=== PATIENT | male | born 1940 | race Caucasian/White ===

== ENCOUNTER 2017-01-09 01:49 | Inpatient (IN) | payer MEDICARE ==
[2017-01-09] VITALS (7 sets, daily range): BP systolic 132–194; BP diastolic 71–93; PULSE 80–93; RESP 16–18; TEMP 97.7–99.6; O2SAT 93–99
[~2017-01-09] VITALS: Ht 175.3 cm; Wt 84.7 kg
[~2017-01-09 01:49] MED LIST: ASPI81TA11 PO; CLON1TAB PO; COUM2TAB PO; COUM4TAB7 PO; EPIP0.3I IM; FLUO20TA20 PO; LOVA40TA PO; ROPI.5 PO; TAB-TAB PO; TAMS0.4C67 PO; VITA400C70 PO; VITA500S3 PO
[2017-01-09] MEDS ORDERED: ASPI-110 PO (02:21)
[2017-01-09] MEDS ORDERED: VITA500T49 PO (02:21)
[2017-01-09] MEDS ORDERED: FLUO20CA4 PO (02:21)
[2017-01-09] MEDS ORDERED: CARB25TA9 PO (02:21)
[2017-01-09] MEDS ORDERED: VITA100T2 (02:21)
[2017-01-09] MEDS ORDERED: TAMS0.4C4 PO (02:21)
[2017-01-09] MEDS ORDERED: HYDR-3533 PO (02:21)
[2017-01-09] MEDS ORDERED: VITA400C2 PO (02:21)
[2017-01-09] MEDS ORDERED: WARF4TAB51 PO (02:21)
[2017-01-09] MEDS ORDERED: GABA600T PO (02:21)
[2017-01-09] MEDS ORDERED: WARF-20 PO (02:21)
[2017-01-09] MEDS ORDERED: FINA5TAB2 PO (02:21)
[2017-01-09] MEDS ORDERED: VISICAP PO (02:21)
[2017-01-09] MEDS ORDERED: FOLI400T PO (02:21)
[2017-01-09] MEDS ORDERED: LOVA40TA PO (02:21)
--- NOTE | 2017-01-09 02:26 | PD ---
HPI Chief Complaint: Hypertension Time Seen by Provider: 02:15 Travel History International Travel<30 days: No Contact w/Intl Traveler<30days: No Traveled to known affect area: No History of Present Illness HPI 76-year-old male with history of chronic low back pain, here for evaluation of acute worsening of his lower back pain. The patient reports that he recently had x-rays of his low back and was told that he has degenerative disc disease. He went to a chiropractor recently, and afterwards his symptoms seem to have been worsening. He takes hydrocodone 5/325 at home, however states that this is not improving his pain. Pain is mainly over his lower back and radiates down his bilateral posterior legs. He denies urinary or bowel incontinence or retention. No saddle anesthesia. No leg weakness. No leg paresthesias. Pain is moderate, constant, worse with movement and palpation. Patient has history of lung cancer that was treated several years ago, and is currently in remission. PFSH Past Medical History Arthritis: No Asthma: No Autoimmune Disease: No Blood Disorders: No Anxiety: Yes Depression: Yes Heart Rhythm Problems: No Cancer: Yes (LUNG/ LOBECTOMY 2013) Cardiovascular Problems: Yes High Cholesterol: Yes Chemotherapy: No Chest Pain: No Congestive Heart Failure: No COPD: No Cerebrovascular Accident: Yes (CVA X 3) Diabetes: No Endocrine: No GERD: No Glaucoma: No Genitourinary: Yes Headaches: No Hepatitis: No Hiatal Hernia: No Hypertension: Yes Immune Disorder: No Implanted Vascular Access Dvce: Yes Kidney Stones: No Musculoskeletal: No Neurologic: Yes Psychiatric: Yes Reproductive: No Respiratory: Yes (RUL LUNG MASS) Migraines: No Myocardial Infarction: No Radiation Therapy: No Renal Failure: No Seizures: No Sickle Cell Disease: No Sleep Apnea: No Thyroid Disease: No Ulcer: No Past Surgical History Abdominal Surgery: Yes (AAA stent/ RIGHT LOBECTOMY) AICD: No Body Medical Devices: AAA STENT Cardiac Surgery: No Ear Surgery: No Endocrine Surgery: No Genitourinary Surgery: No Gynecologic Surgery: No Joint Replacement: No Oral Surgery: No Pacemaker: No Thoracic Surgery: Yes (R thorocotomy) Tonsillectomy: Yes Other Surgery: Yes (CAROTID ENDARTERECTOMY RIGHT JUL, 2012) Social History Alcohol Use: Yes (DAILY) Tobacco Use: No (4 years ago) Substance Use: No Allergies-Medications (Allergen,Severity, Reaction): Coded Allergies: Bees (Unverified Allergy, Severe, ANAPHYLACTIC SHOCK, 01/09/17) Fire Ant (Unverified Allergy, Severe, ANAPHYLAXIS.HIVES, 01/09/17) Penicillin (Verified Allergy, Severe, 01/09/17) Reported Meds & Prescriptions Reported Meds & Active Scripts Active Reported Carbidopa-Levodopa 25-100 Mg Tab 1 Tab PO HS Vitamin B-1 (Thiamine HCl) 100 Mg Tab Tamsulosin (Tamsulosin HCl) 0.4 Mg Cap 0.4 Mg PO HS Lortab (Hydrocodone-Acetaminophen) 5-325 Mg Tab 1 Tab PO Q6H PRN Gabapentin 600 Mg Tab 600 Mg PO TID Warfarin 2 Mg Tab 2 Mg PO WEEKLY PRN Warfarin 4 Mg Tab 4 Mg PO WEEKLY Finasteride 5 Mg Tab 5 Mg PO DAILY Do not crush. Aspirin 81 (Aspirin) 81 Mg Tabdr 81 Mg PO DAILY Folic Acid 400 Mcg Tab 400 Mcg PO DAILY Vitamin B12 (Cyanocobalamin) 500 Mcg Tab 5,000 Mcg PO DAILY Lovastatin 40 Mg Tab 40 Mg PO DAILY Fluoxetine (Fluoxetine HCl) 20 Mg Cap 20 Mg PO DAILY Vitamin E 400 Unit Cap 400 Units PO DAILY Vision Plus (Multiple Vitamins W/ Minerals) 1 Cap 1 Cap PO DAILY Review of Systems Except as stated in HPI: all other systems reviewed are Neg Physical Exam Narrative GENERAL: Well-developed, well-nourished, sitting comfortably on the edge of the stretcher, no acute distress. SKIN: Focused skin assessment warm/dry. No rash. HEAD: Atraumatic. Normocephalic. EYES: Pupils equal and round. No scleral icterus. No injection or drainage. ENT: Mucous membranes pink and moist. NECK: Trachea midline. No JVD. CARDIOVASCULAR: Regular rate and rhythm. Distal pulses brisk and equal bilaterally. RESPIRATORY: No accessory muscle use. Clear to auscultation. Breath sounds equal bilaterally. GASTROINTESTINAL: Abdomen soft, non-tender, nondistended. Hepatic and splenic margins not palpable. MUSCULOSKELETAL: No obvious deformities. No clubbing. No cyanosis. No edema. Midline lumbar spine tenderness without step-off. There is also bilateral SI joint tenderness. NEUROLOGICAL: Awake and alert. No obvious cranial nerve deficits. Motor grossly within normal limits. Normal speech. Brisk patellar tendon reflexes bilaterally. Normal sensation and muscle strength in bilateral lower extremities. No saddle anesthesia. PSYCHIATRIC: Appropriate mood and affect; insight and judgment normal. Data Data Last Documented VS Vital Signs Date Time Temp Pulse Resp B/P Pulse Ox O2 Delivery O2 Flow Rate FiO2 01/09/17 06:10 99 Room Air 01/09/17 03:42 87 18 144/77 01/09/17 01:51 97.7 Orders Morphine Inj (Morphine Inj) (01/09/17 02:30) Diazepam (Valium) (01/09/17 02:30) Ct Thor Spine W/O Contrast (01/09/17 ) Ct Lumb Spine W/O Contrast (01/09/17 ) Hydromorphone Pf Inj (Dilaudid Pf Inj) (01/09/17 04:45) Basic Metabolic Panel (Bmp) (01/09/17 05:27) Complete Blood Count With Diff (01/09/17 05:27) Prothrombin Time / Inr (Pt) (01/09/17 05:27) Act Partial Throm Time (Ptt) (01/09/17 05:27) Iv Access Insert/Monitor (01/09/17 05:27) Ecg Monitoring (01/09/17 05:27) Oximetry (01/09/17 05:27) Sodium Chloride 0.9% Flush (Ns Flush) (01/09/17 05:30) Mri L Spine W&W/O Contrast (01/09/17 ) Labs Laboratory Tests Test 01/09/17 06:10 White Blood Count 12.7 TH/MM3 Red Blood Count 5.16 MIL/MM3 Hemoglobin 16.4 GM/DL Hematocrit 47.3 % Mean Corpuscular Volume 91.7 FL Mean Corpuscular Hemoglobin 31.7 PG Mean Corpuscular Hemoglobin 34.6 % Concent Red Cell Distribution Width 14.1 % Platelet Count 222 TH/MM3 Mean Platelet Volume 7.2 FL Neutrophils (%) (Auto) 69.7 % Lymphocytes (%) (Auto) 18.3 % Monocytes (%) (Auto) 10.2 % Eosinophils (%) (Auto) 1.0 % Basophils (%) (Auto) 0.8 % Neutrophils # (Auto) 8.8 TH/MM3 Lymphocytes # (Auto) 2.3 TH/MM3 Monocytes # (Auto) 1.3 TH/MM3 Eosinophils # (Auto) 0.1 TH/MM3 Basophils # (Auto) 0.1 TH/MM3 CBC Comment DIFF FINAL Differential Comment Prothrombin Time 54.3 SEC Prothromb Time International 4.6 RATIO Ratio Activated Partial 67.1 SEC Thromboplast Time Sodium Level 140 MEQ/L Potassium Level 4.0 MEQ/L Chloride Level 107 MEQ/L Carbon Dioxide Level 25.7 MEQ/L Anion Gap 7 MEQ/L Blood Urea Nitrogen 19 MG/DL Creatinine 0.87 MG/DL Estimat Glomerular Filtration 86 ML/MIN Rate Random Glucose 105 MG/DL Calcium Level 8.9 MG/DL MDM Medical Decision Making Medical Screen Exam Complete: Yes Emergency Medical Condition: Yes Differential Diagnosis Chronic low back pain, degenerative disc disease, cord compression less likely, metastatic disease, sciatica, dissection unlikely Narrative Course Initial vital signs show heart rate 93, blood pressure 194/93, pulse ox 97% on room air, oral temp of 97.7F. Blood pressure improved to 144/[address] thoracic spine: FINDINGS: Sagittal images demonstrate normal vertebral body alignment and curvature. No fractures identified. Axial images performed from T1-T2 through T12-L1. There is multilevel marginal osteophyte formation throughout the thoracic spine. There is mild scoliotic deformity convex to the right. There are enlarged middle mediastinal nodes of uncertain significance. Coronary artery calcifications are present. CT lumbar spine: CONCLUSION: 1. Compression fracture superior endplate of L3 age uncertain. MRI could be performed to evaluate for marrow edema. 2. Mild degenerative changes as described above. Mild stenosis at L4-L5. 3. Moderate foraminal narrowing on the right at L4-L5 Patient was made aware of all findings. He is initially given a dose of IM morphine followed by a dose of IM Dilaudid. Given CT lumbar spine findings of possible L3 fracture of uncertain age with recommendation for an MRI, and given the patient's ongoing pain, MRI will be ordered. At approximately 7:00 AM at the end of my shift the patient was signed out to oncoming provider Dr. Ortiz who will follow-up with MRI results and will disposition the patient appropriately. Naman Alfredo MD Jan 09, 2017 02:26
[2017-01-09] MEDS ORDERED: MORPHINE SULFATE 8 MG/ML INJ IM ONE (02:30)
[2017-01-09] MEDS ORDERED: DIAZEPAM 5 MG TAB PO ONE ×2 (02:30→10:15)
--- NOTE | 2017-01-09 04:35 | RADRPT ---
EXAM DATE/TIME: 01/09/2017 03:17 [facility] COMPARISON: No previous studies available for comparison. INDICATIONS : Upper back pain. No known trauma. RADIATION DOSE: 35.86 CTDIvol (mGy) ; Combined studies - Thoracic Spine/Lumbar Spine MEDICAL HISTORY : Cardiovascular disease. Carcinoma, lung. CVA. SURGICAL HISTORY : Tonsillectomy. Abdominal aortic aneurysm repair.Lobectomy. ENCOUNTER: Initial ACUITY: 4 - 6 months PAIN SCALE: 6/10 LOCATION: thoracic. TECHNIQUE: Volumetric scanning of the thoracic spine was performed. Multiplanar reconstructions in the sagittal, coronal and oblique axial planes were performed. Using automated exposure control a nd adjustment of the mA and/or kV according to patient size, radiation dose was kept as low as reason ably achievable to obtain optimal diagnostic quality images. FINDINGS: Sagittal images demonstrate normal vertebral body alignment and curvature. No fractures identified. A xial images performed from T1-T2 through T12-L1. There is multilevel marginal osteophyte formation th roughout the thoracic spine. There is mild scoliotic deformity convex to the right. There are enlarge d middle mediastinal nodes of uncertain significance. Coronary artery calcifications are present. T1-T2: No significant abnormalities identified. T2-T3: No significant abnormalities identified. T3-T4: No significant abnormalities identified. T4-T5: No significant abnormalities identified. T5-T6: No significant abnormalities identified. T6-T7: No significant abnormalities identified. T7-T8: No significant abnormalities identified. T8-T9: No significant abnormalities identified. T9-T10: No significant abnormalities identified. T10-T11: No significant abnormalities identified. T11-T12: No significant abnormalities identified. T12-L1: No significant abnormalities identified. CONCLUSION: Moderate degenerative changes as described above.. No evidence of fracture. Jose Alejandro Joel MD on January 09, 2017 at 4:30 Board Certified Radiologist. This report was verified electronically.
--- NOTE | 2017-01-09 04:41 | RADRPT ---
EXAM DATE/TIME: 01/09/2017 03:17 [facility] COMPARISON: No previous studies available for comparison. INDICATIONS : Lower back pain. No known trauma. RADIATION DOSE: 35.86 CTDIvol (mGy) ; Combined studies - Thoracic Spine/Lumbar Spine MEDICAL HISTORY : Cardiovascular disease. Carcinoma, lung. CVA. SURGICAL HISTORY : Tonsillectomy. Lobectomy.Abdominal aortic aneurysm repair. ENCOUNTER: Initial ACUITY: 4 - 6 months PAIN SCALE: 6/10 LOCATION: lumbar TECHNIQUE: Volumetric scanning of the lumbar spine was performed. Multiplanar reconstructions in the sagittal, coronal and oblique axial planes were performed. Using automated exposure control and adjustment of the mA and/or kV according to patient size, radiation dose was kept as low as reasonably achievable t o obtain optimal diagnostic quality images. FINDINGS: Sagittal images demostrate normal vertebral body alignment and curvature. There is compression of the L3 vertebral body involving the superior endplate. Age is uncertain. MRI is recommended for further evaluation if clinically indicated.. Axial images performed from T12-L1 through L5-S1. Aortic stent g raft is in place. There is a single stone within the left kidney without hydronephrosis measuring 4 m m. T12-L1: No significant abnormalities identified. L1-L2: No significant abnormalities identified. L2-L3: There is mild diffuse annular bulge of the disc. The neural foramina are clear bilaterally. There is no significant spinal canal stenosis. L3-L4: There is broad-based annular bulge of disc. There is mild facet arthritis and ligamentum flavum hyper trophy bilaterally. There is no evidence of acute fracture. L4-L5: There is broad-based annular bulge of disc asymmetric to the right. There is mild spinal canal stenos is. L5-S1: There is mild annular bulge of the disc. There is moderate facet arthritis bilaterally with ligamentu m flavum hypertrophy. The neural foramina are clear bilaterally. CONCLUSION: 1. Compression fracture superior endplate of L3 age uncertain. MRI could be performed to evaluate for marrow edema. 2. Mild degenerative changes as described above. Mild stenosis at L4-L5. 3. Moderate foraminal narrowing on the right at L4-L5 Jose Alejandro Joel MD on January 09, 2017 at 4:33 Board Certified Radiologist. This report was verified electronically.
[2017-01-09] MEDS ORDERED: HYDROmorphone HCL PF 1 MG/ML VIAL IM ONE (04:45)
[2017-01-09] MEDS ORDERED: SODIUM CHLORIDE 0.9% FLUSH 10 ML FLUSH IV FLUSH PRN ×2 (05:30→10:30)
[2017-01-09 06:25] LABS: AUTOMATED NEUTROPHIL # 8.8 TH/MM3 (1.8-7.7); BASOPHIL # 0.1 TH/MM3 (0-0.2); BASOPHIL % 0.8 % (0.0-2.0); EOSINOPHIL # 0.1 TH/MM3 (0-0.4); HEMATOCRIT 47.3 % (39.0-51.0); HEMO FLAGS DIFF FINAL; LYMPH % 18.3 % (9.0-44.0); LYMPHOCYTE # 2.3 TH/MM3 (1.0-4.8); MEAN CELL VOLUME 91.7 FL (80.0-100.0); MEAN CORPUSCULAR HEMOGLOBIN 31.7 PG (27.0-34.0); MEAN CORPUSCULAR HGB CONC 34.6 % (32.0-36.0); MONO % 10.2 % (0.0-8.0); NEUT % 69.7 % (16.0-70.0); PLATELET COUNT 222 TH/MM3 (150-450); RED BLOOD COUNT 5.16 MIL/MM3 (4.50-5.90); RED CELL DISTRIBUTION WIDTH 14.1 % (11.6-17.2); WHITE BLOOD COUNT 12.7 TH/MM3 (4.0-11.0)
[2017-01-09 06:38] LABS: APTT (PATIENT) 67.1 SEC (24.3-30.1); INTERNATIONAL NORMALIZED RATIO 4.6 RATIO; PROTHROMBIN TIME - PATIENT 54.3 SEC (9.8-11.6)
[2017-01-09 06:43] LABS: BICARBONATE 25.7 MEQ/L (21.0-32.0)
--- NOTE | 2017-01-09 07:43 | PD ---
Data Data Last Documented VS Vital Signs Date Time Temp Pulse Resp B/P Pulse Ox O2 Delivery O2 Flow Rate FiO2 01/09/17 07:22 18 01/09/17 06:10 99 Room Air 01/09/17 03:42 87 144/77 01/09/17 01:51 97.7 Orders Morphine Inj (Morphine Inj) (01/09/17 02:30) Diazepam (Valium) (01/09/17 02:30) Ct Thor Spine W/O Contrast (01/09/17 ) Ct Lumb Spine W/O Contrast (01/09/17 ) Hydromorphone Pf Inj (Dilaudid Pf Inj) (01/09/17 04:45) Basic Metabolic Panel (Bmp) (01/09/17 05:27) Complete Blood Count With Diff (01/09/17 05:27) Prothrombin Time / Inr (Pt) (01/09/17 05:27) Act Partial Throm Time (Ptt) (01/09/17 05:27) Iv Access Insert/Monitor (01/09/17 05:27) Ecg Monitoring (01/09/17 05:27) Oximetry (01/09/17 05:27) Sodium Chloride 0.9% Flush (Ns Flush) (01/09/17 05:30) Mri L Spine W&W/O Contrast (01/09/17 ) Gadodiamide Pf Inj (Omniscan Pf Inj) (01/09/17 08:34) Hydromorphone Pf Inj (Dilaudid Pf Inj) (01/09/17 10:15) Acetamin-Hydrocod 325-5 Mg ([place] 5-325 (01/09/17 10:15) Diazepam (Valium) (01/09/17 10:15) Consult Neurosurgery (01/09/17 ) Labs Laboratory Tests Test 01/09/17 06:10 White Blood Count 12.7 TH/MM3 Red Blood Count 5.16 MIL/MM3 Hemoglobin 16.4 GM/DL Hematocrit 47.3 % Mean Corpuscular Volume 91.7 FL Mean Corpuscular Hemoglobin 31.7 PG Mean Corpuscular Hemoglobin 34.6 % Concent Red Cell Distribution Width 14.1 % Platelet Count 222 TH/MM3 Mean Platelet Volume 7.2 FL Neutrophils (%) (Auto) 69.7 % Lymphocytes (%) (Auto) 18.3 % Monocytes (%) (Auto) 10.2 % Eosinophils (%) (Auto) 1.0 % Basophils (%) (Auto) 0.8 % Neutrophils # (Auto) 8.8 TH/MM3 Lymphocytes # (Auto) 2.3 TH/MM3 Monocytes # (Auto) 1.3 TH/MM3 Eosinophils # (Auto) 0.1 TH/MM3 Basophils # (Auto) 0.1 TH/MM3 CBC Comment DIFF FINAL Differential Comment Prothrombin Time 54.3 SEC Prothromb Time International 4.6 RATIO Ratio Activated Partial 67.1 SEC Thromboplast Time Sodium Level 140 MEQ/L Potassium Level 4.0 MEQ/L Chloride Level 107 MEQ/L Carbon Dioxide Level 25.7 MEQ/L Anion Gap 7 MEQ/L Blood Urea Nitrogen 19 MG/DL Creatinine 0.87 MG/DL Estimat Glomerular Filtration 86 ML/MIN Rate Random Glucose 105 MG/DL Calcium Level 8.9 MG/DL MDM Supervised Visit with ALAINA: No Narrative Course Patient signed out to me by previous provider. Please see associated no for further details. In short patient is a 76-year-old male with acute on chronic low back pain and remote history of lung cancer status post resection. In previous provider had concern for possible metastases given his worsening pain. CT of the thoracic and lumbar spine were obtained and showed compression fracture of the superior endplate of L3, age uncertain. Given patient's pain and MRI was ordered to evaluate for any marrow edema. Patient does not however have any bowel, bladder incontinence or retention, saddle anesthesia, leg weakness or paresthesias. Patient signed out to me pending MRI for hopeful disposition home. Laboratory workup notable for INR supratherapeutic at 4.6. MRI of the lumbar spine showed a superior endplate fracture of L3 with mild compression. Neuroforaminal compromise and bilateral compromise L4 5 without significant thecal sac stenosis. Effacement anterior CSF space at L2-3 due to bulging disks with compromise to the anterior CSF space no thecal sac stenosis. I spoke with Dr. Pope of neurosurgery and due to patient's persistent pain requirement, recommended admission for kyphoplasty if patient was agreeable. Discussed with patient and his . Patient still quite uncomfortable required repeat doses of Dilaudid, [place], Valium. Patient will be admitted for kyphoplasty. Diagnosis Primary Impression: L3 vertebral fracture Qualified Code: S32.038A - Other closed fracture of third lumbar vertebra, initial encounter Additional Impression: Supratherapeutic INR Admitting Information Admitting Physician Requests: Admit Jaquelin Ortiz MD Jan 09, 2017 07:43
[2017-01-09] MEDS ORDERED: GADODIAMIDE PF 287 MG/ML 20 ML VIAL (for RAD MRI) IV ONE (08:34)
--- NOTE | 2017-01-09 09:16 | RADRPT ---
EXAM DATE/TIME: 01/09/2017 08:15 [facility] COMPARISON: CT LUMBAR SPINE W/O CONTRAST, January 09, 2017, 3:17. INDICATIONS : Pain. CONTRAST: 20 cc Omniscan (gadodiamide) IV MEDICAL HISTORY : Hypertension. Carcinoma, lung. SURGICAL HISTORY : Lobectomy. Carotid endarterectomy. Abdominal aortic aneurysm repair. ENCOUNTER: Initial ACUITY: 1 day PAIN SCORE: 7/10 LOCATION: Par[facility] TECHNIQUE: Multiplanar multisequence MRI of the lumbar spine was performed with and without contrast. FINDINGS: The most caudal appearing lumbar vertebra is numbered as L5. There is fracture of superior endplate o f L3 with mild depression and slight marrow edema at this site. 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 T12-L1: There is no evidence for any significant compromise to the thecal sac, or the exiting nerve roots. N o appreciable thecal sac stenosis is seen. The neural foramina and lateral recess appear patent bila terally.L1-L2: There is no evidence for any significant compromise to the thecal sac, or the exiting nerve roots. N o appreciable thecal sac stenosis is seen. The neural foramina and lateral recess appear patent bila terally. L2-L3: There is effacement of the anterior CSF space due to chronic hypertrophic changes, some degree of bul ging disc with compromise to the anterior CSF space, however overall no significant thecal sac stenos is is seen. L3-L4: There is symmetrical bulging disc with extension into the bilateral neural foramen. There is no evide nce for any significant compromise to the thecal sac, or the exiting nerve roots. No appreciable the genie sac stenosis is seen. The neural foramina and lateral recess appear patent bilaterally. L4-L5: There is slight neural foramina compromise bilaterally due to bulging disc and hypertrophic changes. Slight degenerative changes are seen within the disc space and facets. Slight bilateral lateral reces s compromise is seen due to hypertrophic changes and bulging disc. Slight bulging disc and hypertroph ic changes are seen with indentation on the thecal sac and no significant compromise to the thecal sa c. L5-S1: There is no evidence for any significant compromise to the thecal sac, or the exiting nerve roots. N o appreciable thecal sac stenosis is seen. The neural foramina and lateral recess appear patent bila terally. CONCLUSION: 1. Superior endplate fracture of L3 with mild depression at this site. 2. Slight neural foramina compromise and bilateral atelectasis compromise L4-L5 without any significa nt thecal sac stenosis. 3. There is effacement of the anterior CSF space at L2-3 due to bulging disc with compromise to the a nterior CSF space, however overall no significant thecal sac stenosis is seen. Shanon Conte MD on January 09, 2017 at 9:02 Board Certified Radiologist. This report was verified electronically.
[2017-01-09] MEDS ORDERED: HYDROmorphone HCL PF 1 MG/ML VIAL IV PUSH ONE (10:15)
[2017-01-09] MEDS ORDERED: ACETAMINOPHEN/HYDROcodone 325 MG/5 MG TAB PO ONE (10:15)
[2017-01-09] MEDS ORDERED: ACETAMINOPHEN 325 MG TAB PO PRN (10:30)
[2017-01-09] MEDS ORDERED: ACETAMINOPHEN/HYDROcodone 325 MG/5 MG TAB PO PRN ×2 (10:30→20:30)
[2017-01-09] MEDS ORDERED: HYDROmorphone HCL PF 1 MG/ML VIAL IV PUSH PRN (10:30)
[2017-01-09] MEDS ORDERED: NALOXONE HCL 0.4 MG/ML AMP IV PRN (10:30)
[2017-01-09] MEDS ORDERED: ONDANSETRON HCL 4 MG/2 ML VIAL IVP PRN (10:30)
[2017-01-09] MEDS ORDERED: TEMAZEPAM 15 MG CAP PO PRN (10:30)
[2017-01-09] MEDS ORDERED: MAGNESIUM HYDROXIDE SUSP 30 ML CUP PO PRN (10:30)
--- NOTE | 2017-01-09 11:10 | RADRPT ---
EXAM DATE/TIME: 01/09/2017 10:28 [facility] COMPARISON: CHEST SINGLE AP, December 07, 2013, 4:35. INDICATIONS : Chest and back pain. MEDICAL HISTORY : None. SURGICAL HISTORY : None. ENCOUNTER: Initial ACUITY: 1 day PAIN SCORE: 5/10 LOCATION: Bilateral chest FINDINGS: Bibasilar opacities are present may be due to a combination of consolidation and or pleural effusion. Slight degree of pulmonary edema is also suspected. There are atherosclerotic calcifications of the aorta due to chronic atherosclerotic disease. CONCLUSION: Bibasilar atelectasis and/or infiltrate and probable mild pulmonary edema as well. Shanon Conte MD on January 09, 2017 at 11:07 Board Certified Radiologist. This report was verified electronically.
[2017-01-09] MEDS: DOCUSATE SODIUM 100 MG CAP PO SCH ×3 (11:32→20:35)
[2017-01-09] MEDS: GABAPENTIN 300 MG CAP PO SCH ×2 (14:01→16:16)
--- NOTE | 2017-01-09 17:44 | HHI.HP ---
HPI Service [facility] Hospitalists Primary Care Physician Non-Staff Admission Diagnosis L3 superior end plate fracture Chief Complaint: LBP Travel History International Travel<30 Days: No Contact w/Intl Traveler <30 Da: No Traveled to Known Affected Are: No History of Present Illness Patient is a pleasant 76-year-old male with history of lung cancer, status post resection. Patient presented to the ER today with complaint of acute low back pain. Pain has been worsening over the last several weeks, but more acute this morning making it difficult to ambulate. Patient tried chiropractic medicine without improvement. Pain does not resolve with hydrocodone 5 mg. Patient denied bowel or bladder incontinence or retention. MRI of the lumbar spine confirmed L3 compression fracture. Case was discussed between ER physician and Dr. Pope. Dr. Pope recommended admission for kyphoplasty. Review of Systems Constitutional: DENIES: Diaphoretic episodes, Fatigue, Fever, Weight gain, Weight loss, Chills, Dizziness, Change in appetite, Night Sweats Endocrine: DENIES: Heat/cold intolerance, Polydipsia, Polyuria, Polyphagia Eyes: DENIES: Blurred vision, Diplopia, Eye inflammation, Eye pain, Vision loss , Photosensitivity, Double Vision Ears, nose, mouth, throat: DENIES: Tinnitus, Hearing loss, Vertigo, Nasal discharge, Oral lesions, Throat pain, Hoarseness, Ear Pain, Running Nose, Epistaxis, Sinus Pain, Toothache, Odynophagia Respiratory: DENIES: Apneas, Cough, Snoring, Wheezing, Hemoptysis, Sputum production, Shortness of breath Cardiovascular: DENIES: Chest pain, Palpitations, Syncope, Dyspnea on Exertion , PND, Lower Extremity Edema, Orthopnea, Claudication Gastrointestinal: DENIES: Abdominal pain, Black stools, Bloody stools, BRB per rectum, Constipation, Diarrhea, GERD, Nausea, Reflux, Vomiting, Difficulty Swallowing, Anorexia Genitourinary: DENIES: Urinary frequency, Urinary incontinence, Urgency, Hematuria, Dysuria, Nocturia Musculoskeletal: DENIES: Joint pain, Muscle aches, Stiffness, Joint Swelling, Back pain, Neck pain Integumentary: DENIES: Abnormal pigmentation, Nail changes, Pruritus, Rash Hematologic/lymphatic: DENIES: Bruising, Lymphadenopathy Immunologic/allergic: DENIES: Eczema, Urticaria Neurologic: COMPLAINS OF: Abnormal gait, DENIES: Headache, Localized weakness , Paresthesias, Seizures, Speech Problems, Tremor, Poor Balance Psychiatric: DENIES: Anxiety, Confusion, Mood changes, Depression, Hallucinations, Agitation, Suicidal Ideation, Homicidal Ideation, Delusions, History of Bipolar, History of Schizophrenia Past Family Social History Past Medical History Atrial arrhytmia (On chronic anticoagulant therapy.) Carotid artery stenosis COPD HTN Stroke? R lung cancer, s/p resection RLS BPH Past Surgical History AAA s/p stent Tonsillectomy RULobectomy in 2013 Colonoscopy in 2011 R carotid endarterectomy in 2011 Reported Medications Reported Meds & Active Scripts Active Reported Carbidopa-Levodopa 25-100 Mg Tab 1 Tab PO HS Vitamin B-1 (Thiamine HCl) 100 Mg Tab Tamsulosin (Tamsulosin HCl) 0.4 Mg Cap 0.4 Mg PO BID Lortab (Hydrocodone-Acetaminophen) 5-325 Mg Tab 1 Tab PO Q6H PRN Gabapentin 600 Mg Tab 600 Mg PO TID Warfarin 2 Mg Tab 2 Mg PO WEEKLY PRN Warfarin 4 Mg Tab 4 Mg PO WEEKLY Finasteride 5 Mg Tab 5 Mg PO DAILY Do not crush. Aspirin 81 (Aspirin) 81 Mg Tabdr 81 Mg PO DAILY Folic Acid 400 Mcg Tab 400 Mcg PO DAILY Vitamin B12 (Cyanocobalamin) 500 Mcg Tab 5,000 Mcg PO DAILY Lovastatin 40 Mg Tab 40 Mg PO DAILY Fluoxetine (Fluoxetine HCl) 20 Mg Cap 20 Mg PO DAILY Vitamin E 400 Unit Cap 400 Units PO DAILY Vision Plus (Multiple Vitamins W/ Minerals) 1 Cap 1 Cap PO DAILY Allergies: Coded Allergies: Bees (Unverified Allergy, Severe, ANAPHYLACTIC SHOCK, 01/09/17) Fire Ant (Unverified Allergy, Severe, ANAPHYLAXIS.HIVES, 01/09/17) Penicillin (Verified Allergy, Severe, 01/09/17) Family History Noncontributory Social History - occasional alcoholic beverage - former smoker, pt quit smoking 4 years ago - NO illicit street drugs Physical Exam Vital Signs Vital Signs Date Time Temp Pulse Resp B/P Pulse Ox O2 Delivery O2 Flow Rate FiO2 01/09/17 15:46 99.6 88 18 139/71 93 01/09/17 15:16 72 18 132/74 96 01/09/17 12:08 18 01/09/17 11:36 82 18 136/78 98 Room Air 01/09/17 07:30 80 18 148/76 97 Room Air 01/09/17 07:22 18 01/09/17 06:10 99 Room Air 01/09/17 03:42 87 18 144/77 99 Room Air 01/09/17 01:51 97.7 93 16 194/93 97 Room Air Physical Exam GENERAL: This is a well-nourished, well-developed patient, in no apparent distress. SKIN: No rashes, ecchymoses or lesions. Cool and dry. HEAD: Atraumatic. Normocephalic. No temporal or scalp tenderness. EYES: Pupils equal round and reactive. Extraocular motions intact. No scleral icterus. No injection or drainage. ENT: Nose without bleeding, purulent drainage or septal hematoma. Throat without erythema, tonsillar hypertrophy or exudate. Uvula midline. Airway patent. NECK: Trachea midline. No JVD or lymphadenopathy. Supple, nontender, no meningeal signs. CARDIOVASCULAR: Regular rate and rhythm without murmurs, gallops, or rubs. RESPIRATORY: Clear to auscultation. Breath sounds equal bilaterally. No wheezes , rales, or rhonchi. GASTROINTESTINAL: Abdomen soft, non-tender, nondistended. No hepato-splenomegaly , or palpable masses. No guarding. MUSCULOSKELETAL: Extremities without clubbing, cyanosis, or edema. No joint tenderness, effusion, or edema noted. No calf tenderness. Negative Homans sign bilaterally. NEUROLOGICAL: Awake and alert. Cranial nerves II through XII intact. Motor and sensory grossly within normal limits. Five out of 5 muscle strength in all muscle groups. Normal speech. Laboratory Laboratory Tests Test 01/09/17 06:10 White Blood Count 12.7 Red Blood Count 5.16 Hemoglobin 16.4 Hematocrit 47.3 Mean Corpuscular Volume 91.7 Mean Corpuscular Hemoglobin 31.7 Mean Corpuscular Hemoglobin 34.6 Concent Red Cell Distribution Width 14.1 Platelet Count 222 Mean Platelet Volume 7.2 Neutrophils (%) (Auto) 69.7 Lymphocytes (%) (Auto) 18.3 Monocytes (%) (Auto) 10.2 Eosinophils (%) (Auto) 1.0 Basophils (%) (Auto) 0.8 Neutrophils # (Auto) 8.8 Lymphocytes # (Auto) 2.3 Monocytes # (Auto) 1.3 Eosinophils # (Auto) 0.1 Basophils # (Auto) 0.1 CBC Comment DIFF FINAL Differential Comment Prothrombin Time 54.3 Prothromb Time International 4.6 Ratio Activated Partial 67.1 Thromboplast Time Sodium Level 140 Potassium Level 4.0 Chloride Level 107 Carbon Dioxide Level 25.7 Anion Gap 7 Blood Urea Nitrogen 19 Creatinine 0.87 Estimat Glomerular Filtration 86 Rate Random Glucose 105 Calcium Level 8.9 Result Diagram: 01/09/17 0610 01/09/17 0610 Imaging Last Impressions Chest X-Ray 01/09/17 1016 Signed Impressions: Service Date/Time: Monday, January 09, 2017 10:28 - CONCLUSION: Bibasilar atelectasis and/or infiltrate and probable mild pulmonary edema as well. Shanon Conte MD Thoracic Spine CT 01/09/17 0000 Signed Impressions: Service Date/Time: Monday, January 09, 2017 03:17 - CONCLUSION: Moderate degenerative changes as described above.. No evidence of fracture. Jose Alejandro Joel MD Lumbar Spine MRI 01/09/17 0000 Signed Impressions: Service Date/Time: Monday, January 09, 2017 08:15 - CONCLUSION: 1. Superior endplate fracture of L3 with mild depression at this site. 2. Slight neural foramina compromise and bilateral atelectasis compromise L4-L5 without any significant thecal sac stenosis. 3. There is effacement of the anterior CSF space at L2-3 due to bulging disc with compromise to the anterior CSF space, however overall no significant thecal sac stenosis is seen. Shanon Conte MD Lumbar Spine CT 01/09/17 0000 Signed Impressions: Service Date/Time: Monday, January 09, 2017 03:17 - CONCLUSION: 1. Compression fracture superior endplate of L3 age uncertain. MRI could be performed to evaluate for marrow edema. 2. Mild degenerative changes as described above. Mild stenosis at L4-L5. 3. Moderate foraminal narrowing on the right at L4-L5 Jose Alejandro Joel MD Septic Shock Reassessment Heart: Regular rate and rhythm Lungs: Clear Skin: Warm Peripheral Pulses: Bounding Right Radial Bounding Left Radial Bounding Right Popliteal Bounding Left Popliteal Bounding Right Dorsalis Pedis Bounding Left Dorsalis Pedis Bounding Right Posterior Tibial Bounding Left Posterior Tibial Capillary Refill: Brisk Assessment and Plan Problem List: (1) L3 vertebral fracture Status: Acute Plan: - case d/w Dr. Pope (01/09/17) - will reverse coumadin with Vitamin K - repeat INR in AM - kyphoplasty once INR decreased - PT - norco/dilaudid prn - pt will need SNF at the end of this hospitalization (2) Atrial fibrillation, chronic Status: Acute Plan: - metoprolol - coumadin, hold (3) COPD (chronic obstructive pulmonary disease) Status: Acute Plan: - duonebs prn (4) Lung cancer Status: Acute Plan: - s/p resection - pt follows with Dr. Yin (5) HTN (hypertension) Status: Chronic Plan: - stable - metoprolol Physician Certification 2 Midnight Certification Type: Admission for Inpatient Services Order for Inpatient Services The services are ordered in accordance with Medicare regulations or non- Medicare payer requirements, as applicable. In the case of services not specified as inpatient-only, they are appropriately provided as inpatient services in accordance with the 2-midnight benchmark. Estimated LOS (days): 3 3 days is the estimated time the patient will need to remain in the hospital, assuming treatment plan goals are met and no additional complications. Post-Hospital Plan: SNF Problem Qualifiers (1) L3 vertebral fracture: Qualified Code: S32.038A - Other closed fracture of third lumbar vertebra, initial encounter (2) COPD (chronic obstructive pulmonary disease): (3) Lung cancer: Qualified Code: C34.90 - Malignant neoplasm of lung, unspecified laterality, unspecified part of lung (4) HTN (hypertension): Qualified Code: I10 - Essential hypertension Yung Domingo DO Jan 09, 2017 17:44
[2017-01-09] MEDS ORDERED: PHYTONADIONE 5 MG TAB PO ONE (17:45)
[2017-01-09] MEDS ORDERED: RESP: ALBUTEROL 2.5 MG/IPRATROPIUM 0.5 MG NEB (PRN) NEB (17:45)
--- NOTE | 2017-01-09 18:36 | PD.CONS ---
[facility] Service Neurosurgery Consult Requested By [place] Reason for Consult Lumbar fracture Primary Care Physician Non-Staff History of Present Illness This is a 76-year-old male with history of COPD, Atrial arrhytmia (On chronic anticoagulant therapy.),Carotid artery stenosis, HTN and lung cancer, status post resection. He presented to the ER today with complaint of new nset of acute , very severe low back pain. He fell down. His pain has been worsening over the last week, but more acute this morning making it difficult to ambulate. It is sharp, stabbing, in his mid lumbar region. 07/05 He tried chiropractic and pain medications without improvement. It does not resolve with hydrocodone. He denied bowel or bladder incontinence or retention. denies sensory loss. MRI of the lumbar spine confirmed an acute L3 compression fracture. Case was discussed between ER physician and Dr. Pope. Neurosurgical consultation was requested Review of Systems Constitutional: DENIES: Diaphoretic episodes, Fatigue, Fever, Weight gain, Weight loss, Chills, Dizziness, Change in appetite, Night Sweats Endocrine: DENIES: Heat/cold intolerance, Polydipsia, Polyuria, Polyphagia Eyes: DENIES: Blurred vision, Diplopia, Eye inflammation, Eye pain, Vision loss , Photosensitivity, Double Vision Ears, nose, mouth, throat: DENIES: Tinnitus, Hearing loss, Vertigo, Nasal discharge, Oral lesions, Throat pain, Hoarseness, Ear Pain, Running Nose, Epistaxis, Sinus Pain, Toothache, Odynophagia Respiratory: DENIES: Apneas, Cough, Snoring, Wheezing, Hemoptysis, Sputum production, Shortness of breath Cardiovascular: DENIES: Chest pain, Palpitations, Syncope, Dyspnea on Exertion , PND, Lower Extremity Edema, Orthopnea, Claudication Gastrointestinal: DENIES: Abdominal pain, Black stools, Bloody stools, BRB per rectum, Constipation, Diarrhea, GERD, Nausea, Reflux, Vomiting, Difficulty Swallowing, Anorexia Genitourinary: DENIES: Urinary frequency, Urinary incontinence, Urgency, Hematuria, Dysuria, Nocturia Musculoskeletal: DENIES: Joint pain, Muscle aches, Stiffness, Joint Swelling, Back pain, Neck pain Integumentary: DENIES: Abnormal pigmentation, Nail changes, Pruritus, Rash Hematologic/lymphatic: DENIES: Bruising, Lymphadenopathy Immunologic/allergic: DENIES: Eczema, Urticaria Neurologic: COMPLAINS OF: Abnormal gait, DENIES: Headache, Localized weakness , Paresthesias, Seizures, Speech Problems, Tremor, Poor Balance Psychiatric: DENIES: Anxiety, Confusion, Mood changes, Depression, Hallucinations, Agitation, Suicidal Ideation, Homicidal Ideation, Delusions, History of Bipolar, History of Schizophrenia Past Family Social History Allergies: Coded Allergies: Bees (Unverified Allergy, Severe, ANAPHYLACTIC SHOCK, 01/09/17) Fire Ant (Unverified Allergy, Severe, ANAPHYLAXIS.HIVES, 01/09/17) Penicillin (Verified Allergy, Severe, 01/09/17) Past Medical History Atrial arrhytmia (On chronic anticoagulant therapy.) Carotid artery stenosis COPD HTN Stroke? R lung cancer, s/p resection RLS BPH Past Surgical History AAA s/p stent Tonsillectomy RULobectomy in 2013 Colonoscopy in 2011 R carotid endarterectomy in 2011 Reported Medications Carbidopa-Levodopa 25-100 Mg Tab 1 Tab PO HS Vitamin B-1 (Thiamine HCl) 100 Mg Tab Tamsulosin (Tamsulosin HCl) 0.4 Mg Cap 0.4 Mg PO BID Lortab (Hydrocodone-Acetaminophen) 5-325 Mg Tab 1 Tab PO Q6H PRN Gabapentin 600 Mg Tab 600 Mg PO TID Warfarin 2 Mg Tab 2 Mg PO WEEKLY PRN Warfarin 4 Mg Tab 4 Mg PO WEEKLY Finasteride 5 Mg Tab 5 Mg PO DAILY Do not crush. Aspirin 81 (Aspirin) 81 Mg Tabdr 81 Mg PO DAILY Folic Acid 400 Mcg Tab 400 Mcg PO DAILY Vitamin B12 (Cyanocobalamin) 500 Mcg Tab 5,000 Mcg PO DAILY Lovastatin 40 Mg Tab 40 Mg PO DAILY Fluoxetine (Fluoxetine HCl) 20 Mg Cap 20 Mg PO DAILY Vitamin E 400 Unit Cap 400 Units PO DAILY Vision Plus (Multiple Vitamins W/ Minerals) 1 Cap 1 Cap PO DAILY Active Ordered Medications Current Medications Morphine Sulfate (Morphine Inj) 8 mg ONCE ONCE IM Last administered on 02:45; Start 01/09/17 at 02:30; Stop 01/09/17 at 02:31; Status DC Diazepam (Valium) 5 mg ONCE ONCE PO Last administered on 01/09/17 02:45; Start 01/09/17 at 02:30; Stop 01/09/17 at 02:31; Status DC Hydromorphone HCl (Dilaudid Pf Inj) 1 mg ONCE ONCE IM Last administered on 04:43; Start 01/09/17 at 04:45; Stop 01/09/17 at 04:46; Status DC Sodium Chloride (NS Flush) 2 ml UNSCH PRN IV FLUSH FLUSH AFTER USING IV ACCESS ; Start 01/09/17 at 05:30; Stop 01/09/17 at 10:21; Status DC Gadodiamide (Omniscan Pf Inj) 20 ml STK-MED ONCE IV Last administered on 08:34; Start 01/09/17 at 08:34; Stop 01/09/17 at 08:35; Status DC Hydromorphone HCl (Dilaudid Pf Inj) 0.5 mg ONCE ONCE IV PUSH Last administered on 01/09/17 11:31; Start 01/09/17 at 10:15; Stop 01/09/17 at 10:16 ; Status DC Acetaminophen/ Hydrocodone Bitart ([place] 5-325 Mg) 1 tab ONCE ONCE PO Last administered on 01/09/17 11:31; Start 01/09/17 at 10:15; Stop 01/09/17 at 10:16 ; Status DC Diazepam (Valium) 5 mg ONCE ONCE PO Last administered on 01/09/17 11:32; Start 01/09/17 at 10:15; Stop 01/09/17 at 10:16; Status DC Sodium Chloride (NS Flush) 2 ml UNSCH PRN IV FLUSH FLUSH AFTER USING IV ACCESS ; Start 01/09/17 at 10:30 Sodium Chloride (NS Flush) 2 ml BID IV FLUSH Last administered on 01/10/17 08: 47; Start 01/09/17 at 21:00 Acetaminophen (Tylenol) 650 mg Q4H PRN PO TEMP > 100.4; Start 01/09/17 at 10:30 Ondansetron HCl (Zofran Inj) 4 mg Q6H PRN IVP NAUSEA OR VOMITING; Start at 10:30 Magnesium Hydroxide (Milk Of Magnesia Liq) 30 ml Q12H PRN PO CONSTIPATION; Start 01/09/17 at 10:30 Temazepam (Restoril) 15 mg HS PRN PO INSOMNIA Last administered on 01/09/17 23 :08; Start 01/09/17 at 10:30 Naloxone HCl (Narcan Inj) 0.4 mg UNSCH PRN IV SEE LABEL COMMENTS; Start at 10:30 Acetaminophen/ Hydrocodone Bitart ([place] 5-325 Mg) 1 tab Q6H PRN PO PAIN 1-5; Start 01/09/17 at 10:30; Stop 01/09/17 at 18:02; Status DC Hydromorphone HCl (Dilaudid Pf Inj) 0.5 mg Q6H PRN IV PUSH PAIN 6-10 Last administered on 01/09/17 16:17; Start 01/09/17 at 10:30; Stop 01/09/17 at 18:02 ; Status DC Docusate Sodium (Colace) 100 mg BID PO Last administered on 01/09/17 20:35; Start 01/09/17 at 11:00; Stop 01/10/17 at 08:51; Status DC Carbidopa/Levodopa (Sinemet 25-100 Mg) 1 tab HS PO Last administered on 20:36; Start 01/09/17 at 21:00 Finasteride (Proscar) 5 mg HS PO Last administered on 01/09/17 20:36; Start at 21:00 Fluoxetine HCl (PROzac) 20 mg DAILY PO Last administered on 01/10/17 08:49; Start 01/10/17 at 09:00 Gabapentin (Neurontin) 600 mg TID PO Last administered on 01/10/17 08:47; Start 01/09/17 at 13:00 Pravastatin Sodium (Pravachol) 40 mg DAILY PO Last administered on 01/10/17 08 :50; Start 01/10/17 at 09:00 Aspirin (Ecotrin Ec) 81 mg DAILY PO Last administered on 01/10/17 08:49; Start 01/10/17 at 09:00 Tamsulosin HCl (Flomax) 0.4 mg BID PO Last administered on 01/10/17 08:48; Start 01/09/17 at 21:00 Phytonadione (Mephyton) 5 mg ONCE ONCE PO Last administered on 01/09/17 18:06 ; Start 01/09/17 at 17:45; Stop 01/09/17 at 17:46; Status DC Albuterol/ Ipratropium (Duoneb Neb) 1 ampule Q6HR NEB PRN NEB SOB/WHEEZING; Start 01/09/17 at 17:45 Acetaminophen/ Hydrocodone Bitart ([place] 5-325 Mg) 1 tab Q4H PRN PO PAIN 1-5 Last administered on 01/10/17 08:53; Start 01/09/17 at 20:30 Hydromorphone HCl (Dilaudid Pf Inj) 0.5 mg Q4H PRN IV PUSH PAIN 6-10 Last administered on 01/10/17 06:30; Start 01/09/17 at 20:30 Docusate Sodium (Colace) 100 mg BID PO ; Start 01/09/17 at 21:00 Clonidine (Catapres) 0.1 mg Q6H PRN PO SBP>160, DBP>90; Start 01/10/17 at 08:30 Enalaprilat (Vasotec Inj) 1.25 mg Q6H PRN IV PUSH SBP>170, DBP>100; Start at 08:30 Hydromorphone HCl (Dilaudid Pf Inj) 0.5 mg ONCE ONCE SQ Last administered on 09:54; Start 01/10/17 at 10:00; Stop 01/10/17 at 10:01; Status DC Family History Noncontributory Social History occasional alcoholic beverage former smoker, pt quit smoking 4 [address] ago NO illicit street drugs Physical Exam Vital Signs Vital Signs Date Time Temp Pulse Resp B/P Pulse Ox O2 Delivery O2 Flow Rate FiO2 01/09/17 15:46 99.6 88 18 139/71 93 01/09/17 15:16 72 18 132/74 96 01/09/17 12:08 18 01/09/17 11:36 82 18 136/78 98 Room Air 01/09/17 07:30 80 18 148/76 97 Room Air 01/09/17 07:22 18 01/09/17 06:10 99 Room Air 01/09/17 03:42 87 18 144/77 99 Room Air 01/09/17 01:51 97.7 93 16 194/93 97 Room Air Physical Exam The patient is alert, awake and oriented to time, place and person. Speech is fluent. Higher cognitive functions are normal. Cranial nerve examination demonstrates the pupils to be equal, round, and reactive to light. Extra-ocular movements are intact. Facial motor and sensory function are normal and symmetrical. Gross hearing is decreased, bilaterally. The uvula is midline and elevates symmetrically with the soft palate. Sternocleidomastoid and trapezius muscles have normal and symmetrical strength. Other cranial nerves are intact. Neck is soft and supple. Cervical spine has a decreased range of motion in anterior flexion, extension, lateral bending, and rotation without pain. There is no tenderness to palpation to the spinous processes or paraspinal muscles. Muscle testing reveals normal bulk and tone overall without rigidity, spasticity , fasciculations, or atrophy. Muscle strength is 5/5 in all muscle groups of both upper extremities including deltoid, biceps, triceps, brachioradialis, wrist extension and newspaper editor. In the lower extremities, strength is decreased with dive away due to pain, 4+/5 in both iliopsoas, quadriceps, hamstrings, plantar flexion, dorsiflexion, and extensor hallicus longus. Sensory examination is intact to light touch and sharp/dull discrimination in both the upper and lower extremities, symmetrically. Deep tendon reflexes are 1+ and symmetrical in the biceps, triceps, and brachioradialis, bilaterally, in the upper extremities. In the lower extremities , the patellar and Achilles are 1+, bilaterally. There is a bilateral plantar flexion response. Hoffmanns sign is negative. There is no clonus or other abnormal reflexes noted. Cerebellar examination is intact to [id number] test, rapid rhythmic alternating motion. There is no dysmetria, dysdiadochokinesia, truncal ataxia, or tremor. Laboratory Laboratory Tests Test 01/09/17 06:10 White Blood Count 12.7 Red Blood Count 5.16 Hemoglobin 16.4 Hematocrit 47.3 Mean Corpuscular Volume 91.7 Mean Corpuscular Hemoglobin 31.7 Mean Corpuscular Hemoglobin 34.6 Concent Red Cell Distribution Width 14.1 Platelet Count 222 Mean Platelet Volume 7.2 Neutrophils (%) (Auto) 69.7 Lymphocytes (%) (Auto) 18.3 Monocytes (%) (Auto) 10.2 Eosinophils (%) (Auto) 1.0 Basophils (%) (Auto) 0.8 Neutrophils # (Auto) 8.8 Lymphocytes # (Auto) 2.3 Monocytes # (Auto) 1.3 Eosinophils # (Auto) 0.1 Basophils # (Auto) 0.1 CBC Comment DIFF FINAL Differential Comment Prothrombin Time 54.3 Prothromb Time International 4.6 Ratio Activated Partial 67.1 Thromboplast Time Sodium Level 140 Potassium Level 4.0 Chloride Level 107 Carbon Dioxide Level 25.7 Anion Gap 7 Blood Urea Nitrogen 19 Creatinine 0.87 Estimat Glomerular Filtration 86 Rate Random Glucose 105 Calcium Level 8.9 Result Diagram: 01/09/17 0610 01/09/17 0610 Imaging Last Impressions Chest X-Ray 01/09/17 1016 Signed Impressions: Service Date/Time: Monday, January 09, 2017 10:28 - CONCLUSION: Bibasilar atelectasis and/or infiltrate and probable mild pulmonary edema as well. Shanon Conte MD Thoracic Spine CT 01/09/17 0000 Signed Impressions: Service Date/Time: Monday, January 09, 2017 03:17 - CONCLUSION: Moderate degenerative changes as described above.. No evidence of fracture. Jose Alejandro Joel MD Lumbar Spine MRI 01/09/17 0000 Signed Impressions: Service Date/Time: Monday, January 09, 2017 08:15 - CONCLUSION: 1. Superior endplate fracture of L3 with mild depression at this site. 2. Slight neural foramina compromise and bilateral atelectasis compromise L4-L5 without any significant thecal sac stenosis. 3. There is effacement of the anterior CSF space at L2-3 due to bulging disc with compromise to the anterior CSF space, however overall no significant thecal sac stenosis is seen. Shanon Conte MD Lumbar Spine CT 01/09/17 0000 Signed Impressions: Service Date/Time: Monday, January 09, 2017 03:17 - CONCLUSION: 1. Compression fracture superior endplate of L3 age uncertain. MRI could be performed to evaluate for marrow edema. 2. Mild degenerative changes as described above. Mild stenosis at L4-L5. 3. Moderate foraminal narrowing on the right at L4-L5 Jose Alejandro Joel MD Assessment and Plan Assessment and Plan 76 year old male (1) L3 vertebral fracture: Qualified Code: S32.038A - Other closed fracture of third lumbar vertebra, initial encounter (2) COPD (chronic obstructive pulmonary disease): (3) Lung cancer: Qualified Code: C34.90 - Malignant neoplasm of lung, unspecified laterality, unspecified part of lung (4) HTN (hypertension): Qualified Code: I10 - Essential hypertension Attending Statement L3 vertebral fracture. I have reviewed his clinical and radiological studies. Start neuro checks in a serial fashion. He has severe back pain related to an acute compression fracture of the spine. I have discussed with him the alternative of treatment including the possibility of a kyphoplasty. We have discussed the details including the [id number] details of the surgical procedure, its indications, alternatives, risks, and potential complications. Risks and potential complications include, but are not limited to, infection, blood loss, CSF leak, partial or complete loss of sight in one or both eyes, paresis, paralysis, permanent pain or difficulty swallowing, loss of bowel or bladder function, complications from anesthesia, blood clot, stroke, myocardial infarction, or even . Atrial fibrillation, chronic. Hold anticoagulation metoprolol Coagulopathy due to Coumadin. Hold antivcoagulation. Needs to reverse before kyphoplasty with Vit K and FFP. I'm unable to perform a kyphoplasty and that his coagulopathy has been corrected HTN Continue metoprolol. Monitor and treat as needed Respiratory. pulmonary toilette, nasotracheal suction, and breathing treatments with nebulizers. PT and OT eval Nutrition. Oral diet Renal. Renal Insufficiency: Creatinine 1.34, no previous labs for comparison. GFR 65. UA negative, monitor closely urine output, BUN and creatinine Endocrine. Monitor serial Acu checks and SSI for tight control ID Leukocytosis, no clear source of infection. Monitor for signs of infection Protonix for stress ulcer prophylaxis Aidan mratinez and SCD's for DVT prophylaxis Marvin Pope MD Jan 09, 2017 18:36
[2017-01-09] MEDS: SODIUM CHLORIDE 0.9% FLUSH 10 ML FLUSH IV FLUSH SCH (20:35)
[2017-01-09] MEDS: TAMSULOSIN HCL 0.4 MG CAP PO SCH (20:35)
[2017-01-09] MEDS: CARBIDOPA/LEVODOPA 25 MG/100 MG TAB PO SCH (20:36)
[2017-01-09] MEDS: FINASTERIDE 5 MG TAB PO SCH (20:36)
[2017-01-09] MEDS: HYDROmorphone HCL PF 1 MG/ML VIAL IV PUSH PRN (20:39)
[2017-01-10] VITALS: BP 181/79; PULSE 102; RESP 20; TEMP 98.7; O2SAT 98
[2017-01-10] MEDS: HYDROmorphone HCL PF 1 MG/ML VIAL IV PUSH PRN ×4 (01:13→18:40)
[2017-01-10 04:00] VITALS: BP 171/100; PULSE 93; RESP 20; TEMP 96.7; O2SAT 95
[2017-01-10 04:44] LABS: AUTOMATED NEUTROPHIL # 6.7 TH/MM3 (1.8-7.7); BASOPHIL # 0.1 TH/MM3 (0-0.2); BASOPHIL % 0.5 % (0.0-2.0); EOSINOPHIL # 0.2 TH/MM3 (0-0.4); EOSINOPHIL % 1.6 % (0.0-4.0); HEMATOCRIT 43.9 % (39.0-51.0); HEMO FLAGS DIFF FINAL; LYMPH % 20.7 % (9.0-44.0); LYMPHOCYTE # 2.1 TH/MM3 (1.0-4.8); MEAN CELL VOLUME 91.7 FL (80.0-100.0); MEAN CORPUSCULAR HEMOGLOBIN 32.2 PG (27.0-34.0); MONO % 11.1 % (0.0-8.0); NEUT % 66.1 % (16.0-70.0); PLATELET COUNT 193 TH/MM3 (150-450); RED BLOOD COUNT 4.78 MIL/MM3 (4.50-5.90); RED CELL DISTRIBUTION WIDTH 13.7 % (11.6-17.2); WHITE BLOOD COUNT 10.1 TH/MM3 (4.0-11.0)
[2017-01-10 05:07] LABS: BICARBONATE 25.6 MEQ/L (21.0-32.0); POTASSIUM 3.9 MEQ/L (3.5-5.1)
[2017-01-10 05:17] LABS: INTERNATIONAL NORMALIZED RATIO 2.4 RATIO; PROTHROMBIN TIME - PATIENT 27.3 SEC (9.8-11.6)
[2017-01-10 07:15] VITALS: BP 149/78; PULSE 101; RESP 21; TEMP 97.8; O2SAT 91
[2017-01-10] MEDS ORDERED: cloNIDine HCL 0.1 MG TAB PO PRN (08:30)
[2017-01-10] MEDS ORDERED: ENALAPRILAT 1.25 MG/ML VIAL IV PUSH PRN (08:30)
[2017-01-10] MEDS: GABAPENTIN 300 MG CAP PO SCH ×3 (08:47→18:38)
[2017-01-10] MEDS: SODIUM CHLORIDE 0.9% FLUSH 10 ML FLUSH IV FLUSH SCH ×2 (08:47→20:35)
--- NOTE | 2017-01-10 08:47 | HHI.PR ---
Subjective Remarks Pt still having a lot of pain BP has been elevated Otherwise no complaints. Objective Vitals Vital Signs Date Time Temp Pulse Resp B/P Pulse Ox O2 Delivery O2 Flow Rate FiO2 01/10/17 07:15 97.8 101 21 149/78 91 01/10/17 07:00 22 01/10/17 04:00 96.7 93 20 171/100 95 01/10/17 00:00 98.7 102 20 181/79 98 01/09/17 15:46 99.6 88 18 139/71 93 01/09/17 15:16 72 18 132/74 96 01/09/17 12:08 18 01/09/17 11:36 82 18 136/78 98 Room Air 01/09/17 01/09/17 01/10/17 15:00 23:00 07:00 Output Total 700 ml Balance -700 ml Output Urine Total 700 ml Result Diagram: 01/10/17 0425 01/10/17 0425 Other Results Laboratory Tests Test 01/09/17 01/10/17 06:10 04:25 White Blood Count 12.7 TH/MM3 10.1 TH/MM3 Red Blood Count 5.16 MIL/MM3 4.78 MIL/MM3 Hemoglobin 16.4 GM/DL 15.4 GM/DL Hematocrit 47.3 % 43.9 % Mean Corpuscular Volume 91.7 FL 91.7 FL Mean Corpuscular Hemoglobin 31.7 PG 32.2 PG Mean Corpuscular Hemoglobin 34.6 % 35.0 % Concent Red Cell Distribution Width 14.1 % 13.7 % Platelet Count 222 TH/MM3 193 TH/MM3 Mean Platelet Volume 7.2 FL 7.1 FL Neutrophils (%) (Auto) 69.7 % 66.1 % Lymphocytes (%) (Auto) 18.3 % 20.7 % Monocytes (%) (Auto) 10.2 % 11.1 % Eosinophils (%) (Auto) 1.0 % 1.6 % Basophils (%) (Auto) 0.8 % 0.5 % Neutrophils # (Auto) 8.8 TH/MM3 6.7 TH/MM3 Lymphocytes # (Auto) 2.3 TH/MM3 2.1 TH/MM3 Monocytes # (Auto) 1.3 TH/MM3 1.1 TH/MM3 Eosinophils # (Auto) 0.1 TH/MM3 0.2 TH/MM3 Basophils # (Auto) 0.1 TH/MM3 0.1 TH/MM3 CBC Comment DIFF FINAL DIFF FINAL Differential Comment Prothrombin Time 54.3 SEC 27.3 SEC Prothromb Time International 4.6 RATIO 2.4 RATIO Ratio Activated Partial 67.1 SEC Thromboplast Time Sodium Level 140 MEQ/L 138 MEQ/L Potassium Level 4.0 MEQ/L 3.9 MEQ/L Chloride Level 107 MEQ/L 105 MEQ/L Carbon Dioxide Level 25.7 MEQ/L 25.6 MEQ/L Anion Gap 7 MEQ/L 7 MEQ/L Blood Urea Nitrogen 19 MG/DL 16 MG/DL Creatinine 0.87 MG/DL 0.79 MG/DL Estimat Glomerular Filtration 86 ML/MIN 96 ML/MIN Rate Random Glucose 105 MG/DL 104 MG/DL Calcium Level 8.9 MG/DL 8.6 MG/DL Imaging Last Impressions Chest X-Ray 01/09/17 1016 Signed Impressions: Service Date/Time: Monday, January 09, 2017 10:28 - CONCLUSION: Bibasilar atelectasis and/or infiltrate and probable mild pulmonary edema as well. Shanon Conte MD Thoracic Spine CT 01/09/17 0000 Signed Impressions: Service Date/Time: Monday, January 09, 2017 03:17 - CONCLUSION: Moderate degenerative changes as described above.. No evidence of fracture. Jose Alejandro Joel MD Lumbar Spine MRI 01/09/17 0000 Signed Impressions: Service Date/Time: Monday, January 09, 2017 08:15 - CONCLUSION: 1. Superior endplate fracture of L3 with mild depression at this site. 2. Slight neural foramina compromise and bilateral atelectasis compromise L4-L5 without any significant thecal sac stenosis. 3. There is effacement of the anterior CSF space at L2-3 due to bulging disc with compromise to the anterior CSF space, however overall no significant thecal sac stenosis is seen. Shanon Conte MD Lumbar Spine CT 01/09/17 0000 Signed Impressions: Service Date/Time: Monday, January 09, 2017 03:17 - CONCLUSION: 1. Compression fracture superior endplate of L3 age uncertain. MRI could be performed to evaluate for marrow edema. 2. Mild degenerative changes as described above. Mild stenosis at L4-L5. 3. Moderate foraminal narrowing on the right at L4-L5 Jose Alejandro Joel MD Objective Remarks General: NAD, AAOx3 Neck: Bruits noted bilaterally Chest: CTA bilaterally Cardiac: Regular, 3/6 KAROLINA Abd: +BS, soft ND/NT Ext: No edema A/P Problem List: (1) L3 vertebral fracture Status: Acute Plan: - Pt presented to the ED with acute worsening of low back pain. - MRI Lumbar spine (01/09/17) --> Superior endplate fracture of L3 with mild depression at this site. Slight neural foramina compromise and bilateral atelectasis compromise L4-L5 without any significant thecal sac stenosis. There is effacement of the anterior CSF space at L2-3 due to bulging disc with compromise to the anterior CSF space, however overall no significant thecal sac stenosis is seen. - Pts INR was 4.6 at admission. - Neurosurgery is following. - Pt was given Vitamin K for Coumadin reversal on 01/09, INR 2.4 on 01/10. - Will discuss the case with Neurosurgery to determine timing for surgery - Given Vitamin K 5mg po once again today - repeat INR in AM - kyphoplasty once INR decreased - Check 2d echo and carotid US - PT - [place]/Dilaudid prn - pt will need SNF at the end of this hospitalization (2) History of CVA (cerebrovascular accident) Status: Resolved Plan: - Pt has hx of CVA - Pt denies any hx of atrial fibrillation - Coumadin is on hold. - Pt with a noted KAROLINA on exam and carotid bruits, last 2D echo was in 2005 and pt with hx of right CEA. Last Carotid US in 02/2016 with a widely patent right carotid and minimal plaquing of the left carotid. Check Carotid US. (3) COPD (chronic obstructive pulmonary disease) Status: Acute Plan: - Duonebs prn (4) Lung cancer Status: Acute Plan: - s/p resection - pt follows with Dr. Yin (5) HTN (hypertension) Status: Chronic Plan: - Clonidine PRN - Vasotec PRN Assessment and Plan Patient examined. Assessment and plan formulated with Mimi Gonzales PA-C. I agree with the above. L3 compression fx. anticoagulation for previous cva/retinal art occlusion. s/p left cea. karolina rusb. carotid bruits right worse left echo/carotids. vit k for high inr. recheck in AM awaiting kyphoplasty Problem Qualifiers (1) L3 vertebral fracture: Qualified Code: S32.038A - Other closed fracture of third lumbar vertebra, initial encounter (2) COPD (chronic obstructive pulmonary disease): (3) Lung cancer: Qualified Code: C34.90 - Malignant neoplasm of lung, unspecified laterality, unspecified part of lung (4) HTN (hypertension): Qualified Code: I10 - Essential hypertension Mimi Gonzales Jan 10, 2017 08:47 Wally Sinclair MD Jan 10, 2017 18:33
[2017-01-10] MEDS: TAMSULOSIN HCL 0.4 MG CAP PO SCH ×2 (08:48→20:35)
[2017-01-10] MEDS: FLUoxetine HCL 20 MG CAP PO SCH (08:49)
[2017-01-10] MEDS: ASPIRIN EC 81 MG TABEC PO SCH (08:49)
[2017-01-10] MEDS: PRAVASTATIN SOD 40 MG TAB PO SCH (08:50)
[2017-01-10] MEDS: DOCUSATE SODIUM 100 MG CAP PO SCH ×2 (09:00→20:35)
[2017-01-10] MEDS ORDERED: HYDROmorphone HCL PF 1 MG/ML VIAL SQ ONE (10:00)
--- NOTE | 2017-01-10 10:46 | HHI.NSPN ---
(Lulu Santiago) Note Status Status: Progress Note (Lulu Santiago) Interval History Interval History This is a 76-year-old male with history of COPD, Atrial arrhytmia (On chronic anticoagulant therapy.),Carotid artery stenosis, HTN and lung cancer, status post resection. He presented to the ER today with complaint of new nset of acute , very severe low back pain. He fell down. His pain has been worsening over the last week, but more acute this morning making it difficult to ambulate. It is sharp, stabbing, in his mid lumbar region. 07/05 He tried chiropractic and pain medications without improvement. It does not resolve with hydrocodone. He denied bowel or bladder incontinence or retention. denies sensory loss. MRI of the lumbar spine confirmed an acute L3 compression fracture. Case was discussed between ER physician and Dr. Pope. Neurosurgical consultation was requested 01/10: continues to c/o severe lumbar pain worsens with movement, still coagulopathic with INR 2.4 following Vit K administration (Lulu Santiago) Labs, Micro, & Vital Signs Results Date Time Temp Pulse Resp B/P Pulse Ox O2 Delivery O2 Flow Rate FiO2 01/10/17 07:15 97.8 101 21 149/78 91 01/10/17 07:00 22 01/10/17 04:00 96.7 93 20 171/100 95 01/10/17 00:00 98.7 102 20 181/79 98 01/09/17 15:46 99.6 88 18 139/71 93 01/09/17 15:16 72 18 132/74 96 01/09/17 12:08 18 01/09/17 11:36 82 18 136/78 98 Room Air 01/10/17 07:00 Output Total 700 ml Balance -700 ml Constitutional Vital Signs Date Time Temp Pulse Resp B/P Pulse Ox O2 Delivery O2 Flow Rate FiO2 01/10/17 07:15 97.8 101 21 149/78 91 01/10/17 07:00 22 01/10/17 04:00 96.7 93 20 171/100 95 01/10/17 00:00 98.7 102 20 181/79 98 01/09/17 15:46 99.6 88 18 139/71 93 01/09/17 15:16 72 18 132/74 96 01/09/17 12:08 18 01/09/17 11:36 82 18 136/78 98 Room Air 01/10/17 07:00 Output Total 700 ml Balance -700 ml (Lulu Santiago) Review of Systems/Exam Exam Mr. Rahman is alert, awake and oriented to time, place and person. Speech is fluent. Cranial nerve: pupils equal, round, and reactive to light. Facial motor and sensory function are normal and symmetrical. 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 In the lower extremities examination limited due to lumbar pain, gross 2-3/5 proximal 5 /5 distal. Sensory examination is intact to light touch in both the upper and lower extremities Bilateral plantar flexion response. There is no clonus or other abnormal reflexes noted. (Lulu Santiago) Medications Current Medications Current Medications Medications (Trade) Dose Ordered Sig/Gregoria Route PRN Reason Start Time Stop Time Status Last Admin Dose Admin Sodium Chloride (NS Flush) 2 ml UNSCH PRN IV FLUSH FLUSH AFTER USING IV ACCESS 01/09/17 10:30 Sodium Chloride (NS Flush) 2 ml BID IV FLUSH 01/09/17 21:00 01/10/17 08:47 Acetaminophen (Tylenol) 650 mg Q4H PRN PO TEMP > 100.4 01/09/17 10:30 Ondansetron HCl (Zofran Inj) 4 mg Q6H PRN IVP NAUSEA OR VOMITING 01/09/17 10:30 Magnesium Hydroxide (Milk Of Magnesia Liq) 30 ml Q12H PRN PO CONSTIPATION 01/09/17 10:30 Temazepam (Restoril) 15 mg HS PRN PO INSOMNIA 01/09/17 10:30 01/09/17 23:08 Naloxone HCl (Narcan Inj) 0.4 mg UNSCH PRN IV SEE LABEL COMMENTS 01/09/17 10:30 Carbidopa/Levodopa (Sinemet 25-100 Mg) 1 tab HS PO 01/09/17 21:00 01/09/17 20:36 Finasteride (Proscar) 5 mg HS PO 01/09/17 21:00 01/09/17 20:36 Fluoxetine HCl (PROzac) 20 mg DAILY PO 01/10/17 09:00 01/10/17 08:49 Gabapentin (Neurontin) 600 mg TID PO 01/09/17 13:00 01/10/17 08:47 Pravastatin Sodium (Pravachol) 40 mg DAILY PO 01/10/17 09:00 01/10/17 08:50 Aspirin (Ecotrin Ec) 81 mg DAILY PO 01/10/17 09:00 01/10/17 08:49 Tamsulosin HCl (Flomax) 0.4 mg BID PO 01/09/17 21:00 01/10/17 08:48 Acetaminophen/ Hydrocodone Bitart ([place] 5-325 Mg) 1 tab Q4H PRN PO PAIN 1-5 01/09/17 20:30 01/10/17 08:53 Hydromorphone HCl (Dilaudid Pf Inj) 0.5 mg Q4H PRN IV PUSH PAIN 6-10 01/09/17 20:30 01/10/17 06:30 Docusate Sodium (Colace) 100 mg BID PO 01/09/17 21:00 Clonidine (Catapres) 0.1 mg Q6H PRN PO SBP>160, DBP>90 01/10/17 08:30 Enalaprilat (Vasotec Inj) 1.25 mg Q6H PRN IV PUSH SBP>170, DBP>100 01/10/17 08:30 (Lulu Santiago) Medical Decision Making MDM Remarks 76 y/o male acute L3 compression fracture A. Fib, anticoagulated on Coumadin now held (Lulu Santiago) Plan Plan Remarks cont reversal of INR per medical mgt recommend L3 Kyphoplasty once INR corrected, cont pain regimen scds and teds for dvt prophylaxis (Lulu Santiago) Attending Statement L3 vertebral fracture. I again discussed with him the details including the step -by-step details of a kyphoplasty, its indications, alternatives, risks, and potential complications. Risks and potential complications include, but are not limited to, infection, blood loss, CSF leak, partial or complete loss of sight in one or both eyes, paresis, paralysis, permanent pain or difficulty swallowing, loss of bowel or bladder function, complications from anesthesia, blood clot, stroke, myocardial infarction, or even . Atrial fibrillation, chronic. Hold anticoagulation. Continue metoprolol Coagulopathy due to Coumadin. Hold anticoagulation. Again, needs to reverse before kyphoplasty with Vit K and FFP. I'm unable to perform a kyphoplasty and that his coagulopathy has been corrected HTN Continue metoprolol. Monitor and treat as needed Respiratory. Continue pulmonary toilette, nasotracheal suction, and breathing treatments with nebulizers. PT and OT Nutrition. Continue Oral diet Renal. Renal Insufficiency: Creatinine 1.34, no previous labs for comparison. GFR 65. UA negative, monitor closely urine output, BUN and creatinine Endocrine. Continue to Monitor serial Acu checks and SSI for tight control ID Leukocytosis, no clear source of infection. Monitor for signs of infection Continue Protonix for stress ulcer prophylaxis Continue Aidan hose and SCD's for DVT prophylaxis The exam, history, and the medical decision-making described in the above note were completed with the assistance of the mid-level provider. I reviewed and agree with the findings presented. I attest that I had a [id number] encounter with the patient on the same day, and personally performed and documented my assessment and findings in the medical record. (Marvin Pope MD) Lulu Santiago Jan 10, 2017 10:46 Marvin Pope MD Jan 10, 2017 13:07
[2017-01-10] MEDS ORDERED: PHYTONADIONE 5 MG TAB PO ONE (16:00)
[2017-01-10] MEDS: ACETAMINOPHEN/HYDROcodone 325 MG/5 MG TAB PO PRN (16:03)
[2017-01-10 16:30] VITALS: BP 152/77; PULSE 101; RESP 18; TEMP 98.1; O2SAT 93
[2017-01-10 19:53] VITALS: BP 132/60; PULSE 103; RESP 18; TEMP 99
[2017-01-10] MEDS: CHLORHEXIDINE GLUCONATE 4% SOLN 120 ML BTL TOP SCH (20:23)
[2017-01-10] MEDS: FINASTERIDE 5 MG TAB PO SCH (20:35)
[2017-01-10] MEDS: CARBIDOPA/LEVODOPA 25 MG/100 MG TAB PO SCH (20:35)
--- NOTE | 2017-01-10 22:44 | RADRPT ---
EXAM DATE/TIME: 01/10/2017 17:26 [facility] COMPARISON: No previous studies available for comparison. INDICATIONS : Carotid bruit. MEDICAL HISTORY : Hypercholesterolemia. Cerebrovascular accident x 3. 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 Lung cancer. Enlarged prostate. SURGICAL HISTORY : Tonsillectomy. Abdominal aortic aneurysm repair. Right lung resection. Right carotid endarterectomy . Right thorocotomy. ENCOUNTER: Initial ACUITY: 1 day PAIN SCORE: 7/10 LOCATION: Bilateral neck PEAK SYSTOLIC VELOCITIES (cm/sec): ICA/CCA RATIO: Right: 0.7 Left: 1.4 ICA: Right: 43 Left: 111 CCA: Right: 63 Left: 82 ECA: Right: 61 Left: 138 VERTEBRAL: Right: 55 antegrade Left: 41 antegrade Elevated flow velocities and ICA/CCA ratios have been found to correlate with increased degrees of vessel stenosis, calculated as percentage of diameter relative to a normal segment of distal ICA/CCA FINDINGS: RIGHT CAROTID: Endarterectomy changes with dilatation in the bulb region noted. No significant plaque or narrowing. LEFT CAROTID: Mild patchy plaque seen throughout. No measurable stenosis. VERTEBRAL ARTERIES: Antegrade flow is seen in both vertebral arteries. MISCELLANEOUS: None. CONCLUSION: Mild atherosclerotic plaque on the left. Endarterectomy changes on the right without significant recu rrent plaque. No grayscale or Doppler evidence of hemodynamically significant narrowing on either torri e. Fabian Jordan MD on January 10, 2017 at 22:41 Board Certified Radiologist. This report was verified electronically.
[2017-01-11] VITALS (7 sets, daily range): BP systolic 133–174; BP diastolic 65–82; PULSE 86–112; RESP 18–21; TEMP 97.5–100.9; O2SAT 90–94
[2017-01-11] MEDS: ACETAMINOPHEN/HYDROcodone 325 MG/5 MG TAB PO PRN ×2 (02:27→06:40)
[2017-01-11] MEDS ORDERED: ceFAZolin 2 GM PREMIX 50 ML IV ONE (06:00)
[2017-01-11] MEDS ORDERED: VANCOMYCIN INJ 1,000 MG in SODIUM CHLOR 0.9% 250 ML INJ 250 ML IV ONE (06:00)
[2017-01-11 07:23] LABS: INTERNATIONAL NORMALIZED RATIO 1.2 RATIO; PROTHROMBIN TIME - PATIENT 13.9 SEC (9.8-11.6)
[2017-01-11] MEDS ORDERED: BUPIVACAINE/EPINEPHRINE 0.5% PF 30 ML VIAL ONE (07:41)
[2017-01-11] MEDS: HYDROmorphone HCL PF 1 MG/ML VIAL IV PUSH PRN (08:05)
[2017-01-11] MEDS: SODIUM CHLORIDE 0.9% FLUSH 10 ML FLUSH IV FLUSH SCH ×2 (08:51→21:00)
[2017-01-11] MEDS: DOCUSATE SODIUM 100 MG CAP PO SCH ×3 (08:52→21:00)
[2017-01-11] MEDS: FLUoxetine HCL 20 MG CAP PO SCH (08:52)
[2017-01-11] MEDS: PRAVASTATIN SOD 40 MG TAB PO SCH (08:52)
[2017-01-11] MEDS: GABAPENTIN 300 MG CAP PO SCH ×2 (08:52→22:39)
[2017-01-11] MEDS: ASPIRIN EC 81 MG TABEC PO SCH (08:52)
[2017-01-11] MEDS: TAMSULOSIN HCL 0.4 MG CAP PO SCH ×2 (08:52→22:38)
--- NOTE | 2017-01-11 10:04 | HHI.PR ---
Subjective Remarks Pt reports that his pain is relatively unchanged +flatus, no BM Low grade temp last night, discussed IS use. Objective Vitals Vital Signs Date Time Temp Pulse Resp B/P Pulse Ox O2 Delivery O2 Flow Rate FiO2 01/11/17 07:40 98.4 97 21 156/73 91 01/11/17 05:35 98.9 100 18 140/76 90 01/11/17 03:49 20 01/11/17 02:17 100.9 112 18 174/82 90 01/10/17 19:53 99.0 103 18 132/60 01/10/17 19:50 18 01/10/17 16:30 98.1 101 18 152/77 93 01/10/17 01/10/17 01/11/17 15:00 23:00 07:00 Output Total 250 ml Balance -250 ml Output Urine Total 250 ml Result Diagram: 01/10/17 0425 01/10/17 0425 Other Results Laboratory Tests Test 01/10/17 01/11/17 04:25 06:52 White Blood Count 10.1 TH/MM3 Red Blood Count 4.78 MIL/MM3 Hemoglobin 15.4 GM/DL Hematocrit 43.9 % Mean Corpuscular Volume 91.7 FL Mean Corpuscular Hemoglobin 32.2 PG Mean Corpuscular Hemoglobin 35.0 % Concent Red Cell Distribution Width 13.7 % Platelet Count 193 TH/MM3 Mean Platelet Volume 7.1 FL Neutrophils (%) (Auto) 66.1 % Lymphocytes (%) (Auto) 20.7 % Monocytes (%) (Auto) 11.1 % Eosinophils (%) (Auto) 1.6 % Basophils (%) (Auto) 0.5 % Neutrophils # (Auto) 6.7 TH/MM3 Lymphocytes # (Auto) 2.1 TH/MM3 Monocytes # (Auto) 1.1 TH/MM3 Eosinophils # (Auto) 0.2 TH/MM3 Basophils # (Auto) 0.1 TH/MM3 CBC Comment DIFF FINAL Differential Comment Prothrombin Time 27.3 SEC 13.9 SEC Prothromb Time International 2.4 RATIO 1.2 RATIO Ratio Sodium Level 138 MEQ/L Potassium Level 3.9 MEQ/L Chloride Level 105 MEQ/L Carbon Dioxide Level 25.6 MEQ/L Anion Gap 7 MEQ/L Blood Urea Nitrogen 16 MG/DL Creatinine 0.79 MG/DL Estimat Glomerular Filtration 96 ML/MIN Rate Random Glucose 104 MG/DL Calcium Level 8.6 MG/DL Imaging Last Impressions Carotid Artery Ultrasound 01/10/17 0000 Signed Impressions: Service Date/Time: Tuesday, January 10, 2017 17:26 - CONCLUSION: Mild atherosclerotic plaque on the left. Endarterectomy changes on the right without significant recurrent plaque. No grayscale or Doppler evidence of hemodynamically significant narrowing on either side. Fabian Jordan MD Chest X-Ray 01/09/17 1016 Signed Impressions: Service Date/Time: Monday, January 09, 2017 10:28 - CONCLUSION: Bibasilar atelectasis and/or infiltrate and probable mild pulmonary edema as well. Shanon Conte MD Thoracic Spine CT 01/09/17 0000 Signed Impressions: Service Date/Time: Monday, January 09, 2017 03:17 - CONCLUSION: Moderate degenerative changes as described above.. No evidence of fracture. Jose Alejandro Joel MD Lumbar Spine MRI 01/09/17 0000 Signed Impressions: Service Date/Time: Monday, January 09, 2017 08:15 - CONCLUSION: 1. Superior endplate fracture of L3 with mild depression at this site. 2. Slight neural foramina compromise and bilateral atelectasis compromise L4-L5 without any significant thecal sac stenosis. 3. There is effacement of the anterior CSF space at L2-3 due to bulging disc with compromise to the anterior CSF space, however overall no significant thecal sac stenosis is seen. Shanon Conte MD Lumbar Spine CT 01/09/17 0000 Signed Impressions: Service Date/Time: Monday, January 09, 2017 03:17 - CONCLUSION: 1. Compression fracture superior endplate of L3 age uncertain. MRI could be performed to evaluate for marrow edema. 2. Mild degenerative changes as described above. Mild stenosis at L4-L5. 3. Moderate foraminal narrowing on the right at L4-L5 Jose Alejandro Joel MD Objective Remarks General: NAD, AAOx3 Chest: CTA bilaterally Cardiac: Regular, 3/6 ELLEN Abd: +BS, soft ND/NT Ext: No edema A/P Problem List: (1) L3 vertebral fracture Status: Acute Plan: - Pt presented to the ED with acute worsening of low back pain. - MRI Lumbar spine (01/09/17) --> Superior endplate fracture of L3 with mild depression at this site. Slight neural foramina compromise and bilateral atelectasis compromise L4-L5 without any significant thecal sac stenosis. There is effacement of the anterior CSF space at L2-3 due to bulging disc with compromise to the anterior CSF space, however overall no significant thecal sac stenosis is seen. - Pts INR was 4.6 at admission. - Neurosurgery is following. - Pt was given Vitamin K for Coumadin reversal on 01/09 and 01/10, INR 1.2 today. - Kyphoplasty planned for today - PT - [place]/Dilaudid prn - pt will need SNF at the end of this hospitalization (2) History of CVA (cerebrovascular accident) Status: Resolved Plan: - Pt has hx of CVA - Pt denies any hx of atrial fibrillation - Coumadin is on hold. - Pt with a noted ELLEN on exam and carotid bruits, last 2D echo was in 2005 and pt with hx of right CEA. Last Carotid US in 02/2016 with a widely patent right carotid and minimal plaquing of the left carotid. - Carotid US (01/10) --> Mild atherosclerotic plaque on the left. Endarterectomy changes on the right without significant recurrent plaque. No grayscale or Doppler evidence of hemodynamically significant narrowing on either side. - 2D echo is ordered (3) COPD (chronic obstructive pulmonary disease) Status: Acute Plan: - Duonebs prn (4) Lung cancer Status: Acute Plan: - s/p resection - pt follows with Dr. Yin (5) HTN (hypertension) Status: Chronic Plan: - Clonidine PRN - Vasotec PRN Assessment and Plan Patient examined. Assessment and plan formulated with Mimi Gonzales PA-C. I agree with the above. L3 comp fx. discussed with dr Pope. s/p kyphoplasty today. plan for snf tomorrow. Problem Qualifiers (1) L3 vertebral fracture: Qualified Code: S32.038A - Other closed fracture of third lumbar vertebra, initial encounter (2) COPD (chronic obstructive pulmonary disease): (3) Lung cancer: Qualified Code: C34.90 - Malignant neoplasm of lung, unspecified laterality, unspecified part of lung (4) HTN (hypertension): Qualified Code: I10 - Essential hypertension Mimi Gonzales Jan 11, 2017 10:04 Wally Sinclair MD Jan 11, 2017 16:41
[2017-01-11] MEDS ORDERED: PROPOFOL 200 MG/20 ML AMP IV ONE (12:00)
[2017-01-11] MEDS ORDERED: LACTATED RINGER'S 1000 ML INJ 1,000 ML IV ONE (12:00)
[2017-01-11] MEDS ORDERED: ePHEDrine/NS 25 MG/5 ML SYR IV ONE (12:00)
[2017-01-11] MEDS ORDERED: ONDANSETRON HCL 4 MG/2 ML VIAL IV PUSH ONE (12:00)
[2017-01-11] MEDS ORDERED: NEOSTIGMINE 3 MG/3 ML SYR IV ONE ×2 (12:00)
[2017-01-11] MEDS ORDERED: PHENYLEPH/NS 1000 MCG/10 ML SYR IV ONE (12:00)
[2017-01-11] MEDS ORDERED: FAMOTIDINE 20 MG/2 ML VIAL ONE (12:07)
[2017-01-11] MEDS ORDERED: MIDAZOLAM HCL 2 MG/2 ML VIAL ONE (12:07)
[2017-01-11] MEDS ORDERED: ACETAMINOPHEN 1000 MG/100 ML VIAL IV ONE (12:16)
[2017-01-11] MEDS ORDERED: fentaNYL CITRATE 250 MCG/5 ML AMP ONE (12:17)
[2017-01-11] MEDS ORDERED: IOHEXOL 350 MG/ML 50 ML BTL (for EPS) ONE (13:27)
[2017-01-11] MEDS ORDERED: DO NOT ADM ANY ANTICOAGULANT DRUGS PRN (13:46)
[2017-01-11] MEDS: NS + KCL 20 MEQ INJ 1,000 ML IV SCH ×2 (13:54)
[2017-01-11] MEDS ORDERED: ACETAMINOPHEN/HYDROcodone 325 MG/10 MG TAB PO PRN (14:00)
[2017-01-11] MEDS ORDERED: SODIUM CHLORIDE 0.9% FLUSH 5 ML FLUSH IVF PRN (14:00)
[2017-01-11] MEDS ORDERED: MORPHINE SULFATE 4 MG/ML INJ IV PUSH PRN ×2 (14:00)
[2017-01-11] MEDS ORDERED: ACETAMINOPHEN 325 MG TAB PO PRN (14:00)
[2017-01-11] MEDS ORDERED: *LABETALOL HCL 100 MG/20 ML VIAL PERIprocedural Use ONLY ONE (14:03)
--- NOTE | 2017-01-11 14:03 | PD.OP ---
Operative Report Date of Surgery: Jan 11, 2017 Preoperative Diagnosis: L3 compression fracture Postoperative Diagnosis: L3 compression fracture Procedure: L3 kyphoplasty Anesthesia: general Surgeon: Marvin Pope Service Line Bus Cleaner(s): DAVID Operation and Findings: INDICATIONS FOR THE PROCEDURE Mr Rahman is a 76 year-old male who presented with intractable pain related to a L3 compression fracture. He failed conservative nonsurgical management and a kyphoplasty was indicated as the most appropriate form of treatment. The step-by -step details of the procedure, indications, alternatives, risks and potential complications were fully discussed with the patient. The patient fully understood. All The questions were answered. No guarantees were given. The patient voiced requesting the procedure and provided informed consents. The patient was offered the alternative of delaying the procedure and continuing with nonsurgical management. DETAILS OF THE SURGICAL PROCEDURE The patient was brought to the operating room and after the induction of general anesthesia, endotracheal intubation was performed. A Dior catheter and bilateral PAUL hose and sequential compression devices were placed and kept throughout the procedure. The patient was positioned prone on the Donald table over gel rods. All pressure points were carefully padded with egg crate mattress. The eyes were tapped shut after ointment was applied by the anesthesiologist to prevent corneal abrasion. A Loraine hugger was placed over the expossed lower body to maintain control of the core body temperature. The lumbar region was prepped and draped in the usual sterile fashion. The C-arms were brought to the field and simultaneous AP and lateral x-rays were obtained. The levels were carefully counted and the pedicles of L3 were marked over the skin. An entry point was selected 1 centimeter superior and 1 centimeter lateral to the pedicle. Two small incisions were outlined on the skin and infiltrated with 1% lidocaine with epinephrine in 1:100,000 dilution. Initially, two small skin incisions were made with a #11 blade. Then, Jamshidi needles were carefully advanced to the entrance of the pedicle, and then into the vertebral body under continuous fluoroscopic guidance. K-wires were placed inside the vertebral body of and the needles were carefully removed. A drill was used to create a trough into the L3 vertebral body to insert a cannula. Once the cannula was located through the pedicle, the drill was removed and bilateral balloons were inserted into the L3 vertebral body for vertebral augmentation. A careful expansion of the balloon under continuous fluoroscopic guidance and manometric evaluation allowed expansion of the vertebral body. Then , the balloons were deflated and carefully removed and the voids created in the vertebral body were filled with bone cement under fluoroscopic visualization. A very good expansion of the vertebral bodies was achieved without evidence of extravasation or cement or other complications. The cannulas were then removed. The incisions were closed using a single stitch at each incision. Dermabond was applied to the skin. At the end of the procedure, the sponge, needle, instrument counts correct. The estimated blood loss as minimal. No intraoperative complications occurred. The patient received prophylactic antibiotics. The patient was then extubated and transferred to the recovery room in stable condition. Marvin Pope MD Jan 11, 2017 14:03
--- NOTE | 2017-01-11 14:31 | EKG ---
Date Performed: 01/11/2017 Time Performed: 11:11:30 PTAGE: 76 years EKG: Sinus rhythm POSSIBLE LEFT ATRIAL ENLARGEMENT BORDERLINE ECG NO SIGNIFICANT CHANGE FROM PRIOR ELECTROCARDIOGRAM. PREVIOUS TRACING : 12/19/2014 02.10 DOCTOR: Robbin Flores Interpretating Date/Time 01/11/2017 14:30:08
--- NOTE | 2017-01-11 16:49 | RADRPT ---
EXAM DATE/TIME: 01/11/2017 12:58 [facility] COMPARISON: No previous studies available for comparison. INDICATIONS : Post-op kyphoplasty for L-3 compression fracture. MEDICAL HISTORY : None. SURGICAL HISTORY : Aortic stenting. ENCOUNTER: Subsequent ACUITY: 3 days PAIN SCORE: Non-responsive. LOCATION: Lumbar spine FINDINGS: 2 images of the lumbar region were recorded digitally in the operating room using C-arm demonstrating vertebroplasty cement in one lumbar vertebral body. CONCLUSION: Intraoperative images. Dontae Holcomb MD on January 11, 2017 at 16:47 Board Certified Radiologist. This report was verified electronically.
[2017-01-11] MEDS: ceFAZolin 2 GM PREMIX 50 ML IV SCH ×2 (17:00→23:01)
[2017-01-11] MEDS ORDERED: *morphine SULFATE 8 MG/ML PERIprocedure ONLY ONE (17:11)
[2017-01-11] MEDS: ACETAMINOPHEN/HYDROcodone 325 MG/10 MG TAB PO PRN ×2 (18:46→22:38)
[2017-01-11] MEDS ORDERED: SODIUM CHLORIDE 0.9% FLUSH 5 ML FLUSH IVF SCH (21:00)
[2017-01-11] MEDS: CHLORHEXIDINE GLUCONATE 4% SOLN 120 ML BTL TOP SCH (21:00)
[2017-01-11] MEDS: FINASTERIDE 5 MG TAB PO SCH (22:37)
[2017-01-11] MEDS: CARBIDOPA/LEVODOPA 25 MG/100 MG TAB PO SCH (22:38)
[2017-01-12] VITALS (7 sets, daily range): BP systolic 114–161; BP diastolic 62–75; PULSE 69–122; RESP 20; TEMP 97.4–99.3; O2SAT 92–97
[2017-01-12] MEDS: HYDROmorphone HCL PF 1 MG/ML VIAL IV PUSH PRN (03:01)
[2017-01-12] MEDS: ACETAMINOPHEN/HYDROcodone 325 MG/10 MG TAB PO PRN ×2 (06:19→11:25)
[2017-01-12] MEDS: SODIUM CHLORIDE 0.9% FLUSH 10 ML FLUSH IV FLUSH SCH ×2 (09:00→22:40)
[2017-01-12] MEDS: DOCUSATE SODIUM 100 MG CAP PO SCH ×3 (09:00→22:41)
[2017-01-12] MEDS: ceFAZolin 2 GM PREMIX 50 ML IV SCH (09:46)
[2017-01-12] MEDS: PANTOPRAZOLE SOD 40 MG DELAYED RELEASE TAB PO SCH (09:46)
[2017-01-12] MEDS: TAMSULOSIN HCL 0.4 MG CAP PO SCH ×2 (09:47→22:41)
[2017-01-12] MEDS: PRAVASTATIN SOD 40 MG TAB PO SCH (09:47)
[2017-01-12] MEDS: NS + KCL 20 MEQ INJ 1,000 ML IV SCH (09:47)
[2017-01-12] MEDS: FLUoxetine HCL 20 MG CAP PO SCH (09:47)
[2017-01-12] MEDS: GABAPENTIN 300 MG CAP PO SCH ×3 (09:47→17:57)
[2017-01-12] MEDS: ASPIRIN EC 81 MG TABEC PO SCH (09:47)
--- NOTE | 2017-01-12 09:59 | HHI.PR ---
Subjective Remarks in chair doing ok. Objective Vitals heart reg lung cta abd s/nt ext no edema Vital Signs Date Time Temp Pulse Resp B/P Pulse Ox O2 Delivery O2 Flow Rate FiO2 01/12/17 04:37 97.9 122 20 120/62 97 01/12/17 00:00 99.3 119 20 161/75 92 01/11/17 20:00 97.5 89 20 133/65 94 01/11/17 19:00 86 01/11/17 18:06 89 20 131/69 91 Nasal Cannula 3 01/11/17 18:00 89 20 131/69 91 Nasal Cannula 3 01/11/17 18:00 97.6 90 20 152/76 91 01/11/17 17:00 90 20 134/75 94 Nasal Cannula 3 01/11/17 16:00 89 20 124/69 95 Nasal Cannula 3 01/11/17 15:45 88 20 123/64 95 Nasal Cannula 3 01/11/17 15:30 90 20 112/66 95 Nasal Cannula 3 01/11/17 15:15 88 20 120/64 96 Nasal Cannula 3 01/11/17 15:00 87 20 120/62 96 Nasal Cannula 3 01/11/17 14:45 92 20 124/62 94 Nasal Cannula 3 01/11/17 14:30 94 20 132/71 94 Nasal Cannula 3 01/11/17 14:15 91 22 141/77 93 Simple Mask 6 01/11/17 14:00 118 22 175/88 93 Simple Mask 6 01/11/17 13:48 98.1 129 22 175/90 96 Simple Mask 6 01/11/17 01/11/17 01/12/17 15:00 23:00 07:00 Intake Total 720 ml 300 ml Output Total 1050 ml 100 ml Balance 720 ml -750 ml -100 ml Intake IV Total 120 ml 300 ml Other 600 ml Output Urine Total 1050 ml 100 ml Result Diagram: 01/10/17 0425 01/10/17 0425 Imaging Last Impressions Carotid Artery Ultrasound 01/10/17 0000 Signed Impressions: Service Date/Time: Tuesday, January 10, 2017 17:26 - CONCLUSION: Mild atherosclerotic plaque on the left. Endarterectomy changes on the right without significant recurrent plaque. No grayscale or Doppler evidence of hemodynamically significant narrowing on either side. Fabian Jordan MD Chest X-Ray 01/09/17 1016 Signed Impressions: Service Date/Time: Monday, January 09, 2017 10:28 - CONCLUSION: Bibasilar atelectasis and/or infiltrate and probable mild pulmonary edema as well. Shanon Conte MD Thoracic Spine CT 01/09/17 0000 Signed Impressions: Service Date/Time: Monday, January 09, 2017 03:17 - CONCLUSION: Moderate degenerative changes as described above.. No evidence of fracture. Jose Alejandro Joel MD Lumbar Spine MRI 01/09/17 0000 Signed Impressions: Service Date/Time: Monday, January 09, 2017 08:15 - CONCLUSION: 1. Superior endplate fracture of L3 with mild depression at this site. 2. Slight neural foramina compromise and bilateral atelectasis compromise L4-L5 without any significant thecal sac stenosis. 3. There is effacement of the anterior CSF space at L2-3 due to bulging disc with compromise to the anterior CSF space, however overall no significant thecal sac stenosis is seen. Shanon Conte MD Lumbar Spine CT 01/09/17 0000 Signed Impressions: Service Date/Time: Monday, January 09, 2017 03:17 - CONCLUSION: 1. Compression fracture superior endplate of L3 age uncertain. MRI could be performed to evaluate for marrow edema. 2. Mild degenerative changes as described above. Mild stenosis at L4-L5. 3. Moderate foraminal narrowing on the right at L4-L5 Jose Alejandro Joel MD A/P Problem List: (1) L3 vertebral fracture Status: Acute Plan: - Pt presented to the ED with acute worsening of low back pain. - MRI Lumbar spine (01/09/17) --> Superior endplate fracture of L3 with mild depression at this site. Slight neural foramina compromise and bilateral atelectasis compromise L4-L5 without any significant thecal sac stenosis. There is effacement of the anterior CSF space at L2-3 due to bulging disc with compromise to the anterior CSF space, however overall no significant thecal sac stenosis is seen. - Pts INR was 4.6 at admission. - Neurosurgery is following. - Pt was given Vitamin K for Coumadin reversal on 01/09 and 01/10, INR 1.2 - Kyphoplasty done 01/11 - PT - [place]/Dilaudid prn d/c to snf once bed available. resume his coumadin today. dvt prophylaxis. (2) History of CVA (cerebrovascular accident) Status: Resolved Plan: - Pt has hx of CVA - Pt denies any hx of atrial fibrillation - Coumadin is on hold. - Pt with a noted ELLEN on exam and carotid bruits, last 2D echo was in 2005 and pt with hx of right CEA. Last Carotid US in 02/2016 with a widely patent right carotid and minimal plaquing of the left carotid. - Carotid US (01/10) --> Mild atherosclerotic plaque on the left. Endarterectomy changes on the right without significant recurrent plaque. No grayscale or Doppler evidence of hemodynamically significant narrowing on either side. - 2D echo is ordered (3) COPD (chronic obstructive pulmonary disease) Status: Acute Plan: - Duonebs prn (4) Lung cancer Status: Acute Plan: - s/p resection - pt follows with Dr. Yin (5) HTN (hypertension) Status: Chronic Plan: - Clonidine PRN - Vasotec PRN Problem Qualifiers (1) L3 vertebral fracture: Qualified Code: S32.038A - Other closed fracture of third lumbar vertebra, initial encounter (2) COPD (chronic obstructive pulmonary disease): (3) Lung cancer: Qualified Code: C34.90 - Malignant neoplasm of lung, unspecified laterality, unspecified part of lung (4) HTN (hypertension): Qualified Code: I10 - Essential hypertension Wally Sinclair MD Jan 12, 2017 09:59
--- NOTE | 2017-01-12 10:01 | HHI.NSPN ---
(Lulu Santiago) Note Status Status: Progress Note (Lulu Santiago) Interval History Interval History This is a 76-year-old male with history of COPD, Atrial arrhytmia (On chronic anticoagulant therapy.),Carotid artery stenosis, HTN and lung cancer, status post resection. He presented to the ER today with complaint of new nset of acute , very severe low back pain. He fell down. His pain has been worsening over the last week, but more acute this morning making it difficult to ambulate. It is sharp, stabbing, in his mid lumbar region. 07/05 He tried chiropractic and pain medications without improvement. It does not resolve with hydrocodone. He denied bowel or bladder incontinence or retention. denies sensory loss. MRI of the lumbar spine confirmed an acute L3 compression fracture. Case was discussed between ER physician and Dr. Pope. Neurosurgical consultation was requested 01/10: continues to c/o severe lumbar pain worsens with movement, still coagulopathic with INR 2.4 following Vit K administration 01/11: just ambulated with PT, now sitting up in chair, neuro stable, moderate thoracic pain. (Lulu Santiago) Labs, Micro, & Vital Signs Results Date Time Temp Pulse Resp B/P Pulse Ox O2 Delivery O2 Flow Rate FiO2 01/12/17 04:37 97.9 122 20 120/62 97 01/12/17 00:00 99.3 119 20 161/75 92 01/11/17 20:00 97.5 89 20 133/65 94 01/11/17 19:00 86 01/11/17 18:06 89 20 131/69 91 Nasal Cannula 3 01/11/17 18:00 89 20 131/69 91 Nasal Cannula 3 01/11/17 18:00 97.6 90 20 152/76 91 01/11/17 17:00 90 20 134/75 94 Nasal Cannula 3 01/11/17 16:00 89 20 124/69 95 Nasal Cannula 3 01/11/17 15:45 88 20 123/64 95 Nasal Cannula 3 01/11/17 15:30 90 20 112/66 95 Nasal Cannula 3 01/11/17 15:15 88 20 120/64 96 Nasal Cannula 3 01/11/17 15:00 87 20 120/62 96 Nasal Cannula 3 01/11/17 14:45 92 20 124/62 94 Nasal Cannula 3 01/11/17 14:30 94 20 132/71 94 Nasal Cannula 3 01/11/17 14:15 91 22 141/77 93 Simple Mask 6 01/11/17 14:00 118 22 175/88 93 Simple Mask 6 01/11/17 13:48 98.1 129 22 175/90 96 Simple Mask 6 01/12/17 07:00 Intake Total 1020 ml Output Total 1150 ml Balance -130 ml Constitutional Vital Signs Date Time Temp Pulse Resp B/P Pulse Ox O2 Delivery O2 Flow Rate FiO2 01/12/17 04:37 97.9 122 20 120/62 97 01/12/17 00:00 99.3 119 20 161/75 92 01/11/17 20:00 97.5 89 20 133/65 94 01/11/17 19:00 86 01/11/17 18:06 89 20 131/69 91 Nasal Cannula 3 01/11/17 18:00 89 20 131/69 91 Nasal Cannula 3 01/11/17 18:00 97.6 90 20 152/76 91 01/11/17 17:00 90 20 134/75 94 Nasal Cannula 3 01/11/17 16:00 89 20 124/69 95 Nasal Cannula 3 01/11/17 15:45 88 20 123/64 95 Nasal Cannula 3 01/11/17 15:30 90 20 112/66 95 Nasal Cannula 3 01/11/17 15:15 88 20 120/64 96 Nasal Cannula 3 01/11/17 15:00 87 20 120/62 96 Nasal Cannula 3 01/11/17 14:45 92 20 124/62 94 Nasal Cannula 3 01/11/17 14:30 94 20 132/71 94 Nasal Cannula 3 01/11/17 14:15 91 22 141/77 93 Simple Mask 6 01/11/17 14:00 118 22 175/88 93 Simple Mask 6 01/11/17 13:48 98.1 129 22 175/90 96 Simple Mask 6 01/12/17 07:00 Intake Total 1020 ml Output Total 1150 ml Balance -130 ml (Lulu Santiago) Review of Systems/Exam Exam Mr. Rahman is alert, sitting up in chair. Speech is fluent. Cranial nerve: pupils equal b/l. EOMs intact. Facial motor are normal and symmetrical. Neck is soft and supple Motor: Moving major muscle groups of lower extremities. (Lulu Santiago) Medications Current Medications Current Medications Medications (Trade) Dose Ordered Sig/Gregoria Route PRN Reason Start Time Stop Time Status Last Admin Dose Admin Sodium Chloride (NS Flush) 2 ml UNSCH PRN IV FLUSH FLUSH AFTER USING IV ACCESS 01/09/17 10:30 Sodium Chloride (NS Flush) 2 ml BID IV FLUSH 01/09/17 21:00 01/12/17 09:00 Acetaminophen (Tylenol) 650 mg Q4H PRN PO TEMP > 100.4 01/09/17 10:30 Ondansetron HCl (Zofran Inj) 4 mg Q6H PRN IVP NAUSEA OR VOMITING 01/09/17 10:30 Magnesium Hydroxide (Milk Of Magnjames Liq) 30 ml Q12H PRN PO CONSTIPATION 01/09/17 10:30 01/10/17 16:03 Temazepam (Restoril) 15 mg HS PRN PO INSOMNIA 01/09/17 10:30 01/09/17 23:08 Naloxone HCl (Narcan Inj) 0.4 mg UNSCH PRN IV SEE LABEL COMMENTS 01/09/17 10:30 Carbidopa/Levodopa (Sinemet 25-100 Mg) 1 tab HS PO 01/09/17 21:00 01/11/17 22:38 Finasteride (Proscar) 5 mg HS PO 01/09/17 21:00 01/11/17 22:37 Fluoxetine HCl (PROzac) 20 mg DAILY PO 01/10/17 09:00 01/12/17 09:47 Gabapentin (Neurontin) 600 mg TID PO 01/09/17 13:00 01/12/17 09:47 Pravastatin Sodium (Pravachol) 40 mg DAILY PO 01/10/17 09:00 01/12/17 09:47 Aspirin (Ecotrin Ec) 81 mg DAILY PO 01/10/17 09:00 01/12/17 09:47 Tamsulosin HCl (Flomax) 0.4 mg BID PO 01/09/17 21:00 01/12/17 09:47 Hydromorphone HCl (Dilaudid Pf Inj) 0.5 mg Q4H PRN IV PUSH breakthrough pain 01/09/17 20:30 01/12/17 03:01 Docusate Sodium (Colace) 100 mg BID PO 01/09/17 21:00 01/12/17 09:46 Clonidine (Catapres) 0.1 mg Q6H PRN PO SBP>160, DBP>90 01/10/17 08:30 Enalaprilat 1.25 mg 1.25 mg Q6H PRN IV PUSH SBP>170, DBP>100 01/10/17 08:30 Potassium Chloride/Sodium Chloride (NS + KCl 20 Meq Inj) 1,000 ml @ 100 mls/hr Q10H IV 01/11/17 13:54 01/11/17 13:54 Docusate Sodium (Colace) 100 mg BID PO 01/11/17 21:00 Pantoprazole Sodium (Protonix) 40 mg DAILY PO 01/12/17 09:00 01/12/17 09:46 Acetaminophen/ Hydrocodone Bitart (Hardin 10-325 Mg) 1 tab Q4H PRN PO PAIN SCALE 1 TO 5 01/11/17 14:00 Acetaminophen/ Hydrocodone Bitart ([place]in 10-325 Mg) 2 tab Q4H PRN PO PAIN SCALE 6 TO 10 01/11/17 14:00 01/12/17 06:19 Morphine Sulfate (Morphine Inj) 2 mg Q2H PRN IV PUSH PAIN SCALE 1 TO 6 01/11/17 14:00 Morphine Sulfate (Morphine Inj) 4 mg Q2H PRN IV PUSH PAIN SCALE 7 TO 10 01/11/17 14:00 Acetaminophen (Tylenol) 650 mg Q4H PRN PO TEMPERATURE > 101.5 F 01/11/17 14:00 Miscellaneous Information ALL NURSING DEPARTME... UNSCH PRN .XX SEE LABEL COMMENTS 01/11/17 13:46 01/12/17 13:45 (Lulu Santiago) Medical Decision Making MDM Remarks 76 y/o male acute L3 compression fracture, s/p kyphoplasty 01/11/17, stable post- op A. Fib, anticoagulated on Coumadin (Lulu Santiago) Plan Plan Remarks TLSO OOB, dw PT, recommending rehab clear to restart anticoagulation dw pt activity restriction clear to dc from NRS standpoint (Lulu Santiago) Attending Statement The exam, history, and the medical decision-making described in the above note were completed with the assistance of the mid-level provider. I reviewed and agree with the findings presented. I attest that I had a [id number] encounter with the patient on the same day, and personally performed and documented my assessment and findings in the medical record. (Marvin Pope MD) Lulu Santiago Jan 12, 2017 10:01 Marvin Pope MD Jan 12, 2017 16:17
[2017-01-12] MEDS ORDERED: WARF4TAB51 PO (11:22)
[2017-01-12] MEDS ORDERED: WARF-20 PO (11:22)
[2017-01-12] MEDS: CYCLOBENZAPRINE HCL 10 MG TAB PO PRN ×2 (14:27→22:40)
[2017-01-12] MEDS: WARFARIN SOD 5 MG TAB PO SCH (16:07)
--- NOTE | 2017-01-12 22:01 | EC ---
Study Study Date:01/12/2017 STUDY CONCLUSIONS SUMMARY - Left ventricle: The cavity size was normal. Wall thickness was normal. Systolic function was at the lower limits of normal. The estimated ejection fraction was 50%. Wall motion was normal; there were no regional wall motion abnormalities. - Mitral valve: Calcified annulus. Moderately thickened, moderately calcified leaflets, . If LV function is below 40, please consider prescribing an ACEI or ARB or document rationale for non-use. PROCEDURE DATA STUDY STATUS: Elective. Procedure: Transthoracic echocardiography. Image quality was poor. Scanning was performed from the parasternal, apical, and subcostal acoustic windows. Study completion: The patient tolerated the procedure well. Transthoracic echocardiography. M-mode, complete 2D, complete spectral Doppler, and color Doppler. Height: Height: 69in. Weight: Weight: 219.5lb. Body mass index: BMI: 32.5kg/m^2. Body surface area: BSA: 2.15m^2. Patient status: Inpatient. CARDIAC ANATOMY LEFT VENTRICLE: The cavity size was normal. Wall thickness was normal. Systolic function was at the lower limits of normal. The estimated ejection fraction was 50%. Wall motion was normal; there were no regional wall motion abnormalities. AORTIC VALVE: Trileaflet; mildly thickened leaflets. Doppler: Transvalvular velocity was within the normal range. There was no stenosis. No regurgitation. AORTA: Aortic root: The aortic root was normal in size. MITRAL VALVE: Calcified annulus. Moderately thickened, moderately calcified leaflets, . Doppler: Transvalvular velocity was within the normal range. There was no evidence for stenosis. Trace regurgitation. Peak gradient: 4mm Hg (D). LEFT ATRIUM: The atrium was normal in size. RIGHT VENTRICLE: The cavity size was normal. Wall thickness was normal. PULMONIC VALVE: Doppler: Transvalvular velocity was within the normal range. There was no evidence for stenosis. No regurgitation. TRICUSPID VALVE: Structurally normal valve. Doppler: Transvalvular velocity was within the normal range. No regurgitation. PULMONARY ARTERY: The main pulmonary artery was normal-sized. Systolic pressure was within the normal range. RIGHT ATRIUM: The atrium was normal in size. PERICARDIUM: There was no pericardial effusion. SYSTEMIC VEINS: Inferior vena cava: The vessel was normal in size. Patient weight: 219.5lb _Ejection fraction:_ 65-75% _Fractional shortening:_ 32% up to 5Kg 5-11.5Kg 11.6-22.9Kg 23-45Kg 45-57Kg Aortic Root 7-13 <17 13-22 17-27 17-27 LA diam 6-13 <23 24-38 33-47 37-40 RVID 10-17 7-15 7-15 7-18 8-17 LVIDd 12-22 <32 24-38 33-47 37-40 LVPW 2-4 3-6 5-7 6-8 7-8 IVS 2-4 3-6 5-7 6-8 7-8 BASIC MEASUREMENTS ADULT NORMAL Aortic valve Leaflet separation 19 mm 15-26 Aorta Root diameter, ED 35 mm BASIC MEASUREMENTS ADULT NORMAL Aortic valve Leaflet separation 19 mm 15-26 DOPPLER MEASUREMENTS ADULT NORMAL Mitral valve Peak E-wave velocity 101 cm/s Peak A-wave velocity 192 cm/s Deceleration time *137 ms 150-230 Peak gradient, D 4 mm Hg Peak E/A ratio 0.5 Pulmonic valve Peak velocity, S 48.9 cm/s LEGEND: Mean values are shown as u=mean value. Asterisk (*) mena values outside specified normal range. Ani Ray [id number]
[2017-01-12] MEDS: FINASTERIDE 5 MG TAB PO SCH (22:41)
[2017-01-12] MEDS: CARBIDOPA/LEVODOPA 25 MG/100 MG TAB PO SCH (22:41)
[2017-01-13] VITALS (9 sets, daily range): BP systolic 108–167; BP diastolic 60–78; PULSE 90–124; RESP 18–20; TEMP 96.4–99.8; O2SAT 91–95
[2017-01-13] MEDS: ACETAMINOPHEN/HYDROcodone 325 MG/10 MG TAB PO PRN ×2 (02:52→08:33)
[2017-01-13] MEDS: ASPIRIN EC 81 MG TABEC PO SCH (08:30)
[2017-01-13] MEDS: DOCUSATE SODIUM 100 MG CAP PO SCH ×2 (08:30→21:03)
[2017-01-13] MEDS: FLUoxetine HCL 20 MG CAP PO SCH (08:30)
[2017-01-13] MEDS: PRAVASTATIN SOD 40 MG TAB PO SCH (08:30)
[2017-01-13] MEDS: GABAPENTIN 300 MG CAP PO SCH ×3 (08:30→17:57)
[2017-01-13] MEDS: TAMSULOSIN HCL 0.4 MG CAP PO SCH ×2 (08:31→21:03)
[2017-01-13] MEDS: PANTOPRAZOLE SOD 40 MG DELAYED RELEASE TAB PO SCH (08:31)
[2017-01-13] MEDS: SODIUM CHLORIDE 0.9% FLUSH 10 ML FLUSH IV FLUSH SCH ×2 (08:35→21:03)
--- NOTE | 2017-01-13 12:10 | HHI.PR ---
Subjective Remarks Pts reports that he had some confusion overnight and called her around 0600 this morning asking where he was at and said he had been driving his tractor trailer. Pt currently is AAOx3 Pt continues to complain of pain but it is better controlled. Pt has not had a BM in several days Objective Vitals Vital Signs Date Time Temp Pulse Resp B/P Pulse Ox O2 Delivery O2 Flow Rate FiO2 01/13/17 08:10 98.6 105 20 118/66 92 01/13/17 04:00 99.8 120 18 167/78 91 01/13/17 02:31 124 01/13/17 00:00 98.7 102 20 130/61 92 01/12/17 20:00 98.9 90 20 137/73 94 01/12/17 18:22 95 Nasal Cannula 2.00 01/12/17 16:00 98.4 90 20 114/65 93 01/12/17 12:10 100 01/12/17 01/12/17 01/13/17 15:00 23:00 07:00 Intake Total 120 ml Output Total 0 ml 50 ml 150 ml Balance 0 ml 70 ml -150 ml Intake Oral 120 ml Output Urine Total 50 ml 150 ml Stool Total 0 ml # Voids 2 Result Diagram: 01/10/17 0425 01/10/17 0425 Imaging Last Impressions Carotid Artery Ultrasound 01/10/17 0000 Signed Impressions: Service Date/Time: Tuesday, January 10, 2017 17:26 - CONCLUSION: Mild atherosclerotic plaque on the left. Endarterectomy changes on the right without significant recurrent plaque. No grayscale or Doppler evidence of hemodynamically significant narrowing on either side. Fabian Jordan MD Chest X-Ray 01/09/17 1016 Signed Impressions: Service Date/Time: Monday, January 09, 2017 10:28 - CONCLUSION: Bibasilar atelectasis and/or infiltrate and probable mild pulmonary edema as well. Shanon Conte MD Thoracic Spine CT 01/09/17 0000 Signed Impressions: Service Date/Time: Monday, January 09, 2017 03:17 - CONCLUSION: Moderate degenerative changes as described above.. No evidence of fracture. Jose Alejandro Joel MD Lumbar Spine MRI 01/09/17 0000 Signed Impressions: Service Date/Time: Monday, January 09, 2017 08:15 - CONCLUSION: 1. Superior endplate fracture of L3 with mild depression at this site. 2. Slight neural foramina compromise and bilateral atelectasis compromise L4-L5 without any significant thecal sac stenosis. 3. There is effacement of the anterior CSF space at L2-3 due to bulging disc with compromise to the anterior CSF space, however overall no significant thecal sac stenosis is seen. Shanon Conte MD Lumbar Spine CT 01/09/17 0000 Signed Impressions: Service Date/Time: Monday, January 09, 2017 03:17 - CONCLUSION: 1. Compression fracture superior endplate of L3 age uncertain. MRI could be performed to evaluate for marrow edema. 2. Mild degenerative changes as described above. Mild stenosis at L4-L5. 3. Moderate foraminal narrowing on the right at L4-L5 Jose Alejandro Joel MD Objective Remarks General: NAD, AAOx3 Chest: CTA Cardiac: Regular Abd: +BS, soft ND/NT Ext: No edema A/P Problem List: (1) L3 vertebral fracture Status: Acute Plan: - Pt presented to the ED with acute worsening of low back pain. - MRI Lumbar spine (01/09/17) --> Superior endplate fracture of L3 with mild depression at this site. Slight neural foramina compromise and bilateral atelectasis compromise L4-L5 without any significant thecal sac stenosis. There is effacement of the anterior CSF space at L2-3 due to bulging disc with compromise to the anterior CSF space, however overall no significant thecal sac stenosis is seen. - Pts INR was 4.6 at admission. - Neurosurgery is following. - Pt was given Vitamin K for Coumadin reversal on 01/09 and 01/10, INR 1.2 - Kyphoplasty done 01/11 - PT - Pt had some confusion last night, may be related to high doses of narcotic and flexeril. We will decrease his dose of [place] to 5/325, 1-2 tablets and decrease his dose of Flexeril. Cont. Dilaudid prn for breakthrough. - We will give Lactulose daily until pt has a BM - Coumadin resumed on 01/12. Recheck INR in AM - Will check with Neurosurgery as to whether or not we can give the pt Lovenox until INR is therapeutic. (2) History of CVA (cerebrovascular accident) Status: Resolved Plan: - Pt has hx of CVA - Pt denies any hx of atrial fibrillation - Coumadin resumed on 01/12 - Pt with a noted ELLEN on exam and carotid bruits, last 2D echo was in 2005 and pt with hx of right CEA. Last Carotid US in 02/2016 with a widely patent right carotid and minimal plaquing of the left carotid. - Carotid US (01/10) --> Mild atherosclerotic plaque on the left. Endarterectomy changes on the right without significant recurrent plaque. No grayscale or Doppler evidence of hemodynamically significant narrowing on either side. - 2D echo --> - EF 50% - Mitral valve with mildly calcified annulus, moderately thickened, moderately calcified leaflets - No aortic stenosis noted (3) COPD (chronic obstructive pulmonary disease) Status: Acute Plan: - Duonebs prn (4) Lung cancer Status: Acute Plan: - s/p resection - pt follows with Dr. Yin (5) HTN (hypertension) Status: Chronic Plan: - Clonidine PRN - Vasotec PRN Assessment and Plan Patient examined. Assessment and plan formulated with Mimi Gonzales PA-C. I agree with the above. was confused overnight. most likely medication related. lower pain/spasms meds. laxative. add low dose lovenox until coumadin therapeutic. to snf tomorrow if mental status stable. Problem Qualifiers (1) L3 vertebral fracture: Qualified Code: S32.038A - Other closed fracture of third lumbar vertebra, initial encounter (2) COPD (chronic obstructive pulmonary disease): (3) Lung cancer: Qualified Code: C34.90 - Malignant neoplasm of lung, unspecified laterality, unspecified part of lung (4) HTN (hypertension): Qualified Code: I10 - Essential hypertension Mimi Gonzales Jan 13, 2017 12:10 Wally Sinclair MD Jan 13, 2017 12:19
[2017-01-13] MEDS ORDERED: ACETAMINOPHEN/HYDROcodone 325 MG/5 MG TAB PO PRN (12:15)
[2017-01-13] MEDS ORDERED: CYCLOBENZAPRINE HCL 10 MG TAB PO PRN (12:15)
[2017-01-13] MEDS ORDERED: LACTULOSE SYRUP 20 GM/30 ML CUP PO ONE (12:30)
[2017-01-13] MEDS: ACETAMINOPHEN/HYDROcodone 325 MG/5 MG TAB PO PRN ×2 (13:06→17:57)
[2017-01-13] MEDS: ENOXAPARIN SODIUM 40 MG/0.4 ML SYRINGE SQ SCH (13:06)
[2017-01-13] MEDS: WARFARIN SOD 5 MG TAB PO SCH (17:57)
[2017-01-13] MEDS: CARBIDOPA/LEVODOPA 25 MG/100 MG TAB PO SCH (21:03)
[2017-01-13] MEDS: FINASTERIDE 5 MG TAB PO SCH (21:03)
[2017-01-13] MEDS: LACTULOSE SYRUP 20 GM/30 ML CUP PO SCH (21:03)
[2017-01-14] VITALS: BP 142/83; PULSE 77; RESP 20; TEMP 98.1; O2SAT 94
[2017-01-14 04:00] VITALS: BP 145/88; PULSE 118; RESP 20; TEMP 99.6; O2SAT 95
[2017-01-14] MEDS: DOCUSATE SODIUM 100 MG CAP PO SCH (08:48)
[2017-01-14] MEDS: PRAVASTATIN SOD 40 MG TAB PO SCH (08:49)
[2017-01-14] MEDS: PANTOPRAZOLE SOD 40 MG DELAYED RELEASE TAB PO SCH (08:49)
[2017-01-14] MEDS: FLUoxetine HCL 20 MG CAP PO SCH (08:49)
[2017-01-14] MEDS: ASPIRIN EC 81 MG TABEC PO SCH (08:49)
[2017-01-14] MEDS: GABAPENTIN 300 MG CAP PO SCH ×2 (08:49→14:12)
[2017-01-14] MEDS: TAMSULOSIN HCL 0.4 MG CAP PO SCH (08:49)
[2017-01-14] MEDS: SODIUM CHLORIDE 0.9% FLUSH 10 ML FLUSH IV FLUSH SCH (08:50)
[2017-01-14] MEDS: LACTULOSE SYRUP 20 GM/30 ML CUP PO SCH (08:50)
[2017-01-14] MEDS: ACETAMINOPHEN/HYDROcodone 325 MG/5 MG TAB PO PRN ×2 (08:50→14:15)
[2017-01-14 10:16] VITALS: BP 186/92; PULSE 110; RESP 20; TEMP 98.7; O2SAT 94
[2017-01-14 10:18] LABS: INTERNATIONAL NORMALIZED RATIO 1.4 RATIO; PROTHROMBIN TIME - PATIENT 15.5 SEC (9.8-11.6)
[2017-01-14] MEDS ORDERED: ENOX40P SQ (10:54)
[2017-01-14] MEDS ORDERED: CYCL1TAB29 PO (10:55)
--- NOTE | 2017-01-14 11:12 | HHI.DS ---
Discharge Summary Admission Date Jan 09, 2017 at 10:35 Discharge Date: Jan 14, 2017 Admitting Diagnosis L3 superior end plate fracture (1) L3 vertebral fracture Diagnosis: Principal (2) History of CVA (cerebrovascular accident) Diagnosis: Secondary (3) COPD (chronic obstructive pulmonary disease) Diagnosis: Secondary (4) Lung cancer Diagnosis: Secondary (5) HTN (hypertension) Diagnosis: Secondary Consultants Dr. jonn Pope - Neurosurgery Brief History Patient is a pleasant 76-year-old male with history of lung cancer, status post resection. Patient presented to the ER today with complaint of acute low back pain. Pain has been worsening over the last several weeks, but more acute this morning making it difficult to ambulate. Patient tried chiropractic medicine without improvement. Pain does not resolve with hydrocodone 5 mg. Patient denied bowel or bladder incontinence or retention. MRI of the lumbar spine confirmed L3 compression fracture. Case was discussed between ER physician and Dr. Pope. Dr. Pope recommended admission for kyphoplasty. CBC/BMP: 01/10/17 0425 01/10/17 0425 Significant Findings Laboratory Tests Test 01/14/17 09:39 Prothrombin Time 15.5 SEC (9.8-11.6) Imaging Last Impressions Lumbar Spine X-Ray 01/11/17 0000 Signed Impressions: Service Date/Time: Wednesday, January 11, 2017 12:58 - CONCLUSION: Intraoperative images. Dontae Holcomb MD Carotid Artery Ultrasound 01/10/17 0000 Signed Impressions: Service Date/Time: Tuesday, January 10, 2017 17:26 - CONCLUSION: Mild atherosclerotic plaque on the left. Endarterectomy changes on the right without significant recurrent plaque. No grayscale or Doppler evidence of hemodynamically significant narrowing on either side. Fabian Jordan MD Chest X-Ray 01/09/17 1016 Signed Impressions: Service Date/Time: Monday, January 09, 2017 10:28 - CONCLUSION: Bibasilar atelectasis and/or infiltrate and probable mild pulmonary edema as well. Shanon Conte MD Thoracic Spine CT 01/09/17 0000 Signed Impressions: Service Date/Time: Monday, January 09, 2017 03:17 - CONCLUSION: Moderate degenerative changes as described above.. No evidence of fracture. Jose Alejandro Joel MD Lumbar Spine MRI 01/09/17 0000 Signed Impressions: Service Date/Time: Monday, January 09, 2017 08:15 - CONCLUSION: 1. Superior endplate fracture of L3 with mild depression at this site. 2. Slight neural foramina compromise and bilateral atelectasis compromise L4-L5 without any significant thecal sac stenosis. 3. There is effacement of the anterior CSF space at L2-3 due to bulging disc with compromise to the anterior CSF space, however overall no significant thecal sac stenosis is seen. Shanon Conte MD Lumbar Spine CT 01/09/17 0000 Signed Impressions: Service Date/Time: Monday, January 09, 2017 03:17 - CONCLUSION: 1. Compression fracture superior endplate of L3 age uncertain. MRI could be performed to evaluate for marrow edema. 2. Mild degenerative changes as described above. Mild stenosis at L4-L5. 3. Moderate foraminal narrowing on the right at L4-L5 Jose Alejandro Joel MD PE at Discharge General: NAD, AAOx3 Chest: CTA Cardiac: Regular Abd: +BS, soft ND/NT Ext: No edema Hospital Course Pt presented to the ED with acute worsening of low back pain. MRI Lumbar spine ( 01/09/17) --> Superior endplate fracture of L3 with mild depression at this site. Slight neural foramina compromise and bilateral atelectasis compromise L4- L5 without any significant thecal sac stenosis with effacement of the anterior CSF space at L2-3 due to bulging disc with compromise to the anterior CSF space , however overall no significant thecal sac stenosis is seen. Pts INR was 4.6 at admission. Neurosurgery was consulted. Pt was given Vitamin K for Coumadin reversal on 01/09 and 01/10, and INR improved to 1.2. Pt had Kyphoplasty performed on 01/11. Pt had some confusion on the evening of 01/12 which was felt to be related to high doses of narcotic and Flexeril. We decreased his dose of [place] to 5/325, 1-2 tablets and decrease his dose of Flexeril. Pt did not have any further issues with confusion with these changes. Pt was given Lactulose and did have a BM prior to discharge. Coumadin was resumed on 01/12. INR was 1.4 on 01/14. Neurosurgery cleared the pt for Lovenox 40mg SQ daily until INR is therapeutic. Of note, the pt was noted to have ELLEN on exam and carotid bruits, last 2D echo was in 2005 and pt with hx of right CEA. Carotid US (01/10) --> Mild atherosclerotic plaque on the left. Endarterectomy changes on the right without significant recurrent plaque. No grayscale or Doppler evidence of hemodynamically significant narrowing on either side. 2D echo (01/10) with EF 50 %, mitral valve with mildly calcified annulus, moderately thickened, moderately calcified leaflets, but no aortic stenosis noted. Pts PCP can followup on this at discharge. Pt will need to followup with Dr. Pope in 2 weeks Pt will need to followup with his PCP, Dr. Hairston 1 week after discharge from SNF. Pt will have PT/INR checked daily until INR is greater than 2 Lovenox 40mg SQ daily until INR is above 2 Pt Condition on Discharge: Good Discharge Disposition: Discharge to SNF Discharge Instructions DIET: Follow Instructions for: Coumadin (Warfarin) Diet Activities you can perform: Regular-No Restrictions Follow up Referrals: Neurosurgery - 2 Weeks with Jonn Pope MD PCP Follow-up - [address] Hairston New Medications: Cyclobenzaprine (Flexeril) 10 Mg Tab 5 MG PO Q8H PRN muscle spasms Days 14 TAB Enoxaparin Inj (Lovenox Inj) 40 Mg/0.4 Ml Syr 40 MG SQ Q24H dvt prophylaxis #5 INJECTION Continued Medications: Aspirin DR (Aspirin 81) 81 Mg Tabdr 81 MG PO DAILY Ref 0 TAB Carbidopa-Levodopa (Carbidopa-Levodopa) 25-100 Mg Tab 1 TAB PO HS Parkinson Disease Mgmt #90 Ref 0 TAB Cyanocobalamin (Vitamin B12) 500 Mcg Tab 5000 MCG PO DAILY #1 BOTTLE Finasteride (Finasteride) 5 Mg Tab 5 MG PO DAILY Do not crush. Manage Prostate Problems #30 Ref 0 TAB Fluoxetine (Fluoxetine) 20 Mg Cap 20 MG PO DAILY #30 Ref 0 CAP Folic Acid (Folic Acid) 400 Mcg Tab 400 MCG PO DAILY Nutritional Supplement Ref 0 TAB Gabapentin (Gabapentin) 600 Mg Tab 600 MG PO TID #90 Ref 0 TAB Lovastatin (Lovastatin) 40 Mg Tab 40 MG PO DAILY Cholesterol Management #30 Ref 0 TAB Multiple Vitamins W/ Minerals (Vision Plus) 1 Cap 1 CAP PO DAILY Nutritional Supplement Ref 0 CAP Tamsulosin (Tamsulosin) 0.4 Mg Cap 0.4 MG PO BID Manage Prostate Problems #30 Ref 0 CAP Thiamine (Vitamin B-1) 100 Mg Tab Warfarin (Warfarin) 4 Mg Tab 4 MG PO DIRECTED tuesday/tue/tue Blood Clot Prevention #0 Ref 0 TAB Warfarin (Warfarin) 2 Mg Tab 2 MG PO DIRECTED /tuesday//tue PRN Blood Clot Prevention #0 Ref 0 TAB Discontinued Medications: Vitamin E (Vitamin E) 400 Unit Cap 400 UNITS PO DAILY Nutritional Supplement Ref 0 CAP Mimi Gonzales Jan 14, 2017 11:12
--- NOTE | 2017-01-14 11:13 | HHI.DCPOC ---
Discharge Care Plan Diagnosis: (1) L3 vertebral fracture (2) History of CVA (cerebrovascular accident) (3) HTN (hypertension) (4) Lung cancer (5) COPD (chronic obstructive pulmonary disease) Goals to Promote Your Health * To prevent worsening of your condition and complications * To maintain your health at the optimal level Directions to Meet Your Goals Take your medications as prescribed Follow your dietary instruction Follow activity as directed Keep your appointments as scheduled Take your immunizations and boosters as scheduled If your symptoms worsen call your PCP, if no PCP go to Urgent Care Center or Emergency Room Smoking is Dangerous to Your Health. Avoid second hand smoke Call the 24-hour hour crisis hotline for domestic abuse at Mimi Gonzales Jan 14, 2017 11:13
[2017-01-14] MEDS ORDERED: HYDR-3533 PO (11:23)
[2017-01-14 12:26] VITALS: BP 136/74; PULSE 93; RESP 20; TEMP 96.5; O2SAT 93
[2017-01-14] MEDS: ENOXAPARIN SODIUM 40 MG/0.4 ML SYRINGE SQ SCH (14:15)
[2017-01-14 14:36] VITALS: PULSE 116
[2017-01-26] MEDS ORDERED: TIZA4CAP3 PO (15:14)
[2017-02-01] MEDS ORDERED: HYDR-3533 PO (12:59)
[2017-03-24] MEDS ORDERED: TIZA4CAP3 PO (11:20)
== END 2017-01-14 14:23 | DRG 517 ==
LOC: NEPE 01:49 → NEDA 10:35 → NEPHCDU 14:50 → N06B 01-11 14:22 → N05B 01-11 16:32
PROVIDERS: ADMIT Hospitalist; ATTEND Hospitalist
PROC: 0QU03JZ Supplement Lumbar Vertebra with Synthetic Substitute, Percutaneous Approach (ICD-10-PCS; 2017-01-11)
PROC: 0QS03ZZ Reposition Lumbar Vertebra, Percutaneous Approach (ICD-10-PCS; principal; 2017-01-11 12:18)
DX: M48.56XA Collapsed vertebra, not elsewhere classified, lumbar region, initial encounter for fracture (principal); J44.9 Chronic obstructive pulmonary disease, unspecified; I48.2 Chronic atrial fibrillation; I10 Essential (primary) hypertension; E78.5 Hyperlipidemia, unspecified; G25.81 Restless legs syndrome; I73.9 Peripheral vascular disease, unspecified; R79.1 Abnormal coagulation profile; N28.9 Disorder of kidney and ureter, unspecified; N40.0 Benign prostatic hyperplasia without lower urinary tract symptoms; Z87.891 Personal history of nicotine dependence; Z85.118 Personal history of other malignant neoplasm of bronchus and lung; Z79.01 Long term (current) use of anticoagulants
CPT/HCPCS: 71010; 72100; 72128; 72131; 72158; 80048; 82948; 85025; 85610; 85730; 93005; 93306; 93880; 94150; 96372; A9579; J0131; J0690; J1170; J1650; J2250; J2270; J2370; J2405; J2710; J3010; J3370; J3480; J7050; J7120; L0200; L0484; L0627; Q9967

== ENCOUNTER 2017-02-02 16:58 | Emergency (ER) | payer MEDICARE ==
[~2017-02-02] VITALS: Ht 175.3 cm; Wt 110.0 kg
[~2017-02-02 16:58] MED LIST changes: +ASPI-110 PO; -ASPI81TA11 PO; +CARB25TA9 PO; -CLON1TAB PO; -COUM2TAB PO; -COUM4TAB7 PO; +ENOX40P SQ; -EPIP0.3I IM; +FINA5TAB2 PO; +FLUO20CA4 PO; -FLUO20TA20 PO; +FOLI400T PO; +GABA600T PO; +HYDR-3533 PO; -ROPI.5 PO; -TAB-TAB PO; +TAMS0.4C4 PO; -TAMS0.4C67 PO; +TIZA4CAP3 PO; +VISICAP PO; +VITA100T2; -VITA400C70 PO; -VITA500S3 PO; +VITA500T49 PO; +WARF-20 PO; +WARF4TAB51 PO
[2017-02-02 17:09] VITALS: BP 196/94; PULSE 92; RESP 20; TEMP 97.4; O2SAT 92
--- NOTE | 2017-02-02 17:14 | PD ---
Physical Exam Date Seen by Provider: February 02, 2017 Time Seen by Provider: 17:11 Narrative 76 year old male presents to the emergency department for evaluation of lower back pain. He reports surgery [address] Pope. He reports kyphoplasty and degenerative disc disease. He reports steady worsening pain over the past week. No new injury. No fevers. No loss of bowel or bladder control. No saddle anesthesias. He saw Dr. Pope' PA yesterday at his scheduled appointment. He is currently on hydrocodone and a muscle relaxant, but states it is not working. He is able to ambulate with a walker. Vital signs reviewed. Patient awaiting bed placement. Data Data Last Documented VS Vital Signs Date Time Temp Pulse Resp B/P Pulse Ox O2 Delivery O2 Flow Rate FiO2 02/02/17 17:09 97.4 92 20 196/94 92 MDM Supervised Visit with ALAINA: Nicky Miranda February 02, 2017 17:14
[2017-02-02] MEDS ORDERED: DIAZEPAM 5 MG TAB PO ONE (17:45)
[2017-02-02] MEDS ORDERED: traMADol HCL 50 MG TAB PO ONE (17:45)
[2017-02-02] MEDS ORDERED: MORPHINE SULFATE 8 MG/ML INJ IM ONE (19:00)
--- NOTE | 2017-02-02 19:30 | PD ---
HPI Chief Complaint: Back/ Neck Pain or Injury Time Seen by Provider: 17:27 Travel History International Travel<30 days: No Contact w/Intl Traveler<30days: No Traveled to known affect area: No History of Present Illness HPI Patient is a 76 year old male who comes in complaining of back pain. Patient had back surgery in the middle of December with Dr. Gonzalez. He went back to his office yesterday and was told everything looked good with the surgery and he needed to go see a pain specialist. He was given a prescription for pain medicine, but he had already received 120 Lortab recently from his primary care doctor, and the pharmacy would not fill the prescription. He says the pain has been the same since the surgery. He denies any injuries. He denies any difficulty urinating or any numbness or tingling. He has not had any fever or chills. PFSH Past Medical History Arthritis: No Asthma: No Autoimmune Disease: No Blood Disorders: No Anxiety: Yes Depression: Yes Heart Rhythm Problems: No Cancer: Yes (LUNG/ LOBECTOMY 2013) Cardiovascular Problems: Yes High Cholesterol: Yes Chemotherapy: No Chest Pain: No Congestive Heart Failure: No COPD: No Cerebrovascular Accident: Yes (CVA X 3) Diabetes: No Endocrine: No GERD: No Glaucoma: No Genitourinary: Yes Headaches: No Hepatitis: No Hiatal Hernia: No Hypertension: Yes Immune Disorder: No Implanted Vascular Access Dvce: Yes Kidney Stones: No Musculoskeletal: No Neurologic: Yes Psychiatric: Yes Reproductive: No Respiratory: Yes (RUL LUNG MASS) Migraines: No Myocardial Infarction: No Radiation Therapy: No Renal Failure: No Seizures: No Sickle Cell Disease: No Sleep Apnea: No Thyroid Disease: No Ulcer: No Past Surgical History Abdominal Surgery: Yes (AAA stent/ RIGHT LOBECTOMY) AICD: No Body Medical Devices: AAA STENT Cardiac Surgery: No Ear Surgery: No Endocrine Surgery: No Genitourinary Surgery: No Gynecologic Surgery: No Joint Replacement: No Oral Surgery: No Pacemaker: No Thoracic Surgery: Yes (R thorocotomy/lobectomy) Tonsillectomy: Yes Other Surgery: Yes (CAROTID ENDARTERECTOMY RIGHT JUL, 2012) Social History Alcohol Use: Yes (DAILY beer) Tobacco Use: No (4 years ago) Substance Use: No Allergies-Medications (Allergen,Severity, Reaction): Coded Allergies: Bees (Unverified Allergy, Severe, ANAPHYLACTIC SHOCK, 02/02/17) Fire Ant (Unverified Allergy, Severe, ANAPHYLAXIS.HIVES, 02/02/17) Penicillin (Verified Allergy, Severe, 02/02/17) Reported Meds & Prescriptions Reported Meds & Active Scripts Active Lortab (Hydrocodone-Acetaminophen) 5-325 Mg Tab 1-2 Tab PO Q4-6H PRN Tizanidine (Tizanidine HCl) 4 Mg Cap 4 Mg PO TID Warfarin 2 Mg Tab 2 Mg PO DIRECTED PRN /tuesday//tue Warfarin 4 Mg Tab 4 Mg PO DIRECTED tuesday/tue/tue Reported Carbidopa-Levodopa 25-100 Mg Tab 1 Tab PO HS Vitamin B-1 (Thiamine HCl) 100 Mg Tab Tamsulosin (Tamsulosin HCl) 0.4 Mg Cap 0.4 Mg PO BID Gabapentin 600 Mg Tab 600 Mg PO TID Finasteride 5 Mg Tab 5 Mg PO DAILY Do not crush. Aspirin 81 (Aspirin) 81 Mg Tabdr 81 Mg PO DAILY Folic Acid 400 Mcg Tab 400 Mcg PO DAILY Vitamin B12 (Cyanocobalamin) 500 Mcg Tab 5,000 Mcg PO DAILY Lovastatin 40 Mg Tab 40 Mg PO DAILY Fluoxetine (Fluoxetine HCl) 20 Mg Cap 20 Mg PO DAILY Vision Plus (Multiple Vitamins W/ Minerals) 1 Cap 1 Cap PO DAILY Review of Systems Except as stated in HPI: all other systems reviewed are Neg General / Constitutional: No: Fever, Chills HENT: No: Headaches, Lightheadedness Cardiovascular: No: Chest Pain or Discomfort Respiratory: No: Shortness of Breath Gastrointestinal: No: Nausea, Vomiting Genitourinary: No: Dysuria, Decreased Urinary Output, Hesitancy Musculoskeletal: Positive: Pain Skin: No Change in Pigmentation Neurologic: No: Weakness, Paresthesia, Incontinence, Sensory Disturbance Physical Exam Narrative GENERAL: Awake and alert, in no acute distress. SKIN: Focused skin assessment warm/dry. Surgical wound is well healed, there is no erythema, warmth, or discharge. HEAD: Atraumatic. Normocephalic. EYES: Pupils equal and round. No scleral icterus. ENT: Mucous membranes pink and moist. NECK: Trachea midline. No JVD. CARDIOVASCULAR: Regular rate and rhythm. No murmur appreciated. RESPIRATORY: No accessory muscle use. Clear to auscultation. Breath sounds equal bilaterally. MUSCULOSKELETAL: No obvious deformities. No clubbing. No cyanosis. No edema. No tenderness to palpation of the spine. No pain over the surgical site. Tender to palpation of the paraspinal muscles, minimally. NEUROLOGICAL: Awake and alert. No obvious cranial nerve deficits. Motor grossly within normal limits. Normal speech. No saddle anesthesia. PSYCHIATRIC: Appropriate mood and affect; insight and judgment normal. Data Data Last Documented VS Vital Signs Date Time Temp Pulse Resp B/P Pulse Ox O2 Delivery O2 Flow Rate FiO2 02/02/17 17:09 97.4 92 20 196/94 92 Orders Diazepam (Valium) (02/02/17 17:45) Tramadol (Ultram) (02/02/17 17:45) Morphine Inj (Morphine Inj) (02/02/17 19:00) [facility] Medical Decision Making Medical Screen Exam Complete: Yes Emergency Medical Condition: Yes Medical Record Reviewed: Yes Differential Diagnosis intractable pain vs muscle spasm vs post-surgical complication Narrative Course Patient is a 76 year old male who comes in complaining of back pain s/p surgery a few weeks ago. He was seen at his surgeon's office and was told everything was fine yesterday. They suggested he see pain management. Exam shows some muscular pain, no pain of the spine itself, no pain over the surgical site. I see no reason for imaging at this time. His called and said he is refusing to do anything for himself at home and she is tired of having to care for him. Patient given Valium and Tramadol for pain. He is asking for more pain medicine. Patient offered admission for intractable pain, but declines at this time. Given an IM injection of Morphine and advised he should do physical therapy as prescribed. He should follow up with Dr. Gonzalez and his primary care doctor. Return to the ED as needed for any worsening symptoms. Diagnosis Primary Impression: Back pain Qualified Code: M54.5 - Chronic bilateral low back pain without sciatica Patient Instructions: Back Pain (ED), General Instructions Additional Instructions: Take the pain medicine you have at home. Stretch and move everyday, participate in physical therapy. Follow up with your surgeon and your primary care doctor. Return to the ED as needed for any worsening symptoms. Disposition: 01 DISCHARGE HOME Condition: Stable Myla Hart MD February 02, 2017 19:30
[2017-02-02 20:10] VITALS: RESP 20
[2017-03-24] MEDS ORDERED: TIZA4CAP3 PO (11:20)
== END 2017-02-02 20:22 | disposition home or self-care (01) ==
LOC: NEPD 16:58
DX: M54.5 Low back pain (principal)
CPT/HCPCS: 96372; 99283; J2270

== ENCOUNTER 2017-02-06 21:27 | Inpatient (IN) | payer MEDICARE ==
[~2017-02-06] VITALS: Ht 175.3 cm; Wt 105.5 kg
[~2017-02-06 21:27] MED LIST changes: -ENOX40P SQ
[2017-02-06 21:38] VITALS: BP 188/84; PULSE 100; RESP 16; TEMP 98.5; O2SAT 95
[2017-02-06] MEDS ORDERED: MORP1TAB24 PO (21:58)
[2017-02-06] MEDS ORDERED: ONDANSETRON HCL 4 MG/2 ML VIAL IV PUSH ONE (22:15)
[2017-02-06] MEDS ORDERED: MORPHINE SULFATE 4 MG/ML INJ IV PUSH ONE (22:15)
[2017-02-06] MEDS ORDERED: SODIUM CHLORID 0.9% 500 ML INJ 500 ML IV ONE (22:15)
--- NOTE | 2017-02-06 22:17 | PD ---
HPI Chief Complaint: Back/ Neck Pain or Injury Time Seen by Provider: 21:28 Travel History International Travel<30 days: No Contact w/Intl Traveler<30days: No Traveled to known affect area: No History of Present Illness HPI The patient is a 76 year old male who presents to the [facility] emergency department with a history of back pain that he reports has been constant and severe since the onset in mid December. He denies having any injury or fall associated with this. From reviewing the record, the patient was diagnosed with an L3 superior endplate compression fracture of lumbar spine CT, followed by a lumbar spine MRI. The patient was admitted to the hospital and underwent kyphoplasty by Dr. Pope on January 11, 2017. The patient reports that he has been taking hydrocodone and a muscle relaxer, however they have not been helping. He reports that he was referred to pain management. He reports that he has seen pain management in the past related to back problems. The patient followed up with his primary care physician and had another MRI of the lumbar spine ordered which revealed a new fracture of L1 according to him and his family. He has a follow-up appointment scheduled with his primary care physician for tomorrow. The patient has an LSO brace in place. The patient reports that the pain is been severe today. He reports that yesterday he was started on morphine 15 mg twice a day, in addition to his hydrocodone for breakthrough pain, however he reports that the pain continues to be severe. The patient reports that he's had constipation. He reports that his last bowel movement was 2 days ago. He reports that he normally moves his bowels daily. He reports that he has been taking MiraLAX for this. He reports that his activity level has been diminished. He reports that his appetite has been diminished. He reports that this evening he was diaphoretic and nauseated. The patient additionally reports over the last 2-3 weeks having increased difficulty urinating. He reports that he has a history of benign prostatic hypertrophy. He reports that he has been experiencing urinary frequency, urgency, and increased difficulty starting his stream of urine. The patient reports that the pain is worse on the right side of his back at this time. He denies having any radiation down into his legs. He denies having any bladder or bowel incontinence. A review of systems, the patient denies any known recent fevers, cough, congestion, neck pain, chest pain, shortness of breath, abdominal pain, vomiting, diarrhea, or neurologic symptoms. [facility] Past Medical History Narrative Medical The patient's past medical history is significant for cardiac arrhythmia, chronically anticoagulated on Coumadin, history of carotid artery stenosis, COPD , hypertension, right-sided lung cancer status post lobectomy, RLS, and benign prostatic hypertrophy. Arthritis: No Asthma: No Autoimmune Disease: No Blood Disorders: No Anxiety: Yes Depression: Yes Heart Rhythm Problems: No Cancer: Yes (LUNG/ LOBECTOMY 2013) Cardiovascular Problems: Yes High Cholesterol: Yes Chemotherapy: No Chest Pain: No Congestive Heart Failure: No COPD: No Cerebrovascular Accident: Yes (CVA X 3) Diabetes: No Endocrine: No GERD: No Glaucoma: No Genitourinary: Yes Headaches: No Hepatitis: No Hiatal Hernia: No Hypertension: Yes Immune Disorder: No Implanted Vascular Access Dvce: Yes Kidney Stones: No Musculoskeletal: No Neurologic: Yes Psychiatric: Yes Reproductive: No Respiratory: Yes (RUL LUNG MASS) Migraines: No Myocardial Infarction: No Radiation Therapy: No Renal Failure: No Seizures: No Sickle Cell Disease: No Sleep Apnea: No Thyroid Disease: No Ulcer: No Past Surgical History Narrative Surgical The patient's past surgical history is significant for an abdominal aortic aneurysm status post stenting, tonsillectomy, right upper lobectomy in 2013 related to lung cancer, colonoscopy in 2011, right carotid endarterectomy in 2011. Abdominal Surgery: Yes (AAA stent/ RIGHT LOBECTOMY) AICD: No Body Medical Devices: AAA STENT Cardiac Surgery: No Ear Surgery: No Endocrine Surgery: No Genitourinary Surgery: No Gynecologic Surgery: No Joint Replacement: No Neurologic Surgery: No Oral Surgery: No Pacemaker: No Thoracic Surgery: Yes (R thorocotomy/lobectomy) Tonsillectomy: Yes Other Surgery: Yes (CAROTID ENDARTERECTOMY RIGHT JUL, 2012) Social History Alcohol Use: Yes (DAILY beer) Tobacco Use: No (4 years ago) Substance Use: No Allergies-Medications (Allergen,Severity, Reaction): Coded Allergies: Bees (Unverified Allergy, Severe, ANAPHYLACTIC SHOCK, 02/02/17) Fire Ant (Unverified Allergy, Severe, ANAPHYLAXIS.HIVES, 02/02/17) Penicillin (Verified Allergy, Severe, 02/02/17) Reported Meds & Prescriptions Reported Meds & Active Scripts Active Lortab (Hydrocodone-Acetaminophen) 5-325 Mg Tab 1-2 Tab PO Q4-6H PRN Tizanidine (Tizanidine HCl) 4 Mg Cap 4 Mg PO TID Warfarin 2 Mg Tab 2 Mg PO DIRECTED PRN cobb/tuesday//sat Warfarin 4 Mg Tab 4 Mg PO DIRECTED tuesday/tue/tue Reported Morphine ER (Morphine Sulfate) 15 Mg Tab 15 Mg PO BID Carbidopa-Levodopa 25-100 Mg Tab 1 Tab PO HS Vitamin B-1 (Thiamine HCl) 100 Mg Tab Tamsulosin (Tamsulosin HCl) 0.4 Mg Cap 0.4 Mg PO BID Gabapentin 600 Mg Tab 600 Mg PO TID Finasteride 5 Mg Tab 5 Mg PO DAILY Do not crush. Aspirin 81 (Aspirin) 81 Mg Tabdr 81 Mg PO DAILY Folic Acid 400 Mcg Tab 400 Mcg PO DAILY Vitamin B12 (Cyanocobalamin) 500 Mcg Tab 5,000 Mcg PO DAILY Lovastatin 40 Mg Tab 40 Mg PO DAILY Fluoxetine (Fluoxetine HCl) 20 Mg Cap 20 Mg PO DAILY Vision Plus (Multiple Vitamins W/ Minerals) 1 Cap 1 Cap PO DAILY Review of Systems Except as stated in HPI: all other systems reviewed are Neg General / Constitutional: No: Fever Eyes: No: Visual changes HENT: No: Headaches Cardiovascular: No: Chest Pain or Discomfort Respiratory: No: Shortness of Breath Gastrointestinal: Positive: Nausea, Constipation, Changes in Bowel Habits, Loss of Appetite (related to the pain), No: Vomiting, Diarrhea, Abdominal Pain , Indigestion Genitourinary: No: Dysuria Musculoskeletal: Positive: Myalgias, Arthralgias, Limited ROM, Pain Skin: No Rash Neurologic: No: Weakness, Focal Abnormalities, Change in Mentation, Slurred Speech, Paresthesia, Sensory Disturbance Psychiatric: No: Depression Endocrine: No: Polydipsia Hematologic/Lymphatic: No: Easy Bruising Physical Exam Narrative General: The patient is a well-developed well-nourished male, uncomfortable appearing on arrival, slightly diaphoretic. Head and Neck exam: Head is normocephalic atraumatic. Eyes: EOMI, pupils are equal round and reactive to light. Nose: Midline septum with pink mucous membranes Mouth: Dentition unremarkable. Moist mucus membranes. Posterior oropharynx is not erythematous. No tonsillar hypertrophy. Uvula midline. Airway patent. Neck: No palpable lymphadenopathy. No nuchal rigidity. No thyromegaly. Cardiovascular: Regular rate and rhythm without murmurs, gallops, or rubs. Lungs: Clear to auscultation bilaterally. No wheezes, rhonchi, or rales. Abdomen: Soft, without tenderness to palpation in all 4 quadrants of the abdomen. No guarding, rebound, or rigidity. Normal bowel sounds are audible. No tenderness on palpation of McBurney's point. Extremities: No clubbing, cyanosis, or edema. 2+ pulses in all 4 extremities. Back: No spinous process tenderness to palpation. The patient on examination has paraspinal muscle tenderness on palpation that is worse along the right side of the lumbar paraspinal musculature. No costovertebral angle tenderness to palpation. Neurologic Exam: Grossly nonfocal. Skin Exam: No rash noted. Intact skin that is warm and dry. Data Data Last Documented VS Vital Signs Date Time Temp Pulse Resp B/P Pulse Ox O2 Delivery O2 Flow Rate FiO2 02/06/17 22:57 16 02/06/17 21:38 98.5 100 188/84 95 Orders Complete Blood Count With Diff (02/06/17 22:06) Comprehensive Metabolic Panel (02/06/17 22:06) Prothrombin Time / Inr (Pt) (02/06/17 22:06) Act Partial Throm Time (Ptt) (02/06/17 22:06) Urinalysis - C+S If Indicated (02/06/17 22:06) Iv Access Insert/Monitor (02/06/17 22:06) Ecg Monitoring (02/06/17 22:06) Oximetry (02/06/17 22:06) Morphine Inj (Morphine Inj) (02/06/17 22:15) Ondansetron Inj (Zofran Inj) (02/06/17 22:15) Sodium Chlorid 0.9% 500 Ml Inj (Ns 500 M (02/06/17 22:15) Cath For Specimen (02/06/17 22:10) Diazepam (Valium) (02/06/17 22:45) Ct Abd/Pel W Iv Contrast(Rout) (02/06/17 23:28) Hydromorphone Pf Inj (Dilaudid Pf Inj) (02/06/17 23:30) Place In Observation (02/06/17 ) Code Status (5/14/17 23:56) Vital Signs (Adult) Q4H (02/06/17 23:56) Activity Oob With Assistance (02/06/17 23:56) Diet Heart Healthy (02/07/17 Breakfast) Sodium Chloride 0.9% Flush (Ns Flush) (02/07/17 00:00) Sodium Chloride 0.9% Flush (Ns Flush) (02/07/17 09:00) Acetaminophen (Tylenol) (02/07/17 00:00) Ondansetron Inj (Zofran Inj) (02/07/17 00:00) Magnesium Hydroxide Liq (Milk Of Magnesi (02/07/17 00:00) Pt Request For Service (02/06/17 23:56) Scd Bilateral/Knee High YOUNG.BID (02/06/17 23:56) Naloxone Inj (Narcan Inj) (02/07/17 00:00) Iohexol 350 Inj (Omnipaque 350 Inj) (02/06/17 23:59) Docusate Sodium (Colace) (02/07/17 09:00) Acetamin-Hydrocod 325-10 Mg ([place] 10-32 (02/07/17 00:00) Hydromorphone Pf Inj (Dilaudid Pf Inj) (02/07/17 00:00) Consult Neurosurgery (02/06/17 ) Carbidopa-Levodopa 25-100 Mg (Sinemet 25 (02/07/17 21:00) Finasteride (Proscar) (02/07/17 09:00) Fluoxetine (Prozac) (02/07/17 09:00) Gabapentin (Neurontin) (02/07/17 09:00) Pravastatin (Pravachol) (02/07/17 09:00) Morphine Sr (Oramorph Sr) (02/07/17 00:15) Tamsulosin (Flomax) (02/07/17 09:00) Tizanidine Hcl (Zanaflex) (02/07/17 09:00) Aspirin Chew (Aspirin Chew) (02/07/17 09:00) Multivitamins-Minerals Therap (Theragran (02/07/17 09:00) Phytonadione (Mephyton) (02/07/17 00:15) Complete Blood Count With Diff (02/08/17 06:00) Basic Metabolic Panel (Bmp) (02/08/17 06:00) Magnesium (Mg) (02/08/17 06:00) Prothrombin Time / Inr (Pt) (02/08/17 06:00) Admit Order (Ed Use Only) (02/07/17 00:09) Labs Laboratory Tests Test 02/06/17 02/06/17 22:15 22:50 White Blood Count 13.2 TH/MM3 Red Blood Count 5.49 MIL/MM3 Hemoglobin 16.7 GM/DL Hematocrit 48.7 % Mean Corpuscular Volume 88.7 FL Mean Corpuscular Hemoglobin 30.4 PG Mean Corpuscular Hemoglobin 34.3 % Concent Red Cell Distribution Width 13.1 % Platelet Count 209 TH/MM3 Mean Platelet Volume 8.0 FL Neutrophils (%) (Auto) 80.5 % Lymphocytes (%) (Auto) 11.6 % Monocytes (%) (Auto) 6.8 % Eosinophils (%) (Auto) 0.5 % Basophils (%) (Auto) 0.6 % Neutrophils # (Auto) 10.6 TH/MM3 Lymphocytes # (Auto) 1.5 TH/MM3 Monocytes # (Auto) 0.9 TH/MM3 Eosinophils # (Auto) 0.1 TH/MM3 Basophils # (Auto) 0.1 TH/MM3 CBC Comment DIFF FINAL Differential Comment Prothrombin Time 70.7 SEC Prothromb Time International 5.9 RATIO Ratio Activated Partial 62.3 SEC Thromboplast Time Sodium Level 136 MEQ/L Potassium Level 3.8 MEQ/L Chloride Level 102 MEQ/L Carbon Dioxide Level 22.8 MEQ/L Anion Gap 11 MEQ/L Blood Urea Nitrogen 16 MG/DL Creatinine 0.88 MG/DL Estimat Glomerular Filtration 84 ML/MIN Rate Random Glucose 115 MG/DL Calcium Level 9.6 MG/DL Total Bilirubin 0.7 MG/DL Aspartate Amino Transf 23 U/L (AST/SGOT) Alanine Aminotransferase 29 U/L (ALT/SGPT) Alkaline Phosphatase 152 U/L Total Protein 8.6 GM/DL Albumin 4.0 GM/DL Urine Color YELLOW Urine Turbidity CLEAR Urine pH 6.5 Urine Specific [place] 1.016 Urine Protein TRACE mg/dL Urine Glucose (UA) NEG mg/dL Urine Ketones 10 mg/dL Urine Occult Blood LARGE Urine Nitrite NEG Urine Bilirubin NEG Urine Urobilinogen LESS THAN 2.0 MG/DL Urine Leukocyte Esterase LARGE Urine RBC /hpf Urine WBC 38 /hpf Urine Hyaline Casts 3 /lpf Urine Mucus FEW /lpf Microscopic Urinalysis Comment CULT NOT INDICATED MDM Medical Decision Making Medical Screen Exam Complete: Yes Emergency Medical Condition: Yes Medical Record Reviewed: Yes Interpretation(s) Last Impressions Abdomen/Pelvis CT 02/06/17 2328 Signed Impressions: Service Date/Time: Monday, February 06, 2017 23:58 - CONCLUSION: 1. Status post kyphoplasty at the L3 level. 2. Scoliosis and degenerative change in lumbar spine. 3. Hepatic steatosis. 4. Small simple appearing cyst in the right lobe of the liver. Mohamud Arzola MD Differential Diagnosis Intractable pain related to compression fractures, versus urinary tract infection/pyelonephritis contributing to back pain Narrative Course During the course of the patients emergency department visit, the patients history, examination, and differential diagnosis were reviewed with the patient. The patient had IV access obtained and blood work sent for analysis. The patient was placed on a career coach with oximetry and blood pressure monitoring. The patient was initially provided morphine 4 mg IV for pain, Zofran 4 mg IV for nausea, normal saline IV fluids were started. The patient continued to have discomfort and was given Valium 5 mg by mouth 1 for muscle spasm. The patients laboratory studies were reviewed and remarkable for a white count of 13.2, hemoglobin 16.7, platelets 209 with neutrophils 80.5, CMP is remarkable for glucose of 1:15, alkaline phosphatase 152, total protein 8.6, INR 5.9, urinalysis shows 10 ketones, large occult blood, large leukocyte esterase, innumerable rbc's, 38 WBCs, culture not indicated. A CT scan of the abdomen and pelvis was ordered to evaluate for possible underlying kidney stone versus retroperitoneal hematoma given the patient's elevated INR. Radiology studies were reviewed and remarkable for from reviewing the MRI done at [facility] in [place] on February 04, 2017, the patient was noted to have a mild compression fracture deformity of L1 vertebral body with invagination of the inferior endplate marrow edema involving the lower portion of the vertebral body. There is mild retropulsion with mild mass effect on the anterior thecal sac. This appears to be acute to subacute. Moderate compression fracture deformity of L3 vertebral body status post kyphoplasty with mild diffuse edema. Mild retropulsion with mild flattening of the anterior thecal sac. Mild central canal stenosis at L4-L5 level secondary to disc bulge and degenerative changes involving the facets. CT scan of the abdomen and pelvis showed no acute abnormality. The patient continued to have significant pain. The patient was given hydromorphone 0.5 mg IV. The patient will be admitted for intractable pain. The patients results were discussed with the patient, including the plan of care. I explained that further testing and/ or monitoring is indicated based on the patients history, examination, and/ or laboratory findings. Therefore, I recommended admission for additional evaluation. The patient expressed understanding and was agreeable with this plan. The patient was admitted to the hospital in stable condition and sent to a bed under the care of the [facility] service. Physician Communication Physician Communication The patient's case is discussed with Dr. Domingo who did agree to admit the patient for further evaluation and treatment at this time. Diagnosis Primary Impression: Intractable back pain Additional Impression: Closed compression fracture of lumbosacral spine Qualified Code: S32.000D - Closed compression fracture of lumbosacral spine, with routine healing, subsequent encounter Admitting Information Admitting Physician Requests: Admit Rosa Maria Kathleen MD February 06, 2017 22:17
[2017-02-06 22:35] LABS: AUTOMATED NEUTROPHIL # 10.6 TH/MM3 (1.8-7.7); BASOPHIL # 0.1 TH/MM3 (0-0.2); BASOPHIL % 0.6 % (0.0-2.0); EOSINOPHIL # 0.1 TH/MM3 (0-0.4); EOSINOPHIL % 0.5 % (0.0-4.0); HEMATOCRIT 48.7 % (39.0-51.0); HEMO FLAGS DIFF FINAL; LYMPH % 11.6 % (9.0-44.0); LYMPHOCYTE # 1.5 TH/MM3 (1.0-4.8); MEAN CELL VOLUME 88.7 FL (80.0-100.0); MEAN CORPUSCULAR HEMOGLOBIN 30.4 PG (27.0-34.0); MEAN CORPUSCULAR HGB CONC 34.3 % (32.0-36.0); MONO % 6.8 % (0.0-8.0); NEUT % 80.5 % (16.0-70.0); PLATELET COUNT 209 TH/MM3 (150-450); RED BLOOD COUNT 5.49 MIL/MM3 (4.50-5.90); RED CELL DISTRIBUTION WIDTH 13.1 % (11.6-17.2); WHITE BLOOD COUNT 13.2 TH/MM3 (4.0-11.0)
[2017-02-06] MEDS ORDERED: DIAZEPAM 5 MG TAB PO ONE (22:45)
[2017-02-06 22:55] LABS: ALKALINE PHOSPHATASE 152 U/L (45-117); TOTAL BILIRUBIN ADULT 0.7 MG/DL (0.2-1.0)
[2017-02-06 23:03] LABS: ALT (GPT) 29 U/L (12-78); ANION GAP 11 MEQ/L (5-15); APTT (PATIENT) 62.3 SEC (24.3-30.1); AST (GOT) 23 U/L (15-37); BICARBONATE 22.8 MEQ/L (21.0-32.0); BLOOD UREA NITROGEN 16 MG/DL (7-18); CHLORIDE 102 MEQ/L (98-107); GLOMERULAR FILTRATION RATE 84 ML/MIN (>89); INTERNATIONAL NORMALIZED RATIO 5.9 RATIO; POTASSIUM 3.8 MEQ/L (3.5-5.1); PROTHROMBIN TIME - PATIENT 70.7 SEC (9.8-11.6); SODIUM (NA) 136 MEQ/L (136-145)
[2017-02-06 23:16] LABS: BLOOD, URINE LARGE (NEG); COMMENT (UR) CULT NOT INDICATED; CULTURE IF INDICATED CULT NOT INDICATED; GLUCOSE,URINE NEG (NEG); HYALINE CAST, URINE 3 /lpf (RARE); KETONE, URINE 10 mg/dL (NEG); MUCUS URINE FEW /lpf (OCC); NITRITE,URINE NEG (NEG); PH, URINE 6.5 (5.0-8.5); URINE COLOR YELLOW (YELLW/STRAW)
[2017-02-06] MEDS ORDERED: HYDROmorphone HCL PF 1 MG/ML VIAL IV PUSH ONE (23:30)
[2017-02-06] MEDS ORDERED: IOHEXOL 350 MG/ML 10 ML VIAL (for RAD DIAG) IV ONE (23:59)
[2017-02-07] VITALS (9 sets, daily range): BP systolic 100–197; BP diastolic 60–112; PULSE 64–120; RESP 16–22; TEMP 97.7–98.4; O2SAT 92–99
[2017-02-07] MEDS ORDERED: ACETAMINOPHEN 325 MG TAB PO PRN
[2017-02-07] MEDS ORDERED: NALOXONE HCL 0.4 MG/ML AMP IV PRN
[2017-02-07] MEDS ORDERED: HYDROmorphone HCL PF 1 MG/ML VIAL IV PUSH PRN
[2017-02-07] MEDS ORDERED: SODIUM CHLORIDE 0.9% FLUSH 10 ML FLUSH IV FLUSH PRN
[2017-02-07] MEDS ORDERED: ONDANSETRON HCL 4 MG/2 ML VIAL IVP PRN
[2017-02-07] MEDS ORDERED: PHYTONADIONE 5 MG TAB PO ONE (00:15)
--- NOTE | 2017-02-07 00:22 | RADRPT ---
EXAM DATE/TIME: 02/06/2017 23:58 [place] COMPARISON: MRI LUMBAR SPINE W & W/O CONTRAST, January 09, 2017, 8:15. CT LUMBAR SPINE W/O CONTRAST, January 09 7, 3:17. SPINE LUMBAR LTD (AP & LAT), January 11, 2017, 12:58. INDICATIONS : Right sided back pain. Elevated INR. Recent compression fracture deformity of L3 status post kyphopla sty. IV CONTRAST: 96 cc Omnipaque 350 (iohexol) IV ORAL CONTRAST: No oral contrast ingested. RADIATION DOSE: 31.09 CTDIvol (mGy) MEDICAL HISTORY : Cardiovascular disease. Benign prostatic hyperplasia (BPH). Carcinoma, lung. CVA. SURGICAL HISTORY : Abdominal aortic aneurysm repair. Lobectomy. Kyphoplasty. ENCOUNTER: Initial ACUITY: 1 month PAIN SCALE: 10/10 LOCATION: Right flank TECHNIQUE: Volumetric scanning of the abdomen and pelvis was performed. Using automated exposure control and ad justment of the mA and/or kV according to patient size, radiation dose was kept as low as reasonably achievable to obtain optimal diagnostic quality images. FINDINGS: LOWER LUNGS: The visualized lower lungs are clear. LIVER: Normal in size and shape with diffusely decreased attenuation characteristic of hepatic steatosis. Th ere is a 11-12 mm cystic lesion in the right lobe of the liver. There is no dilation of the biliary t ree. No calcified gallstones. SPLEEN: Normal size without lesion. PANCREAS: Within normal limits. KIDNEYS: Normal in size and shape. There is no mass, stone or hydronephrosis. Renal vascular calcifications a re present bilaterally. ADRENAL GLANDS: Within normal limits. VASCULAR: Patient is status post abdominal aortic repair with stent graft in place. This is patent in appearanc e. BOWEL/MESENTERY: The stomach, small bowel, and colon demonstrate no acute abnormality. There is no free intraperitone al air or fluid. ABDOMINAL WALL: Within normal limits. RETROPERITONEUM: There is no lymphadenopathy. BLADDER: No wall thickening or mass. REPRODUCTIVE: Within normal limits. INGUINAL: There is no lymphadenopathy or hernia. MUSCULOSKELETAL: Status post kyphoplasty at the L3 level with mild streak artifact. The paraspinous soft tissues are w ithin normal limits. There are degenerative changes in the lumbar spine. There is a mild scoliosis. D iffuse osteopenia. CONCLUSION: 1. Status post kyphoplasty at the L3 level. 2. Scoliosis and degenerative change in lumbar spine. 3. Hepatic steatosis. 4. Small simple appearing cyst in the right lobe of the liver. Mohamud Arzola MD on February 07, 2017 at 0:15 Board Certified Radiologist. This report was verified electronically.
[2017-02-07] MEDS ORDERED: LABETALOL HCL 100 MG/20 ML VIAL IV PUSH ONE (00:45)
[2017-02-07] MEDS: MORPHINE SULFATE 15 MG CONTROLLED RELEASE TAB PO SCH ×3 (01:30→20:26)
[2017-02-07] MEDS ORDERED: BISACODYL 10 MG SUPP RECTAL PRN (08:30)
[2017-02-07] MEDS ORDERED: MAGNESIUM HYDROXIDE SUSP 30 ML CUP PO PRN (08:30)
[2017-02-07] MEDS ORDERED: cloNIDine HCL 0.1 MG TAB PO PRN (09:00)
[2017-02-07] MEDS ORDERED: ENALAPRILAT 1.25 MG/ML VIAL IV PUSH PRN (09:00)
[2017-02-07] MEDS: SODIUM CHLORIDE 0.9% FLUSH 10 ML FLUSH IV FLUSH SCH ×2 (09:00→20:28)
[2017-02-07] MEDS: DOCUSATE SODIUM 100 MG CAP PO SCH ×4 (09:00→20:28)
[2017-02-07] MEDS: ASPIRIN 81 MG CHEW TAB PO SCH (09:21)
[2017-02-07] MEDS: MAGNESIUM HYDROXIDE SUSP 30 ML CUP PO PRN (09:22)
[2017-02-07] MEDS: MULTIVITAMINS/MINERALS THERAPEUTIC TAB PO SCH (09:22)
[2017-02-07] MEDS: FLUoxetine HCL 20 MG CAP PO SCH (09:23)
[2017-02-07] MEDS: GABAPENTIN 300 MG CAP PO SCH ×3 (09:23→18:43)
[2017-02-07] MEDS: PRAVASTATIN SOD 40 MG TAB PO SCH (09:23)
[2017-02-07] MEDS: TAMSULOSIN HCL 0.4 MG CAP PO SCH ×2 (09:23→20:28)
--- NOTE | 2017-02-07 09:29 | HHI.HP ---
HPI Service [facility] Hospitalists Primary Care Physician Dr. Dilip Hairston Admission Diagnosis Intractable Back pain, L1 and L3 compression fx Chief Complaint: Intractable back pain Travel History International Travel<30 Days: No Contact w/Intl Traveler <30 Da: No Traveled to Known Affected Are: No History of Present Illness Mr. Rahman is a 76 y/o male with chronic back pain who was recently admitted to [facility] from 01/09/17 to 01/14/17 with intractable back pain related to L3 compression fracture and underwent Kyphoplasty with Dr. Pope on 01/11/17. The patient reports that he has continued to have significant back pain since that hospitalization. This is the same pain he was experiencing prior to surgery that does have some radiation across the lower back down the tops of the thighs to the knees. He thinks that the pain is worse on the right side of his back at this time. He has been taking [place] 10/325 Q6H PRN and Flexeril 10mg Q4H PRN at home however they have not been helping. The patient followed up with his PCP, Dr. Hairston and had another MRI of the lumbar spine on which revealed an acute ot subacute mild compression fracture deformity of the L1 vertebral body with invagination of the inferior endplate and marrow edema involving the lower portion of the vertebral body with mild retropulsion with mild mass effect on the anterior thecal sac, moderate compression fracture deformity of L3 vertebral body status post kyphoplasty with mild diffuse edema and mild retropulsion with mild flattening of the anterior thecal sac, and mild central canal stenosis at the L4-L5 level secondary to disc bulge and degenerative change involving the facets. He reports that Tuesday he was started on Morphine 15 mg twice a day, in addition to his hydrocodone for breakthrough pain, however he reports that the pain continues to be severe. The patient has an LSO brace in place and has been using it consistently. The patient reports that the pain seemed to be worse over the previous two days and this prompted him to come back to the ED for further evaluation. The patient reports that he has been constipated as well. His last BM was 3 days ago. He reports that he normally moves his bowels daily. He reports that he has been taking MiraLAX and Colace at home for the last few days but no BM yet. He reports that his activity level has been diminished but he relates this to the pain. He denies any weakness in his LE. He reports that his appetite has been diminished and he has not been eating much of anything. The patient additionally reports over the last 2-3 weeks having increased difficulty urinating. He reports that he has a history of benign prostatic hypertrophy. He reports that he has been experiencing urinary frequency, urgency, and increased difficulty starting his stream of urine. He denies having any bladder or bowel incontinence. Review of Systems Constitutional: COMPLAINS OF: Change in appetite, DENIES: Dizziness Eyes: DENIES: Diplopia Ears, nose, mouth, throat: DENIES: Hearing loss Respiratory: DENIES: Cough Cardiovascular: DENIES: Chest pain, Palpitations, Lower Extremity Edema Gastrointestinal: COMPLAINS OF: Constipation, DENIES: Nausea, Vomiting Genitourinary: DENIES: Urinary incontinence, Hematuria, Dysuria Musculoskeletal: COMPLAINS OF: Back pain, DENIES: Joint pain Integumentary: DENIES: Rash Neurologic: COMPLAINS OF: Headache, DENIES: Localized weakness, Seizures Psychiatric: DENIES: Confusion Past Family Social History Past Medical History Hx of CVA on chronic anticoagulation with Coumadin Carotid artery stenosis COPD HTN Hyperlipidemia R lung cancer, s/p resection RLS BPH Inflammatory polyarthritis Depression/Anxiety Past Surgical History AAA s/p stent Tonsillectomy RUL Lobectomy in 2013 Colonoscopy in 2011 R carotid endarterectomy in 2011 Reported Medications Lortab (Hydrocodone-Acetaminophen) 5-325 Mg Tab 1-2 Tab PO Q4-6H PRN Tizanidine (Tizanidine HCl) 4 Mg Cap 4 Mg PO TID Warfarin 2 Mg Tab 2 Mg PO DIRECTED PRN /tuesday//tue Warfarin 4 Mg Tab 4 Mg PO DIRECTED tuesday/tue/tue Morphine ER (Morphine Sulfate) 15 Mg Tab 15 Mg PO BID Carbidopa-Levodopa 25-100 Mg Tab 1 Tab PO HS Vitamin B-1 (Thiamine HCl) 100 Mg Tab Tamsulosin (Tamsulosin HCl) 0.4 Mg Cap 0.4 Mg PO BID Gabapentin 600 Mg Tab 600 Mg PO TID Finasteride 5 Mg Tab 5 Mg PO DAILY Do not crush. Aspirin 81 (Aspirin) 81 Mg Tabdr 81 Mg PO DAILY Folic Acid 400 Mcg Tab 400 Mcg PO DAILY Vitamin B12 (Cyanocobalamin) 500 Mcg Tab 5,000 Mcg PO DAILY Lovastatin 40 Mg Tab 40 Mg PO DAILY Fluoxetine (Fluoxetine HCl) 20 Mg Cap 20 Mg PO DAILY Vision Plus (Multiple Vitamins W/ Minerals) 1 Cap 1 Cap PO DAILY Allergies: Coded Allergies: Bees (Unverified Allergy, Severe, ANAPHYLACTIC SHOCK, 02/02/17) Fire Ant (Unverified Allergy, Severe, ANAPHYLAXIS.HIVES, 02/02/17) Penicillin (Verified Allergy, Severe, 02/02/17) Family History Noncontributory Social History Occasional alcohol use (+)Hx of tobacco use, former smoker, pt quit smoking 4 [address] ago [address] illicit [address] drugs Physical Exam Vital Signs Vital Signs Date Time Temp Pulse Resp B/P Pulse Ox O2 Delivery O2 Flow Rate FiO2 02/07/17 08:26 98.1 110 22 180/96 99 02/07/17 02:37 97.7 103 18 195/95 92 02/07/17 01:52 110 16 156/69 96 02/07/17 01:14 103 174/79 02/07/17 00:34 120 16 197/93 95 02/06/17 22:57 16 02/06/17 21:38 98.5 100 16 188/84 95 Physical Exam GENERAL: This is a well-nourished, well-developed patient, in no apparent distress. HEENT: Atraumatic. Normocephalic. No temporal or scalp tenderness. No scleral icterus. Airway patent. NECK: Trachea midline, supple, nontender. CARDIO: Regular. RESP: CTA bilaterally. No wheezes, rales, or rhonchi. ABD: +BS, soft, non-tender, nondistended. EXT: Extremities without clubbing, cyanosis, or edema. NEURO: Awake and alert. Motor and sensory grossly within normal limits. Five out of 5 muscle strength in all muscle groups. Normal speech. Laboratory Laboratory Tests Test 02/06/17 02/06/17 22:15 22:50 White Blood Count 13.2 Red Blood Count 5.49 Hemoglobin 16.7 Hematocrit 48.7 Mean Corpuscular Volume 88.7 Mean Corpuscular Hemoglobin 30.4 Mean Corpuscular Hemoglobin 34.3 Concent Red Cell Distribution Width 13.1 Platelet Count 209 Mean Platelet Volume 8.0 Neutrophils (%) (Auto) 80.5 Lymphocytes (%) (Auto) 11.6 Monocytes (%) (Auto) 6.8 Eosinophils (%) (Auto) 0.5 Basophils (%) (Auto) 0.6 Neutrophils # (Auto) 10.6 Lymphocytes # (Auto) 1.5 Monocytes # (Auto) 0.9 Eosinophils # (Auto) 0.1 Basophils # (Auto) 0.1 CBC Comment DIFF FINAL Differential Comment Prothrombin Time 70.7 Prothromb Time International 5.9 Ratio Activated Partial 62.3 Thromboplast Time Sodium Level 136 Potassium Level 3.8 Chloride Level 102 Carbon Dioxide Level 22.8 Anion Gap 11 Blood Urea Nitrogen 16 Creatinine 0.88 Estimat Glomerular Filtration 84 Rate Random Glucose 115 Calcium Level 9.6 Total Bilirubin 0.7 Aspartate Amino Transf 23 (AST/SGOT) Alanine Aminotransferase 29 (ALT/SGPT) Alkaline Phosphatase 152 Total Protein 8.6 Albumin 4.0 Urine Color YELLOW Urine Turbidity CLEAR Urine pH 6.5 Urine Specific [place] 1.016 Urine Protein TRACE Urine Glucose (UA) NEG Urine Ketones 10 Urine Occult Blood LARGE Urine Nitrite NEG Urine Bilirubin NEG Urine Urobilinogen LESS THAN 2.0 Urine Leukocyte Esterase LARGE Urine RBC Urine WBC 38 Urine Hyaline Casts 3 Urine Mucus FEW Microscopic Urinalysis Comment CULT NOT INDICATED Result Diagram: 02/06/175 02/06/17 2215 Imaging MRI Lumbar Spine (02/04/17): 1. Mild compression fracture deformity of the L1 vertebral body with invagination of the inferior endplate and marrow edema involving the lower portion of the vertebral body. There is mild retropulsion with mild mass effect on the anterior thecal sac. this appears acute to subacute. 2. Moderate compression fracture deformity of L3 vertebral body status post kyphoplasty with mild diffuse edema. There is mild retropulsion with mild flattening of the anterior thecal sac. 3. Mild central canal stenosis at the L4-L5 level secondary to disc bulge and degenerative change involving the facets. Last Impressions Abdomen/Pelvis CT 02/06/17 9127 Signed Impressions: Service Date/Time: Monday, February 06, 2017 23:58 - CONCLUSION: 1. Status post kyphoplasty at the L3 level. 2. Scoliosis and degenerative change in lumbar spine. 3. Hepatic steatosis. 4. Small simple appearing cyst in the right lobe of the liver. Mohamud Arzola MD Septic Shock Reassessment Heart: Regular rate and rhythm Lungs: Clear Skin: Warm Assessment and Plan Problem List: (1) Intractable back pain Status: Acute Plan: - Pt was previously admitted to [facility] from 01/09/17 to 01/14/17 with intractable back pain related to L3 compression fracture and underwent Kyphoplasty with Dr. Pope on 01/11/17. - He has continued to have significant back pain since that hospitalization and is the same pain he was experiencing prior to surgery that does have some radiation across the lower back and down the tops of the thighs to the knees. - He has been taking [place] 10/325 Q6H PRN and Flexeril 10mg Q4H PRN at home and this past Tuesday he was started on Morphine 15 mg twice a day, in addition to his hydrocodone for breakthrough pain, however the pain continues to be severe. - Pt had another MRI of the lumbar spine on 02/04/17 which revealed an acute or subacute mild compression fracture deformity of the L1 vertebral body with invagination of the inferior endplate and marrow edema involving the lower portion of the vertebral body with mild retropulsion with mild mass effect on the anterior thecal sac, moderate compression fracture deformity of L3 vertebral body status post kyphoplasty with mild diffuse edema and mild retropulsion with mild flattening of the anterior thecal sac, and mild central canal stenosis at the L4-L5 level secondary to disc bulge and degenerative change involving the facets. - The patient has an LSO brace in place and has been using it consistently. - Dr. Pope is consulted, await his evaluation. - INR was supra-therapeutic at 5.9 at admission and he was given Vitamin K 2.5mg po once last night. - Repeat INR this morning and will likely need another dose of Vitamin K - PT evaluation - Pain control PRN - PRN BP control, this BP is elevated likely secondary to pain. - Constipation precautions. Pt has not had a BM in 3 days. May need to give Relistor this afternoon if no BM today. - No DVT prophylaxis for now as INR supra-therapeutic (2) Closed compression fracture of lumbosacral spine Status: Acute Plan: - See above. (3) Supratherapeutic INR Status: Acute Plan: - INR was 5.9 at admission. - Pt normally takes Coumadin 4mg on and 2mg on -Sun - Coumadin on hold - Pt was given Vitamin K 2.5mg po last night. - Repeat INR today and may need to given more Vitamin K today (4) HTN (hypertension) Status: Chronic Plan: - BP likely elevated secondary to pain. - Clonidine PRN - Vasotec PRN (5) Constipation Status: Acute Plan: - Likely secondary to the narcotic medications - Review of CT Abd/pelvis with noted stool throughout the colon. - Colace BID - Lactulose daily - MOM and Dulcolax PRN - May need to given Relistor if no BM today. (6) History of CVA (cerebrovascular accident) Status: Resolved Plan: - Hx of CVA on chronic anticoagulation with Coumadin. (7) Lung cancer Status: Chronic Plan: - s/p resection (8) COPD (chronic obstructive pulmonary disease) Status: Chronic Plan: - Duonebs PRN (9) BPH (benign prostatic hyperplasia) Status: Chronic Assessment and Plan Patient examined. Assessment and plan formulated with Mimi Gonzales PA-C. I agree with the above. recent L3 comp fx with kyphoplasty now L1 comp fx. constipation and ?early ileus. persistent back and abdomen pains. laxatives. relistor if needed. NSG consulted to give opinion and reccs on L1 fx TLSO brace. hold coumadin for supratherapeutic inr. Physician Certification 2 Midnight Certification Type: Admission for Inpatient Services Order for Inpatient Services The services are ordered in accordance with Medicare regulations or non- Medicare payer requirements, as applicable. In the case of services not specified as inpatient-only, they are appropriately provided as inpatient services in accordance with the 2-midnight benchmark. Estimated LOS (days): 3 3 days is the estimated time the patient will need to remain in the hospital, assuming treatment plan goals are met and no additional complications. Post-Hospital Plan: Not yet determined Problem Qualifiers (1) Closed compression fracture of lumbosacral spine: Qualified Code: S32.000D - Closed compression fracture of lumbosacral spine, with routine healing, subsequent encounter Mimi Gonzales February 07, 2017 09:29 Wally Sinclair MD February 07, 2017 15:41
[2017-02-07] MEDS ORDERED: RESP: ALBUTEROL 2.5 MG/IPRATROPIUM 0.5 MG NEB (PRN) NEB (09:30)
[2017-02-07] MEDS ORDERED: ACETAMINOPHEN/HYDROcodone 325 MG/10 MG TAB PO PRN ×2 (10:00)
[2017-02-07] MEDS: ACETAMINOPHEN/HYDROcodone 325 MG/5 MG TAB PO PRN ×3 (10:25→23:59)
[2017-02-07] MEDS: LACTULOSE SYRUP 20 GM/30 ML CUP PO SCH (10:27)
[2017-02-07 10:49] LABS: PROTHROMBIN TIME - PATIENT 50.7 SEC (9.8-11.6)
[2017-02-07 10:50] LABS: INTERNATIONAL NORMALIZED RATIO 4.3 RATIO
[2017-02-07] MEDS: FINASTERIDE 5 MG TAB PO SCH (13:53)
--- NOTE | 2017-02-07 16:04 | PD.CONS ---
(Kevyn Walden) [facility] Service Neurosurgery Consult Requested By Dr Klein Reason for Consult Lumbar compression fracture and pain Primary Care Physician Non-Staff History of Present Illness This is a 76-year-old male who presented to the emergency department yesterday evening complaining of lumbar compression fractures and severe low back pain. He has a history of chronic low back pain that has been intermittent over the years. During that time frame he has been to Pain Management for injections which helped briefly. Approximately eight months ago the pain became very severe. He presented to the emergency department on due to worsening pain over the preceding week after he fell. He was found to have a L3 compression fracture on MRI for which he he underwent a kyphoplasty on by Dr Pope. The patient states that since that time the pain has not improved but worsened. The pain goes across the lower back. He does report some numbness to the anterior thigh bilaterally that is intermittent. He denies any bowel or bladder incontinence. He does have equilibrium problems chronically secondary to a prior stroke but there has not been any change in it. The patient also presented to the emergency department on for the same complaint and was discharged home after evaluation. His PCP ordered an MRI of the lumbar spine which was done on at [facility]. Per the Hospitalist H&P the patient has an acute to subacute L1 compression fracture with mild retropulsion resulting in mild mass effect on the anterior thecal sac that was found on the MRI as well as edema also being noted to the surrounding tissues at the L3 kyphoplasty site. (Kevyn Walden) Review of Systems Constitutional: Patient denies any fever or chills. 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 He denies any double vision or blurry vision to the left eye. Neck: The patient denies any neck pain. Respiratory: The patient denies any shortness of breath or productive cough. Cardiac: The patient denies any chest pain, palpitations or irregular heart beat. Gastrointestinal: The patient complains of abdominal pain secondary to constipation. He denies any nausea, vomiting or bowel incontinence. Genitourinary: The patient denies any bladder incontinence. Extremities: The patient denies any arm or leg pain or weakness. Back: The patient complains of pain across the lower back. Neurological: The patient has intermittent numbness to the anterior thighs but none a present. He denies any headache, dizziness or tingling. Psychiatric: The patient denies any depression or anxiety but is on medication per the . Skin: The patient denies any rashes, lesions or itching. 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 On chronic anticoagulation with warfarin Carotid artery stenosis High blood pressure since surgery Hyperlipidemia Right-sided lung cancer Restless leg syndrome Benign prostate hypertrophy Inflammatory polyarthritis Depression Anxiety Abdominal aortic aneurysm Transient ischemic attack, multiple Past Surgical History Colonoscopy (2011) Right carotid endarterectomy (2011) Right upper lobe lobectomy (2013) Aortic artery aneurysm stenting Tonsillectomy Active Ordered Medications Current Medications Medications (Trade) Dose Ordered Sig/Gregoria Route Start Time Stop Time Status Last Admin (NS Flush) 2 ml UNSCH PRN IV FLUSH 02/07/17 00:00 02/07/17 04:43 (NS Flush) 2 ml BID IV FLUSH 02/07/17 09:00 (Tylenol) 650 mg Q4H PRN PO 02/07/17 00:00 (Zofran Inj) 4 mg Q6H PRN IVP 02/07/17 00:00 (Milk Of Magnesia Liq) 30 ml Q12H PRN PO 02/07/17 00:00 02/07/17 09:22 (Narcan Inj) 0.4 mg UNSCH PRN IV 02/07/17 00:00 (Colace) 100 mg BID PO 02/07/17 09:00 02/07/17 09:22 (Sinemet 25-100 Mg) 1 tab HS PO 02/07/17 21:00 (Proscar) 5 mg DAILY PO 02/07/17 09:00 02/07/17 13:53 (PROzac) 20 mg DAILY PO 02/07/17 09:00 02/07/17 09:23 (Neurontin) 600 mg TID PO 02/07/17 09:00 02/07/17 13:53 (Pravachol) 40 mg DAILY PO 02/07/17 09:00 02/07/17 09:23 (Oramorph Sr) 15 mg BID PO 02/07/17 00:15 02/07/17 09:20 (Flomax) 0.4 mg BID PO 02/07/17 09:00 02/07/17 09:23 (Zanaflex) 4 mg TID PO 02/07/17 09:00 02/07/17 13:53 (Aspirin Chew) 81 mg DAILY PO 02/07/17 09:00 02/07/17 09:21 (Theragran M Tab) 1 tab DAILY PO 02/07/17 09:00 02/07/17 09:22 ([place] 10-325 Mg) 1 tab Q4H PRN PO 02/07/17 10:00 (Dilaudid Pf Inj) 1 mg Q6H PRN IV PUSH 02/07/17 08:30 ([place] 5-325 Mg) 2 tab Q4H PRN PO 02/07/17 08:30 02/07/17 10:25 (Colace) 100 mg BID PO 02/07/17 09:00 (Milk Of Magnesia Liq) 30 ml DAILY PRN PO 02/07/17 08:30 (Dulcolax Supp) 10 mg DAILY PRN RECTAL 02/07/17 08:30 (Lactulose Liq) 30 ml DAILY PO 02/07/17 09:00 02/07/17 10:27 (Catapres) 0.1 mg Q6H PRN PO 02/07/17 09:00 (Vasotec Inj) 1.25 mg Q6H PRN IV PUSH 02/07/17 09:00 Family History Noncontributory Social History Retired (Kevyn Walden) Physical Exam Vital Signs Vital Signs Date Time Temp Pulse Resp B/P Pulse Ox O2 Delivery O2 Flow Rate FiO2 02/07/17 13:44 98.4 77 21 137/74 98 02/07/17 11:25 20 02/07/17 10:20 20 02/07/17 08:26 98.1 110 22 180/96 99 02/07/17 02:37 97.7 103 18 195/95 92 02/07/17 01:52 110 16 156/69 96 02/07/17 01:14 103 174/79 02/07/17 00:34 120 16 197/93 95 02/06/17 22:57 16 02/06/17 21:38 98.5 100 16 188/84 95 Physical Exam General: Well developed, well nourished male who appears his stated age. He appears in no distress. HEENT: Normocephalic, atraumatic. PERRL, EOM intact. MMM & pink. Neck: No midline TTP, no step offs or deformities, no JVD, trachea midline. Respiratory: CTAB w/o W/R/R, equal excursion, non-laboured, on RA. Cardiovascular: S1S2 w/RRR w/o M/G/R, radial & pedal pulses 2+ bilaterally, cap refill < 2 sec. Gastrointestinal: Obese, abdomen soft & nontender, bowel sounds not appreciated. Extremities: CHRISTINE, no evident deformity or clubbing, vascular skin changes to bilateral lower legs. Back: Thoracolumbar spine NTTP, no step off or deformities, well healed surgical wounds. Skin: Vascular skin changes to bilateral lower legs. Neurological: AAOx3 Speech clear & appropriate Sensation intact grossly intact to light touch to all extremities. Motor strength RUE & BLE 5/5 and LUE 4+/5 which seems due to pain. No Sandoval's sign No ankle clonus DTR 2+ Laboratory Laboratory Tests Test 02/06/17 02/06/17 02/07/17 22:15 22:50 10:25 White Blood Count 13.2 Red Blood Count 5.49 Hemoglobin 16.7 Hematocrit 48.7 Mean Corpuscular Volume 88.7 Mean Corpuscular Hemoglobin 30.4 Mean Corpuscular Hemoglobin 34.3 Concent Red Cell Distribution Width 13.1 Platelet Count 209 Mean Platelet Volume 8.0 Neutrophils (%) (Auto) 80.5 Lymphocytes (%) (Auto) 11.6 Monocytes (%) (Auto) 6.8 Eosinophils (%) (Auto) 0.5 Basophils (%) (Auto) 0.6 Neutrophils # (Auto) 10.6 Lymphocytes # (Auto) 1.5 Monocytes # (Auto) 0.9 Eosinophils # (Auto) 0.1 Basophils # (Auto) 0.1 CBC Comment DIFF FINAL Differential Comment Prothrombin Time 70.7 50.7 Prothromb Time International 5.9 4.3 Ratio Activated Partial 62.3 Thromboplast Time Sodium Level 136 Potassium Level 3.8 Chloride Level 102 Carbon Dioxide Level 22.8 Anion Gap 11 Blood Urea Nitrogen 16 Creatinine 0.88 Estimat Glomerular Filtration 84 Rate Random Glucose 115 Calcium Level 9.6 Total Bilirubin 0.7 Aspartate Amino Transf 23 (AST/SGOT) Alanine Aminotransferase 29 (ALT/SGPT) Alkaline Phosphatase 152 Total Protein 8.6 Albumin 4.0 Urine Color YELLOW Urine Turbidity CLEAR Urine pH 6.5 Urine Specific [place] 1.016 Urine Protein TRACE Urine Glucose (UA) NEG Urine Ketones 10 Urine Occult Blood LARGE Urine Nitrite NEG Urine Bilirubin NEG Urine Urobilinogen LESS THAN 2.0 Urine Leukocyte Esterase LARGE Urine RBC Urine WBC 38 Urine Hyaline Casts 3 Urine Mucus FEW Microscopic Urinalysis Comment CULT NOT INDICATED (Kevyn Walden) Result Diagram: 02/06/17 2215 02/06/17 2215 Imaging Abdomen/Pelvis CT 02/06/17 2328 Signed Impressions: Service Date/Time: Monday, February 06, 2017 23:58 - CONCLUSION: 1. Status post kyphoplasty at the L3 level. 2. Scoliosis and degenerative change in lumbar spine. 3. Hepatic steatosis. 4. Small simple appearing cyst in the right lobe of the liver. Mohamud Arzola MD (Kevyn Walden) Imaging 02/04/2017 MRI lumbar spine [facility] images are reviewed by the undersigned. Using compared to previous MRI from December 2016. L3 kyphoplasty appears stable. The patient has a new inferior L1 vertebral compression fracture with relatively mild loss of height and no significant retropulsion. No significant kyphotic deformity. (Sebas Singh MD) Assessment and Plan Assessment and Plan Impression: 1. New L1 compression fracture noted on recent CT scan abdomen as well as MRI. 2. Chronic progressive low back pain. Plan: Findings were discussed at length with the patient. Agree with examination as noted above. I have obtained a complete history of present illness, past medical history, review of systems on the patient on . Also full examination as noted above on 02/07/17. Recent MRI of 02/04/2017 images reviewed. Assume spontaneous osteoporotic compression fracture due to lack of any obvious underlying lesion on MRI and no recent fall. Given that the fracture was not present on his previous imaging study and he has had rather chronic severe progressive low back pain, L1 fracture does not necessarily explain his back pain symptoms. Given the lack of retropulsion and instability, it is recommended he continue conservative treatment for the L1 fracture at the present time. Dr. Pope , who has previously performed the kyphoplasty on the patient and is more familiar with his previous clinical and past medical history will be available tomorrow to discuss further treatment options with the patient. (Sebas Singh MD) Kevyn Walden February 07, 2017 16:03 Sebas Singh MD February 08, 2017 00:14
[2017-02-07] MEDS: CARBIDOPA/LEVODOPA 25 MG/100 MG TAB PO SCH (20:28)
[2017-02-08 02:11] VITALS: BP 162/80; PULSE 103; RESP 18; TEMP 96; O2SAT 92
[2017-02-08] MEDS: HYDROmorphone HCL PF 1 MG/ML VIAL IV PUSH PRN (02:20)
[2017-02-08] MEDS: ACETAMINOPHEN/HYDROcodone 325 MG/5 MG TAB PO PRN ×4 (03:56→20:06)
[2017-02-08 07:39] LABS: INTERNATIONAL NORMALIZED RATIO 2.9 RATIO
[2017-02-08 07:40] LABS: AUTOMATED NEUTROPHIL # 9.2 TH/MM3 (1.8-7.7); BASOPHIL # 0.1 TH/MM3 (0-0.2); BASOPHIL % 0.6 % (0.0-2.0); EOSINOPHIL # 0.2 TH/MM3 (0-0.4); EOSINOPHIL % 1.5 % (0.0-4.0); HEMATOCRIT 45.3 % (39.0-51.0); HEMO FLAGS DIFF FINAL; LYMPH % 18.5 % (9.0-44.0); LYMPHOCYTE # 2.4 TH/MM3 (1.0-4.8); MEAN CELL VOLUME 90.7 FL (80.0-100.0); MEAN CORPUSCULAR HEMOGLOBIN 30.4 PG (27.0-34.0); MEAN CORPUSCULAR HGB CONC 33.5 % (32.0-36.0); MONO % 8.4 % (0.0-8.0); PLATELET COUNT 188 TH/MM3 (150-450); RED CELL DISTRIBUTION WIDTH 13.3 % (11.6-17.2); WHITE BLOOD COUNT 12.9 TH/MM3 (4.0-11.0)
[2017-02-08 08:00] VITALS: BP_SYST 114; BP_SYST 176; BP_DIAS 67; BP_DIAS 85; PULSE 105; PULSE 110; RESP 18; TEMP 96.5; TEMP 96.8; O2SAT 91; O2SAT 96
[2017-02-08 08:05] LABS: BICARBONATE 29.2 MEQ/L (21.0-32.0); MAGNESIUM 2.5 MG/DL (1.5-2.5); POTASSIUM 4.3 MEQ/L (3.5-5.1)
[2017-02-08] MEDS: LACTULOSE SYRUP 20 GM/30 ML CUP PO SCH (08:09)
[2017-02-08] MEDS: MULTIVITAMINS/MINERALS THERAPEUTIC TAB PO SCH (08:09)
[2017-02-08] MEDS: GABAPENTIN 300 MG CAP PO SCH ×3 (08:10→18:16)
[2017-02-08] MEDS: FINASTERIDE 5 MG TAB PO SCH (08:10)
[2017-02-08] MEDS: FLUoxetine HCL 20 MG CAP PO SCH (08:10)
[2017-02-08] MEDS: MORPHINE SULFATE 15 MG CONTROLLED RELEASE TAB PO SCH ×2 (08:10→21:09)
[2017-02-08] MEDS: PRAVASTATIN SOD 40 MG TAB PO SCH (08:11)
[2017-02-08] MEDS: ASPIRIN 81 MG CHEW TAB PO SCH (08:11)
[2017-02-08] MEDS: DOCUSATE SODIUM 100 MG CAP PO SCH ×3 (08:11→21:09)
[2017-02-08] MEDS: TAMSULOSIN HCL 0.4 MG CAP PO SCH ×2 (08:11→21:09)
[2017-02-08] MEDS: SODIUM CHLORIDE 0.9% FLUSH 10 ML FLUSH IV FLUSH SCH ×2 (08:12→21:17)
--- NOTE | 2017-02-08 10:46 | HHI.PR ---
Subjective Remarks still with lbp. wants another kyphoplasty bowels moving Objective Vitals heart reg lung cta abd s/nt ext no edema Vital Signs Date Time Temp Pulse Resp B/P Pulse Ox O2 Delivery O2 Flow Rate FiO2 02/08/17 08:00 96.8 110 18 176/85 91 02/08/17 02:11 96.0 103 18 162/80 92 02/07/17 23:54 96 18 175/79 02/07/17 19:20 97.9 64 20 100/60 93 02/07/17 18:46 20 02/07/17 13:44 98.4 77 21 137/74 98 02/07/17 02/07/17 02/08/17 15:00 23:00 07:00 Intake Total 280 ml Output Total 0 ml Balance 280 ml Intake Oral 280 ml Output Urine Total 0 ml # Bowel Movements 0 Result Diagram: 02/08/17 0700 02/08/17 0700 Imaging MRI Lumbar Spine (02/04/17): 1. Mild compression fracture deformity of the L1 vertebral body with invagination of the inferior endplate and marrow edema involving the lower portion of the vertebral body. There is mild retropulsion with mild mass effect on the anterior thecal sac. this appears acute to subacute. 2. Moderate compression fracture deformity of L3 vertebral body status post kyphoplasty with mild diffuse edema. There is mild retropulsion with mild flattening of the anterior thecal sac. 3. Mild central canal stenosis at the L4-L5 level secondary to disc bulge and degenerative change involving the facets. Last Impressions Abdomen/Pelvis CT 02/06/17 5293 Signed Impressions: Service Date/Time: Monday, February 06, 2017 23:58 - CONCLUSION: 1. Status post kyphoplasty at the L3 level. 2. Scoliosis and degenerative change in lumbar spine. 3. Hepatic steatosis. 4. Small simple appearing cyst in the right lobe of the liver. Mohamud Arzola MD A/P Problem List: (1) Intractable back pain Status: Acute Plan: - Pt was previously admitted to [facility] from 01/09/17 to 01/14/17 with intractable back pain related to L3 compression fracture and underwent Kyphoplasty with Dr. Pope on 01/11/17. - He has continued to have significant back pain since that hospitalization and is the same pain he was experiencing prior to surgery that does have some radiation across the lower back and down the tops of the thighs to the knees. - He has been taking [place] 10/325 Q6H PRN and Flexeril 10mg Q4H PRN at home and this past Tuesday he was started on Morphine 15 mg twice a day, in addition to his hydrocodone for breakthrough pain, however the pain continues to be severe. - Pt had another MRI of the lumbar spine on 02/04/17 which revealed an acute or subacute mild compression fracture deformity of the L1 vertebral body with invagination of the inferior endplate and marrow edema involving the lower portion of the vertebral body with mild retropulsion with mild mass effect on the anterior thecal sac, moderate compression fracture deformity of L3 vertebral body status post kyphoplasty with mild diffuse edema and mild retropulsion with mild flattening of the anterior thecal sac, and mild central canal stenosis at the L4-L5 level secondary to disc bulge and degenerative change involving the facets. - The patient has an LSO brace in place and has been using it consistently. - INR was supra-therapeutic at 5.9 at admission and he was given Vitamin K 2.5mg po once - PT evaluation - Pain control PRN - PRN BP control, this BP is elevated likely secondary to pain. - laxatives for constipation. NSG recc noted. pt and not happy with reccs..They want to see Dr Pope and consider another kyphoplasty. will await eval by Dr Pope. (2) Closed compression fracture of lumbosacral spine Status: Acute Plan: - See above. (3) Supratherapeutic INR Status: Acute Plan: - INR was 5.9 at admission. - Pt normally takes Coumadin 4mg on and 2mg on -Sun - Coumadin on hold - Pt was given Vitamin K 2.5mg po last night. - Repeat INR today and may need to given more Vitamin K today (4) HTN (hypertension) Status: Chronic Plan: - BP likely elevated secondary to pain. - Clonidine PRN - Vasotec PRN (5) Constipation Status: Acute Plan: - Likely secondary to the narcotic medications - Review of CT Abd/pelvis with noted stool throughout the colon. - Colace BID - Lactulose daily - MOM and Dulcolax PRN - May need to given Relistor if no BM today. (6) History of CVA (cerebrovascular accident) Status: Resolved Plan: - Hx of CVA on chronic anticoagulation with Coumadin. (7) Lung cancer Status: Chronic Plan: - s/p resection (8) COPD (chronic obstructive pulmonary disease) Status: Chronic Plan: - Duonebs PRN (9) BPH (benign prostatic hyperplasia) Status: Chronic Problem Qualifiers (1) Closed compression fracture of lumbosacral spine: Qualified Code: S32.000D - Closed compression fracture of lumbosacral spine, with routine healing, subsequent encounter Wally Sinclair MD February 08, 2017 10:46
[2017-02-08 12:00] VITALS: BP 116/69; PULSE 88; RESP 18; TEMP 98.2; O2SAT 92
[2017-02-08 15:52] VITALS: BP 99/65; PULSE 86; RESP 18; TEMP 98.1; O2SAT 92
--- NOTE | 2017-02-08 17:47 | HHI.NSPN ---
Note Status Status: Progress Note Interval History Diagnosis L1 fracture Interval History This is a 76-year-old male who presented to the emergency department yesterday evening complaining of lumbar compression fractures and severe low back pain. He has a history of chronic low back pain that has been intermittent over the years. During that time frame he has been to Pain Management for injections which helped briefly. Approximately eight months ago the pain became very severe. He presented to the emergency department on due to worsening pain over the preceding week after he fell. He was found to have a L3 compression fracture on MRI for which he he underwent a kyphoplasty on by Dr Pope. The patient states that since that time the pain has not improved but worsened. The pain goes across the lower back. He does report some numbness to the anterior thigh bilaterally that is intermittent. He denies any bowel or bladder incontinence. He does have equilibrium problems chronically secondary to a prior stroke but there has not been any change in it. The patient also presented to the emergency department on for the same complaint and was discharged home after evaluation. His PCP ordered an MRI of the lumbar spine which was done on at [facility]. Per the Hospitalist H&P the patient has an acute to subacute L1 compression fracture with mild retropulsion resulting in mild mass effect on the anterior thecal sac that was found on the MRI as well as edema also being noted to the surrounding tissues at the L3 kyphoplasty site. 02/08. Still very painful. Denies weakness Labs, Micro, & Vital Signs Results Date Time Temp Pulse Resp B/P Pulse Ox O2 Delivery O2 Flow Rate FiO2 02/08/17 15:52 98.1 86 18 99/65 92 02/08/17 12:00 98.2 88 18 116/69 92 02/08/17 08:00 96.8 110 18 176/85 91 02/08/17 02:11 96.0 103 18 162/80 92 02/07/17 23:54 96 18 175/79 02/07/17 19:20 97.9 64 20 100/60 93 02/07/17 18:46 20 02/08/17 07:00 Intake Total 280 ml Output Total 0 ml Balance 280 ml Constitutional Vital Signs Date Time Temp Pulse Resp B/P Pulse Ox O2 Delivery O2 Flow Rate FiO2 02/08/17 15:52 98.1 86 18 99/65 92 02/08/17 12:00 98.2 88 18 116/69 92 02/08/17 08:00 96.8 110 18 176/85 91 02/08/17 02:11 96.0 103 18 162/80 92 02/07/17 23:54 96 18 175/79 02/07/17 19:20 97.9 64 20 100/60 93 02/07/17 18:46 20 02/08/17 07:00 Intake Total 280 ml Output Total 0 ml Balance 280 ml Review of Systems/Exam Exam Mr Rahman is alert, awake and oriented to time, place and person. Speech is fluent. Cranial nerve examination: pupils to be equal, round and reactive to light. Extra-ocular movements are intact. Facial motor and sensory function are normal and symmetrical. Gross hearing appears intact. Sternocleidomastoid and trapezius muscles are symmetrical. Other cranial nerves are intact. Neck is soft and supple with a good range of motion without pain. Muscle strength is normal in all muscle groups of both upper and lower extremities. Sensory examination is intact to light touch and pin prick in both the upper and lower extremities. Deep tendon reflexes are symmetrical in both upper and lower extremities. There is a bilateral plantar flexion response. Cerebellar examination is unremarkable, without deficits. Medications Current Medications Current Medications Morphine Sulfate (Morphine Inj) 4 mg ONCE ONCE IV PUSH Last administered on 22:18; Start 02/06/17 at 22:15; Stop 02/06/17 at 22:16; Status DC Ondansetron HCl 4 mg 4 mg ONCE ONCE IV PUSH Last administered on 02/06/17 22: 18; Start 02/06/17 at 22:15; Stop 02/06/17 at 22:16; Status DC Sodium Chloride (NS 500 ml Inj) 500 ml @ 500 mls/hr BOLUS ONCE IV Last administered on 02/06/17 22:15; Start 02/06/17 at 22:15; Stop 02/06/17 at 23:14 ; Status DC Diazepam (Valium) 5 mg ONCE ONCE PO Last administered on 02/06/17 22:56; Start 02/06/17 at 22:45; Stop 02/06/17 at 22:46; Status DC Hydromorphone HCl (Dilaudid Pf Inj) 0.5 mg ONCE ONCE IV PUSH Last administered on 02/06/17 23:52; Start 02/06/17 at 23:30; Stop 02/06/17 at 23:31 ; Status DC Sodium Chloride (NS Flush) 2 ml UNSCH PRN IV FLUSH FLUSH AFTER USING IV ACCESS Last administered on 02/07/17 04:43; Start 02/07/17 at 00:00 Sodium Chloride (NS Flush) 2 ml BID IV FLUSH Last administered on 02/08/17 08: 12; Start 02/07/17 at 09:00 Acetaminophen (Tylenol) 650 mg Q4H PRN PO TEMP > 100.4; Start 02/07/17 at 00:00 Ondansetron HCl (Zofran Inj) 4 mg Q6H PRN IVP NAUSEA OR VOMITING; Start at 00:00 Magnesium Hydroxide (Milk Of Magnesia Liq) 30 ml Q12H PRN PO CONSTIPATION Last administered on 02/07/17 09:22; Start 02/07/17 at 00:00 Naloxone HCl (Narcan Inj) 0.4 mg UNSCH PRN IV SEE LABEL COMMENTS; Start at 00:00 Iohexol (Omnipaque 350 Inj) 96 ml STK-MED ONCE IV Last administered on 23:59; Start 02/06/17 at 23:59; Stop 02/07/17 at 00:00; Status DC Docusate Sodium (Colace) 100 mg BID PO Last administered on 02/08/17 08:11; Start 02/07/17 at 09:00 Acetaminophen/ Hydrocodone Bitart ([place] 10-325 Mg) 1 tab Q6H PRN PO pain 1-5 Last administered on 02/07/17 02:37; Start 02/07/17 at 00:00; Stop 02/07/17 at 08:25; Status DC Hydromorphone HCl (Dilaudid Pf Inj) 1 mg Q6H PRN IV PUSH pain 6-10 Last administered on 02/07/17 04:44; Start 02/07/17 at 00:00; Stop 02/07/17 at 08:25 ; Status DC Carbidopa/Levodopa (Sinemet 25-100 Mg) 1 tab HS PO Last administered on 20:28; Start 02/07/17 at 21:00 Finasteride (Proscar) 5 mg DAILY PO Last administered on 02/08/17 08:10; Start 02/07/17 at 09:00 Fluoxetine HCl (PROzac) 20 mg DAILY PO Last administered on 02/08/17 08:10; Start 02/07/17 at 09:00 Gabapentin (Neurontin) 600 mg TID PO Last administered on 02/08/17 18:16; Start 02/07/17 at 09:00 Pravastatin Sodium (Pravachol) 40 mg DAILY PO Last administered on 02/08/17 08 :11; Start 02/07/17 at 09:00 Morphine Sulfate (Oramorph Sr) 15 mg BID PO Last administered on 02/08/17 08: 10; Start 02/07/17 at 00:15 Tamsulosin HCl (Flomax) 0.4 mg BID PO Last administered on 02/08/17 08:11; Start 02/07/17 at 09:00 Tizanidine HCl (Zanaflex) 4 mg TID PO Last administered on 02/08/17 18:17; Start 02/07/17 at 09:00 Aspirin (Aspirin Chew) 81 mg DAILY PO Last administered on 02/08/17 08:11; Start 02/07/17 at 09:00 Multivitamins/ Minerals Therapeutic (Theragran M Tab) 1 tab DAILY PO NS Last administered on 02/08/17 08:09; Start 02/07/17 at 09:00 Phytonadione (Mephyton) 2.5 mg ONCE ONCE PO Last administered on 02/07/17 01: 30; Start 02/07/17 at 00:15; Stop 02/07/17 at 00:16; Status DC Labetalol HCl (Trandate Inj) 10 mg ONCE ONCE IV PUSH Last administered on 02/07 00:47; Start 02/07/17 at 00:45; Stop 02/07/17 at 00:46; Status DC Acetaminophen/ Hydrocodone Bitart ([place] 10-325 Mg) 1 tab Q4H PRN PO pain 1-5; Start 02/07/17 at 10:00 Hydromorphone HCl (Dilaudid Pf Inj) 1 mg Q6H PRN IV PUSH breakthrough pain Last administered on 02/08/17 02:20; Start 02/07/17 at 08:30 Acetaminophen/ Hydrocodone Bitart ([place] 5-325 Mg) 2 tab Q4H PRN PO pain 6-10 Last administered on 02/08/17 20:06; Start 02/07/17 at 08:30 Docusate Sodium (Colace) 100 mg BID PO ; Start 02/07/17 at 09:00; Stop 02/08/17 at 13:28; Status DC Magnesium Hydroxide (Milk Of Magnesia Liq) 30 ml DAILY PRN PO constipation; Start 02/07/17 at 08:30 Bisacodyl (Dulcolax Supp) 10 mg DAILY PRN RECTAL constipation; Start 02/07/17 at 08:30 Lactulose (Lactulose Liq) 30 ml DAILY PO Last administered on 02/08/17 08:09; Start 02/07/17 at 09:00 Clonidine (Catapres) 0.1 mg Q6H PRN PO SBP> OR = 180, DBP> OR = 100; Start at 09:00 Enalaprilat (Vasotec Inj) 1.25 mg Q6H PRN IV PUSH SBP> OR = 180, DBP> OR = 100 ; Start 02/07/17 at 09:00 Albuterol/ Ipratropium 1 ampule 1 ampule Q4HR NEB PRN NEB sob/wheezing; Start 02/07/17 at 09:30 Sodium Chloride 1,000 ml @ 100 mls/hr Q10H IV ; Start 02/08/17 at 17:53 Cefazolin Sodium/ Dextrose 50 ml @ 150 mls/hr ONCE ONCE IV ; Start 02/08/17 at 18:00; Stop 02/08/17 at 18:19; Status Cancel Vancomycin HCl/ Sodium Chloride (Vancomycin Inj/ NS 250 ml Inj) 250 ml @ 250 mls/hr ONCE ONCE IV ; Start 02/08/17 at 18:00; Stop 02/08/17 at 18:59; Status Cancel Chlorhexidine Gluconate (Hibiclens 4% Top Soln) 1 applic HS TOP ; Start at 21:00; Stop 02/09/17 at 21:01 Attending Statement Continue neuro checks in a serial fashion. A follow-up CT of the lumbar spine will be obtained. WIll defer further recommendations to after workup completion Respiratory. pulmonary toilette, nasotracheal suction, and breathing treatments with nebulizers. PT and OT eval Nutrition. NPO Renal. monitor closely urine output, BUN and creatinine Endocrine. Monitor serial Acu checks and SSI for tight control ID monitor for signs of infection Protonix for stress ulcer prophylaxis Aidan martinez and SCD's for DVT prophylaxis Marvin Pope MD February 08, 2017 17:47
[2017-02-08] MEDS: SODIUM CHLOR 0.9% 1000 ML INJ 1,000 ML IV SCH (17:53)
[2017-02-08] MEDS ORDERED: ceFAZolin 2 GM PREMIX 50 ML IV ONE (18:00)
[2017-02-08] MEDS ORDERED: VANCOMYCIN INJ 1,000 MG in SODIUM CHLOR 0.9% 250 ML INJ 250 ML IV ONE (18:00)
--- NOTE | 2017-02-08 19:56 | RADRPT ---
EXAM DATE/TIME: 02/08/2017 18:44 [facility] COMPARISON: No previous studies available for comparison. INDICATIONS : Evaluate compression fractures. RADIATION DOSE: 45.04 CTDIvol (mGy) MEDICAL HISTORY : Cardiovascular disease. Cerebrovascular disease. Aneurysm, abdominal. SURGICAL HISTORY : Lobectomy. Kyphoplasty.AAA stent ENCOUNTER: Initial ACUITY: 1 day PAIN SCALE: 10/10 LOCATION: low back TECHNIQUE: Volumetric scanning of the lumbar spine was performed. Multiplanar reconstructions in the sagittal, coronal and oblique axial planes were performed. Using automated exposure control and adjustment of the mA and/or kV according to patient size, radiation dose was kept as low as reasonably achievable t o obtain optimal diagnostic quality images. FINDINGS: The bones are diffusely osteopenic. T12 is intact. At L1 there is a moderate compression fracture, worse at the inferior endplate. There is no significa nt retropulsion. L2 is intact. At L3 there is a moderate compression fracture which is status post kyphoplasty. No retropulsion. L4, L5 and upper sacrum are intact. Incidental note made of endograft repair of abdominal aortic aneu rysm. Disc spaces are not well visualized. However there does appear to be at least a mild canal stenosis a t L3-4, L4-5 predominate the lateral recesses secondary to disc bulge and facet arthropathy. CONCLUSION: 1. At L1 there is a moderate compression fracture without significant retropulsion. 2. At L3 there is a moderate compression fracture status post previous kyphoplasty. 3. No other acute compression fractures. No subluxation. Diffuse osteopenia. Mild canal stenosis in t he lower lumbar spine as above. 4. Multiple bilateral nonobstructing renal calcifications. Edgar Guthrie MD on February 08, 2017 at 19:51 Board Certified Radiologist. This report was verified electronically.
[2017-02-08 20:15] VITALS: BP 139/69; PULSE 82; RESP 17; TEMP 97.4; O2SAT 92
[2017-02-08] MEDS: CARBIDOPA/LEVODOPA 25 MG/100 MG TAB PO SCH (21:09)
[2017-02-08] MEDS: CHLORHEXIDINE GLUCONATE 4% SOLN 120 ML BTL TOP SCH (21:11)
[2017-02-09] VITALS (7 sets, daily range): BP systolic 125–193; BP diastolic 66–92; PULSE 83–107; RESP 16–18; TEMP 96.8–98.6; O2SAT 91–98
[2017-02-09] MEDS: ACETAMINOPHEN/HYDROcodone 325 MG/5 MG TAB PO PRN ×3 (00:22→13:12)
[2017-02-09] MEDS: HYDROmorphone HCL PF 1 MG/ML VIAL IV PUSH PRN ×2 (01:38→09:13)
[2017-02-09] MEDS: SODIUM CHLOR 0.9% 1000 ML INJ 1,000 ML IV SCH (02:06)
[2017-02-09] MEDS: GABAPENTIN 300 MG CAP PO SCH ×3 (07:55→20:37)
[2017-02-09] MEDS: MULTIVITAMINS/MINERALS THERAPEUTIC TAB PO SCH (07:56)
[2017-02-09] MEDS: FINASTERIDE 5 MG TAB PO SCH (07:56)
[2017-02-09] MEDS: DOCUSATE SODIUM 100 MG CAP PO SCH ×2 (07:56→20:37)
[2017-02-09] MEDS: MORPHINE SULFATE 15 MG CONTROLLED RELEASE TAB PO SCH ×2 (07:56→20:37)
[2017-02-09] MEDS: ASPIRIN 81 MG CHEW TAB PO SCH (07:56)
[2017-02-09] MEDS: TAMSULOSIN HCL 0.4 MG CAP PO SCH ×2 (07:57→20:37)
[2017-02-09] MEDS: PRAVASTATIN SOD 40 MG TAB PO SCH (07:57)
[2017-02-09] MEDS: LACTULOSE SYRUP 20 GM/30 ML CUP PO SCH (07:57)
[2017-02-09] MEDS: FLUoxetine HCL 20 MG CAP PO SCH (07:57)
[2017-02-09] MEDS: SODIUM CHLORIDE 0.9% FLUSH 10 ML FLUSH IV FLUSH SCH (07:58)
--- NOTE | 2017-02-09 10:59 | HHI.PR ---
Subjective Remarks Pt reports that his pain is currently under control Pt is planned for L1 kyphoplasty today with Dr. Pope. Objective Vitals Vital Signs Date Time Temp Pulse Resp B/P Pulse Ox O2 Delivery O2 Flow Rate FiO2 02/09/17 03:45 97.4 107 18 159/82 92 02/09/17 02:10 176/92 02/09/17 01:20 97.9 103 18 193/87 91 02/08/17 20:15 97.4 82 17 139/69 92 02/08/17 15:52 98.1 86 18 99/65 92 02/08/17 12:00 98.2 88 18 116/69 92 02/08/17 02/08/17 02/09/17 15:00 23:00 07:00 Intake Total 600 ml 480 ml 240 ml Output Total 300 ml 800 ml Balance 600 ml 180 ml -560 ml Intake Oral 600 ml 480 ml 240 ml Output Urine Total 300 ml 800 ml # Voids 2 # Bowel Movements 2 0 0 Result Diagram: 02/08/17 0700 02/08/17 0700 Other Results Laboratory Tests Test 02/08/17 07:00 White Blood Count 12.9 TH/MM3 Red Blood Count 5.00 MIL/MM3 Hemoglobin 15.2 GM/DL Hematocrit 45.3 % Mean Corpuscular Volume 90.7 FL Mean Corpuscular Hemoglobin 30.4 PG Mean Corpuscular Hemoglobin 33.5 % Concent Red Cell Distribution Width 13.3 % Platelet Count 188 TH/MM3 Mean Platelet Volume 7.6 FL Neutrophils (%) (Auto) 71.0 % Lymphocytes (%) (Auto) 18.5 % Monocytes (%) (Auto) 8.4 % Eosinophils (%) (Auto) 1.5 % Basophils (%) (Auto) 0.6 % Neutrophils # (Auto) 9.2 TH/MM3 Lymphocytes # (Auto) 2.4 TH/MM3 Monocytes # (Auto) 1.1 TH/MM3 Eosinophils # (Auto) 0.2 TH/MM3 Basophils # (Auto) 0.1 TH/MM3 CBC Comment DIFF FINAL Differential Comment Prothrombin Time 34.0 SEC Prothromb Time International 2.9 RATIO Ratio Sodium Level 137 MEQ/L Potassium Level 4.3 MEQ/L Chloride Level 100 MEQ/L Carbon Dioxide Level 29.2 MEQ/L Anion Gap 8 MEQ/L Blood Urea Nitrogen 19 MG/DL Creatinine 1.08 MG/DL Estimat Glomerular Filtration 67 ML/MIN Rate Random Glucose 124 MG/DL Calcium Level 9.0 MG/DL Magnesium Level 2.5 MG/DL Imaging MRI Lumbar Spine (02/04/17): 1. Mild compression fracture deformity of the L1 vertebral body with invagination of the inferior endplate and marrow edema involving the lower portion of the vertebral body. There is mild retropulsion with mild mass effect on the anterior thecal sac. this appears acute to subacute. 2. Moderate compression fracture deformity of L3 vertebral body status post kyphoplasty with mild diffuse edema. There is mild retropulsion with mild flattening of the anterior thecal sac. 3. Mild central canal stenosis at the L4-L5 level secondary to disc bulge and degenerative change involving the facets. Last Impressions Lumbar Spine CT 02/08/17 0000 Signed Impressions: Service Date/Time: Wednesday, February 08, 2017 18:44 - CONCLUSION: 1. At L1 there is a moderate compression fracture without significant retropulsion. 2. At L3 there is a moderate compression fracture status post previous kyphoplasty. 3. No other acute compression fractures. No subluxation. Diffuse osteopenia. Mild canal stenosis in the lower lumbar spine as above. 4. Multiple bilateral nonobstructing renal calcifications. Edgar Guthrie MD Abdomen/Pelvis CT 02/06/17 2328 Signed Impressions: Service Date/Time: Monday, February 06, 2017 23:58 - CONCLUSION: 1. Status post kyphoplasty at the L3 level. 2. Scoliosis and degenerative change in lumbar spine. 3. Hepatic steatosis. 4. Small simple appearing cyst in the right lobe of the liver. Mohamud Arzola MD Objective Remarks General: NAD, AAOx3 Chest: CTA Cardiac: Regular Abd: +BS, soft ND/NT Ext: no edema A/P Problem List: (1) Intractable back pain Status: Acute Plan: - Pt was previously admitted to [facility] from 01/09/17 to 01/14/17 with intractable back pain related to L3 compression fracture and underwent Kyphoplasty with Dr. Pope on 01/11/17. - He has continued to have significant back pain since that hospitalization and is the same pain he was experiencing prior to surgery that does have some radiation across the lower back and down the tops of the thighs to the knees. - He has been taking [place] 10/325 Q6H PRN and Flexeril 10mg Q4H PRN at home and this past Tuesday he was started on Morphine 15 mg twice a day, in addition to his hydrocodone for breakthrough pain, however the pain continues to be severe. - Pt had another MRI of the lumbar spine on 02/04/17 which revealed an acute or subacute mild compression fracture deformity of the L1 vertebral body with invagination of the inferior endplate and marrow edema involving the lower portion of the vertebral body with mild retropulsion with mild mass effect on the anterior thecal sac, moderate compression fracture deformity of L3 vertebral body status post kyphoplasty with mild diffuse edema and mild retropulsion with mild flattening of the anterior thecal sac, and mild central canal stenosis at the L4-L5 level secondary to disc bulge and degenerative change involving the facets. - The patient has an TLSO brace in place and has been using it consistently. - INR was supra-therapeutic at 5.9 at admission and he was given Vitamin K 2.5mg po once - Last INR was 2.9 on 02/08 - PT evaluation - Pain control PRN - PRN BP control, this BP is elevated likely secondary to pain. - laxatives for constipation. - CT Lumbar spine (02/08) --> At L1 there is a moderate compression fracture without significant retropulsion. At L3 there is a moderate compression fracture status post previous kyphoplasty. No other acute compression fractures. No subluxation. Diffuse osteopenia. Mild canal stenosis in the lower lumbar spine as above. Multiple bilateral nonobstructing renal calcifications. - Pt re-evaluated by Dr. Pope on 02/08 and is planned for L1 Kyphoplasty. - Recheck INR today and in AM (2) Closed compression fracture of lumbosacral spine Status: Acute Plan: - See above. (3) Supratherapeutic INR Status: Acute Plan: - INR was 5.9 at admission. - Pt normally takes Coumadin 4mg on and 2mg on -Sun - Coumadin on hold - Pt was given Vitamin K 2.5mg po on 02/06 - Repeat INR today and in AM (4) HTN (hypertension) Status: Chronic Plan: - BP likely elevated secondary to pain. - Clonidine PRN - Vasotec PRN (5) Constipation Status: Acute Plan: - Likely secondary to the narcotic medications - Review of CT Abd/pelvis with noted stool throughout the colon. - Colace BID - Lactulose daily - MOM and Dulcolax PRN (6) History of CVA (cerebrovascular accident) Status: Resolved Plan: - Hx of CVA on chronic anticoagulation with Coumadin. (7) Lung cancer Status: Chronic Plan: - s/p resection (8) COPD (chronic obstructive pulmonary disease) Status: Chronic Plan: - Duonebs PRN (9) BPH (benign prostatic hyperplasia) Status: Chronic Assessment and Plan Patient examined. Assessment and plan formulated with Mimi Gonzales PA-C. I agree with the above. L1 kyphoplasty bowels moving. Pt wants to go home d/.c with hhc/pt and f/u Problem Qualifiers (1) Closed compression fracture of lumbosacral spine: Qualified Code: S32.000D - Closed compression fracture of lumbosacral spine, with routine healing, subsequent encounter Mimi Gonzales February 09, 2017 10:59 Wally Sinclair MD February 09, 2017 12:10
[2017-02-09 11:43] LABS: INTERNATIONAL NORMALIZED RATIO 1.7 RATIO; PROTHROMBIN TIME - PATIENT 19.3 SEC (9.8-11.6)
[2017-02-09] MEDS ORDERED: PROPOFOL 200 MG/20 ML AMP IV ONE (12:00)
[2017-02-09] MEDS ORDERED: NEOSTIGMINE 3 MG/3 ML SYR IV ONE (12:00)
[2017-02-09] MEDS ORDERED: ONDANSETRON HCL 4 MG/2 ML VIAL IV PUSH ONE (12:00)
[2017-02-09] MEDS ORDERED: POVIDONE IODINE 5% (ANTISEPSIS KIT) 4 APPLICATIONS EACH NARE PRN (15:00)
[2017-02-09] MEDS ORDERED: SODIUM CHLORID 0.9% 500 ML IV PRN (15:00)
[2017-02-09] MEDS ORDERED: METOPROLOL TARTRATE 25 MG TAB PO PRN (15:00)
[2017-02-09] MEDS ORDERED: INSULIN HUMAN REGULAR 1,000 UNITS/10 ML VIAL SQ PRN (15:00)
[2017-02-09] MEDS ORDERED: CHLORHEXIDINE GLUCONATE 2 % 1 PACK (2 CLOTHS) TOPICAL PRN (15:00)
[2017-02-09] MEDS ORDERED: LACTATED RINGER'S 1000 ML IV PRN (15:00)
[2017-02-09] MEDS ORDERED: BUPIVACAINE/EPINEPHRINE 0.5% 50 ML VIAL ONE (15:01)
[2017-02-09] MEDS ORDERED: ceFAZolin 2 GM PREMIX 50 ML ONE (15:01)
[2017-02-09] MEDS ORDERED: FAMOTIDINE 20 MG/2 ML VIAL ONE ×2 (15:33→16:09)
[2017-02-09] MEDS ORDERED: VANCOMYCIN HCL 1000 MG VIAL ONE (15:52)
[2017-02-09] MEDS ORDERED: SODIUM CHLOR 0.9% 250 ML INJ 250 ML ONE (15:52)
[2017-02-09] MEDS ORDERED: ARTIFICIAL TEARS OPTH OINT 3.5 APPLIC/3.5 GM TUBO ONE (15:56)
[2017-02-09] MEDS ORDERED: ACETAMINOPHEN 1000 MG/100 ML VIAL IV ONE (15:56)
[2017-02-09] MEDS ORDERED: MIDAZOLAM HCL 2 MG/2 ML VIAL ONE (16:08)
[2017-02-09] MEDS ORDERED: SODIUM CHLORIDE 0.9% FLUSH 5 ML FLUSH IVF PRN (16:15)
[2017-02-09] MEDS ORDERED: ACETAMINOPHEN 325 MG TAB PO PRN (17:00)
[2017-02-09] MEDS ORDERED: MORPHINE SULFATE 4 MG/ML INJ IV PUSH PRN ×2 (17:00)
[2017-02-09] MEDS ORDERED: PROTHROMBIN COMPLEX CONC INJ 2,500 UNITS in SYRINGE/BAG 1 EA IV ONE (17:00)
[2017-02-09] MEDS ORDERED: ACETAMINOPHEN/HYDROcodone 325 MG/10 MG TAB PO PRN (17:00)
[2017-02-09] MEDS ORDERED: IOHEXOL 350 MG/ML 50 ML BTL (for RAD DIAG) ONE (17:30)
[2017-02-09] MEDS ORDERED: DO NOT ADM ANY ANTICOAGULANT DRUGS PRN (18:06)
[2017-02-09] MEDS ORDERED: *MEPERIDINE 25 MG INJ VIAL PERIprocedural Use ONLY ONE (18:10)
[2017-02-09 18:37] LABS: PROTHROMBIN TIME - PATIENT 10.9 SEC (9.8-11.6)
--- NOTE | 2017-02-09 20:04 | PD.OP ---
Operative Report Date of Surgery: February 09, 2017 Preoperative Diagnosis: L1 compression fracture Postoperative Diagnosis: L1 compression fracture Procedure: L1 kyphoplasty Anesthesia: general Surgeon: Marvin Pope Senior Product Integrity Engineer(s): DAVID Operation and Findings: INDICATIONS FOR THE PROCEDURE Mr Rahman is a 76 year-old male who presented with intractable pain related to a compression fracture of L1. He failed conservative treatment He had a history of prior fracture and kyphoplasty at L3. A kyphoplasty was indicated as the most appropriate form of treatment. The [id number] details of the procedure, indications, alternatives, risks and potential complications were fully discussed with the patient. The patient fully understood. All The questions were answered. No guarantees were given. The patient voiced requesting the procedure and provided informed consents. The patient was offered the alternative of delaying the procedure and continuing with nonsurgical management. DETAILS OF THE SURGICAL PROCEDURE The patient was brought to the operating room and after the induction of general anesthesia, endotracheal intubation was performed. Bilateral PAUL hose and sequential compression devices were placed and kept throughout the procedure. The patient was positioned prone on the Donald table over gel rods. All pressure points were carefully padded with egg crate mattress. The eyes were tapped shut after ointment was applied by the anesthesiologist to prevent corneal abrasion. A Loraine hugger was placed over the expossed lower body to maintain control of the core body temperature. The lumbar region was prepped and draped in the usual sterile fashion. The C-arms were brought to the field and simultaneous AP and lateral x-rays were obtained. The levels were carefully counted and the pedicles of L1 were marked over the skin. An entry point was selected 1 centimeter superior and 1 centimeter lateral to the pedicle. Two small incisions were outlined on the skin and infiltrated with 1% lidocaine with epinephrine in 1:100 ,000 dilution. Initially, two small skin incisions were made with a #11 blade. Then, Jamshidi needles were carefully advanced to the entrance of the pedicle of L1, and then into the vertebral body under continuous fluoroscopic guidance. K-wires were placed inside the vertebral body of and the needles were carefully removed. A drill was used to create a trough into the vertebral body to insert a cannula. Once the cannula was located through the pedicle, the drill was removed and bilateral balloons were inserted into the vertebral body for vertebral augmentation. A careful expansion of the balloon under continuous fluoroscopic guidance and manometric evaluation allowed expansion of the vertebral body. Then, the balloons were deflated and carefully removed and the voids created in the vertebral body were filled with bone cement under fluoroscopic visualization. A very good expansion of the vertebral bodies was achieved without evidence of extravasation or cement or other complications. The cannulas were then removed. The incisions were closed using a single stitch at each incision. Dermabond was applied to the skin. At the end of the procedure, the sponge, needle, instrument counts correct. The estimated blood loss as minimal. No intraoperative complications occurred. The patient received prophylactic antibiotics. The patient was then extubated and transferred to the recovery room in stable condition. Marvin Pope MD February 09, 2017 20:04
[2017-02-09] MEDS: CARBIDOPA/LEVODOPA 25 MG/100 MG TAB PO SCH (20:37)
[2017-02-09] MEDS: CHLORHEXIDINE GLUCONATE 4% SOLN 120 ML BTL TOP SCH (20:38)
[2017-02-09] MEDS: SODIUM CHLORIDE 0.9% FLUSH 5 ML FLUSH IVF SCH (20:38)
[2017-02-09] MEDS: NS + KCL 20 MEQ INJ 1,000 ML IV SCH (20:39)
--- NOTE | 2017-02-09 21:10 | RADRPT ---
EXAM DATE/TIME: 02/09/2017 17:51 [facility] COMPARISON: SPINE LUMBAR LTD (AP & LAT), January 11, 2017, 12:58. INDICATIONS : L1 kyphoplasty. MEDICAL HISTORY : Unobtainable. SURGICAL HISTORY : Unobtainable. ENCOUNTER: Initial ACUITY: 1 day PAIN SCORE: Non-responsive. LOCATION: Lumbar. FINDINGS: There are postsurgical changes following kyphoplasty in the lumbar spine. No extravasation is seen. CONCLUSION: Postsurgical changes as above. Jose Alejandro Joel MD on February 09, 2017 at 21:07 Board Certified Radiologist. This report was verified electronically.
[2017-02-10] VITALS: BP 138/71; PULSE 84; RESP 17; TEMP 97.2; O2SAT 97
[2017-02-10] MEDS: ceFAZolin 2 GM PREMIX 50 ML IV SCH ×2 (00:07→06:13)
[2017-02-10] MEDS: ACETAMINOPHEN/HYDROcodone 325 MG/10 MG TAB PO PRN ×3 (00:35→10:01)
[2017-02-10] MEDS: NS + KCL 20 MEQ INJ 1,000 ML IV SCH (03:00)
[2017-02-10 04:00] VITALS: BP 164/82; PULSE 96; RESP 16; TEMP 98; O2SAT 94
[2017-02-10] MEDS: MAGNESIUM HYDROXIDE SUSP 30 ML CUP PO PRN (04:51)
[2017-02-10 07:42] LABS: AUTOMATED NEUTROPHIL # 7.5 TH/MM3 (1.8-7.7); BASOPHIL # 0.1 TH/MM3 (0-0.2); BASOPHIL % 0.5 % (0.0-2.0); EOSINOPHIL # 0.2 TH/MM3 (0-0.4); EOSINOPHIL % 2.2 % (0.0-4.0); HEMATOCRIT 44.2 % (39.0-51.0); HEMO FLAGS DIFF FINAL; LYMPH % 16.1 % (9.0-44.0); LYMPHOCYTE # 1.7 TH/MM3 (1.0-4.8); MEAN CELL VOLUME 91.4 FL (80.0-100.0); MEAN CORPUSCULAR HEMOGLOBIN 30.1 PG (27.0-34.0); MEAN CORPUSCULAR HGB CONC 32.9 % (32.0-36.0); MONO % 8.8 % (0.0-8.0); NEUT % 72.4 % (16.0-70.0); PLATELET COUNT 195 TH/MM3 (150-450); RED BLOOD COUNT 4.83 MIL/MM3 (4.50-5.90); RED CELL DISTRIBUTION WIDTH 13.5 % (11.6-17.2); WHITE BLOOD COUNT 10.3 TH/MM3 (4.0-11.0)
[2017-02-10 07:49] LABS: INTERNATIONAL NORMALIZED RATIO 1.1 RATIO; PROTHROMBIN TIME - PATIENT 12.7 SEC (9.8-11.6)
[2017-02-10 08:03] LABS: ALKALINE PHOSPHATASE 130 U/L (45-117); ALT (GPT) 15 U/L (12-78); ANION GAP 9 MEQ/L (5-15); AST (GOT) 30 U/L (15-37); BICARBONATE 25.8 MEQ/L (21.0-32.0); BLOOD UREA NITROGEN 15 MG/DL (7-18); CHLORIDE 104 MEQ/L (98-107); GLOMERULAR FILTRATION RATE 59 ML/MIN (>89); POTASSIUM 4.4 MEQ/L (3.5-5.1); SODIUM (NA) 139 MEQ/L (136-145); TOTAL BILIRUBIN ADULT 0.6 MG/DL (0.2-1.0)
[2017-02-10 08:06] VITALS: BP 108/65; PULSE 94; RESP 18; TEMP 97.9; O2SAT 96
[2017-02-10] MEDS ORDERED: PANTOPRAZOLE SOD 40 MG DELAYED RELEASE TAB PO SCH (09:00)
[2017-02-10] MEDS: SODIUM CHLORIDE 0.9% FLUSH 5 ML FLUSH IVF SCH (09:00)
[2017-02-10] MEDS: TAMSULOSIN HCL 0.4 MG CAP PO SCH (09:59)
[2017-02-10] MEDS: FINASTERIDE 5 MG TAB PO SCH (09:59)
[2017-02-10] MEDS: LACTULOSE SYRUP 20 GM/30 ML CUP PO SCH ×2 (09:59→10:54)
[2017-02-10] MEDS: GABAPENTIN 300 MG CAP PO SCH ×2 (09:59→12:21)
[2017-02-10] MEDS: MULTIVITAMINS/MINERALS THERAPEUTIC TAB PO SCH (10:00)
[2017-02-10] MEDS: DOCUSATE SODIUM 100 MG CAP PO SCH (10:00)
[2017-02-10] MEDS: PRAVASTATIN SOD 40 MG TAB PO SCH (10:00)
[2017-02-10] MEDS: FLUoxetine HCL 20 MG CAP PO SCH (10:00)
[2017-02-10] MEDS: MORPHINE SULFATE 15 MG CONTROLLED RELEASE TAB PO SCH (10:00)
[2017-02-10] MEDS: ASPIRIN 81 MG CHEW TAB PO SCH (10:00)
--- NOTE | 2017-02-10 10:19 | HHI.NSPN ---
(Lulu Santiago) Note Status Status: Progress Note (Lulu Santiago) Interval History Interval History lumbar pain better, no new complaints (Lulu Santiago) Labs, Micro, & Vital Signs Results Date Time Temp Pulse Resp B/P Pulse Ox O2 Delivery O2 Flow Rate FiO2 02/10/17 08:06 97.9 94 18 108/65 96 02/10/17 04:00 98.0 96 16 164/82 94 02/10/17 00:00 97.2 84 17 138/71 97 02/09/17 22:10 125/66 02/09/17 21:31 97 Nasal Cannula 2.00 02/09/17 19:58 96.8 83 16 184/86 98 02/09/17 19:00 97.5 77 16 163/80 97 Nasal Cannula 2 02/09/17 18:45 76 16 172/77 95 Nasal Cannula 2 02/09/17 18:30 75 16 168/76 93 Nasal Cannula 3 02/09/17 18:15 75 15 170/80 92 Nasal Cannula 3 02/09/17 18:10 97.4 88 12 168/83 92 Nasal Cannula 3 02/09/17 12:00 98.6 91 18 144/76 95 02/10/17 07:00 Intake Total 2928 ml Output Total 430 ml Balance 2498 ml Constitutional Vital Signs Date Time Temp Pulse Resp B/P Pulse Ox O2 Delivery O2 Flow Rate FiO2 02/10/17 08:06 97.9 94 18 108/65 96 02/10/17 04:00 98.0 96 16 164/82 94 02/10/17 00:00 97.2 84 17 138/71 97 02/09/17 22:10 125/66 02/09/17 21:31 97 Nasal Cannula 2.00 02/09/17 19:58 96.8 83 16 184/86 98 02/09/17 19:00 97.5 77 16 163/80 97 Nasal Cannula 2 02/09/17 18:45 76 16 172/77 95 Nasal Cannula 2 02/09/17 18:30 75 16 168/76 93 Nasal Cannula 3 02/09/17 18:15 75 15 170/80 92 Nasal Cannula 3 02/09/17 18:10 97.4 88 12 168/83 92 Nasal Cannula 3 02/09/17 12:00 98.6 91 18 144/76 95 02/10/17 07:00 Intake Total 2928 ml Output Total 430 ml Balance 2498 ml (Lulu Santiago) Review of Systems/Exam Exam Mr. Rahman is alert and oriented to time, place and person. Sitting up in chair with TLSO brace Cranial nerve examination: pupils to be equal, round and reactive to light. Extra-ocular movements are intact. Neck is soft and supple Muscle strength is normal in all muscle groups of both upper and lower extremities. (Lulu Santiago) Medications Current Medications Current Medications Medications (Trade) Dose Ordered Sig/Gregoria Route PRN Reason Start Time Stop Time Status Last Admin Dose Admin Ondansetron HCl (Zofran Inj) 4 mg Q6H PRN IVP NAUSEA OR VOMITING 02/07/17 00:00 Magnesium Hydroxide (Milk Of SiO2 Factory Liq) 30 ml Q12H PRN PO CONSTIPATION 02/07/17 00:00 02/10/17 04:51 Naloxone HCl (Narcan Inj) 0.4 mg UNSCH PRN IV SEE LABEL COMMENTS 02/07/17 00:00 Carbidopa/Levodopa (Sinemet 25-100 Mg) 1 tab HS PO 02/07/17 21:00 02/09/17 20:37 Finasteride (Proscar) 5 mg DAILY PO 02/07/17 09:00 02/10/17 09:59 Fluoxetine HCl (PROzac) 20 mg DAILY PO 02/07/17 09:00 02/10/17 10:00 Gabapentin (Neurontin) 600 mg TID PO 02/07/17 09:00 02/10/17 09:59 Pravastatin Sodium (Pravachol) 40 mg DAILY PO 02/07/17 09:00 02/10/17 10:00 Morphine Sulfate (Oramorph Sr) 15 mg BID PO 02/07/17 00:15 02/10/17 10:00 Tamsulosin HCl (Flomax) 0.4 mg BID PO 02/07/17 09:00 02/10/17 09:59 Tizanidine HCl (Zanaflex) 4 mg TID PO 02/07/17 09:00 02/10/17 09:59 Aspirin (Aspirin Chew) 81 mg DAILY PO 02/07/17 09:00 02/10/17 10:00 Multivitamins/ Minerals Therapeutic (Theragran M Tab) 1 tab DAILY PO NS 02/07/17 09:00 02/10/17 10:00 Hydromorphone HCl (Dilaudid Pf Inj) 1 mg Q6H PRN IV PUSH breakthrough pain 02/07/17 08:30 02/09/17 09:13 Magnesium Hydroxide (Milk Of Magnesia Liq) 30 ml DAILY PRN PO constipation 02/07/17 08:30 Bisacodyl (Dulcolax Supp) 10 mg DAILY PRN RECTAL constipation 02/07/17 08:30 Lactulose (Lactulose Liq) 30 ml DAILY PO 02/07/17 09:00 02/08/17 08:09 Clonidine (Catapres) 0.1 mg Q6H PRN PO SBP> OR = 180, DBP> OR = 100 02/07/17 09:00 Enalaprilat 1.25 mg 1.25 mg Q6H PRN IV PUSH SBP> OR = 180, DBP> OR = 100 02/07/17 09:00 Sodium Chloride 500 ml @ 30 mls/hr [id number] PRN IV SEE LABEL COMMENTS 02/09/17 15:00 02/12/17 14:59 Potassium Chloride/Sodium Chloride (NS + KCl 20 Meq Inj) 1,000 ml @ 100 mls/hr Q10H IV 02/09/17 17:00 02/09/17 20:39 IV Flush (NS Flush) 2 ml UNSCH PRN IVF FLUSH AFTER USING IV ACCESS 02/09/17 16:15 IV Flush 2 ml 2 ml BID IVF 02/09/17 21:00 Cefazolin Sodium/ Dextrose (Ancef 2 Gm Premix) 50 ml @ 100 mls/hr Q8H IV 02/09/17 23:00 02/10/17 15:29 02/10/17 06:13 Docusate Sodium (Colace) 100 mg BID PO 02/09/17 21:00 02/10/17 10:00 Pantoprazole Sodium (Protonix) 40 mg DAILY PO 02/10/17 09:00 02/10/17 09:58 Acetaminophen/ Hydrocodone Bitart ([place] 10-325 Mg) 1 tab Q4H PRN PO SEE LABEL COMMENTS 02/09/17 17:00 Acetaminophen/ Hydrocodone Bitart ([place] 10-325 Mg) 2 tab Q4H PRN PO SEE LABEL COMMENTS 02/09/17 17:00 02/10/17 10:01 Morphine Sulfate (Morphine Inj) 2 mg Q2H PRN IV PUSH SEE LABEL COMMENTS 02/09/17 17:00 Morphine Sulfate (Morphine Inj) 4 mg Q2H PRN IV PUSH SEE LABEL COMMENTS 02/09/17 17:00 Acetaminophen (Tylenol) 650 mg Q4H PRN PO TEMPERATURE > 101.5 F 02/09/17 17:00 Miscellaneous Information ALL NURSING DEPARTME... UNSCH PRN .XX SEE LABEL COMMENTS 02/09/17 18:06 02/10/17 18:05 (Lulu Santiago) Medical Decision Making MDM Remarks 76 y/o male s/p L1 kyphoplasty (Lulu Santiago) Plan Plan Remarks TLSO when OOB clear for dc from NRS standpoint dw regarding activity restrictions and wound care (Lulu Santiago) Attending Statement Continue neuro checks in a serial fashion. Respiratory. pulmonary toilette, nasotracheal suction, and breathing treatments with nebulizers. PT and OT Nutrition. Oral diet Endocrine. Monitor serial Acu checks and SSI for tight control ID monitor for signs of infection GERD. Protonix for stress ulcer prophylaxis Aidan hose and SCD's for DVT prophylaxis The exam, history, and the medical decision-making described in the above note were completed with the assistance of the mid-level provider. I reviewed and agree with the findings presented. I attest that I had a [id number] encounter with the patient on the same day, and personally performed and documented my assessment and findings in the medical record. (Marvin Pope MD) Lulu Santiago February 10, 2017 10:19 Marvin Pope MD February 13, 2017 20:29
[2017-02-10 10:22] VITALS: O2SAT 97
[2017-02-10] MEDS ORDERED: LACT10SO PO (10:35)
[2017-02-10] MEDS ORDERED: DOCU1CAP39 PO (10:35)
--- NOTE | 2017-02-10 10:37 | HHI.FF ---
Face to Face Verification Diagnosis: (1) Closed compression fracture of lumbosacral spine (2) Intractable back pain (3) Supratherapeutic INR (4) History of CVA (cerebrovascular accident) (5) BPH (benign prostatic hyperplasia) (6) HTN (hypertension) (7) Lung cancer (8) Constipation (9) COPD (chronic obstructive pulmonary disease) Physical Therapy Order: Evaluate and Treat, Improve ambulation, Strength and gait training Home Health Nursing Order: Medical education Signs/symptoms of disease process Wound care and dressing changes Nursing assessment with vital signs Instructions: Recheck his PT/INR on 02/14/17, and 02/17/17, with results to his PCP, Dr. Hairston. I have seen patient Navjot Rahman on 02/10/17. My clinical findings support the need for the requested home health care services because: Ltd mobility - disease progression Deconditioned w/ increased weakness High risk of falls I certify that my clinical findings support that this patient is homebound because: Post-op weakness Mimi Gonzales February 10, 2017 10:37
--- NOTE | 2017-02-10 10:37 | HHI.DCPOC ---
Discharge Care Plan Diagnosis: (1) Closed compression fracture of lumbosacral spine (2) Intractable back pain (3) Supratherapeutic INR (4) History of CVA (cerebrovascular accident) (5) BPH (benign prostatic hyperplasia) (6) HTN (hypertension) (7) Lung cancer (8) Constipation (9) COPD (chronic obstructive pulmonary disease) Goals to Promote Your Health * To prevent worsening of your condition and complications * To maintain your health at the optimal level Directions to Meet Your Goals Take your medications as prescribed Follow your dietary instruction Follow activity as directed Keep your appointments as scheduled Take your immunizations and boosters as scheduled If your symptoms worsen call your PCP, if no PCP go to Urgent Care Center or Emergency Room Smoking is Dangerous to Your Health. Avoid second hand smoke Call the 24-hour hour crisis hotline for domestic abuse at Mimi Gonzales February 10, 2017 10:37
--- NOTE | 2017-02-10 10:46 | HHI.DS ---
Discharge Summary Admission Date February 07, 2017 at 00:12 Discharge Date: February 10, 2017 Admitting Diagnosis Intractable Back pain, L1 and L3 compression fx (1) Intractable back pain Diagnosis: Principal (2) Closed compression fracture of lumbosacral spine Diagnosis: Principal (3) Supratherapeutic INR Diagnosis: Secondary (4) HTN (hypertension) Diagnosis: Secondary (5) Constipation Diagnosis: Secondary (6) History of CVA (cerebrovascular accident) Diagnosis: Secondary (7) Lung cancer Diagnosis: Secondary (8) COPD (chronic obstructive pulmonary disease) Diagnosis: Secondary (9) BPH (benign prostatic hyperplasia) Diagnosis: Secondary Consultants Dr. Marvin Pope - Neurosurgery Procedures L1 kyphoplasty on 02/09/[address] Pope Brief History Mr. Rahman is a 76 y/o male with chronic back pain who was recently admitted to [facility] from 01/09/17 to 01/14/17 with intractable back pain related to L3 compression fracture and underwent Kyphoplasty with Dr. Pope on 01/11/17. The patient reports that he has continued to have significant back pain since that hospitalization. This is the same pain he was experiencing prior to surgery that does have some radiation across the lower back down the tops of the thighs to the knees. He thinks that the pain is worse on the right side of his back at this time. He has been taking Sedgwick 10/325 Q6H PRN and Flexeril 10mg Q4H PRN at home however they have not been helping. The patient followed up with his PCP, Dr. Hairston and had another MRI of the lumbar spine on which revealed an acute ot subacute mild compression fracture deformity of the L1 vertebral body with invagination of the inferior endplate and marrow edema involving the lower portion of the vertebral body with mild retropulsion with mild mass effect on the anterior thecal sac, moderate compression fracture deformity of L3 vertebral body status post kyphoplasty with mild diffuse edema and mild retropulsion with mild flattening of the anterior thecal sac, and mild central canal stenosis at the L4-L5 level secondary to disc bulge and degenerative change involving the facets. He reports that Tuesday he was started on Morphine 15 mg twice a day, in addition to his hydrocodone for breakthrough pain, however he reports that the pain continues to be severe. The patient has an LSO brace in place and has been using it consistently. The patient reports that the pain seemed to be worse over the previous two days and this prompted him to come back to the ED for further evaluation. The patient reports that he has been constipated as well. His last BM was 3 days ago. He reports that he normally moves his bowels daily. He reports that he has been taking MiraLAX and Colace at home for the last few days but no BM yet. He reports that his activity level has been diminished but he relates this to the pain. He denies any weakness in his LE. He reports that his appetite has been diminished and he has not been eating much of anything. The patient additionally reports over the last 2-3 weeks having increased difficulty urinating. He reports that he has a history of benign prostatic hypertrophy. He reports that he has been experiencing urinary frequency, urgency, and increased difficulty starting his stream of urine. He denies having any bladder or bowel incontinence. CBC/BMP: 02/10/17 0657 02/10/17 0657 Significant Findings Laboratory Tests Test 02/08/17 02/09/17 02/10/17 07:00 11:15 06:57 White Blood Count 12.9 TH/MM3 (4.0-11.0) Neutrophils (%) (Auto) 71.0 % 72.4 % (16.0-70.0) (16.0-70.0) Monocytes (%) (Auto) 8.4 % (0.0-8.0) 8.8 % (0.0-8.0) Neutrophils # (Auto) 9.2 TH/MM3 (1.8-7.7) Monocytes # (Auto) 1.1 TH/MM3 (0-0.9) Prothrombin Time 34.0 SEC 19.3 SEC 12.7 SEC (9.8-11.6) (9.8-11.6) (9.8-11.6) Blood Urea Nitrogen 19 MG/DL (7-18) Estimat Glomerular Filtration 67 ML/MIN (>89) 59 ML/MIN (>89) Rate Random Glucose 124 MG/DL 160 MG/DL (74-106) (74-106) Alkaline Phosphatase 130 U/L (45-117) Albumin 3.2 GM/DL (3.4-5.0) Imaging Last Impressions Lumbar Spine X-Ray 02/09/17 0000 Signed Impressions: Service Date/Time: Thursday, February 09, 2017 17:51 - CONCLUSION: Postsurgical changes as above. Jose Alejandro Joel MD Lumbar Spine CT 02/08/17 0000 Signed Impressions: Service Date/Time: Wednesday, February 08, 2017 18:44 - CONCLUSION: 1. At L1 there is a moderate compression fracture without significant retropulsion. 2. At L3 there is a moderate compression fracture status post previous kyphoplasty. 3. No other acute compression fractures. No subluxation. Diffuse osteopenia. Mild canal stenosis in the lower lumbar spine as above. 4. Multiple bilateral nonobstructing renal calcifications. Edgar Guthrie MD Abdomen/Pelvis CT 02/06/17 2328 Signed Impressions: Service Date/Time: Monday, February 06, 2017 23:58 - CONCLUSION: 1. Status post kyphoplasty at the L3 level. 2. Scoliosis and degenerative change in lumbar spine. 3. Hepatic steatosis. 4. Small simple appearing cyst in the right lobe of the liver. Mohamud Arzola MD PE at Discharge General: NAD, AAOx3 Chest: CTA Cardiac: Regular Abd: +BS, soft ND/NT Ext: no edema Hospital Course Pt was previously admitted to [facility] from 01/09/17 to 01/14/17 with intractable back pain related to L3 compression fracture and underwent Kyphoplasty with Dr. Pope on 01/11/17. He has continued to have significant back pain since that hospitalization and is the same pain he was experiencing prior to surgery that does have some radiation across the lower back and down the tops of the thighs to the knees. He has been taking Sedgwick 10/325 Q6H PRN and a muscle relaxer PRN at home and this past Tuesday he was started on Morphine 15 mg twice a day, in addition to his hydrocodone for breakthrough pain, however the pain continues to be severe. Pt had another MRI of the lumbar spine on 02/04/17 which revealed an acute or subacute mild compression fracture deformity of the L1 vertebral body with invagination of the inferior endplate and marrow edema involving the lower portion of the vertebral body with mild retropulsion with mild mass effect on the anterior thecal sac, moderate compression fracture deformity of L3 vertebral body status post kyphoplasty with mild diffuse edema and mild retropulsion with mild flattening of the anterior thecal sac, and mild central canal stenosis at the L4-L5 level secondary to disc bulge and degenerative change involving the facets. The patient has an TLSO brace in place and has been using it consistently. INR was supra-therapeutic at 5.9 at admission and he was given Vitamin K 2.5mg po once. Pt was seen by Neurosurgery at admission. He was notably constipated and was started on stool softeners and laxatives. Neurosurgery ordered a CT Lumbar spine (02/08) which noted at L1 there is a moderate compression fracture without significant retropulsion, at L3 there is a moderate compression fracture status post previous kyphoplasty, no other acute compression fractures, no subluxation, diffuse osteopenia, mild canal stenosis in the lower lumbar spine as above, and multiple bilateral nonobstructing renal calcifications. Pt re-evaluated by Dr. Pope on 02/08 and pt underwent L1 Kyphoplasty on 02/09/17. Pt was re-evaluated by Neurosurgery on the day of discharge and was cleared for discharge from their standpoint. Pt reports that his pain is currently controlled. He is using the TLSO brace. Pt cleared by Neurosurgery to resume his Coumadin today. Pt normally takes Coumadin 4mg on and 2mg on . His INR on the day of discharge is 1.1. Pt will need to continue laxatives and stool softeners daily as an outpt to try to help prevent constipation. We will arrange for HHC/PT for monitoring his vitals and recheck his INR on 02/14/17, and 02/17/17, with results to his PCP, Dr. Hairston. Pt Condition on Discharge: Stable Discharge Disposition: Disch w/ Home Health Serv Discharge Instructions DIET: Follow Instructions for: Heart Healthy Diet Speech Therapy-Diet Recommends: Regular Other Activity Instructions: Activity restrictions per Neurosurgery Follow up Referrals: Neurosurgery - 3 Weeks with Marvin Pope MD PCP Follow-up - [address] Dilip Hairston New Medications: Docusate Sodium (Dok) 100 Mg Cap 100 MG PO BID constipation prevention #62 CAP Lactulose Liq (Lactulose Liq) 10 Gm/15 Ml Soln 30 ML PO DAILY constipation Days 30 ML Continued Medications: Aspirin DR (Aspirin 81) 81 Mg Tabdr 81 MG PO DAILY Ref 0 TAB Carbidopa-Levodopa (Carbidopa-Levodopa) 25-100 Mg Tab 1 TAB PO HS Parkinson Disease Mgmt #90 Ref 0 TAB Cyanocobalamin (Vitamin B12) 500 Mcg Tab 5000 MCG PO DAILY #1 BOTTLE Finasteride (Finasteride) 5 Mg Tab 5 MG PO DAILY Do not crush. Manage Prostate Problems #30 Ref 0 TAB Fluoxetine (Fluoxetine) 20 Mg Cap 20 MG PO DAILY #30 Ref 0 CAP Folic Acid (Folic Acid) 400 Mcg Tab 400 MCG PO DAILY Nutritional Supplement Ref 0 TAB Gabapentin (Gabapentin) 600 Mg Tab 600 MG PO TID #90 Ref 0 TAB Hydrocodone-Acetaminophen (Lortab) 5-325 Mg Tab 1-2 TAB PO Q4-6H PRN PAIN #30 Ref 0 TAB Lovastatin (Lovastatin) 40 Mg Tab 40 MG PO DAILY Cholesterol Management #30 Ref 0 TAB Morphine ER (Morphine ER) 15 Mg Tab 15 MG PO BID Pain Management Ref 0 TAB Multiple Vitamins W/ Minerals (Vision Plus) 1 Cap 1 CAP PO DAILY Nutritional Supplement Ref 0 CAP Tamsulosin (Tamsulosin) 0.4 Mg Cap 0.4 MG PO BID Manage Prostate Problems #30 Ref 0 CAP Thiamine (Vitamin B-1) 100 Mg Tab Tizanidine (Tizanidine) 4 Mg Cap 4 MG PO TID Muscle Spasm #90 Ref 0 CAP Warfarin (Warfarin) 4 Mg Tab 4 MG PO DIRECTED tuesday/tue/tue Blood Clot Prevention #0 Ref 0 TAB Warfarin (Warfarin) 2 Mg Tab 2 MG PO DIRECTED /tuesday//tue PRN Blood Clot Prevention #0 Ref 0 TAB Mimi Gonzales February 10, 2017 10:46
[2017-02-10] MEDS ORDERED: WARFARIN SOD 2 MG TAB PO ONE (12:00)
[2017-02-10 12:23] VITALS: BP 124/76; PULSE 90; RESP 16; TEMP 98.1; O2SAT 97
[2017-03-24] MEDS ORDERED: TIZA4CAP3 PO (11:20)
== END 2017-02-10 16:22 | disposition home health service (06) | DRG 517 ==
LOC: NEPC 21:27 → NEDA 02-07 00:12 → NEPGCP 02-07 02:33 → N06B 02-08 02:06
PROVIDERS: ADMIT Hospitalist; ATTEND Hospitalist
PROC: 0QS03ZZ Reposition Lumbar Vertebra, Percutaneous Approach (ICD-10-PCS; 2017-02-09)
PROC: 0QU03JZ Supplement Lumbar Vertebra with Synthetic Substitute, Percutaneous Approach (ICD-10-PCS; principal; 2017-02-09 16:12)
DX: M80.08XA Age-related osteoporosis with current pathological fracture, vertebra(e), initial encounter for fracture (principal); J44.9 Chronic obstructive pulmonary disease, unspecified; I69.398 Other sequelae of cerebral infarction; Z90.2 Acquired absence of lung [part of]; I10 Essential (primary) hypertension; R79.1 Abnormal coagulation profile; M54.5 Low back pain; G89.29 Other chronic pain; E78.5 Hyperlipidemia, unspecified; K59.03 Drug induced constipation; N40.1 Benign prostatic hyperplasia with lower urinary tract symptoms; R35.0 Frequency of micturition; R39.11 Hesitancy of micturition; R39.15 Urgency of urination; G25.81 Restless legs syndrome; I49.9 Cardiac arrhythmia, unspecified; M48.06 Spinal stenosis, lumbar region; M47.896 Other spondylosis, lumbar region; M06.4 Inflammatory polyarthropathy; T40.605A Adverse effect of unspecified narcotics, initial encounter; F32.9 Major depressive disorder, single episode, unspecified; F41.9 Anxiety disorder, unspecified; Z79.01 Long term (current) use of anticoagulants; Z85.118 Personal history of other malignant neoplasm of bronchus and lung; Z87.891 Personal history of nicotine dependence; Z88.0 Allergy status to penicillin; Z91.030 Bee allergy status; Z91.038 Other insect allergy status
CPT/HCPCS: 72100; 72131; 74177; 76000; 80048; 80053; 81001; 83735; 85025; 85610; 85730; 88307; 88311; 94150; 96361; 96374; 96375; C9132; J0131; J0690; J1170; J2175; J2250; J2270; J2405; J2710; J3010; J3370; J3480; J7040; J7050; P9612; Q9967

== ENCOUNTER 2017-02-11 14:39 | Inpatient (IN) | payer MEDICARE ==
[~2017-02-11] VITALS: Ht 175.3 cm; Wt 102.7 kg
[2017-02-11] VITALS (7 sets, daily range): BP systolic 172–218; BP diastolic 79–98; PULSE 83–101; RESP 18–22; TEMP 97.8–99.7; O2SAT 93–99
[~2017-02-11 14:39] MED LIST changes: +DOCU1CAP39 PO; +LACT10SO PO; +MORP1TAB24 PO
--- NOTE | 2017-02-11 14:57 | PD ---
HPI Chief Complaint: Pain: Acute or Chronic Time Seen by Provider: 14:57 Travel History International Travel<30 days: No Contact w/Intl Traveler<30days: No Traveled to known affect area: No History of Present Illness HPI 76-year-old male came to the emergency room with history of back pain. Patient was discharged yesterday after going through kyphoplasty that was done by Dr. Pope. He seems little bit confused and anxious because of the pain. He says this is his second surgery for his back. Patient was hypertensive in ER upon arrival but afebrile. He was brought in by EMS. He is unable to focus and give me any answers directly and keeps saying "it's all in the record" or "ask my when she comes". PFSH Past Medical History Narrative Medical List of his past medical, surgical, social and family history is reviewed from the nursing note. Arthritis: No Asthma: No Autoimmune Disease: No Blood Disorders: No Anxiety: Yes Depression: Yes Heart Rhythm Problems: No Cancer: Yes (LUNG/ LOBECTOMY 2013) Cardiovascular Problems: Yes High Cholesterol: Yes Chemotherapy: No Chest Pain: No Congestive Heart Failure: No COPD: No Cerebrovascular Accident: Yes (CVA X 3) Diabetes: No Endocrine: No GERD: No Glaucoma: No Genitourinary: Yes Headaches: No Hepatitis: No Hiatal Hernia: No Hypertension: Yes Immune Disorder: No Implanted Vascular Access Dvce: Yes Kidney Stones: No Musculoskeletal: No Neurologic: Yes Psychiatric: Yes Reproductive: No Respiratory: Yes (RUL LUNG MASS) Migraines: No Myocardial Infarction: No Radiation Therapy: No Renal Failure: No Seizures: No Sickle Cell Disease: No Sleep Apnea: No Thyroid Disease: No Ulcer: No Past Surgical History Abdominal Surgery: Yes (AAA stent/ RIGHT LOBECTOMY) AICD: No Body Medical Devices: AAA STENT Cardiac Surgery: No Ear Surgery: No Endocrine Surgery: No Genitourinary Surgery: No Gynecologic Surgery: No Joint Replacement: No Neurologic Surgery: No Oral Surgery: No Pacemaker: No Thoracic Surgery: Yes (R thorocotomy/lobectomy) Tonsillectomy: Yes Other Surgery: Yes (CAROTID ENDARTERECTOMY RIGHT JUL, 2012) Social History Alcohol Use: Yes (DAILY beer) Tobacco Use: No (4 years ago) Substance Use: No Allergies-Medications (Allergen,Severity, Reaction): Coded Allergies: Bees (Unverified Allergy, Severe, ANAPHYLACTIC SHOCK, 02/02/17) Fire Ant (Unverified Allergy, Severe, ANAPHYLAXIS.HIVES, 02/02/17) Penicillin (Verified Allergy, Severe, 02/02/17) Comments Allergies reviewed from the nursing note. Reported Meds & Prescriptions Reported Meds & Active Scripts Active Lactulose Liq (Lactulose) 10 Gm/15 Ml Soln 30 Ml PO DAILY 30 Days Dok (Docusate Sodium) 100 Mg Cap 100 Mg PO BID Lortab (Hydrocodone-Acetaminophen) 5-325 Mg Tab 1-2 Tab PO Q4-6H PRN Tizanidine (Tizanidine HCl) 4 Mg Cap 4 Mg PO TID Warfarin 2 Mg Tab 2 Mg PO DIRECTED PRN /tuesday//tue Warfarin 4 Mg Tab 4 Mg PO DIRECTED tuesday/tue/tue Reported Morphine ER (Morphine Sulfate) 15 Mg Tab 15 Mg PO BID Carbidopa-Levodopa 25-100 Mg Tab 1 Tab PO HS Vitamin B-1 (Thiamine HCl) 100 Mg Tab Tamsulosin (Tamsulosin HCl) 0.4 Mg Cap 0.4 Mg PO BID Gabapentin 600 Mg Tab 600 Mg PO TID Finasteride 5 Mg Tab 5 Mg PO DAILY Do not crush. Aspirin 81 (Aspirin) 81 Mg Tabdr 81 Mg PO DAILY Folic Acid 400 Mcg Tab 400 Mcg PO DAILY Vitamin B12 (Cyanocobalamin) 500 Mcg Tab 5,000 Mcg PO DAILY Lovastatin 40 Mg Tab 40 Mg PO DAILY Fluoxetine (Fluoxetine HCl) 20 Mg Cap 20 Mg PO DAILY Vision Plus (Multiple Vitamins W/ Minerals) 1 Cap 1 Cap PO DAILY Narrative Medication List of his home medications reviewed from the nursing note. Review of Systems Except as stated in HPI: all other systems reviewed are Neg Physical Exam Narrative GENERAL: Awake, alert, anxious, moderate distress, TLSO brace SKIN: Focused skin assessment warm/dry. HEAD: Atraumatic. Normocephalic. EYES: Pupils equal and round. No scleral icterus. No injection or drainage. ENT: No nasal bleeding or discharge. Mucous membranes pink and moist. NECK: Trachea midline. No JVD. CARDIOVASCULAR: Regular rate and rhythm. No murmur appreciated. RESPIRATORY: No accessory muscle use. Clear to auscultation. Breath sounds equal bilaterally. GASTROINTESTINAL: Abdomen soft, non-tender, nondistended. Hepatic and splenic margins not palpable. MUSCULOSKELETAL: No obvious deformities. No clubbing. No cyanosis. No edema. NEUROLOGICAL: Awake and alert. No obvious cranial nerve deficits. Motor grossly within normal limits. Normal speech. PSYCHIATRIC: Appropriate mood and affect; insight and judgment normal. Data Data Last Documented VS Vital Signs Date Time Temp Pulse Resp B/P Pulse Ox O2 Delivery O2 Flow Rate FiO2 02/11/17 16:50 88 194/87 93 Nasal Cannula 2 02/11/17 15:20 99.7 02/11/17 14:45 22 Orders Complete Blood Count With Diff (02/11/17 15:03) Basic Metabolic Panel (Bmp) (02/11/17 15:03) Prothrombin Time / Inr (Pt) (02/11/17 15:03) Sodium Chlorid 0.9% 500 Ml Inj (Ns 500 M (02/11/17 15:15) Mri T Spine W & W/O Contrast (02/11/17 ) Hydromorphone Pf Inj (Dilaudid Pf Inj) (02/11/17 17:45) Ondansetron Inj (Zofran Inj) (02/11/17 17:45) Mri L Spine W&W/O Contrast (02/11/17 ) Gadodiamide Pf Inj (Omniscan Pf Inj) (02/11/17 19:10) Hydromorphone Pf Inj (Dilaudid Pf Inj) (02/11/17 20:00) Diet Regular Basic (02/11/17 Dinner) Admit Order (Ed Use Only) (02/11/17 20:51) Labs Laboratory Tests Test 02/11/17 15:10 White Blood Count 14.0 TH/MM3 Red Blood Count 5.12 MIL/MM3 Hemoglobin 15.2 GM/DL Hematocrit 46.3 % Mean Corpuscular Volume 90.5 FL Mean Corpuscular Hemoglobin 29.8 PG Mean Corpuscular Hemoglobin 32.9 % Concent Red Cell Distribution Width 13.2 % Platelet Count 231 TH/MM3 Mean Platelet Volume 7.9 FL Neutrophils (%) (Auto) 74.6 % Lymphocytes (%) (Auto) 14.7 % Monocytes (%) (Auto) 8.7 % Eosinophils (%) (Auto) 1.4 % Basophils (%) (Auto) 0.6 % Neutrophils # (Auto) 10.5 TH/MM3 Lymphocytes # (Auto) 2.1 TH/MM3 Monocytes # (Auto) 1.2 TH/MM3 Eosinophils # (Auto) 0.2 TH/MM3 Basophils # (Auto) 0.1 TH/MM3 CBC Comment DIFF FINAL Differential Comment Prothrombin Time 14.6 SEC Prothromb Time International 1.3 RATIO Ratio Sodium Level 135 MEQ/L Potassium Level 4.1 MEQ/L Chloride Level 101 MEQ/L Carbon Dioxide Level 22.7 MEQ/L Anion Gap 11 MEQ/L Blood Urea Nitrogen 21 MG/DL Creatinine 0.86 MG/DL Estimat Glomerular Filtration 87 ML/MIN Rate Random Glucose 88 MG/DL Calcium Level 9.4 MG/DL MDM Medical Decision Making Medical Screen Exam Complete: Yes Emergency Medical Condition: Yes Medical Record Reviewed: Yes Differential Diagnosis Postsurgical pain, infection Narrative Course 2:37 PM awaiting for the blood test result. I'll have to speak with the neurosurgeon regarding this patient. 4:42 PM patient has leukocytosis which is new since his last blood work done yesterday. Chemistry appears to be within normal limit. His INR is 1.3. I discussed the case with Dr. Singh who is on for neurosurgery today and he recommended an MRI with and without contrast. His nurse practitioner will come down and evaluate the patient as well. Patient might require admission. Case will be signed over to the oncoming ER physician at 5 PM. Procedures EKG Prior to Arrival: Mike Patel MD February 11, 2017 14:57
[2017-02-11] MEDS ORDERED: SODIUM CHLORID 0.9% 500 ML INJ 500 ML IV ONE (15:15)
[2017-02-11 15:44] LABS: AUTOMATED NEUTROPHIL # 10.5 TH/MM3 (1.8-7.7); BASOPHIL # 0.1 TH/MM3 (0-0.2); BASOPHIL % 0.6 % (0.0-2.0); EOSINOPHIL # 0.2 TH/MM3 (0-0.4); EOSINOPHIL % 1.4 % (0.0-4.0); HEMATOCRIT 46.3 % (39.0-51.0); HEMO FLAGS DIFF FINAL; LYMPH % 14.7 % (9.0-44.0); LYMPHOCYTE # 2.1 TH/MM3 (1.0-4.8); MEAN CELL VOLUME 90.5 FL (80.0-100.0); MEAN CORPUSCULAR HEMOGLOBIN 29.8 PG (27.0-34.0); MEAN CORPUSCULAR HGB CONC 32.9 % (32.0-36.0); MONO % 8.7 % (0.0-8.0); NEUT % 74.6 % (16.0-70.0); PLATELET COUNT 231 TH/MM3 (150-450); RED BLOOD COUNT 5.12 MIL/MM3 (4.50-5.90); RED CELL DISTRIBUTION WIDTH 13.2 % (11.6-17.2)
[2017-02-11 16:05] LABS: INTERNATIONAL NORMALIZED RATIO 1.3 RATIO
[2017-02-11 16:06] LABS: PROTHROMBIN TIME - PATIENT 14.6 SEC (9.8-11.6)
[2017-02-11 16:20] LABS: BICARBONATE 22.7 MEQ/L (21.0-32.0); POTASSIUM 4.1 MEQ/L (3.5-5.1)
--- NOTE | 2017-02-11 17:08 | PD ---
Physical Exam Date Seen by Provider: February 11, 2017 Time Seen by Provider: 17:06 Narrative The patient is a 76-year-old male was initially evaluated by the previous physician, Dr. Nunez. Please refer to the initial history, physical, diagnostic evaluation, treatment modality plan. The patient was signed out at 5 PM with MRI and neurosurgery evaluation pending. Data Data Last Documented VS Vital Signs Date Time Temp Pulse Resp B/P Pulse Ox O2 Delivery O2 Flow Rate FiO2 02/11/17 16:50 88 194/87 93 Nasal Cannula 2 02/11/17 15:20 99.7 02/11/17 14:45 22 Orders Complete Blood Count With Diff (02/11/17 15:03) Basic Metabolic Panel (Bmp) (02/11/17 15:03) Prothrombin Time / Inr (Pt) (02/11/17 15:03) Sodium Chlorid 0.9% 500 Ml Inj (Ns 500 M (02/11/17 15:15) Mri T Spine W & W/O Contrast (02/11/17 ) Hydromorphone Pf Inj (Dilaudid Pf Inj) (02/11/17 17:45) Ondansetron Inj (Zofran Inj) (02/11/17 17:45) Mri L Spine W&W/O Contrast (02/11/17 ) Gadodiamide Pf Inj (Omniscan Pf Inj) (02/11/17 19:10) Hydromorphone Pf Inj (Dilaudid Pf Inj) (02/11/17 20:00) Diet Regular Basic (02/11/17 Dinner) Admit Order (Ed Use Only) (02/11/17 20:51) Labs Laboratory Tests Test 02/11/17 15:10 White Blood Count 14.0 TH/MM3 Red Blood Count 5.12 MIL/MM3 Hemoglobin 15.2 GM/DL Hematocrit 46.3 % Mean Corpuscular Volume 90.5 FL Mean Corpuscular Hemoglobin 29.8 PG Mean Corpuscular Hemoglobin 32.9 % Concent Red Cell Distribution Width 13.2 % Platelet Count 231 TH/MM3 Mean Platelet Volume 7.9 FL Neutrophils (%) (Auto) 74.6 % Lymphocytes (%) (Auto) 14.7 % Monocytes (%) (Auto) 8.7 % Eosinophils (%) (Auto) 1.4 % Basophils (%) (Auto) 0.6 % Neutrophils # (Auto) 10.5 TH/MM3 Lymphocytes # (Auto) 2.1 TH/MM3 Monocytes # (Auto) 1.2 TH/MM3 Eosinophils # (Auto) 0.2 TH/MM3 Basophils # (Auto) 0.1 TH/MM3 CBC Comment DIFF FINAL Differential Comment Prothrombin Time 14.6 SEC Prothromb Time International 1.3 RATIO Ratio Sodium Level 135 MEQ/L Potassium Level 4.1 MEQ/L Chloride Level 101 MEQ/L Carbon Dioxide Level 22.7 MEQ/L Anion Gap 11 MEQ/L Blood Urea Nitrogen 21 MG/DL Creatinine 0.86 MG/DL Estimat Glomerular Filtration 87 ML/MIN Rate Random Glucose 88 MG/DL Calcium Level 9.4 MG/DL [facility] Medical Record Reviewed: Yes Supervised Visit with ALAINA: No Interpretation(s) Laboratory Tests Test 02/11/17 15:10 White Blood Count 14.0 TH/MM3 Red Blood Count 5.12 MIL/MM3 Hemoglobin 15.2 GM/DL Hematocrit 46.3 % Mean Corpuscular Volume 90.5 FL Mean Corpuscular Hemoglobin 29.8 PG Mean Corpuscular Hemoglobin 32.9 % Concent Red Cell Distribution Width 13.2 % Platelet Count 231 TH/MM3 Mean Platelet Volume 7.9 FL Neutrophils (%) (Auto) 74.6 % Lymphocytes (%) (Auto) 14.7 % Monocytes (%) (Auto) 8.7 % Eosinophils (%) (Auto) 1.4 % Basophils (%) (Auto) 0.6 % Neutrophils # (Auto) 10.5 TH/MM3 Lymphocytes # (Auto) 2.1 TH/MM3 Monocytes # (Auto) 1.2 TH/MM3 Eosinophils # (Auto) 0.2 TH/MM3 Basophils # (Auto) 0.1 TH/MM3 CBC Comment DIFF FINAL Differential Comment Prothrombin Time 14.6 SEC Prothromb Time International 1.3 RATIO Ratio Sodium Level 135 MEQ/L Potassium Level 4.1 MEQ/L Chloride Level 101 MEQ/L Carbon Dioxide Level 22.7 MEQ/L Anion Gap 11 MEQ/L Blood Urea Nitrogen 21 MG/DL Creatinine 0.86 MG/DL Estimat Glomerular Filtration 87 ML/MIN Rate Random Glucose 88 MG/DL Calcium Level 9.4 MG/DL Last Impressions Thoracic Spine MRI 02/11/17 0000 Signed Impressions: Service Date/Time: Saturday, February 11, 2017 18:27 - CONCLUSION: Suspected 1 cm bone lesion of the T2 vertebral body without pathologic fracture or other acute abnormality of the thoracic spine. The rest of the study is within normal limits for age. Fabian Jordan MD Lumbar Spine MRI 02/11/17 0000 Signed Impressions: Service Date/Time: Saturday, February 11, 2017 18:27 - CONCLUSION: 1. Moderate loss of height of the L1 and L3 vertebral bodies, both status post kyphoplasty, L1 recently. No abscess or other acute complication demonstrated. 2. Focal superior endplate fracture developing of L2 but remains nondisplaced at this time. Fabian Jordan MD Differential Diagnosis Differential diagnosis includes intractable back pain, postoperative hematoma, postoperative complication, abscess, neuralgia, low back pain. Narrative Course The patient was initially evaluated by the previous physician, Dr. Shoemaker. Please refer to the initial history, physical, diagnostic evaluation, treatment modality plan. The patient signed out of 5 PM with MRI and neurosurgical evaluation pending. Labs are unremarkable. I reviewed the thoracic and lumbar spine MRI, a call was placed to Dr. Singh. The patient required several doses of Dilaudid, will be 23 hour observation to [facility] for pain control and PT evaluation. Physician Communication Physician Communication I discussed the patient with Dr. Mcdaniel who agrees with [address] Sinclair. Diagnosis Primary Impression: Intractable back pain Admitting Information Admitting Physician Requests: Observation Condition: Stable Vijay Herman MD February 11, 2017 17:08
[2017-02-11] MEDS ORDERED: HYDROmorphone HCL PF 1 MG/ML VIAL IV PUSH ONE ×2 (17:45→20:00)
[2017-02-11] MEDS ORDERED: ONDANSETRON HCL 4 MG/2 ML VIAL IV PUSH ONE (17:45)
--- NOTE | 2017-02-11 18:17 | PD.CONS ---
(Kevyn Walden) [facility] Service Neurosurgery Consult Requested By Dr Shoemaker Reason for Consult Back pain over L1 kyphoplasty Primary Care Physician Non-Staff History of Present Illness This is a 76-year-old male who presented to the emergency department this afternoon with the complaint of severe back pain. He has a history of chronic low back pain that has been intermittent over the years. During that time frame he has been to Pain Management for injections which helped briefly. Approximately eight months ago the pain became very severe. He presented to the emergency department on due to worsening pain over the preceding week after he fell. He was found to have a L3 compression fracture on MRI for which he underwent a kyphoplasty on by Dr Pope. The patient states that since that time the pain has not improved but worsened. The pain goes across the lower back. He does report some numbness to the anterior thigh bilaterally that is intermittent. He denies any bowel or bladder incontinence. He does have equilibrium problems chronically secondary to a prior stroke but there has not been any change in it. The patient also presented to the emergency department on for the same complaint and was discharged home after evaluation. His PCP ordered an MRI of the lumbar spine which was done on at [facility]. Per the Hospitalist H&P on the patient has an acute to sub acute L1 compression fracture with mild retropulsion resulting in mild mass effect on the anterior thecal sac that was found on the MRI as well as edema also being noted to the surrounding tissues at the L3 kyphoplasty site. He presented to the emergency department on complaining of severe back pain related to his compression fractures. He was admitted to the hospital and had an [id number] on by Dr Pope. He was discharged home yesterday. When seen in the emergency department this evening the patient states that the pain remained the same since he has had the surgery without any relief. He is in a TLSO brace when seen. On his blood work in the ED he is noted to have a leukocytosis which was not present yesterday. The ED physician spoke with Dr Singh and an MRI was ordered. The patient was incontinent of urine when seen. He did state that he has had this problem for years due. When seen previously he did not report any history of urinary incontinence. (Kevyn Walden) Review of Systems Constitutional: Patient denies any fever or chills. 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 He denies any double vision or blurry vision to the left eye. Neck: The patient denies any neck pain. Respiratory: The patient denies any shortness of breath or productive cough. Cardiac: The patient denies any chest pain, palpitations or irregular heart beat. Gastrointestinal: The patient complains of abdominal pain and constipation. He denies any nausea, vomiting or bowel incontinence. Genitourinary: The patient has had bladder incontinence. Extremities: The patient has pain to the anterior thighs. Back: The patient complains of pain to the lower back. Neurological: The patient denies any headache, dizziness, numbness or tingling. Psychiatric: The patient is anxious due to the pain. Skin: The patient denies any rashes, lesions or itching. 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 On chronic anticoagulation with warfarin Carotid artery stenosis High blood pressure since surgery Hyperlipidemia Right-sided lung cancer Restless leg syndrome Benign prostate hypertrophy Inflammatory polyarthritis Depression Anxiety Abdominal aortic aneurysm Transient ischemic attack, multiple Past Surgical History L1 kyphoplasty () L3 kyphoplasty () Colonoscopy (2011) Right carotid endarterectomy (2011) Right upper lobe lobectomy (2013) Aortic artery aneurysm stenting Tonsillectomy Family History Noncontributory Social History Retired (Kevyn Walden) Physical Exam Vital Signs Vital Signs Date Time Temp Pulse Resp B/P Pulse Ox O2 Delivery O2 Flow Rate FiO2 02/11/17 16:50 88 194/87 93 Nasal Cannula 2 02/11/17 16:12 91 218/95 94 Nasal Cannula 2 207/98 02/11/17 15:20 99.7 84 183/91 93 Nasal Cannula 2 02/11/17 14:45 97.8 83 22 204/90 95 Physical Exam General: Well developed, well nourished male who appears his stated age. He appears very anxious and in mild distress. HEENT: Normocephalic, atraumatic. PERRL, EOM intact. TMs obscured by cerumen bilaterally. Nares pink & moist bilaterally. MMM & pink. Neck: Mildly TTP to lower midline cervical spine, no step offs or deformities, no JVD, trachea midline. Respiratory: CTAB w/o W/R/R, equal excursion, non-laboured, on RA. Cardiovascular: S1S2 w/RRR w/o M/G/R, radial & pedal pulses 2+ bilaterally, cap refill < 2 sec. Gastrointestinal: Obese, abdomen soft & nontender, bowel sounds not appreciated. Extremities: CHRISITNE, mildly TTP to bilateral anterolateral thighs, no evident deformity or clubbing, vascular skin changes to bilateral lower legs. Back: TTP from lower thoracic spine down to sacrum, no step off or deformities, intact surgical dressings to midline thoracolumbar junction and left lateral of spine, incisions TTP, no evident drainage, erythema, streaking or swelling noted. Skin: Vascular skin changes to bilateral lower legs. Psychiatric: Patient appears very anxious. Neurological: AAOx3 Speech clear & appropriate Sensation intact grossly intact to light touch to all extremities. Motor strength RUE 5/5, LUE 4+/5, RLE 4+/5 & LLE 5/5 although pain seems to limit. Laboratory Laboratory Tests Test 02/11/17 15:10 White Blood Count 14.0 Red Blood Count 5.12 Hemoglobin 15.2 Hematocrit 46.3 Mean Corpuscular Volume 90.5 Mean Corpuscular Hemoglobin 29.8 Mean Corpuscular Hemoglobin 32.9 Concent Red Cell Distribution Width 13.2 Platelet Count 231 Mean Platelet Volume 7.9 Neutrophils (%) (Auto) 74.6 Lymphocytes (%) (Auto) 14.7 Monocytes (%) (Auto) 8.7 Eosinophils (%) (Auto) 1.4 Basophils (%) (Auto) 0.6 Neutrophils # (Auto) 10.5 Lymphocytes # (Auto) 2.1 Monocytes # (Auto) 1.2 Eosinophils # (Auto) 0.2 Basophils # (Auto) 0.1 CBC Comment DIFF FINAL Differential Comment Prothrombin Time 14.6 Prothromb Time International 1.3 Ratio Sodium Level 135 Potassium Level 4.1 Chloride Level 101 Carbon Dioxide Level 22.7 Anion Gap 11 Blood Urea Nitrogen 21 Creatinine 0.86 Estimat Glomerular Filtration 87 Rate Random Glucose 88 Calcium Level 9.4 (Kevyn Walden) Result Diagram: 02/11/17 1510 02/11/17 1510 Assessment and Plan Assessment and Plan Impression: 1. L1 compression fracture s/p kyphoplasty 2. Exacerbation of chronic progressive low back pain Plan: MRI thoracic & lumbar spine w/o & w/contrast (Kevyn Walden) Attending Statement I have personally seen and examined the patient on 02/12/2017. Pertinent documentation and study results have been reviewed by the undersigned. I personally obtained pertinent history of present illness, past medical history and examined the patient. I have personally developed the treatment plan and performed medical decision making. Agree with findings, exam, and treatment plan as noted above. Had a long discussion with the patient and his in his room on 02/12/2017 regarding the findings and treatment options, and answered numerous questions. His follow-up MRI of 02/11/2017 images have been reviewed. There is no evidence of infection or neoplasm. Significant chronic degenerative changes. I advised him that although the kyphoplasty may help support the bone, there is still further healing that needs to occur within the fractured bone segments. There is still a reasonable chance that his pain will diminish over the next few weeks. He will need to have further therapy and rehabilitation in a inpatient setting. He may have a component of joint pain. He has inquired whether or not facet blocks could be performed on he is in the hospital, and we will need to check with interventional radiology regarding this possibility. Otherwise he may need follow-up with interventional radiology on an outpatient basis. He has had epidural steroid injections in the past few months which did not provide him with significant relief. His neurologic exam remained stable without focal lower extremity neurologic deficit. He does have evidence of a mild superior vertebral body compression deformity at the L2 level which may still be causing him some pain, but does not appear to be significant at this time from a mechanical standpoint and can be managed conservatively. His mildly elevated white count of 02/11/17 has normalized today on 02/12/17. No definite evidence of infection at this point. (Sebas Singh MD) Kevyn Walden February 11, 2017 18:17 Sebas Singh MD February 12, 2017 21:57
[2017-02-11] MEDS ORDERED: GADODIAMIDE PF 287 MG/ML 20 ML VIAL (for RAD MRI) IV ONE (19:10)
--- NOTE | 2017-02-11 19:50 | RADRPT ---
EXAM DATE/TIME: 02/11/2017 18:27 [facility] COMPARISON: No previous studies available for comparison. INDICATIONS : Inability to ambulate. CONTRAST: 20 cc Omniscan (gadodiamide) IV MEDICAL HISTORY : Carcinoma, lung. SURGICAL HISTORY : Abdominal aortic aneurysm repair. Carotid endarterectomy. Lobectomy. ENCOUNTER: Initial ACUITY: 1 day PAIN SCORE: 7/10 LOCATION: Par[facility] TECHNIQUE: Multiplanar multisequence MRI of the thoracic spine was performed. FINDINGS: VERTEBRA: Ill-defined 1 cm signal abnormality seen posteriorly of the T2 vertebral body, potentially metastasis . There does appear to be some faint enhancement. No other abnormal enhancement demonstrated of the t horacic spine. ALIGNMENT: Normal. CORD: Normal position and configuration. T1-T2: Normal. T2-T3: The thecal sac has a normal diameter. No evidence of disc bulge or protrusion. T3-T4: The thecal sac has a normal diameter. No evidence of disc bulge or protrusion. T4-T5: The thecal sac has a normal diameter. No evidence of disc bulge or protrusion. T5-T6: The thecal sac has a normal diameter. No evidence of disc bulge or protrusion. T6-T7: The thecal sac has a normal diameter. No evidence of disc bulge or protrusion. T7-T8: The thecal sac has a normal diameter. No evidence of disc bulge or protrusion. T8-T9: The thecal sac has a normal diameter. No evidence of disc bulge or protrusion. T9-T10: The thecal sac has a normal diameter. No evidence of disc bulge or protrusion. T10-T11: The thecal sac has a normal diameter. No evidence of disc bulge or protrusion. T11-T12: The thecal sac has a normal diameter. No evidence of disc bulge or protrusion. T12-L1: The thecal sac has a normal diameter. No evidence of disc bulge or protrusion. CONCLUSION: Suspected 1 cm bone lesion of the T2 vertebral body without pathologic fracture or other acute abnorm ality of the thoracic spine. The rest of the study is within normal limits for age. Fabian Jordan MD on February 11, 2017 at 19:46 Board Certified Radiologist. This report was verified electronically.
--- NOTE | 2017-02-11 20:34 | RADRPT ---
EXAM DATE/TIME: 02/11/2017 18:27 [facility] COMPARISON: CT LUMBAR SPINE W/O CONTRAST, February 08, 2017, 18:44. MRI LUMBAR SPINE W & W/O CONTRAST, January 09, 2017 , 8:15. INDICATIONS : Abscess. CONTRAST: 20 cc Omniscan (gadodiamide) IV MEDICAL HISTORY : Carcinoma, lung. Cerebrovascular disease. SURGICAL HISTORY : Abdominal aortic aneurysm repair. Carotid endarterectomy. Lobectomy. ENCOUNTER: Initial ACUITY: 1 day PAIN SCORE: 8/10 LOCATION: Paraspinal TECHNIQUE: Multiplanar multisequence MRI of the lumbar spine was performed with and without contrast. FINDINGS: New kyphoplasty of L1. More remote kyphoplasty of L3. Both L1 and L3 have moderate compression deform ity, similar to the prior CT. A focal superior endplate fracture without significant displacement at this time is developing of L2, series 10 image 6. No abscess demonstrated. No significant fracture-associated foraminal or spinal stenosis demonstrated . The small to moderate broad posterior disc protrusion at L4/L5 with mild bilateral foraminal stenos is is unchanged. CONCLUSION: 1. Moderate loss of height of the L1 and L3 vertebral bodies, both status post kyphoplasty, L1 recent ly. No abscess or other acute complication demonstrated. 2. Focal superior endplate fracture developing of L2 but remains nondisplaced at this time. Fabian Jordan MD on February 11, 2017 at 20:29 Board Certified Radiologist. This report was verified electronically.
[2017-02-11] MEDS ORDERED: ONDANSETRON HCL 4 MG/2 ML VIAL IVP PRN (22:00)
[2017-02-11] MEDS ORDERED: NALOXONE HCL 0.4 MG/ML AMP IV PRN (22:00)
--- NOTE | 2017-02-11 22:12 | HHI.HP ---
HPI Service CP Hospitalists Primary Care Physician Non-Staff Admission Diagnosis intactractable back pain status post kyphoplasty Chief Complaint: s/p kyphoplasty with continued severe back pain Travel History International Travel<30 Days: No Contact w/Intl Traveler <30 Da: No Traveled to Known Affected Are: No History of Present Illness This is a 76-year-old male who presented to the emergency department with the complaint of severe back pain. He has a history of chronic low back pain that has been intermittent over the years. During that time frame he has been to Pain Management for injections which helped briefly. Approximately eight months ago the pain became very severe. He presented to the emergency department on due to worsening pain over the preceding week after he fell. He was found to have a L3 compression fracture on MRI for which he underwent a kyphoplasty on by Dr Pope. The patient states that since that time the pain has not improved but worsened. The pain goes across the lower back. He does report some numbness to the anterior thigh bilaterally that is intermittent. He denies any bowel or bladder incontinence. He does have equilibrium problems chronically secondary to a prior stroke but there has not been any change in it. The patient also presented to the emergency department on for the same complaint and was discharged home after evaluation. His PCP ordered an MRI of the lumbar spine which was done on at [facility]. Per the Hospitalist H&P on the patient has an acute to sub acute L1 compression fracture with mild retropulsion resulting in mild mass effect on the anterior thecal sac that was found on the MRI as well as edema also being noted to the surrounding tissues at the L3 kyphoplasty site. He presented to the emergency department on complaining of severe back pain related to his compression fractures. He was admitted to the hospital and had an [id number] on by Dr Pope. He was discharged home yesterday Patient has had no relief from pain and was to be admitted to rehab today for PT but patient was in too much pain that did not respond to po medication. MRI thoracic and lumbar ordered by neurosurgery showed s/p kyphoplasty fx lumbar no acute findings will admit for pain control and await any further plan from neurosurgery. Review of Systems Other continued back pain Past Family Social History Past Medical History hyperlipidemiqa,cad cva,hypertension,neuropathy,lung cancer,atrial arrhythmia, Past Surgical History lobectomy,kyphoplasty,aaa stent carotid surgery Reported Medications Lactulose Liq (Lactulose) 10 Gm/15 Ml Soln 30 Ml PO DAILY 30 Days Dok (Docusate Sodium) 100 Mg Cap 100 Mg PO BID Lortab (Hydrocodone-Acetaminophen) 5-325 Mg Tab 1-2 Tab PO Q4-6H PRN Tizanidine (Tizanidine HCl) 4 Mg Cap 4 Mg PO TID Warfarin 2 Mg Tab 2 Mg PO DIRECTED PRN /tuesday//tue Warfarin 4 Mg Tab 4 Mg PO DIRECTED tuesday/tue/tue Reported Morphine ER (Morphine Sulfate) 15 Mg Tab 15 Mg PO BID Carbidopa-Levodopa 25-100 Mg Tab 1 Tab PO HS Vitamin B-1 (Thiamine HCl) 100 Mg Tab Tamsulosin (Tamsulosin HCl) 0.4 Mg Cap 0.4 Mg PO BID Gabapentin 600 Mg Tab 600 Mg PO TID Finasteride 5 Mg Tab 5 Mg PO DAILY Do not crush. Aspirin 81 (Aspirin) 81 Mg Tabdr 81 Mg PO DAILY Folic Acid 400 Mcg Tab 400 Mcg PO DAILY Vitamin B12 (Cyanocobalamin) 500 Mcg Tab 5,000 Mcg PO DAILY Lovastatin 40 Mg Tab 40 Mg PO DAILY Fluoxetine (Fluoxetine HCl) 20 Mg Cap 20 Mg PO DAILY Vision Plus (Multiple Vitamins W/ Minerals) 1 Cap 1 Cap PO DAILY Allergies: Coded Allergies: Bees (Unverified Allergy, Severe, ANAPHYLACTIC SHOCK, 02/02/17) Fire Ant (Unverified Allergy, Severe, ANAPHYLAXIS.HIVES, 02/02/17) Penicillin (Verified Allergy, Severe, 02/02/17) Social History beer daily stopped smoking 4 years ago Physical Exam Vital Signs Vital Signs Date Time Temp Pulse Resp B/P Pulse Ox O2 Delivery O2 Flow Rate FiO2 02/11/17 21:18 99 18 175/87 99 Nasal Cannula 3 02/11/17 20:58 101 20 185/91 97 Nasal Cannula 3 02/11/17 16:50 88 194/87 93 Nasal Cannula 2 02/11/17 16:12 91 218/95 94 Nasal Cannula 2 207/98 02/11/17 15:20 99.7 84 183/91 93 Nasal Cannula 2 02/11/17 14:45 97.8 83 22 204/90 95 Physical Exam GENERAL: This is a well-nourished, well-developed patient, in no apparent distress. SKIN: No rashes, ecchymoses or lesions. Cool and dry. HEAD: Atraumatic. Normocephalic. No temporal or scalp tenderness. EYES: Pupils equal round and reactive. Extraocular motions intact. No scleral icterus. No injection or drainage. ENT: Nose without bleeding, purulent drainage or septal hematoma. Throat without erythema, tonsillar hypertrophy or exudate. Uvula midline. Airway patent. NECK: Trachea midline. No JVD or lymphadenopathy. Supple, nontender, no meningeal signs. CARDIOVASCULAR: Regular rate and rhythm without murmurs, gallops, or rubs. RESPIRATORY: Clear to auscultation. Breath sounds equal bilaterally. No wheezes , rales, or rhonchi. GASTROINTESTINAL: Abdomen soft, non-tender, nondistended. No hepato-splenomegaly , or palpable masses. No guarding. MUSCULOSKELETAL: Extremities without clubbing, cyanosis, or edema. No joint tenderness, effusion, or edema noted. No calf tenderness. Negative Homans sign bilaterally. NEUROLOGICAL: Awake and alert. Cranial nerves II through XII intact. Motor and sensory grossly within normal limits. Five out of 5 muscle strength in all muscle groups. Normal speech. Severe pain on any movement has thoracic back brace Laboratory Laboratory Tests Test 02/11/17 15:10 White Blood Count 14.0 Red Blood Count 5.12 Hemoglobin 15.2 Hematocrit 46.3 Mean Corpuscular Volume 90.5 Mean Corpuscular Hemoglobin 29.8 Mean Corpuscular Hemoglobin 32.9 Concent Red Cell Distribution Width 13.2 Platelet Count 231 Mean Platelet Volume 7.9 Neutrophils (%) (Auto) 74.6 Lymphocytes (%) (Auto) 14.7 Monocytes (%) (Auto) 8.7 Eosinophils (%) (Auto) 1.4 Basophils (%) (Auto) 0.6 Neutrophils # (Auto) 10.5 Lymphocytes # (Auto) 2.1 Monocytes # (Auto) 1.2 Eosinophils # (Auto) 0.2 Basophils # (Auto) 0.1 CBC Comment DIFF FINAL Differential Comment Prothrombin Time 14.6 Prothromb Time International 1.3 Ratio Sodium Level 135 Potassium Level 4.1 Chloride Level 101 Carbon Dioxide Level 22.7 Anion Gap 11 Blood Urea Nitrogen 21 Creatinine 0.86 Estimat Glomerular Filtration 87 Rate Random Glucose 88 Calcium Level 9.4 Result Diagram: 02/11/17 1510 02/11/17 1510 Imaging Last 24 hours Impressions Thoracic Spine MRI 02/11/17 0000 Signed Impressions: Service Date/Time: Saturday, February 11, 2017 18:27 - CONCLUSION: Suspected 1 cm bone lesion of the T2 vertebral body without pathologic fracture or other acute abnormality of the thoracic spine. The rest of the study is within normal limits for age. Fabian Jordan MD Lumbar Spine MRI 02/11/17 0000 Signed Impressions: Service Date/Time: Saturday, February 11, 2017 18:27 - CONCLUSION: 1. Moderate loss of height of the L1 and L3 vertebral bodies, both status post kyphoplasty, L1 recently. No abscess or other acute complication demonstrated. 2. Focal superior endplate fracture developing of L2 but remains nondisplaced at this time. Fabian Jordan MD Course in er received several doses pain med Assessment and Plan Problem List: (1) Intractable back pain Status: Acute Plan: continue pain medication await any further neurosurgical plan ,patient is on coumadin level now is subtherapeutic and if no surgical plan will adjust dosage (2) L3 vertebral fracture Status: Chronic Plan: s/p kyphoplasty continue pain meds to rehab when medically stable Assessment and Plan further plan as case develops Code Status full Discussed Condition With patient Solis Mcdaniel MD February 11, 2017 22:12
[2017-02-11] MEDS: HYDROmorphone HCL PF 1 MG/ML VIAL IV PRN (22:28)
[2017-02-12 00:05] VITALS: BP 119/60; PULSE 88; RESP 18; TEMP 97.8; O2SAT 97
[2017-02-12] MEDS: SODIUM CHLOR 0.45% 1000 ML INJ 1,000 ML IV SCH ×3 (00:39→19:59)
[2017-02-12] MEDS: HYDROmorphone HCL PF 1 MG/ML VIAL IV PRN ×2 (03:11→07:38)
[2017-02-12 04:19] VITALS: BP 154/78; PULSE 78; RESP 18; TEMP 98.4; O2SAT 97
[2017-02-12 06:08] LABS: INTERNATIONAL NORMALIZED RATIO 1.3 RATIO; PROTHROMBIN TIME - PATIENT 14.2 SEC (9.8-11.6)
[2017-02-12 06:09] LABS: AUTOMATED NEUTROPHIL # 7.4 TH/MM3 (1.8-7.7); BASOPHIL # 0.1 TH/MM3 (0-0.2); BASOPHIL % 0.5 % (0.0-2.0); EOSINOPHIL # 0.3 TH/MM3 (0-0.4); EOSINOPHIL % 2.5 % (0.0-4.0); HEMATOCRIT 44.1 % (39.0-51.0); HEMO FLAGS DIFF FINAL; LYMPH % 16.8 % (9.0-44.0); LYMPHOCYTE # 1.8 TH/MM3 (1.0-4.8); MEAN CELL VOLUME 90.9 FL (80.0-100.0); MEAN CORPUSCULAR HEMOGLOBIN 30.2 PG (27.0-34.0); MEAN CORPUSCULAR HGB CONC 33.3 % (32.0-36.0); MONO % 11.2 % (0.0-8.0); PLATELET COUNT 217 TH/MM3 (150-450); RED BLOOD COUNT 4.85 MIL/MM3 (4.50-5.90); RED CELL DISTRIBUTION WIDTH 13.4 % (11.6-17.2); WHITE BLOOD COUNT 10.7 TH/MM3 (4.0-11.0)
[2017-02-12 06:21] LABS: ANION GAP 13 MEQ/L (5-15); AST (GOT) 15 U/L (15-37); BICARBONATE 25.5 MEQ/L (21.0-32.0); BLOOD UREA NITROGEN 13 MG/DL (7-18); CHLORIDE 100 MEQ/L (98-107); GLOMERULAR FILTRATION RATE 124 ML/MIN (>89); POTASSIUM 3.3 MEQ/L (3.5-5.1); SODIUM (NA) 138 MEQ/L (136-145)
[2017-02-12 06:25] LABS: ALKALINE PHOSPHATASE 130 U/L (45-117); ALT (GPT) 17 U/L (12-78); TOTAL BILIRUBIN ADULT 0.7 MG/DL (0.2-1.0)
[2017-02-12] MEDS: GABAPENTIN 300 MG CAP PO SCH ×3 (08:47→17:14)
[2017-02-12] MEDS: MORPHINE SULFATE 15 MG CONTROLLED RELEASE TAB PO SCH ×2 (08:47→22:04)
[2017-02-12] MEDS ORDERED: HYDROmorphone HCL PF 1 MG/ML VIAL SQ ONE (09:30)
[2017-02-12] MEDS ORDERED: POTASSIUM CHLORIDE 20 MEQ CONTROLLED RELEASE TAB PO ONE (10:00)
[2017-02-12] MEDS ORDERED: CYANOCOBALAMIN 1,000 MCG TAB PO SCH (10:00)
[2017-02-12] MEDS: SODIUM CHLORIDE 0.9% FLUSH 10 ML FLUSH IV FLUSH SCH ×2 (10:09→17:10)
[2017-02-12] MEDS ORDERED: HYDROmorphone HCL PF 1 MG/ML VIAL IV PUSH ONE (12:00)
[2017-02-12 12:06] VITALS: BP 170/78; PULSE 85; RESP 18; TEMP 98; O2SAT 95
[2017-02-12] MEDS: DOCUSATE SODIUM 100 MG CAP PO SCH ×2 (13:08→22:04)
[2017-02-12] MEDS: LACTULOSE SYRUP 20 GM/30 ML CUP PO SCH (13:08)
[2017-02-12] MEDS: FLUoxetine HCL 20 MG CAP PO SCH (13:08)
[2017-02-12] MEDS: PRAVASTATIN SOD 40 MG TAB PO SCH (13:10)
[2017-02-12] MEDS: ASPIRIN EC 81 MG TABEC PO SCH (13:10)
[2017-02-12] MEDS: TAMSULOSIN HCL 0.4 MG CAP PO SCH ×2 (13:12→22:04)
[2017-02-12] MEDS: FINASTERIDE 5 MG TAB PO SCH (13:12)
[2017-02-12] MEDS: MULTIVITAMINS/MINERALS THERAPEUTIC TAB PO SCH (13:23)
[2017-02-12] MEDS: FOLIC ACID 1 MG TAB PO SCH (13:23)
[2017-02-12 15:46] VITALS: BP 152/93; PULSE 92; RESP 18; TEMP 97.8; O2SAT 95
--- NOTE | 2017-02-12 17:02 | RADRPT ---
EXAM DATE/TIME: 02/12/2017 16:29 [facility] COMPARISON: CT ABDOMEN & PELVIS W CONTRAST, February 06, 2017, 23:58. MRI THORACIC SPINE W & W/O CONTRAST, February 11 17, 18:27. CT THORACIC SPINE W/O CONTRAST, January 09, 2017, 3:17. INDICATIONS : Shortness of breath and upper back pain today. RADIATION DOSE: 9.44 CTDIvol (mGy) MEDICAL HISTORY : Carcinoma, lung. Cardiovascular disease SURGICAL HISTORY : Lobectomy. ENCOUNTER: Initial ACUITY: 1 day PAIN SCALE: 7/10 LOCATION: Bilateral upper back TECHNIQUE: Volumetric scanning of the chest was performed. Using automated exposure control and adjustment of t he mA and/or kV according to patient size, radiation dose was kept as low as reasonably achievable to obtain optimal diagnostic quality images. FINDINGS: LUNGS: There is some volume loss in the right hemithorax with surgical malina in the right hilar region maxwell racteristic of a reported history of lobectomy. Patchy airspace disease is seen in the superior segme nt of the right lower lobe with some increased interstitial markings symmetrically in both lower nerv es possibly representing some basilar congestion or volume overload. PLEURAE: Minimal pleural thickening posteriorly and medially in the right hemithorax. No effusion. MEDIASTINUM: Dense calcification of the mitral valve annulus. A few borderline lymph nodes in the AP window which are likely reactive. Atherosclerotic calcification of the coronary arteries and thoracic aorta. AXILLAE: Within normal limits. No lymphadenopathy. MUSCULOSKELETAL: Within normal limits for patient age. MISCELLANEOUS: The visualized upper abdominal organs demonstrate no acute abnormality. 1.2 cm low-density lesion in the left hepatic lobe appear to represent a cyst on the most recent CT scan of the abdomen with contr ast. CONCLUSION: 1. Postsurgical changes in the right hemithorax with some volume loss and surgical clips in the hilar region characteristic of a reported history of lobectomy/partial pneumonectomy. 2. Patchy airspace disease in the superior segment of the right upper lobe. Considering the patient's clinical presentation, this could represent an early infiltrate. 3. Slight increase in interstitial markings in both bases symmetrically. This is nonspecific but coul d represent some mild vascular congestion or volume overload. 4. Dense calcification of the mitral valve annulus with atherosclerotic calcification of the coronary arteries and thoracic aorta. 5. Borderline prominent AP window lymph nodes are likely reactive. 6. 1.2 cm probable cyst in the left hepatic lobe. Jackson Gibbs MD on February 12, 2017 at 16:47 Board Certified Radiologist. This report was verified electronically.
[2017-02-12] MEDS ORDERED: WARFARIN SOD 2 MG TAB PO SCH (18:00)
[2017-02-12] MEDS ORDERED: WARFARIN SOD 4 MG TAB PO SCH (18:00)
[2017-02-12 18:38] VITALS: BP 142/78; PULSE 82; RESP 22; TEMP 97.1; O2SAT 91
[2017-02-12 20:00] VITALS: BP 157/72; PULSE 99; RESP 18; TEMP 97.6; O2SAT 90
[2017-02-12] MEDS: CARBIDOPA/LEVODOPA 25 MG/100 MG TAB PO SCH (22:04)
--- NOTE | 2017-02-12 22:25 | HHI.PR ---
Objective Vitals Vital Signs Date Time Temp Pulse Resp B/P Pulse Ox O2 Delivery O2 Flow Rate FiO2 02/12/17 18:38 97.1 82 22 142/78 91 02/12/17 15:46 97.8 92 18 152/93 95 02/12/17 12:06 98.0 85 18 170/78 95 02/12/17 08:46 20 02/12/17 04:19 98.4 78 18 154/78 97 02/12/17 00:05 97.8 88 18 119/60 97 02/11/17 02/11/17 02/12/17 15:00 23:00 07:00 Intake Total 500 ml Balance 500 ml Intake IV Total 500 ml Result Diagram: 02/12/17 0524 02/12/17 0524 Imaging Last 24 hours Impressions Thoracic Spine MRI 02/11/17 0000 Signed Impressions: Service Date/Time: Saturday, February 11, 2017 18:27 - CONCLUSION: Suspected 1 cm bone lesion of the T2 vertebral body without pathologic fracture or other acute abnormality of the thoracic spine. The rest of the study is within normal limits for age. Fabian Jordan MD Lumbar Spine MRI 02/11/17 0000 Signed Impressions: Service Date/Time: Saturday, February 11, 2017 18:27 - CONCLUSION: 1. Moderate loss of height of the L1 and L3 vertebral bodies, both status post kyphoplasty, L1 recently. No abscess or other acute complication demonstrated. 2. Focal superior endplate fracture developing of L2 but remains nondisplaced at this time. MD Yahir Thomas Richard L MD February 12, 2017 22:25
[2017-02-12] MEDS: SODIUM CHLORIDE 0.9% FLUSH 10 ML FLUSH IV FLUSH PRN (22:58)
[2017-02-12] MEDS: HYDROmorphone HCL PF 1 MG/ML VIAL IV PUSH PRN (22:58)
[2017-02-13] VITALS (7 sets, daily range): BP systolic 106–205; BP diastolic 57–115; PULSE 76–101; RESP 18–20; TEMP 95.7–98.1; O2SAT 92–97
[2017-02-13] MEDS ORDERED: DO NOT ADM ANY ANTICOAGULANT DRUGS OTHER PRN (00:30)
[2017-02-13] MEDS: HYDROmorphone HCL PF 1 MG/ML VIAL IV PUSH PRN ×5 (03:05→22:17)
[2017-02-13] MEDS: SODIUM CHLORIDE 0.9% FLUSH 10 ML FLUSH IV FLUSH PRN (03:05)
[2017-02-13] MEDS ORDERED: ENALAPRILAT 1.25 MG/ML VIAL IV PUSH ONE (07:00)
[2017-02-13 08:14] LABS: INTERNATIONAL NORMALIZED RATIO 1.2 RATIO; PROTHROMBIN TIME - PATIENT 13.1 SEC (9.8-11.6)
[2017-02-13 08:22] LABS: BICARBONATE 25.4 MEQ/L (21.0-32.0); POTASSIUM 3.4 MEQ/L (3.5-5.1)
[2017-02-13] MEDS ORDERED: ENALAPRILAT 1.25 MG/ML VIAL IV PUSH PRN (08:30)
[2017-02-13] MEDS ORDERED: cloNIDine HCL 0.1 MG TAB PO PRN (08:30)
[2017-02-13] MEDS: FINASTERIDE 5 MG TAB PO SCH (09:17)
[2017-02-13] MEDS: LACTULOSE SYRUP 20 GM/30 ML CUP PO SCH ×3 (09:17→11:39)
[2017-02-13] MEDS: MULTIVITAMINS/MINERALS THERAPEUTIC TAB PO SCH (09:17)
[2017-02-13] MEDS: FLUoxetine HCL 20 MG CAP PO SCH (09:17)
[2017-02-13] MEDS: MORPHINE SULFATE 15 MG CONTROLLED RELEASE TAB PO SCH ×2 (09:17→20:53)
[2017-02-13] MEDS: PRAVASTATIN SOD 40 MG TAB PO SCH (09:17)
[2017-02-13] MEDS: DOCUSATE SODIUM 100 MG CAP PO SCH ×2 (09:17→20:53)
[2017-02-13] MEDS: TAMSULOSIN HCL 0.4 MG CAP PO SCH ×2 (09:17→20:52)
[2017-02-13] MEDS: FOLIC ACID 1 MG TAB PO SCH (09:17)
[2017-02-13] MEDS: SODIUM CHLORIDE 0.9% FLUSH 10 ML FLUSH IV FLUSH SCH ×2 (09:18→20:53)
[2017-02-13] MEDS: GABAPENTIN 300 MG CAP PO SCH ×3 (09:18→18:05)
[2017-02-13] MEDS: CYANOCOBALAMIN 1,000 MCG TAB PO SCH (09:18)
[2017-02-13] MEDS: ASPIRIN EC 81 MG TABEC PO SCH (09:39)
[2017-02-13] MEDS ORDERED: POTASSIUM CHLORIDE 20 MEQ CONTROLLED RELEASE TAB PO ONE (13:45)
--- NOTE | 2017-02-13 13:48 | HHI.PR ---
Subjective Remarks still with pain bowels moving Objective Vitals heart reg lung cta abd s/nt ext no edema Vital Signs Date Time Temp Pulse Resp B/P Pulse Ox O2 Delivery O2 Flow Rate FiO2 02/13/17 12:34 97.4 96 20 164/89 95 02/13/17 08:08 97.7 96 20 190/96 94 02/13/17 06:00 98.1 96 20 197/98 02/13/17 04:00 205/115 02/13/17 04:00 97.3 101 20 197/98 92 02/13/17 00:00 97.4 89 18 144/67 93 02/12/17 20:00 97.6 99 18 157/72 90 02/12/17 18:38 97.1 82 22 142/78 91 02/12/17 15:46 97.8 92 18 152/93 95 02/12/17 02/12/17 02/13/17 14:59 22:59 06:59 # Voids 1 # Bowel Movements 1 Result Diagram: 02/12/17 0524 02/13/17 0703 Imaging Last 24 hours Impressions Thoracic Spine MRI 02/11/17 0000 Signed Impressions: Service Date/Time: Saturday, February 11, 2017 18:27 - CONCLUSION: Suspected 1 cm bone lesion of the T2 vertebral body without pathologic fracture or other acute abnormality of the thoracic spine. The rest of the study is within normal limits for age. Fabian Jordan MD Lumbar Spine MRI 02/11/17 0000 Signed Impressions: Service Date/Time: Saturday, February 11, 2017 18:27 - CONCLUSION: 1. Moderate loss of height of the L1 and L3 vertebral bodies, both status post kyphoplasty, L1 recently. No abscess or other acute complication demonstrated. 2. Focal superior endplate fracture developing of L2 but remains nondisplaced at this time. Fabian Jordan MD A/P Problem List: (1) Intractable back pain Status: Acute Plan: Pt is 76 yo man with intractable back pain. recently admitted for L3 fx with kyphoplasty readmitted with L1 fx with kyphoplasty. now readmitted again with severe back pain. comp deformity at L2 noted. ?lesion of T2 1cm. hx lung ca with right lung resection. CT chest no obvious lung lesion now. NSG following. will discuss need for further evaluation of T2 ...?bone scan vs observation. Pain control arrange for d/c to snf tomorrow dvt prophylaxis coumadin resumed. remote hx of "right eye cva" laxatives PT eval Needs better bp control prn and scheduled ordered. (2) L3 vertebral fracture Status: Acute Plan: see above (3) L1 vertebral fracture Status: Acute Plan: see above (4) HTN (hypertension) Status: Acute Plan: elevation. probably pain component control pain prn clonidine. vasotec scheduled procardia. (5) History of CVA (cerebrovascular accident) Status: Resolved (6) BPH (benign prostatic hyperplasia) Status: Chronic (7) Lung cancer Status: Resolved (8) COPD (chronic obstructive pulmonary disease) Status: Chronic Wally Sinclair MD February 13, 2017 13:48
[2017-02-13] MEDS: WARFARIN SOD 4 MG TAB PO SCH (16:12)
[2017-02-13] MEDS: CARBIDOPA/LEVODOPA 25 MG/100 MG TAB PO SCH (20:52)
[2017-02-13] MEDS: NIFEdipine 30 MG SUSTAINED RELEASE TAB PO SCH (20:53)
[2017-02-14] VITALS (7 sets, daily range): BP systolic 96–174; BP diastolic 53–83; PULSE 87–113; RESP 16–21; TEMP 95.8–99.7; O2SAT 91–94
[2017-02-14] MEDS: HYDROmorphone HCL PF 1 MG/ML VIAL IV PUSH PRN ×5 (02:03→22:40)
[2017-02-14] MEDS: MULTIVITAMINS/MINERALS THERAPEUTIC TAB PO SCH (08:46)
[2017-02-14] MEDS: ASPIRIN EC 81 MG TABEC PO SCH (08:46)
[2017-02-14] MEDS: DOCUSATE SODIUM 100 MG CAP PO SCH ×2 (08:46→22:25)
[2017-02-14] MEDS: GABAPENTIN 300 MG CAP PO SCH ×3 (08:46→17:52)
[2017-02-14] MEDS: FINASTERIDE 5 MG TAB PO SCH (08:47)
[2017-02-14] MEDS: TAMSULOSIN HCL 0.4 MG CAP PO SCH ×2 (08:47→22:25)
[2017-02-14] MEDS: PRAVASTATIN SOD 40 MG TAB PO SCH (08:47)
[2017-02-14] MEDS: LACTULOSE SYRUP 20 GM/30 ML CUP PO SCH (08:47)
[2017-02-14] MEDS: CYANOCOBALAMIN 1,000 MCG TAB PO SCH (08:47)
[2017-02-14] MEDS: NIFEdipine 30 MG SUSTAINED RELEASE TAB PO SCH ×2 (08:47→22:25)
[2017-02-14] MEDS: FOLIC ACID 1 MG TAB PO SCH (08:47)
[2017-02-14] MEDS: MORPHINE SULFATE 15 MG CONTROLLED RELEASE TAB PO SCH ×2 (08:47→22:26)
[2017-02-14 08:53] LABS: INTERNATIONAL NORMALIZED RATIO 1.3 RATIO
[2017-02-14] MEDS: FLUoxetine HCL 20 MG CAP PO SCH (08:55)
[2017-02-14] MEDS: SODIUM CHLORIDE 0.9% FLUSH 10 ML FLUSH IV FLUSH SCH ×2 (09:00→22:25)
--- NOTE | 2017-02-14 10:04 | HHI.NSPN ---
(Lulu Santiago) Note Status Status: Progress Note (Lulu Santiago) Interval History Interval History Mr. Rahman is a 76-year-old male who presented to the emergency department this afternoon with the complaint of severe back pain. He is s/p Kyphoplasty of L3 compression fracture on 01/11/17, and L1 Kyphoplasty on 02/09/17. He continues to reports of moderate lumbar pain. MRI of the lumbar spine showed slight nondisplaced superior endplate L2 fracture, no evidence of infection. Discharge planning to inpatient rehab. (Lulu Santiago) Labs, Micro, & Vital Signs Results Date Time Temp Pulse Resp B/P Pulse Ox O2 Delivery O2 Flow Rate FiO2 02/14/17 08:46 97.4 96 16 174/80 93 02/14/17 06:17 Nasal Cannula 2.00 02/14/17 06:17 96.3 102 21 164/83 94 02/14/17 02:33 20 02/14/17 01:20 94 Nasal Cannula 2.00 02/14/17 01:20 94 02/14/17 01:10 99.7 113 21 169/83 91 02/14/17 01:10 Room Air 02/13/17 21:53 20 02/13/17 21:33 97.0 93 20 106/57 94 02/13/17 21:33 Nasal Cannula 2.00 02/13/17 15:59 95.7 76 20 146/83 97 02/13/17 12:34 97.4 96 20 164/89 95 02/14/17 07:00 Intake Total 240 ml Balance 240 ml Constitutional Vital Signs Date Time Temp Pulse Resp B/P Pulse Ox O2 Delivery O2 Flow Rate FiO2 02/14/17 08:46 97.4 96 16 174/80 93 02/14/17 06:17 Nasal Cannula 2.00 02/14/17 06:17 96.3 102 21 164/83 94 02/14/17 02:33 20 02/14/17 01:20 94 Nasal Cannula 2.00 02/14/17 01:20 94 02/14/17 01:10 99.7 113 21 169/83 91 02/14/17 01:10 Room Air 02/13/17 21:53 20 02/13/17 21:33 97.0 93 20 106/57 94 02/13/17 21:33 Nasal Cannula 2.00 02/13/17 15:59 95.7 76 20 146/83 97 02/13/17 12:34 97.4 96 20 164/89 95 02/14/17 07:00 Intake Total 240 ml Balance 240 ml (Lulu Santiago) Review of Systems/Exam Exam Mr. Rahman is alert, awake and oriented to time, place and person. Speech is fluent. Cranial nerve examination: pupils to be equal, round and reactive to light. Facial motor are normal and symmetrical. Neck is soft and supple Muscle strength is normal in all muscle groups of both upper and lower extremities. (Lulu Santiago) Medications Current Medications Current Medications Medications (Trade) Dose Ordered Sig/Gregoria Route PRN Reason Start Time Stop Time Status Last Admin Dose Admin Carbidopa/Levodopa (Sinemet 25-100 Mg) 1 tab HS PO 02/12/17 21:00 02/13/17 20:52 Finasteride (Proscar) 5 mg DAILY PO 02/12/17 09:00 02/14/17 08:47 Fluoxetine HCl (PROzac) 20 mg DAILY PO 02/12/17 09:00 02/14/17 08:55 Folic Acid (Folate) 1 mg DAILY PO 02/12/17 09:00 02/14/17 08:47 Gabapentin (Neurontin) 600 mg TID PO 02/12/17 09:00 02/14/17 08:46 Lactulose (Lactulose Liq) 30 ml DAILY PO 02/12/17 09:00 02/14/17 08:47 Pravastatin Sodium (Pravachol) 40 mg DAILY PO 02/12/17 09:00 02/14/17 08:47 Morphine Sulfate (Oramorph Sr) 15 mg BID PO 02/12/17 09:00 02/14/17 08:47 Tamsulosin HCl (Flomax) 0.4 mg BID PO 02/12/17 09:00 02/14/17 08:47 Tizanidine HCl (Zanaflex) 4 mg TID PO 02/12/17 09:00 02/14/17 08:46 Aspirin (Ecotrin Ec) 81 mg DAILY PO 02/12/17 09:00 02/14/17 08:46 Docusate Sodium (Colace) 100 mg BID PO 02/12/17 09:00 02/14/17 08:46 Multivitamins/ Minerals Therapeutic (Theragran M Tab) 1 tab DAILY PO 02/12/17 09:00 02/14/17 08:46 Sodium Chloride (NS Flush) 2 ml UNSCH PRN IV FLUSH FLUSH AFTER USING IV ACCESS 02/11/17 22:00 02/13/17 03:05 Sodium Chloride (NS Flush) 2 ml BID IV FLUSH 02/12/17 09:00 02/13/17 20:53 Ondansetron HCl (Zofran Inj) 4 mg Q6H PRN IVP NAUSEA OR VOMITING 02/11/17 22:00 Naloxone HCl (Narcan Inj) 0.4 mg UNSCH PRN IV SEE LABEL COMMENTS 02/11/17 22:00 Hydromorphone HCl (Dilaudid Pf Inj) 1 mg Q4H PRN IV PUSH pain over 4 02/12/17 09:30 02/14/17 08:41 Cyanocobalamin (Vitamin B12) 1,000 mcg DAILY PO 02/13/17 09:00 02/14/17 08:47 Warfarin Sodium (Coumadin) 4 mg DAILY@1600 PO 02/13/17 16:00 02/13/17 16:12 Clonidine (Catapres) 0.1 mg Q4H PRN PO sbp > 160 02/13/17 08:30 02/13/17 12:33 Enalaprilat (Vasotec Inj) 1.25 mg Q6H PRN IV PUSH sbp > 180 02/13/17 08:30 Nifedipine (Procardia Xl) 30 mg BID PO 02/13/17 21:00 02/14/17 08:47 (Lulu Santiago) Medical Decision Making MDM Remarks 76 y/o male presented with intractable lumbar pain, MRI shows acute slight L2 endplate fracture (Lulu Santiago) Plan Plan Remarks cont supportive care clear to dc to rehab dw pt regarding activity restrictions strict TLSO when out of bed (Lulu Santiago) Attending Statement The exam, history, and the medical decision-making described in the above note were completed with the assistance of the mid-level provider. I reviewed and agree with the findings presented. I attest that I had a [id number] encounter with the patient on the same day, and personally performed and documented my assessment and findings in the medical record. (Marvin Pope MD) Lulu Santiago February 14, 2017 10:04 Marvin Pope MD February 14, 2017 17:27
--- NOTE | 2017-02-14 12:41 | HHI.PR ---
Subjective Remarks Pt reports that he is still requiring the IV Dilaudid for pain control. He is having a BM on the bedside commode at the time of our evaluation. Afebrile. Objective Vitals Vital Signs Date Time Temp Pulse Resp B/P Pulse Ox O2 Delivery O2 Flow Rate FiO2 02/14/17 08:46 97.4 96 16 174/80 93 02/14/17 06:17 Nasal Cannula 2.00 02/14/17 06:17 96.3 102 21 164/83 94 02/14/17 02:33 20 02/14/17 01:20 94 Nasal Cannula 2.00 02/14/17 01:20 94 02/14/17 01:10 99.7 113 21 169/83 91 02/14/17 01:10 Room Air 02/13/17 21:53 20 02/13/17 21:33 97.0 93 20 106/57 94 02/13/17 21:33 Nasal Cannula 2.00 02/13/17 15:59 95.7 76 20 146/83 97 02/13/17 12:34 97.4 96 20 164/89 95 02/13/17 02/13/17 02/14/17 15:00 23:00 07:00 Intake Total 240 ml Balance 240 ml Intake Oral 240 ml # Voids 3 1 Result Diagram: 02/12/17 0524 02/13/17 0703 Other Results Laboratory Tests Test 02/12/17 02/13/17 02/13/17 02/14/17 14:00 07:03 07:04 07:35 Prostate Specific Antigen 2.60 NG/ML Sodium Level 138 MEQ/L Potassium Level 3.4 MEQ/L Chloride Level 101 MEQ/L Carbon Dioxide Level 25.4 MEQ/L Anion Gap 12 MEQ/L Blood Urea Nitrogen 11 MG/DL Creatinine 0.60 MG/DL Estimat Glomerular Filtration 131 ML/MIN Rate Random Glucose 89 MG/DL Calcium Level 9.1 MG/DL Prothrombin Time 13.1 SEC 15.0 SEC Prothromb Time International 1.2 RATIO 1.3 RATIO Ratio Imaging Last 24 hours Impressions Thoracic Spine MRI 02/11/17 0000 Signed Impressions: Service Date/Time: Saturday, February 11, 2017 18:27 - CONCLUSION: Suspected 1 cm bone lesion of the T2 vertebral body without pathologic fracture or other acute abnormality of the thoracic spine. The rest of the study is within normal limits for age. Fabian Jordan MD Lumbar Spine MRI 02/11/17 0000 Signed Impressions: Service Date/Time: Saturday, February 11, 2017 18:27 - CONCLUSION: 1. Moderate loss of height of the L1 and L3 vertebral bodies, both status post kyphoplasty, L1 recently. No abscess or other acute complication demonstrated. 2. Focal superior endplate fracture developing of L2 but remains nondisplaced at this time. Fabian Jordan MD Objective Remarks General: NAD, AAOx3 Chest: CTA Cardiac: Regular Abd: +BS, soft ND/NT Ext: no edema A/P Problem List: (1) Intractable back pain Status: Acute Plan: - Pt is 76 yo man with intractable back pain. He was recently admitted for L3 compression fracture on 01/11/17, and then readmitted and found to have an L1 compression fracture and underwent Kyphoplasty on 02/09/17. - Pt was discharged on 02/10 only to return on 02/11 with severe back pain. - MRI Thoracic spine (02/11) --> Suspected 1 cm bone lesion of the T2 vertebral body without pathologic fracture or other acute abnormality of the thoracic spine. - MRI Lumbar spine (02/11) --> Moderate loss of height of the L1 and L3 vertebral bodies, both status post kyphoplasty, L1 recently. No abscess or other acute complication demonstrated. Focal superior endplate fracture developing of L2 but remains nondisplaced at this time. - CT chest (02/12) with no obvious lung lesion now. - Pt has hx of lung cancer s/p RUL lobectomy in [address] Yin. - NSG following. - TLSO brace - We will order bone scan today. - Case discussed between Dr. Domingo and Dr. Yin on 02/14, and at this point low index of suspicion for malignancy as the previous pathology from kyphoplasty was negative for any malignancy. Pt was recommended to followup with PCP and recommended outpt DEXA scan and initiation of bisphosphonate. - Pain control is still suboptimal. - Start Duragesic patch and try to minimize IV Dilaudid - Coumadin resumed as pt has remote hx of "right eye CVA." Monitor INR. - Cont. laxatives - PT - Needs better bp control prn and scheduled ordered. (2) L3 vertebral fracture Status: Acute Plan: - See above (3) L1 vertebral fracture Status: Acute Plan: - See above (4) HTN (hypertension) Status: Acute Plan: - Elevated, probably pain component - Cont. Procardia 30mg po BID - Control pain - Clonidine and Vasotec PRN - Monitor (5) History of CVA (cerebrovascular accident) Status: Resolved (6) BPH (benign prostatic hyperplasia) Status: Chronic (7) Lung cancer Status: Resolved (8) COPD (chronic obstructive pulmonary disease) Status: Chronic Assessment and Plan Patient examined. Assessment and plan formulated with Mimi Gonzales PA-C. I agree with the above. Case d/w Dr. Yin. Pt had previous lung CA with resection. Bone bx done with previous kyphoplasty. Pathology did NOT indicate malignancy. More likely underlying osteoporosis. Pt will need outpt DEXA and possible bisphosphonate therapy. Pt started on duragesic transdermal 25mcg to assist with pain control. Need pt off IV dilaudid prior to discharge. Mimi Gonzales February 14, 2017 12:41 Yung Domingo DO February 15, 2017 02:02
[2017-02-14] MEDS ORDERED: fentaNYL 25 MCG/HR PATCH T-DERMAL SCH (14:00)
[2017-02-14] MEDS: WARFARIN SOD 4 MG TAB PO SCH (17:51)
[2017-02-14] MEDS: CARBIDOPA/LEVODOPA 25 MG/100 MG TAB PO SCH (22:25)
[2017-02-14] MEDS: BETAMETHASONE/CLOTRIMAZOLE CREAM 15 GM TOPICAL SCH (22:26)
[2017-02-15] VITALS (8 sets, daily range): BP systolic 97–159; BP diastolic 57–72; PULSE 85–104; RESP 18–21; TEMP 95.2–97.6; O2SAT 92–94
[2017-02-15] MEDS: HYDROmorphone HCL PF 1 MG/ML VIAL IV PUSH PRN ×4 (03:11→17:27)
[2017-02-15] MEDS: DOCUSATE SODIUM 100 MG CAP PO SCH ×2 (08:03→21:40)
[2017-02-15] MEDS: FOLIC ACID 1 MG TAB PO SCH (08:03)
[2017-02-15] MEDS: LACTULOSE SYRUP 20 GM/30 ML CUP PO SCH (08:03)
[2017-02-15] MEDS: FLUoxetine HCL 20 MG CAP PO SCH (08:03)
[2017-02-15] MEDS: MULTIVITAMINS/MINERALS THERAPEUTIC TAB PO SCH (08:04)
[2017-02-15] MEDS: PRAVASTATIN SOD 40 MG TAB PO SCH (08:04)
[2017-02-15] MEDS: ASPIRIN EC 81 MG TABEC PO SCH (08:04)
[2017-02-15] MEDS: FINASTERIDE 5 MG TAB PO SCH (08:04)
[2017-02-15] MEDS: TAMSULOSIN HCL 0.4 MG CAP PO SCH ×2 (08:04→21:39)
[2017-02-15] MEDS: MORPHINE SULFATE 15 MG CONTROLLED RELEASE TAB PO SCH ×2 (08:04→17:26)
[2017-02-15] MEDS: CYANOCOBALAMIN 1,000 MCG TAB PO SCH (08:04)
[2017-02-15] MEDS: NIFEdipine 30 MG SUSTAINED RELEASE TAB PO SCH ×2 (08:04→21:00)
[2017-02-15] MEDS: BETAMETHASONE/CLOTRIMAZOLE CREAM 15 GM TOPICAL SCH ×2 (08:05→21:44)
[2017-02-15] MEDS: SODIUM CHLORIDE 0.9% FLUSH 10 ML FLUSH IV FLUSH SCH ×2 (08:12→21:40)
[2017-02-15] MEDS: GABAPENTIN 300 MG CAP PO SCH ×3 (08:21→17:26)
[2017-02-15 10:53] LABS: BICARBONATE 26.9 MEQ/L (21.0-32.0); MAGNESIUM 2.2 MG/DL (1.5-2.5); POTASSIUM 3.6 MEQ/L (3.5-5.1)
[2017-02-15 10:59] LABS: INTERNATIONAL NORMALIZED RATIO 1.8 RATIO
--- NOTE | 2017-02-15 11:58 | HHI.NSPN ---
(Lulu Santiago) Note Status Status: Progress Note (Lulu Santaigo) Interval History Interval History Mr. Rahman is a 76-year-old male who presented to the emergency department this afternoon with the complaint of severe back pain. He is s/p Kyphoplasty of L3 compression fracture on 01/11/17, and L1 Kyphoplasty on 02/09/17. 02/14: He continues to reports of moderate lumbar pain. MRI of the lumbar spine showed slight nondisplaced superior endplate L2 fracture, no evidence of infection. Discharge planning to inpatient rehab. 02/15: c/o of severe lumbar pain requiring strong dose of narcotics. (Lulu Santiago) Labs, Micro, & Vital Signs Results Date Time Temp Pulse Resp B/P Pulse Ox O2 Delivery O2 Flow Rate FiO2 02/15/17 08:07 97.6 104 18 159/72 93 02/15/17 06:30 Nasal Cannula 2.00 02/15/17 06:14 96.7 96 20 132/63 94 02/15/17 00:50 96.7 85 21 138/65 94 02/14/17 23:58 Nasal Cannula 2.00 02/14/17 22:02 96.7 91 20 132/69 93 02/14/17 19:09 Nasal Cannula 2.00 02/14/17 16:19 95.8 87 20 96/53 92 02/14/17 12:47 97.1 92 18 156/72 93 02/15/17 07:00 Intake Total 300 ml Output Total 850 ml Balance -550 ml Constitutional Vital Signs Date Time Temp Pulse Resp B/P Pulse Ox O2 Delivery O2 Flow Rate FiO2 02/15/17 08:07 97.6 104 18 159/72 93 02/15/17 06:30 Nasal Cannula 2.00 02/15/17 06:14 96.7 96 20 132/63 94 02/15/17 00:50 96.7 85 21 138/65 94 02/14/17 23:58 Nasal Cannula 2.00 02/14/17 22:02 96.7 91 20 132/69 93 02/14/17 19:09 Nasal Cannula 2.00 02/14/17 16:19 95.8 87 20 96/53 92 02/14/17 12:47 97.1 92 18 156/72 93 02/15/17 07:00 Intake Total 300 ml Output Total 850 ml Balance -550 ml (Lulu Santiago) Review of Systems/Exam Exam Mr. Rahman is alert, awake and oriented to time, place and person. Speech is fluent. Cranial nerve examination: pupils to be equal, round and reactive to light. Facial motor are normal and symmetrical. Neck is soft and supple Muscle strength is normal in all muscle groups of both upper and lower extremities. (Lulu Santiago) Medications Current Medications Current Medications Medications (Trade) Dose Ordered Sig/Gregoria Route PRN Reason Start Time Stop Time Status Last Admin Dose Admin Carbidopa/Levodopa (Sinemet 25-100 Mg) 1 tab HS PO 02/12/17 21:00 02/14/17 22:25 Finasteride (Proscar) 5 mg DAILY PO 02/12/17 09:00 02/15/17 08:04 Fluoxetine HCl (PROzac) 20 mg DAILY PO 02/12/17 09:00 02/15/17 08:03 Folic Acid (Folate) 1 mg DAILY PO 02/12/17 09:00 02/15/17 08:03 Gabapentin (Neurontin) 600 mg TID PO 02/12/17 09:00 02/15/17 08:21 Lactulose (Lactulose Liq) 30 ml DAILY PO 02/12/17 09:00 02/15/17 08:03 Pravastatin Sodium (Pravachol) 40 mg DAILY PO 02/12/17 09:00 02/15/17 08:04 Morphine Sulfate (Oramorph Sr) 15 mg BID PO 02/12/17 09:00 02/15/17 08:04 Tamsulosin HCl (Flomax) 0.4 mg BID PO 02/12/17 09:00 02/15/17 08:04 Tizanidine HCl (Zanaflex) 4 mg TID PO 02/12/17 09:00 02/15/17 08:04 Aspirin (Ecotrin Ec) 81 mg DAILY PO 02/12/17 09:00 02/15/17 08:04 Docusate Sodium (Colace) 100 mg BID PO 02/12/17 09:00 02/15/17 08:03 Multivitamins/ Minerals Therapeutic (Theragran M Tab) 1 tab DAILY PO 02/12/17 09:00 02/15/17 08:04 Sodium Chloride (NS Flush) 2 ml UNSCH PRN IV FLUSH FLUSH AFTER USING IV ACCESS 02/11/17 22:00 02/13/17 03:05 Sodium Chloride (NS Flush) 2 ml BID IV FLUSH 02/12/17 09:00 02/15/17 08:12 Ondansetron HCl (Zofran Inj) 4 mg Q6H PRN IVP NAUSEA OR VOMITING 02/11/17 22:00 Naloxone HCl (Narcan Inj) 0.4 mg UNSCH PRN IV SEE LABEL COMMENTS 02/11/17 22:00 Hydromorphone HCl (Dilaudid Pf Inj) 1 mg Q4H PRN IV PUSH pain over 4 02/12/17 09:30 02/15/17 11:35 Cyanocobalamin (Vitamin B12) 1,000 mcg DAILY PO 02/13/17 09:00 02/15/17 08:04 Warfarin Sodium (Coumadin) 4 mg DAILY@1600 PO 02/13/17 16:00 02/14/17 17:51 Clonidine (Catapres) 0.1 mg Q4H PRN PO sbp > 160 02/13/17 08:30 02/13/17 12:33 Enalaprilat (Vasotec Inj) 1.25 mg Q6H PRN IV PUSH sbp > 180 02/13/17 08:30 Nifedipine (Procardia Xl) 30 mg BID PO 02/13/17 21:00 02/15/17 08:04 Fentanyl (Duragesic 25 Mcg Patch.72 Hr) 1 patch Q3D T-DERMAL 02/14/17 14:00 02/14/17 17:51 Betamethasone/ Clotrimazole (Lotrisone Cream) 1 applic Q12HR TOPICAL 02/14/17 21:00 02/15/17 08:05 Miscellaneous Information 1 Q3D T-DERMAL 02/17/17 14:00 (Lulu Santiago) Medical Decision Making MDM Remarks 76 y/o male presented with intractable lumbar pain, MRI shows acute slight L2 endplate fracture s/p Kyphoplasty of L3 compression fracture on 4/18/17, and L1 Kyphoplasty on (Lulu Santiago) Plan Plan Remarks cont supportive care, defer mgt of pain medications to attending physician strict TLSO when out of bed (Lulu Santiago) Attending Statement The exam, history, and the medical decision-making described in the above note were completed with the assistance of the mid-level provider. I reviewed and agree with the findings presented. I attest that I had a [id number] encounter with the patient on the same day, and personally performed and documented my assessment and findings in the medical record. (Marvin Pope MD) Lulu Santiago February 15, 2017 11:58 Marvin Pope MD February 21, 2017 12:35
--- NOTE | 2017-02-15 13:59 | RADRPT ---
EXAM DATE/TIME: 02/15/2017 08:23 [facility] COMPARISON: No previous studies available for comparison. EXTERNAL COMPARISON : [facility], MR LUMBAR SPINE W/O CONTRAST, February 04, 2017 PRIOR BONE SCANS: No correlative bone scan available for comparison. INDICATIONS : Metastatic disease. Lower back pain with kyphoplasty of L1 on 02/09/17. DOSE: 31 mCi Tc99m MDP IV IMAGING: SPECT/CT imaging with fusion was performed. RADIATION DOSE: 8.50 CTDIvol (mGy) MEDICAL HISTORY : Hypertension. Chronic obstructive pulmonary disease. Carcinoma, lung. Coronary artery disease. SURGICAL HISTORY : Lobectomy. Tonsillectomy. AAA stent, kyphoplasty of L1 and L3. ENCOUNTER: Subsequent ACUITY: 3 months PAIN SCALE: 8/10 LOCATION: Lower back. TECHNIQUE: Three hours post intravenous administration of radiotracer, whole body bone scan imaging was performe d. To further evaluate the spine, SPECT imaging was performed in sagittal, axial and coronal planes. Attenuation correction was performed with computed tomography and both the attenuation correction an d non-attenuation corrected data sets were reviewed. FINDINGS: There is abnormal increased radiotracer accumulation at sites of known previous fracture and kyphopla sty treatment in the lumbar spine. No additional sites of suspicious focal uptake are identified in t he axial skeleton. There is mild degenerative type uptake asymmetrically present in the right shoulde r. No other sites of abnormal uptake which are suspicious for metastatic disease. CONCLUSION: Abnormal uptake in the lumbar spine at sites of known previous fracture and kyphoplasty treatment. No thing elsewhere to specifically suggest metastatic disease Fabian Chester MD on February 15, 2017 at 13:52 Board Certified Radiologist. This report was verified electronically.
--- NOTE | 2017-02-15 14:13 | HHI.PR ---
Subjective Remarks Pt just returned from bone scan He is still requiring frequent doses of the IV Dilaudid. Objective Vitals Vital Signs Date Time Temp Pulse Resp B/P Pulse Ox O2 Delivery O2 Flow Rate FiO2 02/15/17 11:59 96.2 93 20 105/59 93 02/15/17 08:35 18 02/15/17 08:35 18 02/15/17 08:07 97.6 104 18 159/72 93 02/15/17 06:30 Nasal Cannula 2.00 02/15/17 06:14 96.7 96 20 132/63 94 02/15/17 00:50 96.7 85 21 138/65 94 02/14/17 23:58 Nasal Cannula 2.00 02/14/17 22:02 96.7 91 20 132/69 93 02/14/17 19:09 Nasal Cannula 2.00 02/14/17 16:19 95.8 87 20 96/53 92 02/14/17 02/14/17 02/15/17 14:59 22:59 06:59 Intake Total 300 ml Output Total 450 ml 400 ml Balance -150 ml -400 ml Intake Oral 300 ml Output Urine Total 450 ml 400 ml # Bowel Movements 1 0 Result Diagram: 02/12/17 0524 02/15/17 0957 Other Results Laboratory Tests Test 02/14/17 02/14/17 02/15/17 07:35 18:38 09:57 Prothrombin Time 15.0 SEC 21.0 SEC Prothromb Time International 1.3 RATIO 1.8 RATIO Ratio 25-Hydroxy Vitamin D Total 10.8 ng/ML Sodium Level 137 MEQ/L Potassium Level 3.6 MEQ/L Chloride Level 100 MEQ/L Carbon Dioxide Level 26.9 MEQ/L Anion Gap 10 MEQ/L Blood Urea Nitrogen 20 MG/DL Creatinine 0.77 MG/DL Estimat Glomerular Filtration 98 ML/MIN Rate Random Glucose 98 MG/DL Calcium Level 9.0 MG/DL Magnesium Level 2.2 MG/DL Imaging Last 24 hours Impressions Thoracic Spine MRI 02/11/17 0000 Signed Impressions: Service Date/Time: Saturday, February 11, 2017 18:27 - CONCLUSION: Suspected 1 cm bone lesion of the T2 vertebral body without pathologic fracture or other acute abnormality of the thoracic spine. The rest of the study is within normal limits for age. Fabian Jordan MD Lumbar Spine MRI 02/11/17 0000 Signed Impressions: Service Date/Time: Saturday, February 11, 2017 18:27 - CONCLUSION: 1. Moderate loss of height of the L1 and L3 vertebral bodies, both status post kyphoplasty, L1 recently. No abscess or other acute complication demonstrated. 2. Focal superior endplate fracture developing of L2 but remains nondisplaced at this time. Fabian Jordan MD Objective Remarks General: NAD, AAOx3 Chest: CTA Cardiac: Regular Abd: +BS, soft ND/NT Ext: no edema A/P Problem List: (1) Intractable back pain Status: Acute Plan: - Pt is 76 yo man with intractable back pain. He was recently admitted for L3 compression fracture on 01/11/17, and then readmitted and found to have an L1 compression fracture and underwent Kyphoplasty on 02/09/17. - Pt was discharged on 02/10 only to return on 02/11 with severe back pain. - MRI Thoracic spine (02/11) --> Suspected 1 cm bone lesion of the T2 vertebral body without pathologic fracture or other acute abnormality of the thoracic spine. - MRI Lumbar spine (02/11) --> Moderate loss of height of the L1 and L3 vertebral bodies, both status post kyphoplasty, L1 recently. No abscess or other acute complication demonstrated. Focal superior endplate fracture developing of L2 but remains nondisplaced at this time. - CT chest (02/12) with no obvious lung lesion now. - Pt has hx of lung cancer s/p RUL lobectomy in [address] Yin. - NSG following. - TLSO brace - We will order bone scan today. - Case discussed between Dr. Domingo and Dr. Yin on 02/14, and at this point low index of suspicion for malignancy as the previous pathology from kyphoplasty was negative for any malignancy. Pt was recommended to followup with PCP and recommended outpt DEXA scan and initiation of bisphosphonate. - Pain control is still suboptimal. - Increase Oramorph to 15mg po TID and add Roxicodone 10mg po Q4H PRN try to minimize IV Dilaudid for breakthrough pain. - Coumadin resumed as pt has remote hx of "right eye CVA." Monitor INR. - Cont. laxatives - PT (2) L3 vertebral fracture Status: Acute Plan: - See above (3) L1 vertebral fracture Status: Acute Plan: - See above (4) HTN (hypertension) Status: Acute Plan: - Elevated, probably pain component - Cont. Procardia 30mg po BID - Control pain - Clonidine and Vasotec PRN - Monitor (5) History of CVA (cerebrovascular accident) Status: Resolved (6) BPH (benign prostatic hyperplasia) Status: Chronic (7) Lung cancer Status: Resolved (8) COPD (chronic obstructive pulmonary disease) Status: Chronic Assessment and Plan Patient examined. Assessment and plan formulated with iMmi Gonzales PA-C. I agree with the above. Mimi Gonzales February 15, 2017 14:13 Yung Domingo DO February 18, 2017 22:47
[2017-02-15] MEDS: WARFARIN SOD 4 MG TAB PO SCH (14:57)
[2017-02-15] MEDS: CHOLECALCIFEROL (VIT D3) 1000 UNIT TAB PO SCH (14:59)
[2017-02-15] MEDS: CARBIDOPA/LEVODOPA 25 MG/100 MG TAB PO SCH (21:44)
[2017-02-16] VITALS (12 sets, daily range): BP systolic 87–167; BP diastolic 53–77; PULSE 72–105; RESP 19–20; TEMP 95.6–98.1; O2SAT 91–95
[2017-02-16] MEDS: HYDROmorphone HCL PF 1 MG/ML VIAL IV PUSH PRN (05:56)
[2017-02-16] MEDS: SODIUM CHLORIDE 0.9% FLUSH 10 ML FLUSH IV FLUSH PRN (05:56)
[2017-02-16 07:59] LABS: INTERNATIONAL NORMALIZED RATIO 2.3 RATIO; PROTHROMBIN TIME - PATIENT 26.5 SEC (9.8-11.6)
[2017-02-16] MEDS: FINASTERIDE 5 MG TAB PO SCH (08:50)
[2017-02-16] MEDS: TAMSULOSIN HCL 0.4 MG CAP PO SCH ×2 (08:50→22:41)
[2017-02-16] MEDS: FLUoxetine HCL 20 MG CAP PO SCH (08:50)
[2017-02-16] MEDS: ASPIRIN EC 81 MG TABEC PO SCH (08:50)
[2017-02-16] MEDS: CHOLECALCIFEROL (VIT D3) 1000 UNIT TAB PO SCH (08:50)
[2017-02-16] MEDS: PRAVASTATIN SOD 40 MG TAB PO SCH (08:50)
[2017-02-16] MEDS: CYANOCOBALAMIN 1,000 MCG TAB PO SCH (08:50)
[2017-02-16] MEDS: MULTIVITAMINS/MINERALS THERAPEUTIC TAB PO SCH (08:51)
[2017-02-16] MEDS: FOLIC ACID 1 MG TAB PO SCH (08:51)
[2017-02-16] MEDS: GABAPENTIN 300 MG CAP PO SCH ×3 (08:51→19:08)
[2017-02-16] MEDS: SODIUM CHLORIDE 0.9% FLUSH 10 ML FLUSH IV FLUSH SCH ×2 (08:51→22:41)
[2017-02-16] MEDS: DOCUSATE SODIUM 100 MG CAP PO SCH ×2 (08:51→22:41)
[2017-02-16] MEDS: MORPHINE SULFATE 15 MG CONTROLLED RELEASE TAB PO SCH ×3 (08:52→18:00)
[2017-02-16] MEDS: BETAMETHASONE/CLOTRIMAZOLE CREAM 15 GM TOPICAL SCH ×2 (08:52→22:41)
[2017-02-16] MEDS: LACTULOSE SYRUP 20 GM/30 ML CUP PO SCH ×2 (08:52→08:58)
[2017-02-16] MEDS: NIFEdipine 30 MG SUSTAINED RELEASE TAB PO SCH (08:56)
[2017-02-16] MEDS ORDERED: SODIUM CHLOR 0.9% 1000 ML INJ 1,000 ML IV SCH (12:15)
--- NOTE | 2017-02-16 12:19 | HHI.PR ---
Subjective Remarks Pt has had some issues with his blood pressure dipping too low and some dizziness. This occurred while he was sitting up in the chair. He had been there for some time so did not seem to be positional related. Afebrile. Nurse reports that when he is sleeping his O2 sats do decrease. Pt denies any known hx of sleep apnea. Objective Vitals Vital Signs Date Time Temp Pulse Resp B/P Pulse Ox O2 Delivery O2 Flow Rate FiO2 02/16/17 09:52 1 02/16/17 09:52 1 02/16/17 08:50 Nasal Cannula 1.00 02/16/17 08:00 97.8 99 20 167/77 95 02/16/17 04:00 98.1 98 20 137/68 92 02/16/17 00:00 96.3 72 20 122/62 94 02/15/17 23:00 Nasal Cannula 2.00 02/15/17 22:02 93 Nasal Cannula 2.00 02/15/17 20:00 95.2 86 18 97/57 92 02/15/17 18:20 18 02/15/17 16:52 92 Nasal Cannula 2.00 02/15/17 16:44 97.5 97 20 127/61 93 02/15/17 02/15/17 02/16/17 15:00 23:00 07:00 Intake Total 600 ml 120 ml 480 ml Output Total 150 ml 200 ml Balance 450 ml 120 ml 280 ml Intake Oral 600 ml 120 ml 480 ml Output Urine Total 150 ml 200 ml # Bowel Movements 0 Result Diagram: 02/12/17 0524 02/15/17 0957 Other Results Laboratory Tests Test 02/14/17 02/15/17 02/16/17 18:38 09:57 06:59 25-Hydroxy Vitamin D Total 10.8 ng/ML Prothrombin Time 21.0 SEC 26.5 SEC Prothromb Time International 1.8 RATIO 2.3 RATIO Ratio Sodium Level 137 MEQ/L Potassium Level 3.6 MEQ/L Chloride Level 100 MEQ/L Carbon Dioxide Level 26.9 MEQ/L Anion Gap 10 MEQ/L Blood Urea Nitrogen 20 MG/DL Creatinine 0.77 MG/DL Estimat Glomerular Filtration 98 ML/MIN Rate Random Glucose 98 MG/DL Calcium Level 9.0 MG/DL Magnesium Level 2.2 MG/DL Imaging Last 24 hours Impressions Thoracic Spine MRI 02/11/17 0000 Signed Impressions: Service Date/Time: Saturday, February 11, 2017 18:27 - CONCLUSION: Suspected 1 cm bone lesion of the T2 vertebral body without pathologic fracture or other acute abnormality of the thoracic spine. The rest of the study is within normal limits for age. Fabian Jordan MD Lumbar Spine MRI 02/11/17 0000 Signed Impressions: Service Date/Time: Saturday, February 11, 2017 18:27 - CONCLUSION: 1. Moderate loss of height of the L1 and L3 vertebral bodies, both status post kyphoplasty, L1 recently. No abscess or other acute complication demonstrated. 2. Focal superior endplate fracture developing of L2 but remains nondisplaced at this time. Fabian Jordan MD Objective Remarks General: NAD, AAOx3 Chest: CTA Cardiac: Regular Abd: +BS, soft ND/NT Ext: no edema A/P Problem List: (1) Intractable back pain Status: Acute Plan: - Pt is 76 yo man with intractable back pain. He was recently admitted for L3 compression fracture on 01/11/17, and then readmitted and found to have an L1 compression fracture and underwent Kyphoplasty on 02/09/17. - Pt was discharged on 02/10 only to return on 02/11 with severe back pain. - MRI Thoracic spine (02/11) --> Suspected 1 cm bone lesion of the T2 vertebral body without pathologic fracture or other acute abnormality of the thoracic spine. - MRI Lumbar spine (02/11) --> Moderate loss of height of the L1 and L3 vertebral bodies, both status post kyphoplasty, L1 recently. No abscess or other acute complication demonstrated. Focal superior endplate fracture developing of L2 but remains nondisplaced at this time. - CT chest (02/12) with no obvious lung lesion now. - Pt has hx of lung cancer s/p RUL lobectomy in [address] Yin. - NSG following. - TLSO brace - We will order bone scan today. - Case discussed between Dr. Domingo and Dr. Yin on 02/14, and at this point low index of suspicion for malignancy as the previous pathology from kyphoplasty was negative for any malignancy. Pt was recommended to followup with PCP and recommended outpt DEXA scan and initiation of bisphosphonate. - Pain control is still suboptimal. - Pain meds were changed on 02/15 to Oramorph 15mg po TID and Roxicodone 10mg po Q4H PRN try to minimize IV Dilaudid for breakthrough pain. - Pt has had some decreased in BP and pt had been started on Procardia XL during this admission. The decrease in BP is likely related to the combination of BP medication and the pain medication - We will stop the Procardia XL and decrease the Roxicodone to 5mg po Q6H PRN - Coumadin resumed as pt has remote hx of "right eye CVA." Monitor INR. - Cont. laxatives - PT (2) L3 vertebral fracture Status: Acute Plan: - See above (3) L1 vertebral fracture Status: Acute Plan: - See above (4) HTN (hypertension) Status: Acute Plan: - BP has been fluctuating quite a bit and has been dipping too low and pt has had some dizziness. - We will stop the Procardia 30mg po BID for now and monitor BP closely - Control pain, medications adjusted as above. - Clonidine and Vasotec PRN - Monitor (5) History of CVA (cerebrovascular accident) Status: Resolved (6) BPH (benign prostatic hyperplasia) Status: Chronic (7) Lung cancer Status: Resolved (8) COPD (chronic obstructive pulmonary disease) Status: Chronic Assessment and Plan Patient examined. Assessment and plan formulated with Mimi Gonzales PA-C. I agree with the above. Mimi Gonzales February 16, 2017 12:19 Yung Domingo DO February 18, 2017 22:48
[2017-02-16] MEDS: WARFARIN SOD 4 MG TAB PO SCH (15:04)
[2017-02-16] MEDS: CARBIDOPA/LEVODOPA 25 MG/100 MG TAB PO SCH (21:00)
[2017-02-17] VITALS: BP 120/67; PULSE 69; RESP 20; TEMP 95.9; O2SAT 95
[2017-02-17 04:00] VITALS: BP 146/68; PULSE 83; RESP 20; TEMP 98.1; O2SAT 92
[2017-02-17 08:00] VITALS: BP 155/73; PULSE 94; RESP 17; TEMP 96.6; O2SAT 92
[2017-02-17] MEDS: LACTULOSE SYRUP 20 GM/30 ML CUP PO SCH (09:17)
[2017-02-17] MEDS: FOLIC ACID 1 MG TAB PO SCH (09:18)
[2017-02-17] MEDS: TAMSULOSIN HCL 0.4 MG CAP PO SCH (09:18)
[2017-02-17] MEDS: MORPHINE SULFATE 15 MG CONTROLLED RELEASE TAB PO SCH ×3 (09:18→17:13)
[2017-02-17] MEDS: GABAPENTIN 300 MG CAP PO SCH ×3 (09:18→17:12)
[2017-02-17] MEDS: MULTIVITAMINS/MINERALS THERAPEUTIC TAB PO SCH (09:18)
[2017-02-17] MEDS: CHOLECALCIFEROL (VIT D3) 1000 UNIT TAB PO SCH (09:19)
[2017-02-17] MEDS: DOCUSATE SODIUM 100 MG CAP PO SCH (09:19)
[2017-02-17] MEDS: ASPIRIN EC 81 MG TABEC PO SCH (09:19)
[2017-02-17] MEDS: CYANOCOBALAMIN 1,000 MCG TAB PO SCH (09:19)
[2017-02-17] MEDS: PRAVASTATIN SOD 40 MG TAB PO SCH (09:19)
[2017-02-17] MEDS: FINASTERIDE 5 MG TAB PO SCH (09:19)
[2017-02-17] MEDS: FLUoxetine HCL 20 MG CAP PO SCH (09:20)
[2017-02-17 09:53] LABS: PROTHROMBIN TIME - PATIENT 35.4 SEC (9.8-11.6)
[2017-02-17 12:00] VITALS: BP 123/63; PULSE 91; RESP 17; TEMP 96.7; O2SAT 91
--- NOTE | 2017-02-17 13:44 | HHI.DCPOC ---
Discharge Care Plan Diagnosis: (1) Intractable back pain (2) L3 vertebral fracture (3) L1 vertebral fracture (4) History of CVA (cerebrovascular accident) (5) BPH (benign prostatic hyperplasia) (6) HTN (hypertension) (7) Lung cancer (8) COPD (chronic obstructive pulmonary disease) Goals to Promote Your Health * To prevent worsening of your condition and complications * To maintain your health at the optimal level Directions to Meet Your Goals Take your medications as prescribed Follow your dietary instruction Follow activity as directed Keep your appointments as scheduled Take your immunizations and boosters as scheduled If your symptoms worsen call your PCP, if no PCP go to Urgent Care Center or Emergency Room Smoking is Dangerous to Your Health. Avoid second hand smoke Call the 24-hour hour crisis hotline for domestic abuse at Mimi Gonzales February 17, 2017 13:44 Yung Domingo DO February 18, 2017 22:48
--- NOTE | 2017-02-17 13:44 | HHI.DS ---
Discharge Summary Admission Date February 11, 2017 at 20:53 Discharge Date: February 17, 2017 Admitting Diagnosis intactractable back pain status post kyphoplasty (1) Intractable back pain Diagnosis: Principal (2) L3 vertebral fracture Diagnosis: Secondary (3) L1 vertebral fracture Diagnosis: Secondary (4) HTN (hypertension) Diagnosis: Secondary (5) History of CVA (cerebrovascular accident) Diagnosis: Secondary (6) BPH (benign prostatic hyperplasia) Diagnosis: Secondary (7) Lung cancer Diagnosis: Secondary (8) COPD (chronic obstructive pulmonary disease) Diagnosis: Secondary Consultants Dr. Marvin Pope - Neurosurgery Brief History This is a 76-year-old male who presented to the emergency department with the complaint of severe back pain. He has a history of chronic low back pain that has been intermittent over the years. During that time frame he has been to Pain Management for injections which helped briefly. Approximately eight months ago the pain became very severe. He presented to the emergency department on due to worsening pain over the preceding week after he fell. He was found to have a L3 compression fracture on MRI for which he underwent a kyphoplasty on by Dr Pope. The patient states that since that time the pain has not improved but worsened. The pain goes across the lower back. He does report some numbness to the anterior thigh bilaterally that is intermittent. He denies any bowel or bladder incontinence. He does have equilibrium problems chronically secondary to a prior stroke but there has not been any change in it. The patient also presented to the emergency department on for the same complaint and was discharged home after evaluation. His PCP ordered an MRI of the lumbar spine which was done on at [facility]. Per the Hospitalist H&P on the patient has an acute to sub acute L1 compression fracture with mild retropulsion resulting in mild mass effect on the anterior thecal sac that was found on the MRI as well as edema also being noted to the surrounding tissues at the L3 kyphoplasty site. He presented to the emergency department on complaining of severe back pain related to his compression fractures. He was admitted to the hospital and had an [id number] on by Dr Pope. He was discharged home yesterday Patient has had no relief from pain and was to be admitted to rehab today for PT but patient was in too much pain that did not respond to po medication. MRI thoracic and lumbar ordered by neurosurgery showed s/p kyphoplasty fx lumbar no acute findings will admit for pain control and await any further plan from neurosurgery. CBC/BMP: 02/15/17 0957 Significant Findings Laboratory Tests Test 02/14/17 02/15/17 02/16/17 02/17/17 18:38 09:57 06:59 08:25 25-Hydroxy Vitamin D Total 10.8 ng/ML (30-100) Prothrombin Time 21.0 SEC 26.5 SEC 35.4 SEC (9.8-11.6) (9.8-11.6) (9.8-11.6) Blood Urea Nitrogen 20 MG/DL (7-18) Imaging Last Impressions SPECT Scan-Bone Nuclear Medicine 02/15/17 0000 Signed Impressions: Service Date/Time: Wednesday, February 15, 2017 08:23 - CONCLUSION: Abnormal uptake in the lumbar spine at sites of known previous fracture and kyphoplasty treatment. Nothing elsewhere to specifically suggest metastatic disease Fabian Chester MD Chest CT 02/12/17 0000 Signed Impressions: Service Date/Time: Sunday, February 12, 2017 16:29 - CONCLUSION: 1. Postsurgical changes in the right hemithorax with some volume loss and surgical clips in the hilar region characteristic of a reported history of lobectomy/partial pneumonectomy. 2. Patchy airspace disease in the superior segment of the right upper lobe. Considering the patient's clinical presentation, this could represent an early infiltrate. 3. Slight increase in interstitial markings in both bases symmetrically. This is nonspecific but could represent some mild vascular congestion or volume overload. 4. Dense calcification of the mitral valve annulus with atherosclerotic calcification of the coronary arteries and thoracic aorta. 5. Borderline prominent AP window lymph nodes are likely reactive. 6. 1.2 cm probable cyst in the left hepatic lobe. Jackson Gibbs MD Thoracic Spine MRI 02/11/17 0000 Signed Impressions: Service Date/Time: Saturday, February 11, 2017 18:27 - CONCLUSION: Suspected 1 cm bone lesion of the T2 vertebral body without pathologic fracture or other acute abnormality of the thoracic spine. The rest of the study is within normal limits for age. Fabian Jordan MD Lumbar Spine MRI 02/11/17 0000 Signed Impressions: Service Date/Time: Saturday, February 11, 2017 18:27 - CONCLUSION: 1. Moderate loss of height of the L1 and L3 vertebral bodies, both status post kyphoplasty, L1 recently. No abscess or other acute complication demonstrated. 2. Focal superior endplate fracture developing of L2 but remains nondisplaced at this time. Fabian Jordan MD PE at Discharge General: NAD, AAOx3 Chest: CTA Cardiac: Regular Abd: +BS, soft ND/NT Ext: no edema Hospital Course Pt is 76 yo man with intractable back pain. He was recently admitted for L3 compression fracture on 01/11/17, and then readmitted and found to have an L1 compression fracture and underwent Kyphoplasty on 02/09/17. Pt was discharged on 02/10 only to return on 02/11 with severe back pain. MRI Thoracic spine (02/11) --> Suspected 1 cm bone lesion of the T2 vertebral body without pathologic fracture or other acute abnormality of the thoracic spine. MRI Lumbar spine () --> Moderate loss of height of the L1 and L3 vertebral bodies, both status post kyphoplasty, L1 recently. No abscess or other acute complication demonstrated. Focal superior endplate fracture developing of L2 but remains nondisplaced at this time. Pt has hx of lung cancer s/p RUL lobectomy in [address] Yin. CT chest (02/12) with no obvious lung lesion now. NSG was consulted. They recommended continue with TLSO brace when out of bed and pain control. Case discussed between Dr. Domingo and Dr. Yin on 02/14, and at this point low index of suspicion for malignancy as the previous pathology from kyphoplasty was negative for any malignancy. Pt was recommended to followup with PCP and recommended outpt DEXA scan and initiation of bisphosphonate. Bone scan was ordered and noted abnormal uptake in the lumbar spine at sites of known previous fracture and kyphoplasty treatment. Nothing elsewhere to specifically suggest metastatic disease. Pain control was an issue during this admission. Pain meds were changed on 02/15 to Oramorph 15mg po TID and Roxicodone 10mg po Q4H PRN try to minimize IV Dilaudid for breakthrough pain. Pt has had some decreased in BP and pt had been started on Procardia XL during this admission. The decrease in BP is likely related to the combination of BP medication and the pain medication. We stopped the Procardia XL and decrease the Roxicodone to 5mg po Q6H PRN and stopped the IV Dilaudid. Pts pain seemed to be better controlled on the day of discharge. Pt was continued on stool softeners and Lactulose daily to prevent constipation. His Coumadin was resumed due to hx of "right eye CVA." His INR did elevate to 3.0 on the day of discharge and his Coumadin dose will be held on 02/17. Pt will resume his Coumadin on 02/18/17 at a dose of 2mg on [id number] and 4mg Tue-Tue-Tue. He will have PT/INR checks on Tuesday and while at rehab. Pt is being discharged to [facility] for continued rehab. Pt will need to followup with Dr. Pope in 2 weeks Pt will need to followup with Dr. Hairston 1 week after discharge from SNF. Pt Condition on Discharge: Stable Discharge Disposition: Discharge to SNF Discharge Instructions DIET: Follow Instructions for: Heart Healthy Diet Activities you can perform: Regular-No Restrictions Follow up Referrals: Neurosurgery - 2 Weeks with Marvin Pope MD PCP Follow-up - [address] Hairston Continued Medications: Aspirin (Aspirin 81) 81 Mg Tabdr 81 MG PO DAILY Ref 0 TAB Carbidopa-Levodopa (Carbidopa-Levodopa) 25-100 Mg Tab 1 TAB PO HS Parkinson Disease Mgmt #90 Ref 0 TAB Cyanocobalamin (Vitamin B12) 500 Mcg Tab 5000 MCG PO DAILY #1 BOTTLE Docusate Sodium (Dok) 100 Mg Cap 100 MG PO BID constipation prevention #62 CAP Finasteride (Finasteride) 5 Mg Tab 5 MG PO DAILY Do not crush. Manage Prostate Problems #30 Ref 0 TAB Fluoxetine (Fluoxetine) 20 Mg Cap 20 MG PO DAILY #30 Ref 0 CAP Folic Acid (Folic Acid) 400 Mcg Tab 400 MCG PO DAILY Nutritional Supplement Ref 0 TAB Gabapentin (Gabapentin) 600 Mg Tab 600 MG PO TID #90 Ref 0 TAB Lactulose Liq (Lactulose Liq) 10 Gm/15 Ml Soln 30 ML PO DAILY constipation Days 30 ML Lovastatin (Lovastatin) 40 Mg Tab 40 MG PO DAILY Cholesterol Management #30 Ref 0 TAB Multiple Vitamins W/ Minerals (Vision Plus) 1 Cap 1 CAP PO DAILY Nutritional Supplement Ref 0 CAP Tamsulosin (Tamsulosin) 0.4 Mg Cap 0.4 MG PO BID Manage Prostate Problems #30 Ref 0 CAP Thiamine (Vitamin B-1) 100 Mg Tab Tizanidine (Tizanidine) 4 Mg Cap 4 MG PO TID Muscle Spasm #90 Ref 0 CAP Warfarin (Warfarin) 4 Mg Tab 4 MG PO DIRECTED tuesday/tue/tue Blood Clot Prevention #0 Ref 0 TAB Warfarin (Warfarin) 2 Mg Tab 2 MG PO DIRECTED /tuesday//tue PRN Blood Clot Prevention #0 Ref 0 TAB Additional Information Patient examined. Assessment and plan formulated with Mimi Gonzales PA-C. I agree with the above. Mimi Gonzales February 17, 2017 13:43 Yung Domingo DO February 18, 2017 22:48
[2017-02-17] MEDS ORDERED: REMOVE OLD FENTANYL PATCH T-DERMAL SCH (14:00)
[2017-02-17] MEDS ORDERED: MORP1TAB24 PO (15:43)
[2017-02-17] MEDS ORDERED: TIZA4CAP3 PO (15:43)
[2017-02-17] MEDS ORDERED: OXYC-392 PO (15:43)
[2017-02-17 17:45] VITALS: BP 120/59; PULSE 86; RESP 18; TEMP 95.4; O2SAT 91
[2017-03-24] MEDS ORDERED: TIZA4CAP3 PO (11:20)
== END 2017-02-17 18:53 | DRG 92 ==
LOC: NEPD 14:39 → OBSVTOIN 20:53 → INTOOBSV 20:53 → NEDA 20:53 → NEPHCDU 23:26 → OBSVTOIN 02-12 12:06 → N05A 02-12 18:16
PROVIDERS: ADMIT Hospitalist; ATTEND Hospitalist
DX: G89.29 Other chronic pain (principal); M48.56XA Collapsed vertebra, not elsewhere classified, lumbar region, initial encounter for fracture; G62.9 Polyneuropathy, unspecified; I69.198 Other sequelae of nontraumatic intracerebral hemorrhage; Z98.890 Other specified postprocedural states; M54.5 Low back pain; H54.41 Blindness, right eye, normal vision left eye; R26.2 Difficulty in walking, not elsewhere classified; I10 Essential (primary) hypertension; E78.5 Hyperlipidemia, unspecified; R32 Unspecified urinary incontinence; Z79.01 Long term (current) use of anticoagulants; G25.81 Restless legs syndrome; N40.0 Benign prostatic hyperplasia without lower urinary tract symptoms; Z85.118 Personal history of other malignant neoplasm of bronchus and lung; Z90.2 Acquired absence of lung [part of]; I25.10 Atherosclerotic heart disease of native coronary artery without angina pectoris; Z87.891 Personal history of nicotine dependence; H61.23 Impacted cerumen, bilateral
CPT/HCPCS: 71250; 72157; 72158; 78306; 78320; 78399; 80048; 80053; 82306; 83735; 84153; 85025; 85610; 94150; 96361; 96374; 96375; 96376; A9503; A9579; J1170; J2405; J7030; J7040

== ENCOUNTER 2017-05-11 11:04 | Emergency (ER) | payer MEDICARE ==
[~2017-05-11] VITALS: Ht 175.3 cm; Wt 100.0 kg
[~2017-05-11 11:04] MED LIST changes: -HYDR-3533 PO; +OXYC-392 PO
[2017-05-11 11:06] VITALS: BP 79/49; PULSE 72; RESP 14; TEMP 98.4; O2SAT 95
[2017-05-11 11:09] VITALS: BP 88/53
--- NOTE | 2017-05-11 11:17 | PD ---
Physical Exam Date Seen by Provider: May 11, 2017 Time Seen by Provider: 11:15 Narrative 76 yowm c/o dizziness and weakness at pt today. no cp or palpitations VS REVIEWED PT WAITING FOR BED PLACEMENT. Data Data Last Documented VS Vital Signs Date Time Temp Pulse Resp B/P Pulse Ox O2 Delivery O2 Flow Rate FiO2 05/11/17 11:09 88/53 05/11/17 11:06 98.4 72 14 95 Room Air Orders Electrocardiogram (05/11/17 11:13) Complete Blood Count With Diff (05/11/17 11:13) Basic Metabolic Panel (Bmp) (05/11/17 11:13) Troponin I (05/11/17 11:13) Magnesium (Mg) (05/11/17 11:13) MDM Supervised Visit with ALAINA: Edgar De Paz May 11, 2017 11:17
[2017-05-11] MEDS ORDERED: SODIUM CHLOR 0.9% 1000 ML INJ 1,000 ML IV SCH (11:31)
--- NOTE | 2017-05-11 11:59 | PD ---
HPI Chief Complaint: Dizziness Time Seen by Provider: 11:54 Travel History International Travel<30 days: No Contact w/Intl Traveler<30days: No Traveled to known affect area: No History of Present Illness HPI 76-year-old male that presents to the ED for evaluation of dizziness and hypotension. Patient was at physical therapy today and before he even started he was feeling kind of lightheaded and dizzy. Patient had an episode of almost syncope. Per he looked pale and will sitting he almost passed out. He states that he was able to get some water but per he she got concerned because whenever she given water is similar like he had some facial droop. He does have a history of for strokes in the past. He takes Coumadin. He had recent surgery and his back in December by Dr. Pope. He is undergoing physical therapy to get his strength back. Per patient she is chronically weak on the lower legs secondary to the surgery and also he has physical therapy. He has chronic pain from the surgery. Denies any fevers chills or sweats. Per he 's had an episode of this before. Per glass that he had something like this. Moderately he went back to it. Patient right now feels better. He was however found to be hypotensive by Triage. He does state that he took his blood pressure medications today and had a smoothie before going to physical therapy. Denies any other medical issues. No chest pain. No shortness of breath. He does have a history of AAA that was repaired about 7 years ago. PFSH Past Medical History Hx Anticoagulant Therapy: Yes Arthritis: No Asthma: No Autoimmune Disease: No Blood Disorders: No Anxiety: Yes Depression: Yes Heart Rhythm Problems: No Cancer: Yes (LUNG/ LOBECTOMY 2013) Cardiovascular Problems: Yes High Cholesterol: Yes Chemotherapy: No Chest Pain: No Congestive Heart Failure: No COPD: No Cerebrovascular Accident: Yes Diabetes: No Endocrine: No GERD: No Glaucoma: No Genitourinary: Yes Headaches: No Hepatitis: No Hiatal Hernia: No Hypertension: Yes Immune Disorder: No Implanted Vascular Access Dvce: Yes Kidney Stones: No Musculoskeletal: No Neurologic: Yes Psychiatric: Yes Reproductive: No Respiratory: Yes (RUL LUNG MASS) Migraines: No Myocardial Infarction: No Radiation Therapy: No Renal Failure: No Seizures: No Sickle Cell Disease: No Sleep Apnea: No Thyroid Disease: No Ulcer: No Past Surgical History Abdominal Surgery: Yes (AAA stent/ RIGHT LOBECTOMY) AICD: No Body Medical Devices: AAA STENT Cardiac Surgery: No Ear Surgery: No Endocrine Surgery: No 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) Genitourinary Surgery: No Gynecologic Surgery: No Joint Replacement: No Neurologic Surgery: No Oral Surgery: No Pacemaker: No Thoracic Surgery: Yes (R thorocotomy/lobectomy) Tonsillectomy: Yes Other Surgery: Yes (CAROTID ENDARTERECTOMY RIGHT JUL, 2012) Social History Alcohol Use: Yes (DAILY beer) Tobacco Use: No (4 years ago) Substance Use: No Allergies-Medications (Allergen,Severity, Reaction): Coded Allergies: bee venom protein (honey bee) (Unverified Allergy, Severe, ANAPHYLACTIC SHOCK, 05/10/17) fire ant (Unverified Allergy, Severe, ANAPHYLAXIS.HIVES, 05/10/17) penicillin G (Unverified Allergy, Severe, 05/10/17) Reported Meds & Prescriptions Reported Meds & Active Scripts Active Tizanidine (Tizanidine HCl) 4 Mg Cap 4 Mg PO TID Oxycodone (Oxycodone HCl) 5 Mg Tab 5 Mg PO Q6H PRN Morphine ER (Morphine Sulfate) 15 Mg Tab 15 Mg PO TID Lactulose Liq (Lactulose) 10 Gm/15 Ml Soln 30 Ml PO DAILY 30 Days Dok (Docusate Sodium) 100 Mg Cap 100 Mg PO BID Warfarin 2 Mg Tab 2 Mg PO DIRECTED PRN /tuesday//sat Warfarin 4 Mg Tab 4 Mg PO DIRECTED tuesday/tue/tue Reported Carbidopa-Levodopa 25-100 Mg Tab 1 Tab PO HS Tamsulosin (Tamsulosin HCl) 0.4 Mg Cap 0.4 Mg PO BID Gabapentin 600 Mg Tab 600 Mg PO TID Finasteride 5 Mg Tab 5 Mg PO DAILY Do not crush. Aspirin 81 (Aspirin) 81 Mg Tabdr 81 Mg PO DAILY Folic Acid 400 Mcg Tab 400 Mcg PO DAILY Vitamin B12 (Cyanocobalamin) 500 Mcg Tab 5,000 Mcg PO DAILY Lovastatin 40 Mg Tab 40 Mg PO DAILY Review of Systems Except as stated in HPI: all other systems reviewed are Neg Physical Exam Narrative GENERAL: SKIN: Warm and dry. HEAD: Atraumatic. Normocephalic. EYES: Pupils equal and round. No scleral icterus. No injection or drainage. ENT: No nasal bleeding or discharge. Mucous membranes pink and moist. Tongue is midline. No uvula deviation. NECK: Trachea midline. No JVD. CARDIOVASCULAR: Regular rate and rhythm. No murmurs, S3, S4. RESPIRATORY: No accessory muscle use. Clear to auscultation. Breath sounds equal bilaterally. GASTROINTESTINAL: Abdomen soft, non-tender, nondistended. Hepatic and splenic margins not palpable. MUSCULOSKELETAL: Extremities without clubbing, cyanosis, or edema. No obvious deformities. Full range of motion of the upper and lower extremities bilaterally. 2+ pulses bilaterally. Patient does have 1+ pitting edema in the lower legs. NEUROLOGICAL: Awake and alert. No obvious cranial nerve deficits. Motor grossly within normal limits. Five out of 5 muscle strength in the arms and legs. Normal speech. PSYCHIATRIC: Appropriate mood and affect; insight and judgment normal. Data Data Last Documented VS Vital Signs Date Time Temp Pulse Resp B/P Pulse Ox O2 Delivery O2 Flow Rate FiO2 05/11/17 13:29 94 Room Air 05/11/17 12:58 68 18 133/66 05/11/17 11:06 98.4 Orders Electrocardiogram (05/11/17 11:13) Complete Blood Count With Diff (05/11/17 11:13) Basic Metabolic Panel (Bmp) (05/11/17 11:13) Troponin I (05/11/17 11:13) Magnesium (Mg) (05/11/17 11:13) Electrocardiogram (05/11/17 11:31) Ckmb (Isoenzyme) Profile (05/11/17 11:31) Troponin I (05/11/17 11:31) Prothrombin Time / Inr (Pt) (05/11/17 11:31) Act Partial Throm Time (Ptt) (05/11/17 11:31) Blood Culture (05/11/17 11:31) Urinalysis - C+S If Indicated (05/11/17 11:31) Chest, Single Ap (05/11/17 11:31) Ct Brain W/O Iv Contrast(Rout) (05/11/17 11:31) Ct Abd/Pel W Iv Contrast(Rout) (05/11/17 11:31) Iv Access Insert/Monitor (05/11/17 11:31) Ecg Monitoring (05/11/17 11:31) Oximetry (05/11/17 11:31) Orthostatic Vital Signs (05/11/17 11:31) Lactic Acid (05/11/17 11:31) Sodium Chlor 0.9% 1000 Ml Inj (Ns 1000 M (05/11/17 11:31) Us Leg Venous Doppler Bilat (05/11/17 ) Urine Culture (05/11/17 13:05) Iohexol 350 Inj (Omnipaque 350 Inj) (05/11/17 14:17) Labs Laboratory Tests Test 05/11/17 05/11/17 12:35 13:05 White Blood Count 10.1 TH/MM3 Red Blood Count 4.95 MIL/MM3 Hemoglobin 14.5 GM/DL Hematocrit 44.4 % Mean Corpuscular Volume 89.7 FL Mean Corpuscular Hemoglobin 29.4 PG Mean Corpuscular Hemoglobin 32.7 % Concent Red Cell Distribution Width 14.6 % Platelet Count 197 TH/MM3 Mean Platelet Volume 7.3 FL Neutrophils (%) (Auto) 65.4 % Lymphocytes (%) (Auto) 19.9 % Monocytes (%) (Auto) 10.9 % Eosinophils (%) (Auto) 3.2 % Basophils (%) (Auto) 0.6 % Neutrophils # (Auto) 6.6 TH/MM3 Lymphocytes # (Auto) 2.0 TH/MM3 Monocytes # (Auto) 1.1 TH/MM3 Eosinophils # (Auto) 0.3 TH/MM3 Basophils # (Auto) 0.1 TH/MM3 CBC Comment DIFF FINAL Differential Comment Prothrombin Time 16.8 SEC Prothromb Time International 1.5 RATIO Ratio Activated Partial 34.7 SEC Thromboplast Time Sodium Level 138 MEQ/L Potassium Level 4.1 MEQ/L Chloride Level 104 MEQ/L Carbon Dioxide Level 29.5 MEQ/L Anion Gap 5 MEQ/L Blood Urea Nitrogen 20 MG/DL Creatinine 1.00 MG/DL Estimat Glomerular Filtration 73 ML/MIN Rate Random Glucose 91 MG/DL Lactic Acid Level 1.0 mmol/L Calcium Level 9.1 MG/DL Magnesium Level 2.2 MG/DL Total Creatine Kinase 39 U/L Troponin I LESS THAN 0.02 NG/ML Urine Color YELLOW Urine Turbidity HAZY Urine pH 6.0 Urine Specific [place] 1.023 Urine Protein 30 mg/dL Urine Glucose (UA) NEG mg/dL Urine Ketones NEG mg/dL Urine Occult Blood NEG Urine Nitrite NEG Urine Bilirubin NEG Urine Urobilinogen 2.0 MG/DL Urine Leukocyte Esterase LARGE Urine RBC 1 /hpf Urine WBC 19 /hpf Urine Squamous Epithelial <1 /hpf Cells Urine Bacteria RARE /hpf Urine Hyaline Casts 8 /lpf Microscopic Urinalysis Comment CULTURE INDICATED MDM Medical Decision Making Medical Screen Exam Complete: Yes Emergency Medical Condition: Yes Medical Record Reviewed: Yes Interpretation(s) CBC & BMP Diagram 05/11/17 12:35 Troponin and CKMB negative UA negative EKG shows sinus rhythm with no sign of acute ischemia or arrythmia. read by me and attending. Last Impressions Head CT 05/11/17 1131 Signed Impressions: Service Date/Time: Thursday, May 11, 2017 14:04 - CONCLUSION: Stable appearance with atrophy and chronic small vessel ischemic change. There is no acute hemorrhage or mass effect. Mohamud Arzola MD Chest X-Ray 05/11/17 1131 Signed Impressions: Service Date/Time: Thursday, May 11, 2017 12:33 - CONCLUSION: Interval improvement in infiltrates at the lung bases with mild residual likely representing scarring and/or atelectasis. Mohamud Arzola MD Abdomen/Pelvis CT 05/11/17 1131 Signed Impressions: Service Date/Time: Thursday, May 11, 2017 14:09 - CONCLUSION: 1. Status post abdominal aortic aneurysm repair. This is stable in appearance. 2. Hepatic steatosis and simple cyst again noted in the liver. 3. Unremarkable bowel gas pattern with no inflammatory change or obstruction. 4. Increased mild patchy opacity in the right lung base which could represent early infiltrate. Mohamud Arzola MD Lower Extremity Ultrasound 05/11/17 0000 Signed Impressions: Service Date/Time: Thursday, May 11, 2017 11:46 - CONCLUSION: 1. No DVT identified. Washington Ramirez MD Differential Diagnosis Hypotension versus anemia versus stroke versus CVA versus sepsis versus AAA versus DVT versus syncope versus presyncope Narrative Course 76-year-old male that presents to the ED for evaluation of dizziness. Patient was properly examined and was found to have signs and symptoms consistent with appears to be hypotension. For details of this time. His blood pressure still low here. Was given IV fluids. Patient states that he feels thirsty. I suspect that this might have something to do with his blood pressure medication the patient does have a significant history includes previous CVA and AAA repair. He does have good pulses in the upper and lower extremities. Will do labs and imaging. She was given 1 L of fluids here. Patient also appears to have some lower leg edema which is likely secondary to the surgery but patient is had surgery recently and less mobile now. We'll do ultrasound for this as well. Labs and imaging here showed no sign of acute disease. Labs and imaging were essentially unremarkable. Patient did have positive orthostatics but patient was not symptomatic. Case was discussed with my attending Dr. Wilkerson evaluated the patient with me and agrees with plan. Patient was offered admission for observation prefers to go home. Less than patient was told to follow with his doctor closely. Patient was given results of reports to take with him. Follow with PCP. Dizziness is likely correlated to him not eating much today as well as taking medications for his BPH. She was told to follow with PCP. Keep hydrated. See ED for worsening symptoms. Diagnosis Primary Impression: Pre-syncope Additional Impressions: Dehydration Orthostatic hypotension Patient Instructions: General Instructions Additional Instructions: Taking medications as prescribed. Keep hydrated. Follow with PCP. See ED if worsening symptoms. Med/Other Pt SpecificInfo: No Change to Meds Disposition: 01 DISCHARGE HOME Condition: Stable Sundeep Murray May 11, 2017 11:59
--- NOTE | 2017-05-11 12:43 | RADRPT ---
EXAM DATE/TIME: 05/11/2017 11:46 [facility] COMPARISON: US CAROTID ARTERIES, January 10, 2017, 17:26. INDICATIONS : Bilateral leg swelling and pain. MEDICAL HISTORY : Hypercholesterolemia. Stroke. Aneurysm, abdominal. Lung cancer. Enlarged prostate. SURGICAL HISTORY : Tonsillectomy. Kyphoplasty. Right lobectomy. AAA stent. ENCOUNTER: Initial ACUITY: 1 day PAIN SCORE: 0/10 LOCATION: Bilateral legs. TECHNIQUE: Venous ultrasound of the left and right leg was performed from the inguinal ligament to the proximal calf. Real-time, color Doppler and spectral tracing, compression and augmentation techniques were us ed. FINDINGS: RIGHT LEG: There is normal compressibility of the deep venous system from the inguinal region to the proximal ca lf. No echogenic clot is seen in the lumen of the common femoral, femoral, popliteal, and posterior tibial veins. There is a normal response of the venous system to proximal and distal augmentation an d respiration. LEFT LEG: There is normal compressibility of the deep venous system from the inguinal region to the proximal ca lf. No echogenic clot is seen in the lumen of the common femoral, femoral, popliteal, and posterior tibial veins. There is a normal response of the venous system to proximal and distal augmentation an d respiration. CONCLUSION: 1. No DVT identified. Washington Ramirez MD on May 11, 2017 at 12:41 Board Certified Radiologist. This report was verified electronically.
--- NOTE | 2017-05-11 12:53 | RADRPT ---
EXAM DATE/TIME: 05/11/2017 12:33 [facility] COMPARISON: CHEST SINGLE AP, January 09, 2017, 10:28. INDICATIONS : Syncope and short of breath. MEDICAL HISTORY : Carcinoma, Rt. lung. Cardiovascular disease SURGICAL HISTORY : Lobectomy. Kyphoplasty. AAA stent ENCOUNTER: Initial ACUITY: 1 day PAIN SCORE: 0/10 LOCATION: Bilateral chest FINDINGS: A single AP portable erect view of the chest was obtained and demonstrates an interval improvement in the bibasilar pulmonary infiltrates with mild residual. There is mild blunting of costophrenic angle s. The heart size remains at the upper limits of normal with atherosclerotic changes in the aorta. Christopher ny thorax is stable and intact. CONCLUSION: Interval improvement in infiltrates at the lung bases with mild residual likely repre senting scarring and/or atelectasis. Mohamud Arzola MD on May 11, 2017 at 12:50 Board Certified Radiologist. This report was verified electronically.
[2017-05-11 12:55] VITALS: BP_SYST 121; BP_SYST 133; BP_SYST 92; BP_DIAS 61; BP_DIAS 65; BP_DIAS 66; RESP 16
[2017-05-11 12:58] VITALS: BP 133/66; PULSE 68; RESP 18; O2SAT 94
[2017-05-11 13:00] LABS: AUTOMATED NEUTROPHIL # 6.6 TH/MM3 (1.8-7.7); BASOPHIL # 0.1 TH/MM3 (0-0.2); BASOPHIL % 0.6 % (0.0-2.0); EOSINOPHIL # 0.3 TH/MM3 (0-0.4); EOSINOPHIL % 3.2 % (0.0-4.0); HEMATOCRIT 44.4 % (39.0-51.0); HEMO FLAGS DIFF FINAL; LYMPH % 19.9 % (9.0-44.0); MEAN CELL VOLUME 89.7 FL (80.0-100.0); MEAN CORPUSCULAR HEMOGLOBIN 29.4 PG (27.0-34.0); MEAN CORPUSCULAR HGB CONC 32.7 % (32.0-36.0); MONO % 10.9 % (0.0-8.0); NEUT % 65.4 % (16.0-70.0); PLATELET COUNT 197 TH/MM3 (150-450); RED BLOOD COUNT 4.95 MIL/MM3 (4.50-5.90); RED CELL DISTRIBUTION WIDTH 14.6 % (11.6-17.2); WHITE BLOOD COUNT 10.1 TH/MM3 (4.0-11.0)
[2017-05-11 13:04] LABS: APTT (PATIENT) 34.7 SEC (24.3-30.1); INTERNATIONAL NORMALIZED RATIO 1.5 RATIO; PROTHROMBIN TIME - PATIENT 16.8 SEC (9.8-11.6)
[2017-05-11 13:14] LABS: ANION GAP 5 MEQ/L (5-15); BICARBONATE 29.5 MEQ/L (21.0-32.0); BLOOD UREA NITROGEN 20 MG/DL (7-18); CHLORIDE 104 MEQ/L (98-107); GLOMERULAR FILTRATION RATE 73 ML/MIN (>89); MAGNESIUM 2.2 MG/DL (1.5-2.5); POTASSIUM 4.1 MEQ/L (3.5-5.1); SODIUM (NA) 138 MEQ/L (136-145)
[2017-05-11 13:19] LABS: CREATINE KINASE 39 U/L (39-308)
[2017-05-11 13:29] VITALS: O2SAT 94
[2017-05-11 14:12] LABS: BACTERIA, URINE RARE /hpf; BLOOD, URINE NEG (NEG); COMMENT (UR) CULTURE INDICATED; CULTURE IF INDICATED CULTURE INDICATED; GLUCOSE,URINE NEG (NEG); HYALINE CAST, URINE 8 /lpf (RARE); KETONE, URINE NEG (NEG); NITRITE,URINE NEG (NEG); SQUAMOUS EPITHELIAL CELL URINE <1 /hpf (0-5); URINE COLOR YELLOW (YELLW/STRAW)
[2017-05-11] MEDS ORDERED: IOHEXOL 350 MG/ML 10 ML VIAL (for RAD DIAG) IV ONE (14:17)
--- NOTE | 2017-05-11 14:25 | RADRPT ---
EXAM DATE/TIME: 05/11/2017 14:04 [facility] COMPARISON: CT BRAIN W/O CONTRAST, December 19, 2014, 2:44. INDICATIONS : Dizziness with hypotension. RADIATION DOSE: 56.35 CTDIvol (mGy) MEDICAL HISTORY : Cerebrovascular disease. Aneurysm, abdominal. Carcinoma, lung. SURGICAL HISTORY : Abdominal aortic aneurysm repair. ENCOUNTER: Initial ACUITY: 1 day PAIN SCALE: 0/10 LOCATION: cranial TECHNIQUE: Multiple contiguous axial images were obtained of the head. Using automated exposure control and adj ustment of the mA and/or kV according to patient size, radiation dose was kept as low as reasonably a chievable to obtain optimal diagnostic quality images. DICOM format image data is available electro nically for review and comparison. FINDINGS: CEREBRUM: The ventricles are normal for age or mild to moderate atrophic change and chronic small vessel ischem ic changes. No evidence of midline shift, mass lesion, hemorrhage or acute infarction. No extra-axia l fluid collections are seen. POSTERIOR FOSSA: The cerebellum and brainstem are intact. The 4th ventricle is midline. The cerebellopontine angle i s unremarkable. EXTRACRANIAL: The visualized portion of the orbits is intact. SKULL: The calvaria is intact. No evidence of skull fracture. CONCLUSION: Stable appearance with atrophy and chronic small vessel ischemic change. There is no acute hemorrhage or mass effect. Mohamud Arzola MD on May 11, 2017 at 14:20 Board Certified Radiologist. This report was verified electronically.
--- NOTE | 2017-05-11 14:35 | RADRPT ---
EXAM DATE/TIME: 05/11/2017 14:09 [facility] COMPARISON: CT ABDOMEN & PELVIS W CONTRAST, February 06, 2017, 23:58. INDICATIONS : Dizziness with hypotension. Bilateral leg swelling and pain IV CONTRAST: 70 cc Omnipaque 350 (iohexol) IV ORAL CONTRAST: No oral contrast ingested. RADIATION DOSE: 14.26 CTDIvol (mGy) MEDICAL HISTORY : Cardiovascular disease. Carcinoma, lung. Aneurysm, abdominal. SURGICAL HISTORY : Abdominal aortic aneurysm repair. ENCOUNTER: Initial ACUITY: 1 day PAIN SCALE: 0/10 LOCATION: abdomen TECHNIQUE: Volumetric scanning of the abdomen and pelvis was performed. Using automated exposure control and ad justment of the mA and/or kV according to patient size, radiation dose was kept as low as reasonably achievable to obtain optimal diagnostic quality images. DICOM format image data is available electro nically for review and comparison. FINDINGS: LOWER LUNGS: There is increased mild patchy opacity in the right lung base. LIVER: Homogeneous density with a stable simple cyst in the right lobe. There is mild hepatic steatosis.. T here is no dilation of the biliary tree. No calcified gallstones. SPLEEN: Normal size without lesion. PANCREAS: Within normal limits. KIDNEYS: Normal in size and shape. There is no mass, stone or hydronephrosis. Renal vascular calcifications a re again noted. ADRENAL GLANDS: Within normal limits. VASCULAR: Status post abdominal aortic aneurysm repair with stent graft in place. This is stable and intact in appearance. BOWEL/MESENTERY: The stomach, small bowel, and colon demonstrate no acute abnormality. There is no free intraperitone al air or fluid. ABDOMINAL WALL: Within normal limits. RETROPERITONEUM: There is no lymphadenopathy. BLADDER: No wall thickening or mass. REPRODUCTIVE: Prostate gland remains prominent with benign calcifications and mild impression on the bladder base. INGUINAL: There is no lymphadenopathy or hernia. MUSCULOSKELETAL: Status post kyphoplasty at multiple levels in the lumbar spine. The paraspinous soft tissues remain s table. There are degenerative changes again noted. CONCLUSION: 1. Status post abdominal aortic aneurysm repair. This is stable in appearance. 2. Hepatic steatosis and simple cyst again noted in the liver. 3. Unremarkable bowel gas pattern with no inflammatory change or obstruction. 4. Increased mild patchy opacity in the right lung base which could represent early infiltrate. Mohamud Arzola MD on May 11, 2017 at 14:24 Board Certified Radiologist. This report was verified electronically.
--- NOTE | 2017-05-11 15:01 | PD ---
Physical Exam Date Seen by Provider: May 11, 2017 Time Seen by Provider: 14:00 Narrative I, Dr. Springer, have reviewed the advance practice practitioner's documentation and am in agreement, met with the patient face to face, made the diagnosis, and the medical decision making was done by me. *My assessment and Findings: Patient seen and evaluated with PA, please see PA note for further details. Patient doing well after given IV fluids in the ER. Lab work and CAT scan as well as EKG is otherwise unremarkable for significant acute processes. Vital signs shows small amount of orthostasis which could be related to what happened to him today. He has no focal neurological deficits and is up and talking and walking. At this point, I have talked him regarding findings and have offered to admit the patient for further evaluation. However , the patient states he feels fine and agrees to follow-up closely with primary care physician. Return for any worsening in symptoms as needed per the plan has been discussed with him and he states understanding. Data Data Last Documented VS Vital Signs Date Time Temp Pulse Resp B/P Pulse Ox O2 Delivery O2 Flow Rate FiO2 05/11/17 13:29 94 Room Air 05/11/17 12:58 68 18 133/66 05/11/17 11:06 98.4 Orders Electrocardiogram (05/11/17 11:13) Complete Blood Count With Diff (05/11/17 11:13) Basic Metabolic Panel (Bmp) (05/11/17 11:13) Troponin I (05/11/17 11:13) Magnesium (Mg) (05/11/17 11:13) Electrocardiogram (05/11/17 11:31) Ckmb (Isoenzyme) Profile (05/11/17 11:31) Troponin I (05/11/17 11:31) Prothrombin Time / Inr (Pt) (05/11/17 11:31) Act Partial Throm Time (Ptt) (05/11/17 11:31) Blood Culture (05/11/17 11:31) Urinalysis - C+S If Indicated (05/11/17 11:31) Chest, Single Ap (05/11/17 11:31) Ct Brain W/O Iv Contrast(Rout) (05/11/17 11:31) Ct Abd/Pel W Iv Contrast(Rout) (05/11/17 11:31) Iv Access Insert/Monitor (05/11/17 11:31) Ecg Monitoring (05/11/17 11:31) Oximetry (05/11/17 11:31) Orthostatic Vital Signs (05/11/17 11:31) Lactic Acid (05/11/17 11:31) Sodium Chlor 0.9% 1000 Ml Inj (Ns 1000 M (05/11/17 11:31) Us Leg Venous Doppler Bilat (05/11/17 ) Urine Culture (05/11/17 13:05) Iohexol 350 Inj (Omnipaque 350 Inj) (05/11/17 14:17) Labs Laboratory Tests Test 05/11/17 05/11/17 12:35 13:05 White Blood Count 10.1 TH/MM3 Red Blood Count 4.95 MIL/MM3 Hemoglobin 14.5 GM/DL Hematocrit 44.4 % Mean Corpuscular Volume 89.7 FL Mean Corpuscular Hemoglobin 29.4 PG Mean Corpuscular Hemoglobin 32.7 % Concent Red Cell Distribution Width 14.6 % Platelet Count 197 TH/MM3 Mean Platelet Volume 7.3 FL Neutrophils (%) (Auto) 65.4 % Lymphocytes (%) (Auto) 19.9 % Monocytes (%) (Auto) 10.9 % Eosinophils (%) (Auto) 3.2 % Basophils (%) (Auto) 0.6 % Neutrophils # (Auto) 6.6 TH/MM3 Lymphocytes # (Auto) 2.0 TH/MM3 Monocytes # (Auto) 1.1 TH/MM3 Eosinophils # (Auto) 0.3 TH/MM3 Basophils # (Auto) 0.1 TH/MM3 CBC Comment DIFF FINAL Differential Comment Prothrombin Time 16.8 SEC Prothromb Time International 1.5 RATIO Ratio Activated Partial 34.7 SEC Thromboplast Time Sodium Level 138 MEQ/L Potassium Level 4.1 MEQ/L Chloride Level 104 MEQ/L Carbon Dioxide Level 29.5 MEQ/L Anion Gap 5 MEQ/L Blood Urea Nitrogen 20 MG/DL Creatinine 1.00 MG/DL Estimat Glomerular Filtration 73 ML/MIN Rate Random Glucose 91 MG/DL Lactic Acid Level 1.0 mmol/L Calcium Level 9.1 MG/DL Magnesium Level 2.2 MG/DL Total Creatine Kinase 39 U/L Troponin I LESS THAN 0.02 NG/ML Urine Color YELLOW Urine Turbidity HAZY Urine pH 6.0 Urine Specific [place] 1.023 Urine Protein 30 mg/dL Urine Glucose (UA) NEG mg/dL Urine Ketones NEG mg/dL Urine Occult Blood NEG Urine Nitrite NEG Urine Bilirubin NEG Urine Urobilinogen 2.0 MG/DL Urine Leukocyte Esterase LARGE Urine RBC 1 /hpf Urine WBC 19 /hpf Urine Squamous Epithelial <1 /hpf Cells Urine Bacteria RARE /hpf Urine Hyaline Casts 8 /lpf Microscopic Urinalysis Comment CULTURE INDICATED MDM Medical Record Reviewed: Yes Supervised Visit with ALAIAN: Yes Diagnosis Primary Impression: Near syncope Disposition: 01 DISCHARGE HOME Condition: Stable Amalia Springer MD May 11, 2017 15:01
[2017-05-11 15:30] VITALS: BP 134/78
--- NOTE | 2017-05-12 09:22 | EKG ---
Date Performed: 05/11/2017 Time Performed: 12:44:13 PTAGE: 76 years EKG: Sinus rhythm POSSIBLE LEFT ATRIAL ENLARGEMENT BORDERLINE ECG PREVIOUS TRACING : 01/11/2017 11.11 Compared to prior tracing no significant change DOCTOR: Lev Pérez Interpretating Date/Time 05/12/2017 09:09:27
== END 2017-05-11 15:31 | disposition home or self-care (01) ==
LOC: NEPE 11:04
DX: R55 Syncope and collapse (principal); I10 Essential (primary) hypertension; I25.10 Atherosclerotic heart disease of native coronary artery without angina pectoris; N40.0 Benign prostatic hyperplasia without lower urinary tract symptoms; Z88.0 Allergy status to penicillin; Z86.79 Personal history of other diseases of the circulatory system; Z85.118 Personal history of other malignant neoplasm of bronchus and lung; Z79.01 Long term (current) use of anticoagulants; Z86.73 Personal history of transient ischemic attack (TIA), and cerebral infarction without residual deficits
CPT/HCPCS: 70450; 71010; 74177; 80048; 81001; 82550; 83605; 83735; 84484; 85025; 85610; 85730; 87040; 87086; 93005; 93970; 99285; J7030; Q9967

== ENCOUNTER 2017-06-01 09:45 | Emergency (ER) | payer MEDICARE ==
[~2017-06-01] VITALS: Ht 175.3 cm; Wt 98.0 kg
[~2017-06-01 09:45] MED LIST changes: -FLUO20CA4 PO; -VISICAP PO; -VITA100T2
[2017-06-01 09:50] VITALS: BP 173/88; PULSE 112; RESP 24; TEMP 97.4; O2SAT 94
[2017-06-01] MEDS ORDERED: LAMO25 PO (10:10)
[2017-06-01] MEDS ORDERED: DIPH25CA PO (10:10)
[2017-06-01] MEDS ORDERED: DULC5TAB PO (10:10)
[2017-06-01] MEDS ORDERED: SODIUM CHLORIDE 0.9% FLUSH 10 ML FLUSH IVF PRN (10:15)
[2017-06-01] MEDS ORDERED: LORazepam 2 MG/ML VIAL IV PUSH SCH (10:15)
--- NOTE | 2017-06-01 10:20 | PD ---
HPI . Panic attack Chief Complaint: Allergic/Adverse Reaction Time Seen by Provider: 10:00 Travel History International Travel<30 days: No Contact w/Intl Traveler<30days: No Traveled to known affect area: No History of Present Illness HPI Patient presents with a chief complaint of a presumed panic attack. Symptoms started 36 hours ago and have persisted. He believes that his symptoms are a reaction to recently started Lamictal. He was started on Lamictal on 05/23 for peripheral neuropathy. He describes dyspnea, anxiety, increased psychomotor activity, diaphoresis. He has not noted any modifying factors. He states that his symptoms are severe. PFSH Past Medical History Hx Anticoagulant Therapy: Yes (WARFARIN) Arthritis: No Asthma: No Autoimmune Disease: No Blood Disorders: No Anxiety: Yes Depression: Yes Heart Rhythm Problems: No Cancer: Yes (LUNG/ LOBECTOMY 2013) Cardiovascular Problems: Yes High Cholesterol: Yes Chemotherapy: No Chest Pain: No Congestive Heart Failure: No COPD: No Cerebrovascular Accident: Yes Diabetes: No Diminished Hearing: No Endocrine: No GERD: No Glaucoma: No Genitourinary: Yes Headaches: No Hepatitis: No Hiatal Hernia: No Hypertension: Yes Immune Disorder: No Implanted Vascular Access Dvce: Yes Kidney Stones: No Musculoskeletal: No Neurologic: Yes (RESTLESS LEG) Psychiatric: Yes Reproductive: No Respiratory: Yes (RUL LUNG MASS) Migraines: No Myocardial Infarction: No Radiation Therapy: No Renal Failure: No Seizures: No Sickle Cell Disease: No Sleep Apnea: No Thyroid Disease: No Ulcer: No Influenza Vaccination: Yes ?: Not Past Surgical History Abdominal Surgery: Yes (AAA stent/ RIGHT LOBECTOMY) AICD: No Body Medical Devices: AAA STENT Cardiac Surgery: No Ear Surgery: No Endocrine Surgery: No 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) Genitourinary Surgery: No Gynecologic Surgery: No Joint Replacement: No Neurologic Surgery: No Oral Surgery: No Pacemaker: No Thoracic Surgery: Yes (R thorocotomy/lobectomy) Tonsillectomy: Yes Other Surgery: Yes (CAROTID ENDARTERECTOMY RIGHT JUL, 2012) Social History Alcohol Use: Yes (DAILY beer) Tobacco Use: No (4 years ago) Substance Use: No Allergies-Medications (Allergen,Severity, Reaction): Coded Allergies: bee venom protein (honey bee) (Unverified Allergy, Severe, ANAPHYLACTIC SHOCK, 06/01/17) fire ant (Unverified Allergy, Severe, ANAPHYLAXIS.HIVES, 06/01/17) penicillin G (Unverified Allergy, Severe, 06/01/17) Reported Meds & Prescriptions Reported Meds & Active Scripts Active Ativan (Lorazepam) 1 Mg Tab 1 Mg PO Q6H PRN Tizanidine (Tizanidine HCl) 4 Mg Cap 4 Mg PO TID Oxycodone (Oxycodone HCl) 5 Mg Tab 5 Mg PO Q6H PRN Morphine ER (Morphine Sulfate) 15 Mg Tab 15 Mg PO TID Lactulose Liq (Lactulose) 10 Gm/15 Ml Soln 30 Ml PO DAILY 30 Days Dok (Docusate Sodium) 100 Mg Cap 100 Mg PO BID Warfarin 2 Mg Tab 2 Mg PO DIRECTED PRN /tuesday//tue Warfarin 4 Mg Tab 4 Mg PO DIRECTED tuesday/tue/tue Reported Dulcolax DR (Bisacodyl) 5 Mg Tabdr 5 Mg PO DAILY PRN Diphenhydramine (Diphenhydramine HCl) 25 Mg Cap 75 Mg PO ONCE Carbidopa-Levodopa 25-100 Mg Tab 1 Tab PO HS Tamsulosin (Tamsulosin HCl) 0.4 Mg Cap 0.4 Mg PO BID Gabapentin 600 Mg Tab 600 Mg PO TID Finasteride 5 Mg Tab 5 Mg PO DAILY Do not crush. Aspirin 81 (Aspirin) 81 Mg Tabdr 81 Mg PO DAILY Folic Acid 400 Mcg Tab 400 Mcg PO DAILY Vitamin B12 (Cyanocobalamin) 500 Mcg Tab 5,000 Mcg PO DAILY Lovastatin 40 Mg Tab 40 Mg PO DAILY Review of Systems Except as stated in HPI: all other systems reviewed are Neg General / Constitutional: Positive: Other (diaphoresis) Respiratory: Positive: Shortness of Breath Psychiatric: Positive: Anxiety Physical Exam Narrative GENERAL: Anxious. Awake and alert. SKIN: warm/dry. HEAD: Normocephalic. EYES: Pupils equal and round. No scleral icterus. No injection or drainage. ENT: No nasal bleeding or discharge. Mucous membranes pink and moist. NECK: Trachea midline. Full range of motion without pain.. CARDIOVASCULAR: Regular rate and rhythm. Heart sounds are normal. RESPIRATORY: No accessory muscle use. Clear to auscultation. Breath sounds equal bilaterally. GASTROINTESTINAL: Abdomen soft. Nontender. Bowel sounds present. Nondistended. MUSCULOSKELETAL: No obvious deformities. NEUROLOGICAL: Awake and alert. No obvious cranial nerve deficits. Motor grossly within normal limits. Normal speech. PSYCHIATRIC: Appropriate mood and affect; insight and judgment normal. Data Data Last Documented VS Vital Signs Date Time Temp Pulse Resp B/P (MAP) Pulse Ox O2 Delivery O2 Flow Rate FiO2 06/01/17 11:00 113 16 211/95 (133) 93 06/01/17 09:50 97.4 Orders Orders Complete Blood Count With Diff (06/01/17 10:14) Basic Metabolic Panel (Bmp) (06/01/17 10:14) B-Type Natriuretic Peptide (06/01/17 10:14) D-Dimer (06/01/17 10:14) Ckmb (Isoenzyme) Profile (06/01/17 10:14) Troponin I (06/01/17 10:14) Arterial Blood Gas (Abg) (06/01/17 10:14) Iv Access Insert/Monitor (06/01/17 10:14) Electrocardiogram (06/01/17 10:14) Ecg Monitoring (06/01/17 10:14) Oximetry (06/01/17 10:14) Oxygen Administration (06/01/17 10:14) Chest, Single Ap (06/01/17 10:14) Sodium Chloride 0.9% Flush (Ns Flush) (06/01/17 10:15) Lorazepam Inj (Ativan Inj) (06/01/17 10:15) Ct Pulmonary Angiogram (06/01/17 11:39) Iohexol 350 Inj (Omnipaque 350 Inj) (06/01/17 12:20) Labs Laboratory Tests Test 06/01/17 10:30 06/01/17 10:32 White Blood Count 10.2 TH/MM3 Red Blood Count 5.75 MIL/MM3 Hemoglobin 16.6 GM/DL Hematocrit 51.1 % Mean Corpuscular Volume 88.9 FL Mean Corpuscular Hemoglobin 28.9 PG Mean Corpuscular Hemoglobin Concent 32.6 % Red Cell Distribution Width 16.1 % Platelet Count 252 TH/MM3 Mean Platelet Volume 7.3 FL Neutrophils (%) (Auto) 64.6 % Lymphocytes (%) (Auto) 25.3 % Monocytes (%) (Auto) 8.6 % Eosinophils (%) (Auto) 0.8 % Basophils (%) (Auto) 0.7 % Neutrophils # (Auto) 6.5 TH/MM3 Lymphocytes # (Auto) 2.6 TH/MM3 Monocytes # (Auto) 0.9 TH/MM3 Eosinophils # (Auto) 0.1 TH/MM3 Basophils # (Auto) 0.1 TH/MM3 CBC Comment DIFF FINAL Differential Comment D-Dimer Quantitative (PE/DVT) 0.74 MG/L FEU Blood Urea Nitrogen 13 MG/DL Creatinine 0.86 MG/DL Random Glucose 105 MG/DL Calcium Level 9.2 MG/DL Sodium Level 140 MEQ/L Potassium Level 3.6 MEQ/L Chloride Level 106 MEQ/L Carbon Dioxide Level 21.9 MEQ/L Anion Gap 12 MEQ/L Estimat Glomerular Filtration Rate 87 ML/MIN Total Creatine Kinase 55 U/L Troponin I LESS THAN 0.02 NG/ML B-Type Natriuretic Peptide 112 PG/ML Blood Gas Puncture Site LT RADIAL Blood Gas Patient Temperature 98.6 Blood Gas HCO3 21 mmol/L Blood Gas Base Excess -1.3 mmol/L Blood Gas Oxygen Saturation 92 % Arterial Blood pH 7.59 Arterial Blood Partial Pressure CO2 21 mmHG Arterial Blood Partial Pressure O2 64 mmHG Arterial Blood Oxygen Content 21.3 Vol % Arterial Blood Carboxyhemoglobin 1.8 % Arterial Blood Methemoglobin 1.0 % Blood Gas Hemoglobin 16.4 G/DL Oxygen Delivery Device ROOM AIR Blood Gas Inspired Oxygen 21 % MDM Medical Decision Making Medical Screen Exam Complete: Yes Emergency Medical Condition: Yes Interpretation(s) EKG shows a sinus rhythm with a rate of 98. No ST segment elevation or depression. There is artifact compatible with anxiety. Differential Diagnosis Differential diagnosis of dyspnea includes but is not limited to congestive heart failure, pneumonia, wheezing, pneumothorax, pulmonary embolism Narrative Course This is a 76-year-old man who presents complaining with feeling anxious, dyspnea , diaphoresis, psychomotor agitation. The symptoms sound like a panic attack. However, he has a history of atrial fibrillation, COPD, hypertension and lung cancer. Other etiologies for dyspnea need to be considered. Last Impressions Chest X-Ray 06/01/17 1014 Signed Impressions: Service Date/Time: Thursday, June 01, 2017 10:36 - CONCLUSION: Increasing non-consolidative interstitial infiltrates lower right lung and stable interstitial infiltrates at the left lung base. Dontae Holcomb MD The chest x-ray was independently viewed by me. The findings look like chronic lung disease. ABG Test 06/01/17 10:32 Arterial Blood Carboxyhemoglobin 1.8 % Arterial Blood Methemoglobin 1.0 % Arterial Blood Oxygen Content 21.3 Vol % H Arterial Blood Partial Pressure CO2 21 mmHG *L Arterial Blood Partial Pressure O2 64 mmHG Arterial Blood pH 7.59 *H Blood Gas Base Excess -1.3 mmol/L Blood Gas HCO3 21 mmol/L L Blood Gas Hemoglobin 16.4 G/DL H Blood Gas Inspired Oxygen 21 % Blood Gas Oxygen Saturation 92 % Oxygen Delivery Device ROOM AIR CBC & BMP Diagram 06/01/17 10:30 Calcium Level 9.2 The patient is markedly improved following Ativan. CT: 1. The study is negative for pulmonary embolism. 2. Left pulmonary nodule, mediastinal adenopathy, and focal opacities in the periphery of the right lung; the patient does have a history of lung cancer. The left pulmonary mass is a new finding when compared to January 2017. This patient is stable for discharge to home. Diagnosis Primary Impression: Dyspnea Qualified Codes: R06.00 - Dyspnea, unspecified Additional Impression: Anxiety Med/Other Pt SpecificInfo: Prescription(s) given, Med Stopped Scripts Lorazepam (Ativan) 1 Mg Tab 1 MG PO Q6H Y for ANXIETY AND/OR AGITATION, #10 TAB 0 Refills Prov: Thalia Lewis MD 06/01/17 Disposition: 01 DISCHARGE HOME Condition: Stable Thalia Lewis MD Jun 01, 2017 10:20
[2017-06-01 10:27] VITALS: BP 228/115; PULSE 97; RESP 18; O2SAT 97
[2017-06-01 10:43] LABS: AUTOMATED NEUTROPHIL # 6.5 TH/MM3 (1.8-7.7); BASOPHIL # 0.1 TH/MM3 (0-0.2); BASOPHIL % 0.7 % (0.0-2.0); EOSINOPHIL # 0.1 TH/MM3 (0-0.4); EOSINOPHIL % 0.8 % (0.0-4.0); HEMATOCRIT 51.1 % (39.0-51.0); HEMO FLAGS DIFF FINAL; LYMPH % 25.3 % (9.0-44.0); LYMPHOCYTE # 2.6 TH/MM3 (1.0-4.8); MEAN CELL VOLUME 88.9 FL (80.0-100.0); MEAN CORPUSCULAR HEMOGLOBIN 28.9 PG (27.0-34.0); MEAN CORPUSCULAR HGB CONC 32.6 % (32.0-36.0); MONO % 8.6 % (0.0-8.0); NEUT % 64.6 % (16.0-70.0); PLATELET COUNT 252 TH/MM3 (150-450); RED BLOOD COUNT 5.75 MIL/MM3 (4.50-5.90); RED CELL DISTRIBUTION WIDTH 16.1 % (11.6-17.2); WHITE BLOOD COUNT 10.2 TH/MM3 (4.0-11.0)
[2017-06-01 11:00] VITALS: BP 211/95; PULSE 113; RESP 16; O2SAT 93
[2017-06-01 11:00] LABS: BLOOD GAS BASE EXCESS -1.3 mmol/L (-2-2); BLOOD GAS CARBOXYHEMOGLOBIN 1.8 % (0-4); BLOOD GAS HCO3 21 mmol/L (22-26); BLOOD GAS O2 HGB SATURATION 92 % (90-100); BLOOD GAS OXYGEN CONTENT 21.3 Vol % (12.0-20.0); BLOOD GAS PCO2 21 mmHG (38-42); BLOOD GAS PO2 64 mmHG (61-120); BLOOD GAS TOTAL HGB 16.4 G/DL (12.0-16.0); CRITICAL VALUE YES; DRAW SITE LT RADIAL; FIO2 21 %; NUMBER OF ARTERIAL PUNCTURES 1; OXYGEN DEVICE ROOM AIR; STAT YES; TEMP CORR TO 98.6; ULNAR PULSE PRESENT
[2017-06-01 11:02] LABS: CHLORIDE 106 MEQ/L (98-107); POTASSIUM 3.6 MEQ/L (3.5-5.1); SODIUM (NA) 140 MEQ/L (136-145)
[2017-06-01 11:05] LABS: ANION GAP 12 MEQ/L (5-15); BICARBONATE 21.9 MEQ/L (21.0-32.0); BLOOD UREA NITROGEN 13 MG/DL (7-18)
[2017-06-01 11:08] LABS: GLOMERULAR FILTRATION RATE 87 ML/MIN (>89)
--- NOTE | 2017-06-01 11:20 | RADRPT ---
EXAM DATE/TIME: 06/01/2017 10:36 [facility] COMPARISON: CHEST SINGLE AP, May 11, 2017, 12:33. INDICATIONS : Short of breath. MEDICAL HISTORY : Carcinoma, lung. SURGICAL HISTORY : Carotid endarterectomy. Abdominal aortic aneurysm repair. right lobectomy ENCOUNTER: Initial ACUITY: 2 days PAIN SCORE: 1/10 LOCATION: Bilateral chest FINDINGS: Increasing interstitial opacities in the right lower lung and persistent interstitial opacities in th e left lower lung. No focal areas of consolidation seen. No evidence of pneumothorax. Both hemidia phragms are well delineated. The heart is normal in size. Hemoclips in the right lateral chest wall . CONCLUSION: Increasing non-consolidative interstitial infiltrates lower right lung and stable interstitial infilt rates at the left lung base. Dontae Holcomb MD on June 01, 2017 at 11:18 Board Certified Radiologist. This report was verified electronically.
[2017-06-01 11:24] LABS: CREATINE KINASE 55 U/L (39-308)
[2017-06-01] MEDS ORDERED: LORA-474 PO (11:38)
[2017-06-01] MEDS ORDERED: IOHEXOL 350 MG/ML 10 ML VIAL (for RAD DIAG) IVCONTRAST ONE (12:20)
--- NOTE | 2017-06-01 12:34 | RADRPT ---
EXAM DATE/TIME: 06/01/2017 12:12 [facility] COMPARISON: CT THORAX W/O CONTRAST, February 12, 2017, 16:29. INDICATIONS : Short of breath. IV CONTRAST: 70 cc Omnipaque 350 (iohexol) IV RADIATION DOSE: 20.57 CTDIvol (mGy) MEDICAL HISTORY : Cardiovascular disease. Cerebrovascular disease. Carcinoma, lung. SURGICAL HISTORY : Lobectomy. Abdominal aortic aneurysm repair.Carotid endarectomy. ENCOUNTER: Initial ACUITY: 3 days PAIN SCALE: 5/10 LOCATION: chest TECHNIQUE: Volumetric scanning of the chest was performed using a pulmonary embolism protocol MIP images were re constructed. Using automated exposure control and adjustment of the mA and/or kV according to patien t size, radiation dose was kept as low as reasonably achievable to obtain optimal diagnostic quality images. DICOM format image data is available electronically for review and comparison. Follow-up recommendations for detected pulmonary nodules are based at a minimum on nodule size and pa tient risk factors according to Fleischner Society Guidelines. FINDINGS: PULMONARY ARTERIES: No filling defects are seen in the pulmonary arteries through the segmental level. LUNGS: There is an oval smooth margin mass in the anterior medial left midlung as seen on image #59 measurin g 1.4 cm. In the periphery of the right lower lung, there are 2 focal opacities with irregular cat ns and devoid of air bronchograms measuring up to 12 mm. These are seen on images #76 and #83. PLEURAE: There is no pleural thickening or pleural effusion. MEDIASTINUM: There are several enlarged middle mediastinal lymph nodes in the aorticopulmonary window measuring up to 1.7 cm. Left hilar node measures 1.3 cm. MUSCULOSKELETAL: Within normal limits for patient age. MISCELLANEOUS: The visualized upper abdominal organs demonstrate no acute abnormality. CONCLUSION: 1. The study is negative for pulmonary embolism. 2. Left pulmonary nodule, mediastinal adenopathy, and focal opacities in the periphery of the right l tutu; the patient does have a history of lung cancer. The left pulmonary mass is a new finding when c ompared to January 2017. Dontae Holcomb MD on June 01, 2017 at 12:27 Board Certified Radiologist. This report was verified electronically.
[2017-06-01 13:03] VITALS: BP 153/73
--- NOTE | 2017-06-02 13:03 | EKG ---
Date Performed: 06/01/2017 Time Performed: 10:21:00 PTAGE: 76 years EKG: Sinus rhythm POSSIBLE LEFT ATRIAL ENLARGEMENT BORDERLINE ECG PREVIOUS TRACING : 05/11/2017 12.44 DOCTOR: Joseph Garcia Interpretating Date/Time 06/02/2017 12:54:05
== END 2017-06-01 13:12 | disposition home or self-care (01) ==
LOC: PHED 09:45
DX: R06.00 Dyspnea, unspecified (principal); F41.9 Anxiety disorder, unspecified; R91.8 Other nonspecific abnormal finding of lung field; R94.31 Abnormal electrocardiogram [ECG] [EKG]
CPT/HCPCS: 36600; 71010; 71275; 80048; 82550; 82805; 83880; 84484; 85025; 85379; 93005; 96374; 99285; J2060; Q9967

== ENCOUNTER 2017-06-08 12:47 | Emergency (ER) | payer MEDICARE ==
[~2017-06-08] VITALS: Ht 175.3 cm; Wt 100.0 kg
[~2017-06-08 12:47] MED LIST changes: +DIPH25CA PO; +DULC5TAB PO; +LORA-474 PO
[2017-06-08 12:49] VITALS: BP 157/72; PULSE 100; RESP 24; TEMP 97.5; O2SAT 92
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
[2017-06-08 13:09] VITALS: BP 158/83; PULSE 90; RESP 16; O2SAT 96
[2017-06-08] MEDS ORDERED: OXYC1CAP PO (13:11)
== END 2017-06-08 15:10 | disposition home or self-care (01) ==
LOC: EDTENT 12:47
DX: M54.5 Low back pain (principal); G89.29 Other chronic pain
CPT/HCPCS: 99283